=== PATIENT | male | born 1940 | race Caucasian/White ===

== ENCOUNTER 2021-01-02 13:34 | Outpatient (REF) | payer MEDICARE, MEDICAID, SELFPAY ==
[2021-01-02 14:15] LABS: MANUAL DIFF FLAG NO
[2021-01-02 14:17] LABS: Basophils Percent Auto 0.3 % (0-2); Eosinophils Absolute Auto 0.2 X10*3/uL (0.0-0.4); Eosinophils Percent Auto 3.1 % (0-4); Hematocrit 39.2 % (42-52); Hemoglobin 12.7 g/dl (14.0-18.0); Imm Gran Abs Auto 0.03 X10*3/uL (0.00-0.03); Imm Gran Pct Auto 0.4 % (0.0-0.4); Lymphocytes Absolute Auto 1.8 X10*3/uL (1.2-4.9); Lymphocytes Percent Auto 24.2 % (20-40); Mean Corpuscular HGB Conc 32.4 g/dl (31.0-36.0); Mean Corpuscular Hemoglobin 29.3 pg (27.0-33.0); Mean Corpuscular Volume 90.3 fL (80-98); Mean Platelet Volume 9.2 fL (9.4-12.4); Monocytes Absolute Auto 0.6 X10*3/uL (0.1-1.2); Monocytes Percent Auto 8.2 % (2-11); Neutrophils Absolute Auto 4.8 X10*3/uL (2.0-8.3); Neutrophils Percent Auto 63.8 % (45-73); Platelet Count 254 X10*3/uL (160-400); Red Blood Count 4.34 X10*6/uL (4.60-5.80); Red Cell Distribution Width 13.3 % (11.0-16.0); White Blood Count 7.5 X10*3/uL (4.8-10.8)
[2021-01-02 14:28] LABS: Glucose Urine UA NEG (NEG); Leukocyte Esterase Urine NEG (NEG); Nitrite Urine NEG (NEG); PH 5.5 (5.0-8.0); Urine Blood NEG (NEG); Urine Ketones NEG (NEG); Urine Protein NEG (NEG-TRACE)
[2021-01-02 14:34] LABS: Appearance Urine CLEAR; Color Urine YELLOW
[2021-01-02 14:44] LABS: Alanine Aminotransferase 18 U/L (0-40); Albumin Level 4.1 g/dL (3.5-5.0); Alkaline Phosphatase 77 U/L (39-117); Anion Gap 15 (12-20); Aspartate Amino Transferase 16 U/L (5-37); Bilirubin Total 0.3 mg/dL (0.0-1.0); Blood Urea Nitrogen 26 mg/dL (9-16); Calcium 8.9 mg/dL (8.4-10.2); Carbon Dioxide 25 mmol/L (22-29); Chloride 104 mmol/L (96-108); Cholesterol 228 mg/dL; Estimated Glomerular Filt Rate 54; Glucose Fasting 153 mg/dL (60-99); HDL Cholesterol 31 mg/dL; Potassium 4.7 mmol/L (3.3-5.1); Sodium 139 mmol/L (135-145); Total Protein 7.2 g/dL (6.5-8.0); Triglycerides 452 mg/dL
[2021-01-02 15:05] LABS: TSH reflex Free T4 2.91 uIU/mL (0.32-4.0)
== END 2021-01-02 13:35 | disposition home or self-care (01) ==
LOC: HO.LAB 13:34
PROVIDERS: PCP Internal Medicine; Visit Provider Internal Medicine
DX: I12.9 Hypertensive chronic kidney disease with stage 1 through stage 4 chronic kidney disease, or unspecified chronic kidney disease (principal); N18.31 Chronic kidney disease, stage 3a; E78.00 Pure hypercholesterolemia, unspecified; E66.9 Obesity, unspecified; J44.9 Chronic obstructive pulmonary disease, unspecified
CPT/HCPCS: 36415; 80053; 80061; 81003; 84443; 85025

== ENCOUNTER 2021-09-24 10:14 | Emergency (ER) | payer MEDICARE, MEDICAID, SELFPAY ==
--- NOTE | ~2021-09-24 | CT_ITS ---
EXAMINATION: CT ABDOMEN AND PELVIS WITHOUT CONTRAST CLINICAL INFORMATION: Constipation. Rule out small bowel obstruction. COMPARISON: KUB of September 24, [address] of the abdomen and pelvis of August 02, 2009 TECHNIQUE: Multidetector volumetric imaging was performed from the superior aspect of the liver through the pubic symphysis. Sagittal and coronal reformatted images were obtained on the technologist's workstation. This CT examination was performed using dose optimization techniques as appropriate, variously including the following: *Automated exposure control *Adjustment of mA and/or kV according to patient size (this includes techniques or standardized protocols for targeted exams where dose is matched to indication/reason for exam; i.e. extremities or head) *Use of iterative reconstruction technique DLP: 865 mGy-cm FINDINGS: LUNG BASES: There are emphysematous changes seen. The lung bases bilaterally. There is some bronchial wall thickening present. There is a small focus of groundglass opacity seen in the left lower lobe. There is a 4 mm noncalcified subpleural nodule seen within the left lower lobe on image 135 of [id number]. No pleural or pericardial effusion. Coronary artery and aortic valve calcification present. LIVER, GALLBLADDER, AND BILIARY TREE: Bridging segments 6 and 7 of the liver peripherally there is a well-circumscribed hyperdense lesion measuring 4.4 x 2.5 cm in size which may have been present previously from similar contour on study of August 02, 2009 however no definite increased density lesion is seen on that study and is difficult to determine if any lesion was present at that time. No intrahepatic bile duct dilatation is identified. The gallbladder is unremarkable with no evidence of radiopaque gallstones, gallbladder wall thickening, or obvious pericholecystic inflammatory changes. PANCREAS: There is some fatty involution of the pancreas seen. No focal mass or peripancreatic inflammatory changes noted. SPLEEN: Unremarkable. ADRENAL GLANDS: Unremarkable. KIDNEYS AND URETERS: The kidneys are normal in size, shape, and attenuation. There are a few right renal cysts present. No hydronephrosis, hydroureter, or calculi seen. There is bilateral perinephric stranding. 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 There is multilevel degenerative disc disease seen within the lumbar spine. BLADDER: Bladder wall is thickened without focal mass appreciated. GASTROINTESTINAL TRACT: No dilated loops of large or small bowel are evident. No free air or free fluid is seen. There is mild diverticulosis of the sigmoid colon without evidence of acute diverticulitis. No pericolonic inflammatory change. The appendix is visualized and appears unremarkable. There is moderate stool burden within the distal transverse and left colon with no significant stool noted within the right colon and proximal transverse colon. ABDOMINAL WALL: No significant hernia is appreciated. LYMPH NODES: No lymphadenopathy appreciated. VASCULAR: There is moderate aortoiliac calcified plaque seen. No abdominal aortic aneurysm. PELVIC VISCERA: Prostatic calcifications present. OSSEOUS STRUCTURES: No suspicious destructive bony lesions identified. Hemangioma is seen right side of the T10 vertebral body. CT/CT abdomen pelvis wo con IMPRESSION: No evidence of ileus or obstruction. No evidence of obstructive uropathy. Thick-walled urinary bladder. Hepatic lesion in segments 6 and 7 of increased density for which MRI would be of help in further evaluation as to whether this may represent hemangioma or solid lesion of other etiology.
--- NOTE | ~2021-09-24 | XR_ITS ---
EXAMINATION: XR ABDOMEN KUB CLINICAL INDICATION: Unable to move bowels 4 days. Question constipation. COMPARISON: CT abdomen of August 02, 2009 TECHNIQUE: AP view of the abdomen. FINDINGS: There is a single gaseous distended loop of bowel within the mid abdomen measuring approximately 8 cm in maximum dimension but which appears to represent a portion of transverse colon. There is a large amount of stool seen within the distal transverse and descending colon with no significant stool burden seen within the right colon or proximal transverse colon. No definite secondary evidence of free air. No dilated loops of small bowel are appreciated. No pneumatosis intestinalis. There is multilevel degenerative disc disease seen within the lumbar spine L2-S1. XR/XR KUB IMPRESSION: Large stool burden within the distal transverse and left colon. No significant stool burden seen within the right colon and proximal transverse colon. Mild gaseous distention portion of transverse colon just proximal to large amount of stool.
[2021-09-24 10:48] VITALS: BP 100/58; PULSE 78; RESP 18; TEMP 36.8; O2SAT 98; BMI 33.9
--- NOTE | 2021-09-24 13:41 | ED_ITS ---
HPI - General Adult General Chief complaint: General Medical Stated complaint: constipation Time Seen by Provider: 09/24/21 10:54 Source: patient Mode of arrival: ambulatory History of Present Illness HPI narrative: 81-year-old male with a past medical history of anxiety, HTN, CKD, COPD, fatigue, hyperlipidemia, presenting to the ED complaining of constipation without BM x4 days with abdominal bloating/pain. Admits is passing flatus. Denies fever, chills, nausea/vomiting, diarrhea, dysuria/hematuria. Admits was having diarrhea and took Imodium prior to symptoms beginning Onset (ago): day(s) Related Data Home Medications Medication Instructions Recorded Confirmed duloxetine 30 mg capsule,delayed 30 mg PO BID 08/23/20 04/22/21 release ipratropium 20 mcg-albuterol 100 1 puff INHALATION QID 08/23/20 04/22/21 mcg/actuation mist for inhalation budesonide-formoterol HFA 160 2 puff PO BID 10/25/20 04/22/21 mcg-4.5 mcg/actuation aerosol inhaler Previous Rx's Medication Instructions Recorded albuterol sulfate 90 mcg/actuation 2 puff PO QID PRN #6.7 g 11/10/20 aerosol inhaler (Ventolin HFA) rosuvastatin 10 mg tablet 10 mg PO BEDTIME 30 Days #30 tab 01/02/21 gabapentin 800 mg tablet 800 mg PO TID 30 Days #90 tab 03/10/21 losartan 100 mg tablet 100 mg PO DAILY 30 Days #30 tab 03/10/21 furosemide 40 mg tablet 40 mg PO DAILY #90 tab 08/14/21 oxycodone 15 mg tablet 15 mg PO BID PRN 30 Days #60 tab 08/19/21 trazodone 150 mg tablet 150 mg PO BEDTIME PRN 30 Days #30 08/28/21 tab amlodipine 5 mg tablet 5 mg PO DAILY #90 tab 08/29/21 mineral oil (Fleet Mineral Oil) 118 ml [place] DAILY PRN #6384 ml 09/24/21 polyethylene glycol 3350 17 gram 17 g PO DAILY PRN #30 ea 09/24/21 oral powder packet (Miralax) Allergies Allergy/AdvReac Type Severity Reaction Status Date / Time morphine AdvReac Severe respiratory Verified 04/22/21 16:28 depression/failure Review of Systems Review of Systems: Constitutional: No Fever, No Chills, No Fatigue, No Malaise ENT/Mouth: No Nasal Congestion, No sore throat Eyes: No Eye Pain, No Swelling, No Redness Cardiovascular: No Chest Pain, No SOB, No Edema, No Palpitations Respiratory: No Cough, No Dyspnea Gastrointestinal: No Nausea, No Vomiting, + Diarrhea (resolved), + Constipation, + Abdominal pain, No Hematochezia, No Melena Genitourinary: No irregular bleeding, No Dysuria, No Urinary Frequency, No Hematuria, No Flank Pain, No Urinary Flow Changes, No Hesitancy Musculoskeletal: No joint pain, No Myalgias, No Joint Swelling Skin: No Skin Lesions, No rash Neuro: No Weakness, No Numbness, No Dizziness, No Headache Yes all other systems are reviewed and are negative [facility] Past Medical History Attestation statement: The following information was validated with the patient. Medical History (Updated 09/24/21 @ 14:35 by ALEJANDRA Stevens) Anxiety Benign essential hypertension Chronic kidney disease (CKD), stage III (moderate) COPD (chronic obstructive pulmonary disease) COPD exacerbation Degenerative disc disease, cervical Erectile dysfunction Fatigue Hyperlipidemia Hypertension Insomnia Lumbar degenerative disc disease Obesity (BMI 30-39.9) Primary osteoarthritis of both knees Pure hypercholesterolemia Surgical History (Updated 04/22/21 @ 16:41 by LU Yu) History of glaucoma History of trabeculectomy Hx of total knee arthroplasty Family History Family History Father Cancer Mother No problems noted. Social History Social History Alcohol intake: current Alcohol intake frequency: holidays/special occasions only Alcohol type: beer Patient Tobacco Use Status: Former Tobacco user Tobacco use type: Cigar Years Smoked: 30 years Advance Directives: No Physical Exam Vital Signs: Vital Signs: Last Vital Signs Temp 98.2 F 09/24/21 10:48 Pulse 78 09/24/21 10:48 Resp 18 09/24/21 10:48 BP 100/58 L 09/24/21 10:48 Pulse Ox 98 09/24/21 10:48 Body Mass Index 33.9 Const: General: cooperative, healthy appearing and no acute distress Orientation/consciousness: patient oriented x3 Limitations: no limitations HENMT: Head: Yes normal to inspection Ears: hearing grossly normal bilaterally General nose exam: Normal external nose present Face and sinus: Yes normal facial exam Eyes: General: appearance normal, both eyes and all related structures EOM: EOMs intact bilaterally Neck: Neck: Yes normal visual inspection and Yes no meningeal signs Resp: Effort & Inspection: normal respiratory effort Auscultation: clear to auscultation bilaterally, no rales, no rhonchi and no wheezes Cardio: Rate: regular rate Heart sounds: S1 normal heart sound present and S2 normal heart sound present GI: Inspection: Yes normal to inspection Palpation (GI): Soft to palpation, Tenderness to palpation present (GI) (Lower abdominal tenderness), no guarding and not rigid : General: Yes no CVA tenderness Back/Spine/Pelvis: Back: no CVA tenderness Skin: Rashes: no rashes Wounds: no wounds Neuro: General: patient oriented x3 and no meningeal signs Gait exam (Neuro): Normal gait present Extrem: General: Yes normal to inspection Course Course Course Narrative: XR KUB IMPRESSION: Large stool burden within the distal transverse and left colon. No significant stool burden seen within the right colon and proximal transverse colon. Mild gaseous distention portion of transverse colon just proximal to large amount of stool. ? > will obtain CT for better evaluation CT abdomen pelvis wo con IMPRESSION: No evidence of ileus or obstruction. No evidence of obstructive uropathy. Thick-walled urinary bladder. Hepatic lesion in segments 6 and 7 of increased density for which MRI would be of help in further evaluation as to whether this may represent hemangioma or solid lesion of other etiology.? > patient had successful large BM in the ED, reports symptomatic improvement, denies abdominal pain at this time. Abdomen is soft and nontender. Labs discontinued, as patient is now asymptomatic, unlikely appendicitis/diverticulitis. Will still send UA to rule out UTI based on CT results -UA negative. Results discussed with patient including worrisome signs and symptoms and strict return precautions and needed follow-up with PCP, & further workup of hepatic lesions. Patient verbalized understanding feel safe for discharge home at this time Medical Decision Making MDM Narrative Medical decision making narrative: 81-year-old male with a past medical history of anxiety, HTN, CKD, COPD, fatigue, hyperlipidemia, presenting to the ED complaining of constipation without BM x4 days with abdominal bloating/pain. On exam vital signs stable, NAD/nontoxic, abdomen soft with lower abdominal tenderness, no rebound or guarding, no CVAT. Concern for constipation vs SBO vs ?Diverticulitis/appendicitis. Lower concern for renal stone/pyelo or UTI Plan: KUB, labs, UA, +/- CT Lab Data Labs: Lab Results 09/24/21 Range/Units 14:02 Urine Color STRAW Urine Appearance HAZY Urine pH 6.5 (5.0-8.0) Ur Specific Holliday 1.010 (1.005-1.025) Urine Protein NEG (NEG-TRACE) MG/DL Urine Glucose (UA) NEG (NEG) MG/DL Urine Ketones NEG (NEG) MG/DL Urine Blood NEG (NEG) Urine Nitrite NEG (NEG) Ur Leukocyte Esterase NEG (NEG) Discharge Plan Discharge Clinical Impression: Constipation, Hepatic lesion Patient Disposition: Home, Self-Care Instructions: Constipation (ED) Additional Instructions: Your CT scan showed a lot of stool/constipation however no obstruction Use enema at home as needed Use MiraLax visual help move her bowels If you are not passing stool in the next 48 hours, stop passing gas, have persistent worsening abdominal pain, developed nausea/vomiting or fever please return to the ED Your CT scan showed some liver lesions, it is important to follow-up with your primary care doctor pertaining to these results, it is recommended you have an MRI for further evaluation Prescriptions: New mineral oil [Fleet Mineral Oil] Enema 118 ml [place] DAILY PRN (Reason: constipation) Qty: 6384 RF: 0 polyethylene glycol 3350 [Miralax] 17 gram powder in packet 17 g PO DAILY PRN (Reason: constipation) Qty: 30 RF: 0 No Action albuterol sulfate [Ventolin HFA] 90 mcg/actuation HFA aerosol inhaler 2 puff PO QID PRN (Reason: bronchospasm) Qty: 6.7 RF: 5 gabapentin 800 mg tablet 800 mg PO TID 30 Days Qty: 90 RF: 2 losartan 100 mg tablet 100 mg PO DAILY 30 Days Qty: 30 RF: 3 furosemide 40 mg tablet 40 mg PO DAILY Qty: 90 RF: 1 oxycodone 15 mg tablet 15 mg PO BID PRN (Reason: severe pain) 30 Days Qty: 60 RF: 0 trazodone 150 mg tablet 150 mg PO BEDTIME PRN (Reason: for insomnia) 30 Days Qty: 30 RF: 2 amlodipine 5 mg tablet 5 mg PO DAILY Qty: 90 RF: 1 rosuvastatin 10 mg tablet 10 mg PO BEDTIME 30 Days Qty: 30 RF: 3 Combivent Respimat 20-100 mcg/actuation mist 1 puff inhalation QID RF: 0 duloxetine 30 mg capsule,delayed release(DR/EC) 30 mg PO BID RF: 0 budesonide-formoterol 160-4.5 mcg/actuation HFA aerosol inhaler 2 puff PO BID RF: 0 Referrals: Kody Sheth MD [Primary Care Provider] - 2 days
[2021-09-24 14:10] LABS: Appearance Urine HAZY; Color Urine STRAW; Glucose Urine UA NEG (NEG); Leukocyte Esterase Urine NEG (NEG); Nitrite Urine NEG (NEG); PH 6.5 (5.0-8.0); Urine Blood NEG (NEG); Urine Ketones NEG (NEG); Urine Protein NEG (NEG-TRACE)
== END 2021-09-24 15:01 | disposition home or self-care (01) ==
PROVIDERS: Physician Assistant; Emergency Provider Emergency Medicine; PCP Internal Medicine
DX: K59.00 Constipation, unspecified (principal); K76.9 Liver disease, unspecified; I12.9 Hypertensive chronic kidney disease with stage 1 through stage 4 chronic kidney disease, or unspecified chronic kidney disease; N18.30 Chronic kidney disease, stage 3 unspecified; J44.9 Chronic obstructive pulmonary disease, unspecified
CPT/HCPCS: 74018; 74176; 81003; 96360; 99283; 99284

== ENCOUNTER 2021-10-24 16:20 | Outpatient (REF) | payer MEDICARE, MEDICAID, SELFPAY ==
[2021-10-24 16:43] LABS: MANUAL DIFF FLAG NO
[2021-10-24 17:13] LABS: Basophils Percent Auto 0.3 % (0-2); Eosinophils Absolute Auto 0.3 X10*3/uL (0.0-0.4); Eosinophils Percent Auto 2.9 % (0-4); Hemoglobin 12.3 g/dl (14.0-18.0); Imm Gran Abs Auto 0.05 X10*3/uL (0.00-0.03); Imm Gran Pct Auto 0.5 % (0.0-0.4); Lymphocytes Absolute Auto 1.8 X10*3/uL (1.2-4.9); Lymphocytes Percent Auto 19.8 % (20-40); Mean Corpuscular HGB Conc 32.4 g/dl (31.0-36.0); Mean Corpuscular Hemoglobin 29.4 pg (27.0-33.0); Mean Corpuscular Volume 90.9 fL (80.0-98.0); Mean Platelet Volume 9.7 fL (9.4-12.4); Monocytes Absolute Auto 0.7 X10*3/uL (0.1-1.2); Monocytes Percent Auto 7.3 % (2-11); Neutrophils Absolute Auto 6.4 x10*3/uL (2.0-8.3); Neutrophils Percent Auto 69.2 % (45-73); Platelet Count 248 X10*3/uL (160-400); Red Blood Count 4.18 X10*6/uL (4.60-5.80); Red Cell Distribution Width 12.7 % (11.0-16.0); White Blood Count 9.3 X10*3/uL (4.8-10.8)
[2021-10-24 17:20] LABS: Appearance Urine CLEAR; Color Urine STRAW; Glucose Urine UA NEG (NEG); Leukocyte Esterase Urine NEG (NEG); Nitrite Urine NEG (NEG); PH 5.5 (5.0-8.0); Specific Gravity - Urine <= 1.005 (1.005-1.025); Urine Blood NEG (NEG); Urine Ketones NEG (NEG); Urine Protein NEG (NEG-TRACE)
[2021-10-24 17:40] LABS: Alanine Aminotransferase 23 U/L (0-40); Alkaline Phosphatase 86 U/L (39-117); Anion Gap 14 (12-20); Aspartate Amino Transferase 18 U/L (5-37); Bilirubin Total 0.3 mg/dL (0.0-1.0); Blood Urea Nitrogen 18 mg/dL (9-16); Calcium 9.6 mg/dL (8.4-10.2); Carbon Dioxide 26 mmol/L (22-29); Chloride 104 mmol/L (96-108); Cholesterol 159 mg/dL; Estimated Glomerular Filt Rate > 60; Glucose Fasting 198 mg/dL (60-99); HDL Cholesterol 39 mg/dL; Iron 57 mcg/dL (45-160); LDL Cholesterol Calculated 55 mg/dl; Percent Iron Saturation 18 % (15-50); Potassium 4.7 mmol/L (3.3-5.1); Sodium 139 mmol/L (135-145); Total Iron Binding Capacity 320 mcg/dL (228-428); Total Protein 7.1 g/dL (6.5-8.0); Triglycerides 325 mg/dL; Unsaturated Iron Binding 263 ug/dL
[2021-10-24 18:03] LABS: Vitamin D 25-OH Total 25.5 ng/mL (>30)
[2021-10-24 18:16] LABS: Folate 7.7 ng/mL (> or = 4.0); Vitamin B12 221 pg/mL (200-900)
[2021-10-29 14:51] LABS: Testosterone, Free 47.4 pg/mL (30.0-135.0); Testosterone, Total 274 ng/dL (250-1100)
== END 2021-10-24 16:21 | disposition home or self-care (01) ==
LOC: HO.LAB 16:20
PROVIDERS: PCP Internal Medicine; Visit Provider Internal Medicine
DX: R53.83 Other fatigue (principal); I10 Essential (primary) hypertension; E34.9 Endocrine disorder, unspecified; E78.00 Pure hypercholesterolemia, unspecified
CPT/HCPCS: 36415; 80053; 80061; 81003; 82306; 82607; 82746; 83540; 84402; 84403; 84443; 85025

== ENCOUNTER 2021-12-06 14:05 | Outpatient (REF) | payer MEDICARE, MEDICAID, SELFPAY ==
--- NOTE | ~2021-12-06 | XR_ITS ---
EXAMINATION: XR CHEST CLINICAL INFORMATION: Cough COMPARISON: Multiple previous chest x-rays with the last chest x-ray dated 01/26/2020 TECHNIQUE: 2 views of the chest were obtained. FINDINGS: The cardiomediastinal silhouette is stable and normal. The lungs are symmetrically well expanded. No focal consolidation, changes of congestion or pleural effusions. No pneumothorax. Multilevel mild degenerative changes in the spine. XR/XR chest 2V IMPRESSION: No convincing radiographic evidence of pneumonia. No acute pulmonary process.
[2021-12-06 14:21] LABS: Binax Internal Control QC Valid; Binax Now Covid-19 Ag Positive (Negative)
== END 2021-12-06 14:06 | disposition home or self-care (01) ==
LOC: HO.HMGCX 14:05
PROVIDERS: Visit Provider Physician Assistant Medical
DX: Z20.822 Contact with and (suspected) exposure to COVID-19 (principal); R05.9 Cough, unspecified
CPT/HCPCS: 71046

== ENCOUNTER 2021-12-10 18:43 | Emergency (ER) | payer MEDICARE, MEDICAID, SELFPAY ==
--- NOTE | ~2021-12-10 | XR_ITS ---
EXAMINATION: PORTABLE CHEST 1 VIEW CLINICAL INFORMATION: covid + cough . COMPARISON: 12/06/2021. TECHNIQUE: Portable frontal view of the chest was obtained. FINDINGS: The lungs are hyperinflated with mild chronic appearing reticular markings. No focal infiltrate, effusion, edema, or pneumothorax. Cardiac and mediastinal silhouettes are within normal limits for technique. No acute bony abnormality seen. XR/XR chest 1V IMPRESSION: No evidence of acute disease compared to 12/06/2021.
[2021-12-10 20:58] VITALS: BP 108/78; PULSE 87; RESP 18; TEMP 36; O2SAT 96; BMI 30.1
[2021-12-10 22:38] VITALS: BP 110/70; PULSE 70; RESP 14; TEMP 36.9; O2SAT 97
[2021-12-10 22:51] LABS: MANUAL DIFF FLAG NO
[2021-12-10 22:53] LABS: Basophils Percent Auto 0.2 % (0-2); Eosinophils Percent Auto 0.8 % (0-4); Hemoglobin 13.5 g/dl (14.0-18.0); Imm Gran Abs Auto 0.01 X10*3/uL (0.00-0.03); Imm Gran Pct Auto 0.2 % (0.0-0.4); Lymphocytes Absolute Auto 1.3 X10*3/uL (1.2-4.9); Lymphocytes Percent Auto 27.2 % (20-40); Mean Corpuscular HGB Conc 33.8 g/dl (31.0-36.0); Mean Corpuscular Hemoglobin 30.1 pg (27.0-33.0); Mean Corpuscular Volume 89.3 fL (80.0-98.0); Mean Platelet Volume 9.3 fL (9.4-12.4); Monocytes Absolute Auto 0.5 X10*3/uL (0.1-1.2); Monocytes Percent Auto 9.7 % (2-11); Neutrophils Absolute Auto 3.1 x10*3/uL (2.0-8.3); Neutrophils Percent Auto 61.9 % (45-73); Platelet Count 212 X10*3/uL (160-400); Red Blood Count 4.48 X10*6/uL (4.60-5.80); Red Cell Distribution Width 13.2 % (11.0-16.0); White Blood Count 4.9 X10*3/uL (4.8-10.8)
--- NOTE | 2021-12-10 23:01 | ED.WEAKNESS ---
HPI - Weakness General Chief complaint: Weakness Stated complaint: covid +, coughing up blood Time Seen by Provider: 12/10/21 21:16 Source: patient Mode of arrival: ambulatory History of Present Illness HPI Narrative: 81-year-old male with past medical history of anxiety, HTN, CKD, COPD, insomnia, obesity, hyperlipidemia, COVID-19 positive yesterday at the clinic, presenting to the ED complaining of persistent generalized fatigue/ weakness, subjective fever, chills, productive cough, mild SOB, and diarrhea x1 week. Reports tried to see PCP however was sent to the emergency department. Denies chest pain, abdominal pain, nausea/ vomiting, recent travel MD Complaint: generalized weakness Onset (ago): day(s) Related Data Home Medications Medication Instructions Recorded Confirmed budesonide-formoterol HFA 160 2 puff PO BID 10/25/20 11/12/21 mcg-4.5 mcg/actuation aerosol inhaler Previous Rx's Medication Instructions Recorded albuterol sulfate 90 mcg/actuation 2 puff PO QID PRN #6.7 g 11/10/20 aerosol inhaler (Ventolin HFA) furosemide 40 mg tablet 40 mg PO DAILY #90 tab 08/14/21 mineral oil (Fleet Mineral Oil) 118 ml SC DAILY PRN #6384 ml 09/24/21 amlodipine 5 mg tablet 5 mg PO DAILY #90 tab 09/26/21 gabapentin 800 mg tablet 800 mg PO TID 30 Days #90 tab 09/26/21 losartan 100 mg tablet 100 mg PO DAILY #90 tab 10/24/21 tizanidine 4 mg tablet 4 mg PO BEDTIME PRN 30 Days #90 tab 10/24/21 Combivent Respimat 20 mcg-100 1 puff INHALATION QID #4 g NS 11/05/21 mcg/actuation solution for inhalation (ipratropium-albuterol) rosuvastatin 10 mg tablet 10 mg PO BEDTIME 30 Days #30 tab 11/12/21 trazodone 150 mg tablet 150 mg PO BEDTIME PRN 30 Days #30 11/12/21 tab hydroxyzine HCl 25 mg tablet 25 mg PO TID PRN 30 Days #90 tab 12/08/21 oxycodone 15 mg tablet 15 mg PO BID PRN 30 Days #60 tab 12/10/21 Allergies Allergy/AdvReac Type Severity Reaction Status Date / Time morphine AdvReac Severe respiratory Verified 12/10/21 22:39 depression/failure Review of Systems Review of Systems: Constitutional: +Subj Fever, + Chills, + Fatigue, + Malaise ENT/Mouth: No Ear Pain, No Nasal Congestion, No Sinus Pain, No Hoarseness, No sore throat, No Rhinorrhea Eyes: No Eye Pain, No Swelling, No Redness Cardiovascular: No Chest Pain, No SOB, No Dyspnea on Exertion, No Orthopnea, No Edema, No Palpitations Respiratory: + Cough, + Sputum, No Wheezing, No Dyspnea Gastrointestinal: No Nausea, No Vomiting, + Diarrhea, No Constipation, No Abdominal pain Genitourinary: No Dysuria, No Hematuria, No Urgency, No Flank Pain Musculoskeletal: No joint pain, No Myalgias, No Joint Swelling Skin: No Skin Lesions, No rash Neuro: + Weakness, No Dizziness, No Headache Yes all other systems are reviewed and are negative PMFSH Past Medical History Attestation statement: The following information was validated with the patient. Medical History Anxiety Benign essential hypertension Chronic kidney disease (CKD), stage III (moderate) COPD (chronic obstructive pulmonary disease) Degenerative disc disease, cervical Erectile dysfunction Insomnia Lumbar degenerative disc disease Obesity (BMI 30-39.9) Primary osteoarthritis of both knees Pure hypercholesterolemia Surgical History History of glaucoma History of trabeculectomy Hx of total knee arthroplasty Family History Family History Father Cancer Mother No problems noted. Social History Social History Housing: House Alcohol intake: current Alcohol intake frequency: holidays/special occasions only Alcohol type: beer Patient Tobacco Use Status: Former Tobacco user Tobacco use type: Cigar Years Smoked: 30 years Second Hand Smoke Exposure: Yes Advance Directives: No Advance Directives Information Provided: No service: No Current occupational status: retired Physical Exam Vital Signs: Vital Signs: Last Vital Signs Temp 98.0 F 12/10/21 23:48 Pulse 77 12/10/21 23:48 Resp 24 H 12/10/21 23:48 BP 128/83 12/10/21 23:48 Pulse Ox 99 12/10/21 23:48 BMI result Body Mass Index 30.1 Const: General: cooperative, healthy appearing, no acute distress, alert and awake Orientation/consciousness: patient oriented x3 Limitations: no limitations HENMT: Head: Yes normal to inspection and Yes atraumatic Ears: hearing grossly normal bilaterally General nose exam: Normal external nose present Face and sinus: Yes normal facial exam Eyes: General: appearance normal, both eyes and all related structures EOM: EOMs intact bilaterally Neck: Neck: Yes normal visual inspection and Yes no meningeal signs Resp: Effort & Inspection: normal respiratory effort and no respiratory distress Auscultation: clear to auscultation bilaterally, no rales, no rhonchi and no wheezes Cardio: Rate: regular rate Heart sounds: S1 normal heart sound present and S2 normal heart sound present GI: Inspection: Yes normal to inspection Palpation (GI): Soft to palpation, nontender, no guarding and not rigid Skin: Rashes: no rashes Wounds: no wounds Neuro: General: patient oriented x3, gait normal, tone normal, moves all extremities and no meningeal signs Gait exam (Neuro): Normal gait present Extrem: Other: 1+ bilateral lower extremity pitting edema General: Yes normal to inspection Course Course Course Narrative: -2208-- no leukocytosis. H&H stable. -COVID-19 positive XR chest 1V IMPRESSION: No evidence of acute disease compared to 12/06/2021. - troponin 7.6 > will obtain repeat -0107-- repeat troponin equivocal, CT unlikely. Results discussed with patient including worrisome signs and symptoms and strict return precautions & close follow-up with PCP as needed MDM - Weakness MDM Narrative Medical decision making narrative: 81-year-old male with past medical history of anxiety, HTN, CKD, COPD, insomnia, obesity, hyperlipidemia, COVID-19 positive yesterday at the clinic, presenting to the ED complaining of persistent generalized fatigue/ weakness, subjective fever, chills, productive cough, mild SOB, and diarrhea x1 week. On exam VSS, NAD, nontoxic appearing, lungs CTA, 1+ bilateral pitting edema, abdomen soft nontender. Concern for symptoms consistent with COVID-19 infection. Rule out COVID pneumonia and CHF. Symptoms atypical for ACS/ PE or bacterial infection Plan: EKG, labs, CXR Medical Records Attestation: I reviewed the patient's medical records. Lab Data Attestation: I reviewed the patient's lab results. Result diagrams: 12/10/21 22:34 12/10/21 23:06 Labs: Lab Results 12/10/21 12/10/21 12/10/21 Range/Units 22:28 22:34 22:34 WBC 4.9 (4.8-10.8) X10*3/uL RBC 4.48 L (4.60-5.80) X10*6/uL Hgb 13.5 L (14.0-18.0) g/dl Hct 40.0 L (42.0-52.0) % MCV 89.3 (80.0-98.0) fL MCH 30.1 (27.0-33.0) pg MCHC 33.8 (31.0-36.0) g/dl RDW 13.2 (11.0-16.0) % Plt Count 212 (160-400) X10*3/uL MPV 9.3 L (9.4-12.4) fL Immature Gran % (Auto) 0.2 (0.0-0.4) % Neut % (Auto) 61.9 (45-73) % Lymph % (Auto) 27.2 (20-40) % [place] % (Auto) 9.7 (2-11) % Eos % (Auto) 0.8 (0-4) % Baso % (Auto) 0.2 (0-2) % Lymph # (Auto) 1.3 (1.2-4.9) X10*3/uL [place] # (Auto) 0.5 (0.1-1.2) X10*3/uL Eos # (Auto) 0.0 (0.0-0.4) X10*3/uL Baso # (Auto) 0.0 (0.0-0.2) X10*3/uL Abs Immat Gran (auto) 0.01 (0.00-0.03) X10*3/uL Absolute Neuts (auto) 3.1 (2.0-8.3) x10*3/uL Absolute Nucleated RBC 0.000 (0.0-0.012) X10*3/uL Nucleated RBC % (auto) 0.0 (0.0-0.2) /100WBC Sodium (135-145) mmol/L Potassium (3.3-5.1) mmol/L Chloride (96-108) mmol/L Carbon Dioxide (22-29) mmol/L Anion Gap (12-20) BUN (9-16) mg/dL Creatinine (0.5-1.4) mg/dL Estim Creat Clear Calc Estimated GFR Random Glucose (60-115) mg/dL Calcium (8.4-10.2) mg/dL Magnesium (1.6-2.6) mg/dL Total Bilirubin (0.0-1.0) mg/dL Direct Bilirubin (0.0-0.5) mg/dL AST (5-37) U/L ALT (0-40) U/L Alkaline Phosphatase (39-117) U/L Troponin I High Sens 7.6 (<3.5-35.0) ng/L B-Natriuretic Peptide 37 (<100) pg/mL Total Protein (6.5-8.0) g/dL Albumin (3.5-5.0) g/dL COVID-19 ([facility]) Positive A (Negative) COVID-19 Clin Com See Note 12/10/21 12/11/21 Range/Units 23:06 00:36 WBC (4.8-10.8) X10*3/uL RBC (4.60-5.80) X10*6/uL Hgb (14.0-18.0) g/dl Hct (42.0-52.0) % MCV (80.0-98.0) fL MCH (27.0-33.0) pg MCHC (31.0-36.0) g/dl RDW (11.0-16.0) % Plt Count (160-400) X10*3/uL MPV (9.4-12.4) fL Immature Gran % (Auto) (0.0-0.4) % Neut % (Auto) (45-73) % Lymph % (Auto) (20-40) % [place] % (Auto) (2-11) % Eos % (Auto) (0-4) % Baso % (Auto) (0-2) % Lymph # (Auto) (1.2-4.9) X10*3/uL [place] # (Auto) (0.1-1.2) X10*3/uL Eos # (Auto) (0.0-0.4) X10*3/uL Baso # (Auto) (0.0-0.2) X10*3/uL Abs Immat Gran (auto) (0.00-0.03) X10*3/uL Absolute Neuts (auto) (2.0-8.3) x10*3/uL Absolute Nucleated RBC (0.0-0.012) X10*3/uL Nucleated RBC % (auto) (0.0-0.2) /100WBC Sodium 139 (135-145) mmol/L Potassium 4.3 (3.3-5.1) mmol/L Chloride 106 (96-108) mmol/L Carbon Dioxide 23 (22-29) mmol/L Anion Gap 14 (12-20) BUN 20 H (9-16) mg/dL Creatinine 1.27 (0.5-1.4) mg/dL Estim Creat Clear Calc 51.9 Estimated GFR 54 Random Glucose 104 (60-115) mg/dL Calcium 8.5 D (8.4-10.2) mg/dL Magnesium 2.0 (1.6-2.6) mg/dL Total Bilirubin 0.3 (0.0-1.0) mg/dL Direct Bilirubin < 0.2 (0.0-0.5) mg/dL AST 29 D (5-37) U/L ALT 26 (0-40) U/L Alkaline Phosphatase 80 (39-117) U/L Troponin I High Sens 7.1 (<3.5-35.0) ng/L B-Natriuretic Peptide (<100) pg/mL Total Protein 6.8 (6.5-8.0) g/dL Albumin 3.6 (3.5-5.0) g/dL COVID-19 ([facility]) (Negative) COVID-19 Clin Com Discharge Plan Discharge Clinical Impression: COVID-19 Instructions: COVID-19 (Coronavirus Disease 2019) (ED) Additional Instructions: At this time you will be okay for discharge. Please self isolate for 10-14 days. Do not expose yourself to others. You may not go to work or school. Please continue to follow cold instructions and wash your hands frequently. You may take Tylenol / Motrin as directed on the bottle for pain or fever. If you have constant or persistent shortness of breath, fever unresolved with medications, chest pain, or your unable to eat or drink please return to the ED CDC Guidelines for home isolation: - Stay away from others - WEAR A MASK if you are sick AND STAY HOME - Cover your mouth and nose with a tissue when you cough or sneeze. Dispose of tissues in a lined trash can and wash your hands immediately with soap and water for at least 20 seconds. If soap and water are not available, clean hands with alcohol-based hand digital printer that contains at least 60% alcohol. - Clean your hands often with soap and water for at least 20 seconds - Avoid touching your eyes, nose and mouth with unwashed hands - Do not share dishes, drinking glasses, cups, eating utensils, towels, or bedding with other people in your home. After using these items, wash them thoroughly with soap and water or put in the fisher sponge hooking. - Clean high-touch surfaces in your isolation area ( sick room and bathroom) every day; let a caregiver clean and disinfect high-touch surfaces in other areas of the home. Clean the area or item with soap and water or another detergent if it is dirty. Then, use a household disinfectant. - Limit contact with pets and animals: If you must care for a pet, wash your hands before and after interacting with them) Prescriptions: No Action albuterol sulfate [Ventolin HFA] 90 mcg/actuation HFA aerosol inhaler 2 puff PO QID PRN (Reason: bronchospasm) Qty: 6.7 RF: 5 furosemide 40 mg tablet 40 mg PO DAILY Qty: 90 RF: 1 losartan 100 mg tablet 100 mg PO DAILY Qty: 90 RF: 1 tizanidine 4 mg tablet 4 mg PO BEDTIME PRN (Reason: muscle spasticity) 30 Days Qty: 90 RF: 1 Combivent Respimat 20-100 mcg/actuation mist 1 puff inhalation QID Qty: 4 RF: 5 hydroxyzine HCl 25 mg tablet 25 mg PO TID PRN (Reason: anxiety) 30 Days Qty: 90 RF: 0 oxycodone 15 mg tablet 15 mg PO BID PRN (Reason: severe pain) 30 Days Qty: 60 RF: 0 mineral oil [Fleet Mineral Oil] Enema 118 ml SC DAILY PRN (Reason: constipation) Qty: 6384 RF: 0 trazodone 150 mg tablet 150 mg PO BEDTIME PRN (Reason: for insomnia) 30 Days Qty: 30 RF: 0 rosuvastatin 10 mg tablet 10 mg PO BEDTIME 30 Days Qty: 30 RF: 3 budesonide-formoterol 160-4.5 mcg/actuation HFA aerosol inhaler 2 puff PO BID RF: 0 gabapentin 800 mg tablet 800 mg PO TID 30 Days Qty: 90 RF: 2 amlodipine 5 mg tablet 5 mg PO DAILY Qty: 90 RF: 1 Referrals: Kody Sheth MD [Primary Care Provider] - 3 days (as needed)
[2021-12-10 23:06] LABS: COVID-19 Test Positive (Negative)
[2021-12-10 23:12] LABS: B Type Natriuretic Peptide 37 pg/mL (<100); Troponin-I High Sensitivity 7.6 ng/L (<3.5-35.0)
[2021-12-10 23:31] LABS: Alanine Aminotransferase 26 U/L (0-40); Albumin Level 3.6 g/dL (3.5-5.0); Alkaline Phosphatase 80 U/L (39-117); Anion Gap 14 (12-20); Aspartate Amino Transferase 29 U/L (5-37); Bilirubin Direct < 0.2 mg/dL (0.0-0.5); Bilirubin Total 0.3 mg/dL (0.0-1.0); Blood Urea Nitrogen 20 mg/dL (9-16); Calcium 8.5 mg/dL (8.4-10.2); Carbon Dioxide 23 mmol/L (22-29); Chloride 106 mmol/L (96-108); Creatinine Clr Calc Pharmacy 51.9; Estimated Glomerular Filt Rate 54; Glucose Random 104 mg/dL (60-115); Potassium 4.3 mmol/L (3.3-5.1); Sodium 139 mmol/L (135-145); Total Protein 6.8 g/dL (6.5-8.0)
[2021-12-10 23:48] VITALS: BP 128/83; PULSE 77; RESP 24; TEMP 36.7; O2SAT 99
--- NOTE | 2021-12-11 | ECG_ITS ---
Test Reason : chest pain Blood Pressure : / mmHG Vent. Rate : 066 BPM Atrial Rate : 066 BPM P-R Int : 252 ms QRS Dur : 098 ms QT Int : 402 ms P-R-T Axes : 051 006 006 degrees QTc Int : 421 ms Sinus rhythm with 1st degree A-V block Otherwise normal ECG When compared with ECG of 18-NOV-2019 20:46, No significant change was found Referred By: Generic ED Physician Electronically Signed By:Fam Galloway
[2021-12-11 01:02] LABS: Troponin-I High Sensitivity 7.1 ng/L (<3.5-35.0)
[2021-12-11 01:14] VITALS: BP 131/77; PULSE 85; RESP 17; TEMP 36.6; O2SAT 95
== END 2021-12-11 02:00 | disposition home or self-care (01) ==
PROVIDERS: Emergency Medicine Emergency Medical Services; Physician Assistant; Emergency Provider Internal Medicine; PCP Internal Medicine
DX: U07.1 COVID-19 (principal); R06.02 Shortness of breath; I12.9 Hypertensive chronic kidney disease with stage 1 through stage 4 chronic kidney disease, or unspecified chronic kidney disease; N18.9 Chronic kidney disease, unspecified; Z79.899 Other long term (current) drug therapy; F17.200 Nicotine dependence, unspecified, uncomplicated; Z71.6 Tobacco abuse counseling
CPT/HCPCS: 36415; 71045; 80048; 80076; 83735; 83880; 84484; 85025; 87635; 93005; 99283; 99284

== ENCOUNTER 2022-04-27 16:58 | Emergency (ER) | payer MEDICARE, MEDICAID, SELFPAY | END 2022-04-27 17:41 | disposition left against medical advice (07) | PROVIDERS: Emergency Provider Emergency Medicine; PCP Internal Medicine | DX: R42 Dizziness and giddiness (principal); F41.9 Anxiety disorder, unspecified; I12.9 Hypertensive chronic kidney disease with stage 1 through stage 4 chronic kidney disease, or unspecified chronic kidney disease; N18.30 Chronic kidney disease, stage 3 unspecified ==

== ENCOUNTER 2022-04-30 15:26 | Outpatient (REF) | payer MEDICARE, MEDICAID, SELFPAY ==
[2022-04-30 15:50] LABS: MANUAL DIFF FLAG NO
[2022-04-30 15:52] LABS: Basophils Percent Auto 0.4 % (0-2); Eosinophils Absolute Auto 0.2 X10*3/uL (0.0-0.4); Hemoglobin 13.3 g/dl (14.0-18.0); Imm Gran Abs Auto 0.03 X10*3/uL (0.00-0.03); Imm Gran Pct Auto 0.4 % (0.0-0.4); Lymphocytes Absolute Auto 1.9 X10*3/uL (1.2-4.9); Lymphocytes Percent Auto 23.7 % (20-40); Mean Corpuscular HGB Conc 34.1 g/dl (31.0-36.0); Mean Corpuscular Hemoglobin 29.8 pg (27.0-33.0); Mean Corpuscular Volume 87.4 fL (80.0-98.0); Mean Platelet Volume 9.3 fL (9.4-12.4); Monocytes Absolute Auto 0.7 X10*3/uL (0.1-1.2); Monocytes Percent Auto 8.3 % (2-11); Neutrophils Absolute Auto 5.3 x10*3/uL (2.0-8.3); Neutrophils Percent Auto 65.2 % (45-73); Platelet Count 231 X10*3/uL (160-400); Red Blood Count 4.46 X10*6/uL (4.60-5.80); Red Cell Distribution Width 12.6 % (11.0-16.0); White Blood Count 8.2 X10*3/uL (4.8-10.8)
[2022-04-30 16:25] LABS: Alanine Aminotransferase 23 U/L (0-40); Albumin Level 3.8 g/dL (3.5-5.0); Alkaline Phosphatase 82 U/L (39-117); Anion Gap 16 (12-20); Aspartate Amino Transferase 19 U/L (5-37); Bilirubin Total 0.5 mg/dL (0.0-1.0); Blood Urea Nitrogen 17 mg/dL (9-16); Calcium 8.7 mg/dL (8.4-10.2); Carbon Dioxide 21 mmol/L (22-29); Chloride 103 mmol/L (96-108); Cholesterol 123 mg/dL; Estimated Glomerular Filt Rate 52; Glucose Random 201 mg/dL (60-115); HDL Cholesterol 32 mg/dL; LDL Cholesterol Calculated 54 mg/dl; Potassium 4.6 mmol/L (3.3-5.1); Sodium 135 mmol/L (135-145); Total Protein 6.8 g/dL (6.5-8.0); Triglycerides 187 mg/dL
[2022-04-30 16:48] LABS: Prostate Specific Antigen 0.46 ng/mL (<0.05-4.0); Thyroid Stimulating Hormone 1.41 uIU/mL (0.32-4.0)
[2022-05-05 22:01] LABS: Testosterone, Free 30.9 pg/mL (30.0-135.0); Testosterone, Total 236 ng/dL (250-1100)
== END 2022-04-30 15:27 | disposition home or self-care (01) ==
LOC: HO.LAB 15:26
PROVIDERS: PCP Internal Medicine; Visit Provider Internal Medicine
DX: E55.9 Vitamin D deficiency, unspecified (principal); I10 Essential (primary) hypertension; E78.00 Pure hypercholesterolemia, unspecified; R79.89 Other specified abnormal findings of blood chemistry; N40.0 Benign prostatic hyperplasia without lower urinary tract symptoms; Z12.5 Encounter for screening for malignant neoplasm of prostate
CPT/HCPCS: 36415; 80053; 80061; 82306; 84153; 84402; 84403; 84443; 85025

== ENCOUNTER 2022-06-27 07:16 | Emergency (ER) | payer MEDICARE, MEDICAID, SELFPAY | END 2022-06-27 08:16 | disposition left against medical advice (07) | LOC: HO.ED 08:05 | PROVIDERS: Emergency Provider Emergency Medicine; PCP Internal Medicine | DX: K59.00 Constipation, unspecified (principal) ==

== ENCOUNTER 2023-01-13 15:36 | Emergency (ER) | payer MEDICARE, MEDICAID, SELFPAY ==
--- NOTE | ~2023-01-13 | XR_ITS ---
EXAMINATION: XR CHEST CLINICAL INFORMATION: Productive cough and wheeze COMPARISON: 12/10/2021 TECHNIQUE: 2 views of the chest were obtained. FINDINGS: The lungs are hyperaerated but grossly clear. Heart and pulmonary vessels are normal. No pleural effusion. There is degenerative change in the shoulder joints. Minor chronic compressive deformity mid thoracic spine. XR/XR chest 2V IMPRESSION: No active disease.
--- NOTE | ~2023-01-13 | XR_ITS ---
EXAMINATION: XR knee RT 4V, XR ankle LT min 3V CLINICAL INFORMATION: Reason for Exam pain status post fall COMPARISON: Right knee radiographs 02/19/2020 TECHNIQUE: 4 views right knee; 3 views left ankle FINDINGS: Right knee: Status post total knee arthroplasty. No evidence of interval subsidence. No periprosthetic fracture, dislocation, or new significant periprosthetic radiolucency. Fixation screw is seen in the periphery of the medial tibial plateau, unchanged. No knee joint effusion. Moderate vascular calcifications. Left ankle: No acute fracture or dislocation. Ankle mortise is congruent and intact. No ankle joint effusion. Soft tissue prominence/swelling overlying the lateral aspect of the ankle. Extensive vascular calcifications. Mild osteoarthritic changes at the ankle and subtalar joint with small marginal osteophytes. Ankle joint space appears fairly well-maintained. Plantar calcaneal spur. XR/XR ankle LT min 3V IMPRESSION: 1. Status post right total knee arthroplasty without radiographic evidence of interval complication. No periprosthetic fracture or joint effusion. 2. No acute fracture or dislocation at the left ankle. 3. Soft tissue swelling/prominence of the lateral aspect of the ankle.
--- NOTE | ~2023-01-13 | XR_ITS ---
EXAMINATION: XR knee RT 4V, XR ankle LT min 3V CLINICAL INFORMATION: Reason for Exam pain status post fall COMPARISON: Right knee radiographs 02/19/2020 TECHNIQUE: 4 views right knee; 3 views left ankle FINDINGS: Right knee: Status post total knee arthroplasty. No evidence of interval subsidence. No periprosthetic fracture, dislocation, or new significant periprosthetic radiolucency. Fixation screw is seen in the periphery of the medial tibial plateau, unchanged. No knee joint effusion. Moderate vascular calcifications. Left ankle: No acute fracture or dislocation. Ankle mortise is congruent and intact. No ankle joint effusion. Soft tissue prominence/swelling overlying the lateral aspect of the ankle. Extensive vascular calcifications. Mild osteoarthritic changes at the ankle and subtalar joint with small marginal osteophytes. Ankle joint space appears fairly well-maintained. Plantar calcaneal spur. XR/XR knee RT 4V IMPRESSION: 1. Status post right total knee arthroplasty without radiographic evidence of interval complication. No periprosthetic fracture or joint effusion. 2. No acute fracture or dislocation at the left ankle. 3. Soft tissue swelling/prominence of the lateral aspect of the ankle.
[2023-01-13 15:57] VITALS: BP 131/77; PULSE 98; RESP 16; TEMP 36.6; O2SAT 97; BMI 34.5
--- NOTE | 2023-01-13 15:57 | ED_ITS ---
HPI - Extremity Injury (Lower) General Chief Complaint: Extremity Injury, Lower <ALEJANDRA Reed - Last Filed: 01/13/23 16:07> Stated Complaint: twisted ankle, hit knee (recent knee surgery) <ALEJANDRA Reed - Last Filed: 01/13/23 16:07> Time Seen by Provider: 01/13/23 16:38 <ALEJANDRA Reed - Last Filed: 01/13/23 16:07> Source: patient <ALEJANDRA Wheat - Last Filed: 01/13/23 18:22> Mode of arrival: ambulatory <ALEJANDRA Wheat Last Filed: 01/13/23 18:22> Limitations: no limitations <ALEJANDRA Wheat Last Filed: 01/13/23 18:22> History of Present Illness HPI Narrative: [id number] with a PMHx of COPD, HTN, HLD, CKD, Anxiety, Insomnia, 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 He reports that there was any legal parked car and he twisted his ankle and bumped his knee into the parked car. He also reports that he has had some cough and sputum production along with wheezing for a few weeks. Reports he has been using his albuterol inhaler with symptomatic relief. He denies any fevers, chills, dizziness, headaches, nasal congestion rhinorrhea, sore throat, dyspnea on exertion, orthopnea, chest pain or shortness of breath, palpitations, paresthesias, abdominal pain, nausea/vomiting, recent falls or trauma, lower extremity edema or calf tenderness or any other symptoms complaints or concerns at this time. <ALEJANDRA Wheat Last Filed: 01/13/23 18:22> Related Data Home Medications: Previous Rx's Medication Instructions Recorded Combivent Respimat 20 mcg-100 1 puff inhalation QID #4 grams 09/30/22 mcg/actuation solution for inhalation (ipratropium-albuterol) albuterol sulfate 90 mcg/actuation 2 puff PO QID PRN bronchospasm 09/30/22 aerosol inhaler (Ventolin HFA) #6.7 grams budesonide-formoterol HFA 160 2 puff PO BID #10.2 grams 09/30/22 mcg-4.5 mcg/actuation aerosol inhaler buspirone 10 mg tablet 10 mg PO BID 30 days #60 tabs 09/30/22 rosuvastatin 10 mg tablet 10 mg PO BEDTIME 30 days #30 tabs 09/30/22 sertraline 50 mg tablet 50 mg PO .Q AM 30 days #30 tabs 09/30/22 amlodipine 5 mg tablet 5 mg PO DAILY 90 days #90 tabs 10/13/22 gabapentin 800 mg tablet 800 mg PO TID 30 days #90 tabs 10/13/22 losartan 100 mg tablet 100 mg PO DAILY 90 days #90 tabs 10/13/22 trazodone 150 mg tablet 150 mg PO BEDTIME PRN for insomnia 10/13/22 90 days #90 tabs tizanidine 4 mg tablet 4 mg PO BEDTIME PRN muscle 11/13/22 spasticity 30 days #90 tabs hydroxyzine HCl 25 mg tablet 25 mg PO TID PRN anxiety 30 days 11/18/22 #90 tabs furosemide 40 mg tablet 40 mg PO DAILY #90 tabs 12/17/22 oxycodone 15 mg tablet 15 mg PO BID PRN severe pain 30 12/17/22 days #60 tabs doxycycline hyclate 100 mg capsule 100 mg PO DAILY 30 days #30 caps 12/24/22 metformin 500 mg tablet,extended 500 mg PO QPM #90 tabs 12/27/22 release 24 hr albuterol sulfate 90 mcg/actuation 1 inh inhalation QID PRN shortness 01/13/23 aerosol inhaler of breath or wheezing #8.5 grams azithromycin 250 mg tablet See Rx Instructions PO .COMPLEX #6 01/13/23 tabs prednisone 20 mg tablet 40 mg PO DAILY inflammation 5 days 01/13/23 #10 tabs <ALEJANDRA Reed - Last Filed: 01/13/23 16:07> Allergies/Adverse Reactions: Allergies Allergy/AdvReac Type Severity Reaction Status Date / Time morphine AdvReac Severe respiratory Verified 01/13/23 16:06 depression/failure <ALEJANDRA Reed - Last Filed: 01/13/23 16:07> Review of Systems Review of Systems: Constitutional : No Weight loss, No Fever, No Chills, No Night Sweats, No Fatigue, No Malaise ENT/Mouth : No Hearing loss, No Ear Pain, No Nasal Congestion, No Sinus Pain, No Hoarseness, No sore throat, No Rhinorrhea, No Swallowing Difficulty Eyes: No Eye Pain, No Swelling, No Redness, No Foreign Body, No Discharge, No Vision Changes Cardiovascular : No Chest Pain, + SOB, No Dyspnea on Exertion, No Orthopnea, No Edema, No Palpitations Respiratory : + Cough, + Sputum, + Wheezing, No Smoke Exposure, No Dyspnea Gastrointestinal : No Nausea, No Vomiting, No Diarrhea, No Constipation, No abdominal Pain, No Hematochezia, No Melena Genitourinary : no irregular bleeding, No Dysuria, No Urinary Frequency, No Hem aturia, No Urinary Incontinence, No Urgency, No Flank Pain, No Urinary Flow Changes, No Hesitancy Musculoskeletal : + left knee and right ankle joint pain, No Myalgias, No Joint Swelling Skin : No Skin Lesions, No rash Neuro : No Weakness, No Numbness, No Paresthesias, No Loss of Consciousness, No Dizziness, No Headache Psych : No Anxiety/Panic, No Depression, No SI/HI/AH/VH, No Social Issues, Heme/Lymph: No Bruising, No Bleeding,No Lymphadenopathy Endocrine : No Polyuria, No Polydipsia, No Temperature Intolerance <ALEJANDRA Wheat - Last Filed: 01/13/23 18:22> Yes all other systems are reviewed and are negative <ALEJANDRA Wheat - Last Filed: 01/13/23 18:22> PMF Past Medical History Attestation statement: The following information was validated with the patient. <ALEJANDRA Wheat - Last Filed: 01/13/23 18:22> Source: old records reviewed and nursing notes reviewed <ALEJANDRA Wheat - Last Filed: 01/13/23 18:22> Medical History: Medical History Anxiety Benign essential hypertension Chronic kidney disease (CKD), stage III (moderate) COPD (chronic obstructive pulmonary disease) Degenerative disc disease, cervical Erectile dysfunction Insomnia Lumbar degenerative disc disease Obesity (BMI 30-39.9) Primary osteoarthritis of both knees Pure hypercholesterolemia <ALEJANDRA Reed - Last Filed: 01/13/23 16:07> Surgical History: Surgical History History of glaucoma History of trabeculectomy Hx of total knee arthroplasty <ALEJANDRA Reed - Last Filed: 01/13/23 16:07> Family History Family History: Family History Father Cancer Mother No problems noted. <ALEJANDRA Reed - Last Filed: 01/13/23 16:07> Social History Social History: Social History Housing: House Alcohol intake: current Alcohol intake frequency: holidays/special occasions only Alcohol type: beer Patient Tobacco Use Status: Former Tobacco user Tobacco use type: Cigar Years Smoked: 30 years Second Hand Smoke Exposure: Yes Advance Directives: No Advance Directives Information Provided: No service: Yes Current occupational status: retired Cognitive needs: No Hearing needs: No Vision needs: No <ALEJANDRA Reed - Last Filed: 01/13/23 16:07> Physical Exam Vital Signs: Vital Signs: Last Vital Signs Temp 98 F 01/13/23 15:57 Pulse 104 H 01/13/23 18:00 Resp 18 01/13/23 18:00 BP 131/77 01/13/23 15:57 Pulse Ox 96 01/13/23 18:00 O2 Del Method 01/13/23 18:00 BMI result Body Mass Index 34.5 <ALEJANDRA Reed - Last Filed: 01/13/23 16:07> Vital Signs: Last Vital Signs Temp 98 F 01/13/23 15:57 Pulse 104 H 01/13/23 18:00 Resp 18 01/13/23 18:00 BP 131/77 01/13/23 15:57 Pulse Ox 96 01/13/23 18:00 O2 Del Method 01/13/23 18:00 BMI result Body Mass Index 34.5 Vital signs reviewed. Blood pressure normal. Pulse normal. Respiration normal. Oxygen normal. Temperature normal. <ALEJANDRA Wheat - Last Filed: 01/13/23 18:22> Appearance: Alert. Oriented X3. No acute distress. Head: Normal external exam. Normocephalic. Atraumatic. Eyes: PERRLA. EOMI. Conjunctiva and sclera normal. Eyelids normal. ENT: EAC normal. TM's Normal. Pharynx normal. Uvula midline. Moist mucous membranes. No lesions/ulcerations or masses noted on the tongue. Normal voice. No trismus noted. No drooling noted. No muffled voice noted. Neck: Normal inspection. Neck supple. FROM. No adenopathy. Thyroid Normal. No meningeal signs. CVS: Normal heart rate and rhythm. Heart sound normal. Pulses normal throughout. No murmurs/rales/gallops. Respiratory: No respiratory distress. Painless inspiration. Although patient does have decreased breath sounds with inspiratory and expiratory wheezing throughout. No rales/rhonchi noted. Chest nontender. No accessory muscle usage noted or decreased air movement noted. Abdomen: Soft and nontender. Back: Full range of motion noted. Nontender. Skin: Skin warm and dry. Normal skin color. Normal skin turgor. No rashes/lesions/lacerations noted. Extremities: Patient with tenderness palpation to the left ankle joint with mild soft tissue swelling at the lateral aspect no obvious ligamentous or tendon injury noted. P has full range of motion of the left ankle joint. Achilles tendon is intact. Negative Soto test. Patient mild tenderness palpation to the right knee. No obvious soft tissue swelling or signs of infection not consistent with septic joint. He has full range of motion of the right knee. No obvious ligamentous or tendon injury noted. Otherwise all other extremities exhibit normal range of motion nontender. Neuro: Oriented X 3. No motor deficit. No sensory deficit. Reflexes normal. Normal steady gait. No focal neuro deficits noted. CN's II-XII intact bilaterally? Vascular: + radial pulses. Normal cap refill. No cyanosis noted to upper extremity nails <ALEJANDRA Wheat - Last Filed: 01/13/23 18:22> Course Course Course Narrative: RME - [id number]-male presenting today with complaints of left ankle pain and right knee pain since June 15, 2022. Patient states that he twisted his left ankle on a curb, and struck his right knee on a vehicle in May. He has had persistent pain since and has not been evaluated because he has not had transportation. He has a total R knee replacement. VSS in triage. Ambulatory with antalgic gait. XR left ankle and XR right knee ordered. Patient stable to be sent back to the waiting room. <ALEJANDRA Reed - Last Filed: 01/13/23 16:07> Reevaluation(s) Reevaluation #1: X-ray of right knee and left ankle revealed chronic changes no acute processes are noted. Chest x-ray within normal limits. Patient now status post breathing treatment. Oxygen saturation is still at 96-98% on room air even with walking. Therefore at this time will DC home with antibiotics and steroids and albuterol inhaler for his COPD exacerbation and explained to the patient that he can continue taking his prescribed oxycodone and to return if any new or wo rsening symptoms. Patient understands agrees with this plan. <ALEJANDRA Wheat - Last Filed: 01/13/23 18:22> Time: 18:20 <ALEJANDRA Wheat - Last Filed: 01/13/23 18:22> Medications Administered Discontinued Medications Generic Name Dose Route Start Last Admin Trade Name Freq PRN Reason Stop Dose Admin Albuterol Sulfate 10 mg 01/13/23 16:46 01/13/23 17:12 Albuterol Sulfate (0.083%) 2.5 Mg/3 Ml Vial.Neb INHALE 01/13/23 16:47 10 mg ONCE ONE Administration Prednisone 60 mg 01/13/23 16:46 01/13/23 18:00 Prednisone 20 Mg Tablet PO 01/13/23 16:47 60 mg ONCE ONE Administration <ALEJANDRA Reed - Last Filed: 01/13/23 16:07> Medications Administered Discontinued Medications Generic Name Dose Route Start Last Admin Trade Name Freq PRN Reason Stop Dose Admin Albuterol Sulfate 10 mg 01/13/23 16:46 01/13/23 17:12 Albuterol Sulfate (0.083%) 2.5 Mg/3 Ml Vial.Neb INHALE 01/13/23 16:47 10 mg ONCE ONE Administration Prednisone 60 mg 01/13/23 16:46 01/13/23 18:00 Prednisone 20 Mg Tablet PO 01/13/23 16:47 60 mg ONCE ONE Administration <ALEJANDRA Wheat - Last Filed: 01/13/23 18:22> Medical Decision Making Independent Interpretation I performed an independent interpretation of an: Plain X-Ray (I reviewed the chest x-ray, right knee x-ray and left ankle x-rays myself and discussed with patient) <ALEJANDRA Wheat - Last Filed: 01/13/23 18:22> Radiology Impression Discussion of test interpretation with radiology: I have reviewed the radiologist's reading. <ALEJANDRA Wheat - Last Filed: 01/13/23 18:22> Radiologist Impression: EXAMINATION: XR knee RT 4V, XR ankle LT min 3V CLINICAL INFORMATION: Reason for Exam pain status post fall COMPARISON: Right knee radiographs 02/19/2020 TECHNIQUE: 4 views right knee; 3 views left ankle FINDINGS: Right knee: Status post total knee arthroplasty. No evidence of interval subsidence. No periprosthetic fracture, dislocation, or new significant periprosthetic radiolucency. Fixation screw is seen in the periphery of the medial tibial plateau, unchanged. No knee joint effusion. Moderate vascular calcifications. Left ankle: No acute fracture or dislocation. Ankle mortise is congruent and intact. No ankle joint effusion. Soft tissue prominence/swelling overlying the lateral aspect of the ankle. Extensive vascular calcifications. Mild osteoarthritic changes at the ankle and subtalar joint with small marginal osteophytes. Ankle joint space appears fairly well-maintained. Plantar calcaneal spur. XR/XR knee RT 4V IMPRESSION: 1.? Status post right total knee arthroplasty without radiographic evidence of interval complication. No periprosthetic fracture or joint effusion. 2.? No acute fracture or dislocation at the left ankle. 3.? Soft tissue swelling/prominence of the lateral aspect of the ankle. ? EXAMINATION: XR CHEST CLINICAL INFORMATION: Productive cough and wheeze COMPARISON: 12/10/2021 TECHNIQUE: 2 views of the chest were obtained. FINDINGS: The lungs are hyperaerated but grossly clear. Heart and pulmonary vessels are normal. No pleural effusion. There is degenerative change in the shoulder joints. Minor chronic compressive deformity mid thoracic spine. XR/XR chest 2V IMPRESSION: No active disease. <ALEJANDRA Wheat - Last Filed: 01/13/23 18:22> External Record Review External record reviewed: Inpatient record, Office record, Outpatient record, Prior outpatient labs, Prior outpatient radiology, Primary care record and Outside ED record <ALEJANDRA Wheat Last Filed: 01/13/23 18:22> Prescription Management I considered prescription management with: Antibiotic <ALEJANDRA Wheat Last Filed: 01/13/23 18:22> Chronic Conditions Patient?s care impacted by: Other (COPD) <ALEJANDRA Wheat - Last Filed: 01/13/23 18:22> Critical Care Time Critical Care Time Critical Care Time: Yes <ALEJANDRA Wheat - Last Filed: 01/13/23 18:22> Total Critical Care Time: 60 <ALEJANDRA Wheat - Last Filed: 01/13/23 18:22> Attestation: I personally attest to this time spent taking care of the patient <ALEJANDRA Wheat - Last Filed: 01/13/23 18:22> Discharge Plan Discharge Clinical Impression: COPD exacerbation, Sprain of ankle, left, Right knee sprain <ALEJANDRA Reed - Last Filed: 01/13/23 16:07> Patient Disposition: Home, Self-Care <ALEJANDRA Reed - Last Filed: 01/13/23 16:07> Instructions: Ankle Sprain (ED), Knee Sprain (ED), COPD (Chronic Obstructive Pulmonary Disease) (ED) <ALEJANDRA Reed - Last Filed: 01/13/23 16:07> Prescriptions: New albuterol sulfate 90 mcg/actuation HFA aerosol inhaler 1 inh inhalation QID PRN (Reason: shortness of breath or wheezing) Qty: 8.5 0RF azithromycin 250 mg tablet See Rx Instructions .ROUTE .COMPLEX Qty: 6 0RF Rx Instructions: take 500 mg today (day 1), then 250 mg for 4 days (days 2-5) prednisone 20 mg tablet 40 mg PO DAILY 5 Days Qty: 10 0RF No Action gabapentin 800 mg tablet 800 mg PO TID 30 Days Qty: 90 2RF losartan 100 mg tablet 100 mg PO DAILY 90 Days Qty: 90 1RF trazodone 150 mg tablet 150 mg PO BEDTIME PRN (Reason: for insomnia) 90 Days Qty: 90 0RF amlodipine 5 mg tablet 5 mg PO DAILY 90 Days Qty: 90 1RF tizanidine 4 mg tablet 4 mg PO BEDTIME PRN (Reason: muscle spasticity) 30 Days Qty: 90 1RF hydroxyzine HCl 25 mg tablet 25 mg PO TID PRN (Reason: anxiety) 30 Days Qty: 90 2RF oxycodone 15 mg tablet 15 mg PO BID PRN (Reason: severe pain) 30 Days Qty: 60 0RF furosemide 40 mg tablet 40 mg PO DAILY Qty: 90 1RF doxycycline hyclate 100 mg capsule 100 mg PO DAILY 30 Days Qty: 30 1RF metformin 500 mg tablet extended release 24 hr 500 mg PO QPM Qty: 90 1RF rosuvastatin 10 mg tablet 10 mg PO BEDTIME 30 Days Qty: 30 3RF sertraline 50 mg tablet 50 mg PO .Q AM 30 Days Qty: 30 2RF buspirone 10 mg tablet 10 mg PO BID 30 Days Qty: 60 3RF albuterol sulfate [Ventolin HFA] 90 mcg/actuation HFA aerosol inhaler 2 puff PO QID PRN (Reason: bronchospasm) Qty: 6.7 5RF Combivent Respimat 20-100 mcg/actuation mist 1 puff inhalation QID Qty: 4 5RF budesonide-formoterol 160-4.5 mcg/actuation HFA aerosol inhaler 2 puff PO BID Qty: 10.2 5RF <ALEJANDRA Reed - Last Filed: 01/13/23 16:07> Referrals: Kody Sheth MD [Primary Care Provider] - 2 days <ALEJANDRA Reed - Last Filed: 01/13/23 16:07> Interventions: ED Discharge Assessment Last Done: 01/13/23 18:15 <ALEJANDRA Reed - Last Filed: 01/13/23 16:07> Discharge Date/Time: 01/13/23 18:15 <ALEJANDRA Reed - Last Filed: 01/13/23 16:07>
[2023-01-13] MEDS: Albuterol Sulfate (0.083%) 2.5 MG/3 ML VIAL.NEB 10 MG INHALE (17:12)
[2023-01-13 17:14] VITALS: PULSE 96; RESP 18; O2SAT 97
[2023-01-13 18:00] VITALS: PULSE 104; RESP 18; O2SAT 96
[2023-01-13] MEDS: predniSONE 20 MG TABLET 60 MG PO (18:00)
--- NOTE | 2023-01-13 18:02 | PC.NURSE ---
pt medicated per provider order, ambulated w pulse ox, O2 sat remaining 94-96%.
== END 2023-01-13 18:15 | disposition home or self-care (01) ==
PROVIDERS: Emergency Provider Emergency Medicine; PCP Internal Medicine
DX: J44.1 Chronic obstructive pulmonary disease with (acute) exacerbation (principal); R05.9 Cough, unspecified; M25.572 Pain in left ankle and joints of left foot; M25.561 Pain in right knee; Z79.899 Other long term (current) drug therapy
CPT/HCPCS: 71046; 73564; 73610; 94640; 99283; 99284

== ENCOUNTER 2023-02-08 16:54 | Outpatient (REF) | payer MEDICARE, MEDICAID, SELFPAY ==
[2023-02-08 17:08] LABS: MANUAL DIFF FLAG NO
[2023-02-08 17:26] LABS: Basophils Percent Auto 0.2 % (0-2); Eosinophils Absolute Auto 0.2 X10*3/uL (0.0-0.4); Hematocrit 37.1 % (42.0-52.0); Hemoglobin 12.2 g/dl (14.0-18.0); Imm Gran Abs Auto 0.04 X10*3/uL (0.00-0.03); Imm Gran Pct Auto 0.3 % (0.0-0.4); Lymphocytes Absolute Auto 1.6 X10*3/uL (1.2-4.9); Lymphocytes Percent Auto 13.1 % (20-40); Mean Corpuscular HGB Conc 32.9 g/dl (31.0-36.0); Mean Corpuscular Hemoglobin 29.1 pg (27.0-33.0); Mean Corpuscular Volume 88.5 fL (80.0-98.0); Mean Platelet Volume 9.4 fL (9.4-12.4); Monocytes Absolute Auto 0.9 X10*3/uL (0.1-1.2); Monocytes Percent Auto 7.2 % (2-11); Neutrophils Absolute Auto 9.4 x10*3/uL (2.0-8.3); Neutrophils Percent Auto 77.2 % (45-73); Platelet Count 221 X10*3/uL (160-400); Red Blood Count 4.19 X10*6/uL (4.60-5.80); Red Cell Distribution Width 13.1 % (11.0-16.0); White Blood Count 12.1 X10*3/uL (4.8-10.8)
[2023-02-08 17:30] LABS: Appearance Urine Clear; Color Urine Yellow; Glucose Urine UA Negative (Negative); Leukocyte Esterase Urine Negative (Negative); Nitrite Urine Negative (Negative); Urine Blood Negative (Negative); Urine Ketones Negative (Negative); Urine Protein Negative (Neg-Trace)
[2023-02-08 17:40] LABS: Estimated Average Glucose 137 mg/dL; Hemoglobin A1C 149.9958 umol/L; Hemoglobin A1c % 6.4 %
[2023-02-08 18:04] LABS: Alanine Aminotransferase 14 U/L (0-40); Albumin Level 3.7 g/dL (3.5-5.0); Alkaline Phosphatase 65 U/L (39-117); Anion Gap 12 (12-20); Aspartate Amino Transferase 14 U/L (5-37); Bilirubin Total 0.9 mg/dL (0.0-1.0); Blood Urea Nitrogen 13 mg/dL (9-16); Calcium 8.6 mg/dL (8.4-10.2); Carbon Dioxide 26 mmol/L (22-29); Chloride 104 mmol/L (96-108); Cholesterol 163 mg/dL; Estimated Glomerular Filt Rate > 60; Glucose Fasting 109 mg/dL (60-99); HDL Cholesterol 36 mg/dL; LDL Cholesterol Calculated 90 mg/dl; Potassium 4.4 mmol/L (3.3-5.1); Sodium 138 mmol/L (135-145); Total Protein 6.3 g/dL (6.5-8.0); Triglycerides 189 mg/dL
[2023-02-08 18:05] LABS: Creatinine Urine 68.09 mg/dL; Microalbum/Creatinine Ratio Ur 61.6 ug/mg cr
[2023-02-08 18:47] LABS: Folate 14.9 ng/mL (> or = 4.0); TSH reflex Free T4 2.35 uIU/mL (0.32-4.0); Vitamin B12 225 pg/mL (200-900); Vitamin D 25-OH Total 50.6 ng/mL (>30)
== END 2023-02-08 16:55 | disposition home or self-care (01) ==
LOC: HO.LAB 16:54
PROVIDERS: PCP Internal Medicine; Visit Provider Internal Medicine
DX: E11.9 Type 2 diabetes mellitus without complications (principal); E55.9 Vitamin D deficiency, unspecified; R30.0 Dysuria; I10 Essential (primary) hypertension; E53.8 Deficiency of other specified B group vitamins; E78.00 Pure hypercholesterolemia, unspecified
CPT/HCPCS: 36415; 80053; 80061; 81003; 82043; 82306; 82607; 82746; 83036; 84443; 85025

== ENCOUNTER 2023-02-16 13:55 | Outpatient (REF) | payer MEDICARE, MEDICAID, SELFPAY | END 2023-02-16 13:56 | disposition home or self-care (01) | LOC: HO.LNP 13:55 | PROVIDERS: PCP Internal Medicine; Referring Provider Internal Medicine; Visit Provider Surgery | DX: M71.322 Other bursal cyst, left elbow (principal); R22.32 Localized swelling, mass and lump, left upper limb; Z79.899 Other long term (current) drug therapy | CPT/HCPCS: 11403; 88304; 88305; 99202 ==

== ENCOUNTER 2023-02-22 12:38 | Outpatient (REF) | payer MEDICARE, MEDICAID, SELFPAY | END 2023-02-22 12:39 | disposition home or self-care (01) | LOC: HO.HOSX 12:38 | PROVIDERS: Visit Provider Physician Assistant | DX: Z13.89 Encounter for screening for other disorder (principal) ==

== ENCOUNTER 2023-02-25 19:00 | Emergency (ER) | payer MEDICARE, MEDICAID, SELFPAY ==
[2023-02-25 19:21] VITALS: BP 102/67; PULSE 104; RESP 18; TEMP 36.6; O2SAT 95; BMI 32.5
--- NOTE | 2023-02-25 19:23 | ED.GENADULT ---
HPI - General Adult General Chief complaint: Wound/Laceration Stated complaint: suture removal left elbow Time Seen by Provider: 02/25/23 19:22 Source: patient and old records reviewed Mode of arrival: ambulatory Limitations: no limitations History of Present Illness HPI narrative: 82 yo male presents for evaluation of left elbow discomfort s/p cyst removal by Dr. Martino on 02/16. He states it is bothersome when he bend his elbow and leans on it. He states it is slightly red and he wants to make sure it is not infected. He has a follow up with Dr. Martino but cannot recall when it is. No fever or chills. No drainage. He has not been using bacitracin as he was told to MD complaint: left elbow wound evaluation Location: left and upper extremity Radiation: non-radiation Severity: mild Quality: aching Pain Consistency: intermittent Relieving factors: none Exacerbating factors: none Associated symptoms: denies other symptoms Treatments prior to arrival: none Related Data Previous Rx's Medication Instructions Recorded Combivent Respimat 20 mcg-100 1 puff inhalation QID #4 grams 09/30/22 mcg/actuation solution for inhalation (ipratropium-albuterol) albuterol sulfate 90 mcg/actuation 2 puff PO QID PRN bronchospasm 09/30/22 aerosol inhaler (Ventolin HFA) #6.7 grams budesonide-formoterol HFA 160 2 puff PO BID #10.2 grams 09/30/22 mcg-4.5 mcg/actuation aerosol inhaler rosuvastatin 10 mg tablet 10 mg PO BEDTIME 30 days #30 tabs 09/30/22 losartan 100 mg tablet 100 mg PO DAILY 90 days #90 tabs 10/13/22 trazodone 150 mg tablet 150 mg PO BEDTIME PRN for insomnia 10/13/22 90 days #90 tabs tizanidine 4 mg tablet 4 mg PO BEDTIME PRN muscle 11/13/22 spasticity 30 days #90 tabs metformin 500 mg tablet,extended 500 mg PO QPM #90 tabs 12/27/22 release 24 hr albuterol sulfate 90 mcg/actuation 1 inh inhalation QID PRN shortness 01/13/23 aerosol inhaler of breath or wheezing #8.5 grams prednisone 20 mg tablet 40 mg PO DAILY inflammation 5 days 01/13/23 #10 tabs buspirone 10 mg tablet 10 mg PO BID 30 days #60 tabs 01/21/23 sertraline 50 mg tablet 50 mg PO .Q AM 30 days #30 tabs 01/21/23 hydroxyzine HCl 25 mg tablet 25 mg PO TID PRN anxiety 30 days 01/22/23 #90 tabs amlodipine 5 mg tablet 5 mg PO DAILY 90 days #90 tabs 01/25/23 doxycycline hyclate 100 mg capsule 100 mg PO DAILY 30 days #30 caps 01/25/23 furosemide 40 mg tablet 40 mg PO DAILY #90 tabs 01/25/23 oxycodone 15 mg tablet 15 mg PO BID PRN severe pain 30 01/25/23 days #60 tabs gabapentin 800 mg tablet 800 mg PO TID 30 days #90 tabs 02/05/23 Allergies Allergy/AdvReac Type Severity Reaction Status Date / Time morphine AdvReac Severe respiratory Verified 02/25/23 19:26 depression/failure Review of Systems Review of Systems: Yes all other systems are reviewed and are negative [facility] Past Medical History Medical History Anxiety Benign essential hypertension Chronic kidney disease (CKD), stage III (moderate) COPD (chronic obstructive pulmonary disease) Degenerative disc disease, cervical Erectile dysfunction Insomnia Lumbar degenerative disc disease Obesity (BMI 30-39.9) Primary osteoarthritis of both knees Pure hypercholesterolemia Surgical History History of glaucoma History of trabeculectomy Hx of total knee arthroplasty Family History Family History Father Cancer Mother No problems noted. Social History Social History Housing: House Alcohol intake: current Alcohol intake frequency: holidays/special occasions only Alcohol type: beer Patient Tobacco Use Status: Former Tobacco user Tobacco use type: Cigar Years Smoked: 30 years e-Cigarette/Vaping Use: Never Used Second Hand Smoke Exposure: Yes Advance Directives: No Advance Directives Information Provided: Yes service: Yes Current occupational status: retired Cognitive needs: No Hearing needs: No Vision needs: No Physical Exam ED Vital Signs: Vital Signs - 24 hr 02/25/23 19:21 Temperature 98 F Pulse Rate 104 H Respiratory Rate 18 Blood Pressure 102/67 Pulse Oximetry 95 Oxygen Delivery Method Room Air BMI result Body Mass Index 32.5 Appearance: Alert. Oriented X3. No acute distress. HEENT: normal inspection CVS: Normal heart rate and rhythm. Pulses normal. Respiratory: No respiratory distress. Skin: Skin warm and dry. Normal skin color. Normal skin turgor. No rashes. Extremities: left elbow with FROM. there is a healing surigcal wound with vertical mattress sutures in place, mild erythema surrounding, no fluctuance or drainage Neuro: Oriented X 3. nonfocal Medical Decision Making Medical Decision Making MDM Narrative: 82 yo male presenting with left elbow discomfort s/p cyst excision. wound is healing appropriate. sutures have been in place [address] Martino's note reviewed - he is supposed to follow up in the office in 2 weeks or sooner if issues. will defer to Dr. Martino for removal after he evaluates the healing at his follow up appointment next week. we discussed signs/sxs infection. area was cleaned and bacitrain was applied. Differential Diagnosis Differential Diagnoses: The differential diagnosis associated with the presentation includes delayed wound healing, no evidence of cellulitis or abscess External Record Review External record reviewed: Office record Discharge Plan Discharge Clinical Impression: Healing wound Patient Disposition: Home, Self-Care Instructions: Acute Wounds (DC) Additional Instructions: Follow up with Dr. Martino next week for suture removal Use bacitracin 1-2 times per day Keep clean and covered If you notice increased redness, pain, or drainage, call Dr. Martino or come back to the ER for further evaluation Prescriptions: No Action losartan 100 mg tablet 100 mg PO DAILY 90 Days Qty: 90 1RF trazodone 150 mg tablet 150 mg PO BEDTIME PRN (Reason: for insomnia) 90 Days Qty: 90 0RF tizanidine 4 mg tablet 4 mg PO BEDTIME PRN (Reason: muscle spasticity) 30 Days Qty: 90 1RF metformin 500 mg tablet extended release 24 hr 500 mg PO QPM Qty: 90 1RF sertraline 50 mg tablet 50 mg PO .Q AM 30 Days Qty: 30 2RF buspirone 10 mg tablet 10 mg PO BID 30 Days Qty: 60 3RF hydroxyzine HCl 25 mg tablet 25 mg PO TID PRN (Reason: anxiety) 30 Days Qty: 90 2RF amlodipine 5 mg tablet 5 mg PO DAILY 90 Days Qty: 90 1RF doxycycline hyclate 100 mg capsule 100 mg PO DAILY 30 Days Qty: 30 1RF furosemide 40 mg tablet 40 mg PO DAILY Qty: 90 1RF oxycodone 15 mg tablet 15 mg PO BID PRN (Reason: severe pain) 30 Days Qty: 60 0RF albuterol sulfate 90 mcg/actuation HFA aerosol inhaler 1 inh inhalation QID PRN (Reason: shortness of breath or wheezing) Qty: 8.5 0RF prednisone 20 mg tablet 40 mg PO DAILY 5 Days Qty: 10 0RF gabapentin 800 mg tablet 800 mg PO TID 30 Days Qty: 90 2RF rosuvastatin 10 mg tablet 10 mg PO BEDTIME 30 Days Qty: 30 3RF albuterol sulfate [Ventolin HFA] 90 mcg/actuation HFA aerosol inhaler 2 puff PO QID PRN (Reason: bronchospasm) Qty: 6.7 5RF Combivent Respimat 20-100 mcg/actuation mist 1 puff inhalation QID Qty: 4 5RF budesonide-formoterol 160-4.5 mcg/actuation HFA aerosol inhaler 2 puff PO BID Qty: 10.2 5RF Interventions: ED Discharge Assessment Last Done: 02/25/23 19:41 Discharge Date/Time: 02/25/23 19:42
== END 2023-02-25 19:42 | disposition home or self-care (01) ==
PROVIDERS: Emergency Provider Student in an Organized Health Care Education/Training Program; PCP Internal Medicine
DX: Z48.00 Encounter for change or removal of nonsurgical wound dressing (principal); Z79.899 Other long term (current) drug therapy
CPT/HCPCS: 99282

== ENCOUNTER → 2023-03-02 15:07 | Outpatient (BNVA) | payer MEDICARE, MEDICAID, SELFPAY | PROVIDERS: PCP Internal Medicine; Referring Provider Internal Medicine; Visit Provider Surgery | DX: Z48.02 Encounter for removal of sutures (principal) | CPT/HCPCS: 99211 ==

== ENCOUNTER 2023-03-03 15:47 | Emergency (ER) | payer MEDICARE, MEDICAID, SELFPAY ==
[2023-03-03] VITALS (7 sets, daily range): BP systolic 124–157; BP diastolic 78–90; PULSE 86–101; RESP 14–22; TEMP 36.3–36.7; O2SAT 96–97; BMI 35.3
--- NOTE | ~2023-03-03 | XR_ITS ---
EXAMINATION: XR CHEST CLINICAL INFORMATION: Chest pain. COMPARISON: Chest radiograph 01/13/2023. TECHNIQUE: 2 views of the chest were obtained. FINDINGS: Stable appearance of the cardiomediastinal silhouette. No focal airspace opacity, pleural effusion or pneumothorax. Thoracic spondylosis. No acute osseous abnormalities. The visualized upper abdomen is within normal limits. XR/XR chest 2V IMPRESSION: No acute cardiopulmonary findings.
--- NOTE | ~2023-03-03 | CT_ITS ---
EXAMINATION: CT ANGIOGRAM OF THE CHEST WITH AND WITHOUT CONTRAST (CT PULMONARY ANGIOGRAM FOR PE) CLINICAL INFORMATION: Reason for Exam + dimer cp sob COMPARISON: Chest x-ray 03/03/2023. CT chest 05/13/2017 TECHNIQUE: Prior to contrast administration, noncontrast localization images were obtained. Subsequently, multidetector volumetric imaging was performed from the thoracic inlet to below the diaphragms following the administration of 65 mL Omnipaque 350 intravenous contrast. No contrast reaction reported Sagittal, coronal, and MIP oblique sagittal reformatted images were obtained on the CT workstation, uploaded to PACS, and reviewed. This CT examination was performed using dose optimization techniques as appropriate, variously including the following: *Automated exposure control *Adjustment of mA and/or kV according to patient size (this includes techniques or standardized protocols for targeted exams where dose is matched to indication/reason for exam; i.e. extremities or head) *Use of iterative reconstruction technique Total exam dose-length product 374 mGy-cm FINDINGS: QUALITY OF STUDY/CONTRAST BOLUS: Satisfactory. PULMONARY ARTERIES: No pulmonary emboli. THORACIC AORTA: Ascending thoracic aorta measuring 4.3 cm transverse, mildly dilated. This is stable since CT chest 05/13/2017. There are vascular calcifications of the wall of the thoracic aorta. LUNG: No focal consolidation, nodules or masses. PLEURA: No pleural effusion or pneumothorax. MEDIASTINUM: Normal heart size. No pericardial effusion. No hilar or mediastinal lymphadenopathy. There are a few shotty subcentimeter lymph nodes in the mediastinum. No evidence of septal bowing or right heart strain. CORONARY ARTERY CALCIFICATION: Moderate volume of coronary calcification CHEST WALL/AXILLA: No axillary or internal mammary lymphadenopathy. OSSEOUS STRUCTURES: No acute or suspicious osseous abnormality. Multilevel degenerative spondylosis spine. UPPER ABDOMEN: Unremarkable. No reflux of contrast into the hepatic veins to suggest elevated right heart pressures. CT/CT angio chest PE protocol IMPRESSION: No acute abnormality. No evidence of pulmonary embolism. VTE: negative.
--- NOTE | 2023-03-03 15:49 | ECG_ITS ---
Test Reason : CHES PAIN / SOB Blood Pressure : / mmHG Vent. Rate : 098 BPM Atrial Rate : 098 BPM P-R Int : 256 ms QRS Dur : 094 ms QT Int : 328 ms P-R-T Axes : 060 033 048 degrees QTc Int : 418 ms Sinus rhythm with 1st degree A-V block Otherwise normal ECG When compared with ECG of 10-DEC-2021 22:18, Vent. rate has increased BY 32 BPM Nonspecific T wave abnormality has replaced inverted T waves in Inferior leads Referred By: Francheska Hankins Electronically Signed By:RAUL CARREON MD
--- NOTE | 2023-03-03 15:57 | ED_ITS ---
HPI - Chest Pain General Chief Complaint: Upper Respiratory Symptoms <Francheska Hankins NP - Last Filed: 03/03/23 16:01> Stated Complaint: little CP, doesn't feel good, not specific/ COPD <Francheska Hankins NP - Last Filed: 03/03/23 16:01> Time Seen by Provider: 03/03/23 18:54 <Francheska Hankins NP - Last Filed: 03/03/23 16:01> Source: patient <ALEJANDRA Yanez - Last Filed: 03/03/23 22:03> Mode of arrival: ambulatory <ALEJANDRA Yanez - Last Filed: 03/03/23 22:03> Limitations: no limitations <ALEJANDRA Yanez - Last Filed: 03/03/23 22:03> History of Present Illness HPI narrative: ETT 2-year-old male history of depression, hyperglycemia, hypo testosteronism, COPD, anxiety, CKD, erectile dysfunction, hyperlipidemia, hypertension presenting to the emergency department for evaluation of fatigue, malaise, subjective fevers and chills, myalgias, productive cough of thick yellow sputum, this has been going on for the past few days rapidly worsening according to patient. He tells me that his bosses is sick who he has been around. He is unsure which she is sick with. He reports chest pressure substernal in nature without radiation as well as shortness of breath. He tells me he feels like he is wheezing often. Denies headache, vision changes, dizziness, nausea, vomiting, abdominal pain. <ALEJANDRA Yanez - Last Filed: 03/03/23 22:03> Related Data Home Medications: Previous Rx's Medication Instructions Recorded Combivent Respimat 20 mcg-100 1 puff inhalation QID #4 grams 09/30/22 mcg/actuation solution for inhalation (ipratropium-albuterol) albuterol sulfate 90 mcg/actuation 2 puff PO QID PRN bronchospasm 09/30/22 aerosol inhaler (Ventolin HFA) #6.7 grams budesonide-formoterol HFA 160 2 puff PO BID #10.2 grams 09/30/22 mcg-4.5 mcg/actuation aerosol inhaler rosuvastatin 10 mg tablet 10 mg PO BEDTIME 30 days #30 tabs 09/30/22 losartan 100 mg tablet 100 mg PO DAILY 90 days #90 tabs 10/13/22 trazodone 150 mg tablet 150 mg PO BEDTIME PRN for insomnia 10/13/22 90 days #90 tabs tizanidine 4 mg tablet 4 mg PO BEDTIME PRN muscle 11/13/22 spasticity 30 days #90 tabs metformin 500 mg tablet,extended 500 mg PO QPM #90 tabs 12/27/22 release 24 hr albuterol sulfate 90 mcg/actuation 1 inh inhalation QID PRN shortness 01/13/23 aerosol inhaler of breath or wheezing #8.5 grams prednisone 20 mg tablet 40 mg PO DAILY inflammation 5 days 01/13/23 #10 tabs buspirone 10 mg tablet 10 mg PO BID 30 days #60 tabs 01/21/23 sertraline 50 mg tablet 50 mg PO .Q AM 30 days #30 tabs 01/21/23 hydroxyzine HCl 25 mg tablet 25 mg PO TID PRN anxiety 30 days 01/22/23 #90 tabs amlodipine 5 mg tablet 5 mg PO DAILY 90 days #90 tabs 01/25/23 furosemide 40 mg tablet 40 mg PO DAILY #90 tabs 01/25/23 oxycodone 15 mg tablet 15 mg PO BID PRN severe pain 30 01/25/23 days #60 tabs gabapentin 800 mg tablet 800 mg PO TID 30 days #90 tabs 02/05/23 albuterol sulfate 90 mcg/actuation 2 inh inhalation Q4-6H PRN 03/03/23 breath activated powder inhaler shortness of breath or wheezing #1 ea doxycycline hyclate 100 mg capsule 100 mg PO BID 10 days #20 caps 03/03/23 prednisone 20 mg tablet 40 mg PO DAILY 5 days #10 tabs 03/03/23 <Francheska Hankins NP - Last Filed: 03/03/23 16:01> Allergies/Adverse Reactions: Allergies Allergy/AdvReac Type Severity Reaction Status Date / Time morphine AdvReac Severe respiratory Verified 03/03/23 15:57 depression/failure <Francheska Hankins NP - Last Filed: 03/03/23 16:01> Review of Systems Review of Systems: Constitutional : No Weight loss, + Fever, + Chills, + Fatigue, + Malaise ENT/Mouth : No sore throat, No Rhinorrhea Eyes: No Eye Pain, No Swelling, No Redness Cardiovascular : + Chest Pain, + SOB, + Dyspnea on Exertion, No Orthopnea, No Edema, No Palpitations Respiratory : + Cough, + Sputum, + Wheezing Gastrointestinal : No Nausea, No Vomiting, No Diarrhea, No Constipation, No abdominal Pain, No Hematochezia, No Melena Genitourinary : No Dysuria, No Urinary Frequency, No Hematuria, Musculoskeletal : No joint pain, + Myalgias, No Joint Swelling Skin : No Skin Lesions, No rash Neuro : No Weakness, No Numbness, No Dizziness, No Headache Psych : No Anxiety/Panic, No Depression All other systems reviewed and are negative <ALEJANDRA Yanez - Last Filed: 03/03/23 22:03> Yes all other systems are reviewed and are negative <ALEJANDRA Yanez - Last Filed: 03/03/23 22:03> [facility] Past Medical History Attestation statement: The following information was validated with the patient. <ALEJANDRA Yanez - Last Filed: 03/03/23 22:03> Source: old records reviewed and nursing notes reviewed <ALEJANDRA Yanez - Last Filed: 03/03/23 22:03> Medical History: Medical History Anxiety Benign essential hypertension Chronic kidney disease (CKD), stage III (moderate) COPD (chronic obstructive pulmonary disease) Degenerative disc disease, cervical Erectile dysfunction Insomnia Lumbar degenerative disc disease Obesity (BMI 30-39.9) Primary osteoarthritis of both knees Pure hypercholesterolemia <Francheska Hankins NP - Last Filed: 03/03/23 16:01> Surgical History: Surgical History History of glaucoma History of trabeculectomy Hx of total knee arthroplasty <Francheska Hankins NP - Last Filed: 03/03/23 16:01> Family History Family History: Family History Father Cancer Mother No problems noted. <Francheska Hankins NP - Last Filed: 03/03/23 16:01> Social History Social History: Social History Housing: House Alcohol intake: current Alcohol intake frequency: does not drink Alcohol type: beer Patient Tobacco Use Status: Former Tobacco user Tobacco use type: Cigar Years Smoked: 30 years Smoked in Last 30 Days: No e-Cigarette/Vaping Use: Never Used Second Hand Smoke Exposure: Yes Use of substances other than those prescribed or required for medical reasons: No Advance Directives: No Advance Directives Information Provided: No service: Yes Current occupational status: retired Cognitive needs: No Hearing needs: No Vision needs: No <Francheska Hankins NP - Last Filed: 03/03/23 16:01> Physical Exam Vital Signs: Vital Signs: Last Vital Signs Temp 97.6 F 03/03/23 21:49 Pulse 100 03/03/23 21:49 Resp 03/03/23 21:49 BP 145/83 H 03/03/23 21:49 Pulse Ox 97 03/03/23 21:49 O2 Del Method Room Air 03/03/23 21:49 BMI result Body Mass Index 35.3 <Francheska Hankins NP - Last Filed: 03/03/23 16:01> Vital Signs: Last Vital Signs Temp 97.6 F 03/03/23 21:49 Pulse 100 03/03/23 21:49 Resp 03/03/23 21:49 BP 145/83 H 03/03/23 21:49 Pulse Ox 97 03/03/23 21:49 O2 Del Method Room Air 03/03/23 21:49 BMI result Body Mass Index 35.3 vss <ALEJANDRA Yanez - Last Filed: 03/03/23 22:03> Appearance: Alert.? Oriented X3.? No acute distress.?Patient w/ intermittent wet cough during my exam Head: Normocephalic, atraumatic, no step-offs or deformities Eyes: Pupils equal, round and reactive to light.? ENT: Pharynx normal.? CVS: Normal heart rate and rhythm.? Pulses normal.? Respiratory: No respiratory distress.? Breath sounds w/ faint crackles b/l and expiratory wheezing throughout. .? Abdomen: Soft and nontender.? Skin: Skin warm and dry.? Normal skin color.? Normal skin turgor.? Extremities: No lower extremity edema.? No calf ttp. 5/5 strength to bilateral upper and lower extremities Neuro: Oriented X 3.? No motor deficit.? No sensory deficit. CN 2-12 intact <ALEJANDRA Yanez - Last Filed: 03/03/23 22:03> Course Course Course Narrative: This is a rapid medical exam. Deferred additional HPI, ROS, PE to primary provider. [id number] with a PMHx of COPD, HTN, HLD, CKD, Anxiety, Insomnia, DDD to cervical spine, erectile dysfunction, osteoarthritis of bilateral knees and obesity here with complaints of shortness of breath since yesterday, fatigue, malaise, productive cough with yellow sputum. Patient with wheezing in triage. Saturations okay. Will obtain labs, chest x-ray, EKG, viral testing. <Francheska Hankins NP - Last Filed: 03/03/23 16:01> Reevaluation(s) Reevaluation #1: CBC appears to be within patient's normal baseline within normocytic anemia. Chemistry with slightly low sodium 133 however tolerating p.o.. BUN slightly elevated at 17, again tolerating p.o.. Troponin negative, EKG jeffy schemic. BNP within normal limits. CXR unremarkable. Dimer and repeat trop pending <ALEJANDRA Yanez - Last Filed: 03/03/23 22:03> Time: 19:19 <ALEJANDRA Yanez - Last Filed: 03/03/23 22:03> Reevaluation #2: D-dimer was elevated CTA was done no acute abnormality, no evidence of PE. VT negative. Repeat troponin increased however not meeting delta criteria patient without chest pain and shortness of breath he tells me his 2nd treatment really helped, unlikely ACS. Gave his 1st dose of doxycycline here. Will discharge home on doxycycline, albuterol and prednisone for bronchitis. Educated patient on diagnosis and treatment plan, answered all question, patient verbalizes understanding. At this time patient will be discharged home, advised to return with new or worsening symptoms. Educated on worrisome signs and sym ptoms and when to return. At this time I feel comfortable discharge home. At time of discharge patient is saturating 97-98% on room air, comfortable appearing and sitting he feels much better than he did when he 1st came in. <ALEJANDRA Yanez - Last Filed: 03/03/23 22:03> Time: 22:02 <ALEJANDRA Yanez - Last Filed: 03/03/23 22:03> Medications Administered Discontinued Medications Generic Name Dose Route Start Last Admin Trade Name Freq PRN Reason Stop Dose Admin Albuterol/Ipratropium 3 ml 03/03/23 16:00 03/03/23 19:34 Albuterol/Iprat 2.5/0.5mg 3 Ml Ampul.Neb INHALE 03/03/23 16:01 3 ml ONCE ONE Administration Albuterol/Ipratropium 3 ml 03/03/23 21:19 03/03/23 21:28 Albuterol/Iprat 2.5/0.5mg 3 Ml Ampul.Neb INHALE 03/03/23 21:20 3 ml ONCE ONE Administration Doxycycline Monohydrate 100 mg 03/03/23 21:19 03/03/23 21:53 Doxycycline Monohydrate 100 Mg Capsule PO 03/03/23 21:20 100 mg ONCE ONE Administration Iohexol 100 ml 03/03/23 21:03 03/03/23 21:04 Iohexol 350 Mg/Ml 100 Ml Infus..Btl IV 03/03/23 21:04 65 ml ONCE ONE Administration <Francheska Hankins NP - Last Filed: 03/03/23 16:01> Medications Administered Discontinued Medications Generic Name Dose Route Start Last Admin Trade Name Freq PRN Reason Stop Dose Admin Albuterol/Ipratropium 3 ml 03/03/23 16:00 03/03/23 19:34 Albuterol/Iprat 2.5/0.5mg 3 Ml Ampul.Neb INHALE 03/03/23 16:01 3 ml ONCE ONE Administration Albuterol/Ipratropium 3 ml 03/03/23 21:19 03/03/23 21:28 Albuterol/Iprat 2.5/0.5mg 3 Ml Ampul.Neb INHALE 03/03/23 21:20 3 ml ONCE ONE Administration Doxycycline Monohydrate 100 mg 03/03/23 21:19 03/03/23 21:53 Doxycycline Monohydrate 100 Mg Capsule PO 03/03/23 21:20 100 mg ONCE ONE Administration Iohexol 100 ml 03/03/23 21:03 03/03/23 21:04 Iohexol 350 Mg/Ml 100 Ml Infus..Btl IV 03/03/23 21:04 65 ml ONCE ONE Administration <ALEJANDRA Yanez - Last Filed: 03/03/23 22:03> Medical Decision Making Medical Decision Making [facility] Narrative: 1916 82-year-old male presents with wet cough, fatigue, malaise, myalgias, subjective fevers and chills, chest pain and shortness of breath for the past few days worsening. Physical exam significant for No respiratory distress.? Breath sounds w/ faint crackles b/l and expiratory wheezing throughout. Patient is having a wet cough throughout my examination intermittently. Concerns for possible bronchitis versus viral illness versus chronic respiratory disease. I do not suspect acute COPD exacerbation, pneumonia, PE, ACS. No signs of respiratory distress Plan at this time troponin, EKG, basic labs, x-ray, blood cultures, lactic acid. Will obtain D-dimer as well. <ALEJANDRA Yanez - Last Filed: 03/03/23 22:03> Differential Diagnosis Differential Diagnoses: The differential diagnosis associated with the presentation includes <ALEJANDRA Yanez - Last Filed: 03/03/23 22:03> Concerns for possible bronchitis versus viral illness versus chronic respiratory disease. I do not suspect acute COPD exacerbation, pneumonia, PE, ACS. No signs of respiratory distress <ALEJANDRA Yanez - Last Filed: 03/03/23 22:03> Admission/Observation Consideration of admission/observation: Escalation of care including admission/observation considered <ALEJANDRA Yanez - Last Filed: 03/03/23 22:03> Unlikely <ALEJANDRA Yanez - Last Filed: 03/03/23 22:03> Lab Data [facility] Lab Attestation statement: I reviewed the patient's lab results. <ALEJANDRA Yanez Last Filed: 03/03/23 22:03> Result Diagrams: 03/03/23 16:21 03/03/23 16:21 <Francheska Hankins NP - Last Filed: 03/03/23 16:01> Labs: Lab Results 03/03/23 03/03/23 03/03/23 Range/Units 16:20 16:21 16:21 WBC 9.9 (4.8-10.8) X10*3/uL RBC 4.37 L (4.60-5.80) X10*6/uL Hgb 12.6 L (14.0-18.0) g/dl Hct 38.1 L (42.0-52.0) % MCV 87.2 (80.0-98.0) fL MCH 28.8 (27.0-33.0) pg MCHC 33.1 (31.0-36.0) g/dl RDW 13.2 (11.0-16.0) % Plt Count 245 (160-400) X10*3/uL MPV 9.3 L (9.4-12.4) fL Immature Gran % (Auto) 0.4 (0.0-0.4) % Neut % (Auto) 77.2 H (45-73) % Lymph % (Auto) 10.3 L (20-40) % [place] % (Auto) 8.4 (2-11) % Eos % (Auto) 3.4 (0-4) % Baso % (Auto) 0.3 (0-2) % Lymph # (Auto) 1.0 L (1.2-4.9) X10*3/uL [place] # (Auto) 0.8 (0.1-1.2) X10*3/uL Eos # (Auto) 0.3 (0.0-0.4) X10*3/uL Baso # (Auto) 0.0 (0.0-0.2) X10*3/uL Abs Immat Gran (auto) 0.04 H (0.00-0.03) X10*3/uL Absolute Neuts (auto) 7.7 (2.0-8.3) x10*3/uL Absolute Nucleated RBC 0.000 (0.0-0.012) X10*3/uL Nucleated RBC % (auto) 0.0 (0.0-0.2) /100WBC PT 11.5 (10.0-13.1) SEC INR 1.0 (0.9-1.1) D-Dimer High Sensitivty 294 NG/ML Sodium (135-145) mmol/L Potassium (3.3-5.1) mmol/L Chloride (96-108) mmol/L Carbon Dioxide (22-29) mmol/L Anion Gap (12-20) BUN (9-16) mg/dL Creatinine (0.5-1.4) mg/dL Estim Creat Clear Calc Estimated GFR Random Glucose (60-115) mg/dL Lactic Acid (0.5-2.0) mmol/L Calcium (8.4-10.2) mg/dL Magnesium (1.6-2.6) mg/dL Total Bilirubin (0.0-1.0) mg/dL Direct Bilirubin (0.0-0.5) mg/dL AST (5-37) U/L ALT (0-40) U/L Alkaline Phosphatase (39-117) U/L Troponin I High Sens (<3.5-35.0) ng/L B-Natriuretic Peptide (<100) pg/mL Total Protein (6.5-8.0) g/dL Albumin (3.5-5.0) g/dL Influenza Type A (PCR) NEGATIVE (Negative) Influenza Type B (PCR) NEGATIVE (Negative) RSV RNA Qual (PCR) NEGATIVE (Negative) SARS-CoV-2 RNA (RT-PCR) NEGATIVE (Negative) 03/03/23 03/03/23 03/03/23 Range/Units 16:21 16:21 16:21 WBC (4.8-10.8) X10*3/uL RBC (4.60-5.80) X10*6/uL Hgb (14.0-18.0) g/dl Hct (42.0-52.0) % MCV (80.0-98.0) fL MCH (27.0-33.0) pg MCHC (31.0-36.0) g/dl RDW (11.0-16.0) % Plt Count (160-400) X10*3/uL MPV (9.4-12.4) fL Immature Gran % (Auto) (0.0-0.4) % Neut % (Auto) (45-73) % Lymph % (Auto) (20-40) % [place] % (Auto) (2-11) % Eos % (Auto) (0-4) % Baso % (Auto) (0-2) % Lymph # (Auto) (1.2-4.9) X10*3/uL [place] # (Auto) (0.1-1.2) X10*3/uL Eos # (Auto) (0.0-0.4) X10*3/uL Baso # (Auto) (0.0-0.2) X10*3/uL Abs Immat Gran (auto) (0.00-0.03) X10*3/uL Absolute Neuts (auto) (2.0-8.3) x10*3/uL Absolute Nucleated RBC (0.0-0.012) X10*3/uL Nucleated RBC % (auto) (0.0-0.2) /100WBC PT (10.0-13.1) SEC INR (0.9-1.1) D-Dimer High Sensitivty NG/ML Sodium 133 L (135-145) mmol/L Potassium 4.6 (3.3-5.1) mmol/L Chloride 102 (96-108) mmol/L Carbon Dioxide 25 (22-29) mmol/L Anion Gap 11 L (12-20) BUN 17 H (9-16) mg/dL Creatinine 1.07 (0.5-1.4) mg/dL Estim Creat Clear Calc 65.4 Estimated GFR > 60 Random Glucose 143 H (60-115) mg/dL Lactic Acid 1.7 (0.5-2.0) mmol/L Calcium 9.0 (8.4-10.2) mg/dL Magnesium 2.0 (1.6-2.6) mg/dL Total Bilirubin 0.5 (0.0-1.0) mg/dL Direct Bilirubin 0.1 (0.0-0.5) mg/dL AST 18 (5-37) U/L ALT 19 (0-40) U/L Alkaline Phosphatase 67 (39-117) U/L Troponin I High Sens 5.2 (<3.5-35.0) ng/L B-Natriuretic Peptide (<100) pg/mL Total Protein 6.7 (6.5-8.0) g/dL Albumin 4.0 (3.5-5.0) g/dL Influenza Type A (PCR) (Negative) Influenza Type B (PCR) (Negative) RSV RNA Qual (PCR) (Negative) SARS-CoV-2 RNA (RT-PCR) (Negative) 03/03/23 03/03/23 Range/Units 16:21 19:42 WBC (4.8-10.8) X10*3/uL RBC (4.60-5.80) X10*6/uL Hgb (14.0-18.0) g/dl Hct (42.0-52.0) % MCV (80.0-98.0) fL MCH (27.0-33.0) pg MCHC (31.0-36.0) g/dl RDW (11.0-16.0) % Plt Count (160-400) X10*3/uL MPV (9.4-12.4) fL Immature Gran % (Auto) (0.0-0.4) % Neut % (Auto) (45-73) % Lymph % (Auto) (20-40) % [place] % (Auto) (2-11) % Eos % (Auto) (0-4) % Baso % (Auto) (0-2) % Lymph # (Auto) (1.2-4.9) X10*3/uL [place] # (Auto) (0.1-1.2) X10*3/uL Eos # (Auto) (0.0-0.4) X10*3/uL Baso # (Auto) (0.0-0.2) X10*3/uL Abs Immat Gran (auto) (0.00-0.03) X10*3/uL Absolute Neuts (auto) (2.0-8.3) x10*3/uL Absolute Nucleated RBC (0.0-0.012) X10*3/uL Nucleated RBC % (auto) (0.0-0.2) /100WBC PT (10.0-13.1) SEC INR (0.9-1.1) D-Dimer High Sensitivty NG/ML Sodium (135-145) mmol/L Potassium (3.3-5.1) mmol/L Chloride (96-108) mmol/L Carbon Dioxide (22-29) mmol/L Anion Gap (12-20) BUN (9-16) mg/dL Creatinine (0.5-1.4) mg/dL Estim Creat Clear Calc Estimated GFR Random Glucose (60-115) mg/dL Lactic Acid (0.5-2.0) mmol/L Calcium (8.4-10.2) mg/dL Magnesium (1.6-2.6) mg/dL Total Bilirubin (0.0-1.0) mg/dL Direct Bilirubin (0.0-0.5) mg/dL AST (5-37) U/L ALT (0-40) U/L Alkaline Phosphatase (39-117) U/L Troponin I High Sens 7.1 (<3.5-35.0) ng/L B-Natriuretic Peptide 79 (<100) pg/mL Total Protein (6.5-8.0) g/dL Albumin (3.5-5.0) g/dL Influenza Type A (PCR) (Negative) Influenza Type B (PCR) (Negative) RSV RNA Qual (PCR) (Negative) SARS-CoV-2 RNA (RT-PCR) (Negative) <Francheska Hankins, OBSTETRICAL NURSE - Last Filed: 03/03/23 16:01> Lab Results 03/03/23 03/03/23 03/03/23 Range/Units 16:20 16:21 16:21 WBC 9.9 (4.8-10.8) X10*3/uL RBC 4.37 L (4.60-5.80) X10*6/uL Hgb 12.6 L (14.0-18.0) g/dl Hct 38.1 L (42.0-52.0) % MCV 87.2 (80.0-98.0) fL MCH 28.8 (27.0-33.0) pg MCHC 33.1 (31.0-36.0) g/dl RDW 13.2 (11.0-16.0) % Plt Count 245 (160-400) X10*3/uL MPV 9.3 L (9.4-12.4) fL Immature Gran % (Auto) 0.4 (0.0-0.4) % Neut % (Auto) 77.2 H (45-73) % Lymph % (Auto) 10.3 L (20-40) % [place] % (Auto) 8.4 (2-11) % Eos % (Auto) 3.4 (0-4) % Baso % (Auto) 0.3 (0-2) % Lymph # (Auto) 1.0 L (1.2-4.9) X10*3/uL [place] # (Auto) 0.8 (0.1-1.2) X10*3/uL Eos # (Auto) 0.3 (0.0-0.4) X10*3/uL Baso # (Auto) 0.0 (0.0-0.2) X10*3/uL Abs Immat Gran (auto) 0.04 H (0.00-0.03) X10*3/uL Absolute Neuts (auto) 7.7 (2.0-8.3) x10*3/uL Absolute Nucleated RBC 0.000 (0.0-0.012) X10*3/uL Nucleated RBC % (auto) 0.0 (0.0-0.2) /100WBC PT 11.5 (10.0-13.1) SEC INR 1.0 (0.9-1.1) D-Dimer High Sensitivty 294 NG/ML Sodium (135-145) mmol/L Potassium (3.3-5.1) mmol/L Chloride (96-108) mmol/L Carbon Dioxide (22-29) mmol/L Anion Gap (12-20) BUN (9-16) mg/dL Creatinine (0.5-1.4) mg/dL Estim Creat Clear Calc Estimated GFR Random Glucose (60-115) mg/dL Lactic Acid (0.5-2.0) mmol/L Calcium (8.4-10.2) mg/dL Magnesium (1.6-2.6) mg/dL Total Bilirubin (0.0-1.0) mg/dL Direct Bilirubin (0.0-0.5) mg/dL AST (5-37) U/L ALT (0-40) U/L Alkaline Phosphatase (39-117) U/L Troponin I High Sens (<3.5-35.0) ng/L B-Natriuretic Peptide (<100) pg/mL Total Protein (6.5-8.0) g/dL Albumin (3.5-5.0) g/dL Influenza Type A (PCR) NEGATIVE (Negative) Influenza Type B (PCR) NEGATIVE (Negative) RSV RNA Qual (PCR) NEGATIVE (Negative) SARS-CoV-2 RNA (RT-PCR) NEGATIVE (Negative) 03/03/23 03/03/23 03/03/23 Range/Units 16:21 16:21 16:21 WBC (4.8-10.8) X10*3/uL RBC (4.60-5.80) X10*6/uL Hgb (14.0-18.0) g/dl Hct (42.0-52.0) % MCV (80.0-98.0) fL MCH (27.0-33.0) pg MCHC (31.0-36.0) g/dl RDW (11.0-16.0) % Plt Count (160-400) X10*3/uL MPV (9.4-12.4) fL Immature Gran % (Auto) (0.0-0.4) % Neut % (Auto) (45-73) % Lymph % (Auto) (20-40) % [place] % (Auto) (2-11) % Eos % (Auto) (0-4) % Baso % (Auto) (0-2) % Lymph # (Auto) (1.2-4.9) X10*3/uL [place] # (Auto) (0.1-1.2) X10*3/uL Eos # (Auto) (0.0-0.4) X10*3/uL Baso # (Auto) (0.0-0.2) X10*3/uL Abs Immat Gran (auto) (0.00-0.03) X10*3/uL Absolute Neuts (auto) (2.0-8.3) x10*3/uL Absolute Nucleated RBC (0.0-0.012) X10*3/uL Nucleated RBC % (auto) (0.0-0.2) /100WBC PT (10.0-13.1) SEC INR (0.9-1.1) D-Dimer High Sensitivty NG/ML Sodium 133 L (135-145) mmol/L Potassium 4.6 (3.3-5.1) mmol/L Chloride 102 (96-108) mmol/L Carbon Dioxide 25 (22-29) mmol/L Anion Gap 11 L (12-20) BUN 17 H (9-16) mg/dL Creatinine 1.07 (0.5-1.4) mg/dL Estim Creat Clear Calc 65.4 Estimated GFR > 60 Random Glucose 143 H (60-115) mg/dL Lactic Acid 1.7 (0.5-2.0) mmol/L Calcium 9.0 (8.4-10.2) mg/dL Magnesium 2.0 (1.6-2.6) mg/dL Total Bilirubin 0.5 (0.0-1.0) mg/dL Direct Bilirubin 0.1 (0.0-0.5) mg/dL AST 18 (5-37) U/L ALT 19 (0-40) U/L Alkaline Phosphatase 67 (39-117) U/L Troponin I High Sens 5.2 (<3.5-35.0) ng/L B-Natriuretic Peptide (<100) pg/mL Total Protein 6.7 (6.5-8.0) g/dL Albumin 4.0 (3.5-5.0) g/dL Influenza Type A (PCR) (Negative) Influenza Type B (PCR) (Negative) RSV RNA Qual (PCR) (Negative) SARS-CoV-2 RNA (RT-PCR) (Negative) 03/03/23 03/03/23 Range/Units 16:21 19:42 WBC (4.8-10.8) X10*3/uL RBC (4.60-5.80) X10*6/uL Hgb (14.0-18.0) g/dl Hct (42.0-52.0) % MCV (80.0-98.0) fL MCH (27.0-33.0) pg MCHC (31.0-36.0) g/dl RDW (11.0-16.0) % Plt Count (160-400) X10*3/uL MPV (9.4-12.4) fL Immature Gran % (Auto) (0.0-0.4) % Neut % (Auto) (45-73) % Lymph % (Auto) (20-40) % [place] % (Auto) (2-11) % Eos % (Auto) (0-4) % Baso % (Auto) (0-2) % Lymph # (Auto) (1.2-4.9) X10*3/uL [place] # (Auto) (0.1-1.2) X10*3/uL Eos # (Auto) (0.0-0.4) X10*3/uL Baso # (Auto) (0.0-0.2) X10*3/uL Abs Immat Gran (auto) (0.00-0.03) X10*3/uL Absolute Neuts (auto) (2.0-8.3) x10*3/uL Absolute Nucleated RBC (0.0-0.012) X10*3/uL Nucleated RBC % (auto) (0.0-0.2) /100WBC PT (10.0-13.1) SEC INR (0.9-1.1) D-Dimer High Sensitivty NG/ML Sodium (135-145) mmol/L Potassium (3.3-5.1) mmol/L Chloride (96-108) mmol/L Carbon Dioxide (22-29) mmol/L Anion Gap (12-20) BUN (9-16) mg/dL Creatinine (0.5-1.4) mg/dL Estim Creat Clear Calc Estimated GFR Random Glucose (60-115) mg/dL Lactic Acid (0.5-2.0) mmol/L Calcium (8.4-10.2) mg/dL Magnesium (1.6-2.6) mg/dL Total Bilirubin (0.0-1.0) mg/dL Direct Bilirubin (0.0-0.5) mg/dL AST (5-37) U/L ALT (0-40) U/L Alkaline Phosphatase (39-117) U/L Troponin I High Sens 7.1 (<3.5-35.0) ng/L B-Natriuretic Peptide 79 (<100) pg/mL Total Protein (6.5-8.0) g/dL Albumin (3.5-5.0) g/dL Influenza Type A (PCR) (Negative) Influenza Type B (PCR) (Negative) RSV RNA Qual (PCR) (Negative) SARS-CoV-2 RNA (RT-PCR) (Negative) <ALEJANDRA Yanez - Last Filed: 03/03/23 22:03> Independent Interpretation I performed an independent interpretation of an: EKG (Ventricular rate 98, VA prolonged, QT/QTC normal. EKG was sinus rhythm with first-degree AV block. Otherwise normal ECG no ST elevations or inversions concerning for ischemia.), Plain X-Ray (Unremarkable) and CT Scan (CT/CT angio chest PE protocol IMPRESSION: No acute abnormality. No evidence of pulmonary embolism. VTE: negative. ) <ALEJANDRA Yanez - Last Filed: 03/03/23 22:03> Radiology Impression Discussion of test interpretation with radiology: I have reviewed the radiologist's reading. <ALEJANDRA Yanez - Last Filed: 03/03/23 22:03> Core Measures AMI core measures followed: Yes <ALEJANDRA Yanez - Last Filed: 03/03/23 22:03> Measure exclusions: not indicated <ALEJANDRA Yanez - Last Filed: 03/03/23 22:03> Critical Care Time Critical Care Time Critical Care Time: No <ALEJANDRA Yanez - Last Filed: 03/03/23 22:03> Discharge Plan Discharge Clinical Impression: Bronchitis <Francheska Hankins NP - Last Filed: 03/03/23 16:01> Patient Disposition: Home, Self-Care <Francheska Hankins NP - Last Filed: 03/03/23 16:01> Instructions: Acute Bronchitis (ED) <Francheska Hankins NP - Last Filed: 03/03/23 16:01> Additional Instructions: Take your medications as prescribed. If you were prescribed antibiotics today, it is important that you take your medication to their entirety, do not skip any doses, do not finish them early. Follow-up with your primary care provider this week. Return to the emergency department with new or worsening symptoms. Such as fevers, chills, chest pain, shortness of breath, nausea, vomiting, dizziness, headache, vision changes, lethargy In case of emergency call 911 CT/CT angio chest PE protocol IMPRESSION: No acute abnormality. No evidence of pulmonary embolism. VTE: negative. <Francheska Hankins NP - Last Filed: 03/03/23 16:01> Prescriptions: New doxycycline hyclate 100 mg capsule 100 mg PO BID 10 Days Qty: 20 0RF prednisone 20 mg tablet 40 mg PO DAILY 5 Days Qty: 10 0RF albuterol sulfate 90 mcg/actuation aerosol powdr breath activated 2 inh inhalation Q4-6H PRN (Reason: shortness of breath or wheezing) Qty: 1 0RF No Action losartan 100 mg tablet 100 mg PO DAILY 90 Days Qty: 90 1RF trazodone 150 mg tablet 150 mg PO BEDTIME PRN (Reason: for insomnia) 90 Days Qty: 90 0RF tizanidine 4 mg tablet 4 mg PO BEDTIME PRN (Reason: muscle spasticity) 30 Days Qty: 90 1RF metformin 500 mg tablet extended release 24 hr 500 mg PO QPM Qty: 90 1RF sertraline 50 mg tablet 50 mg PO .Q AM 30 Days Qty: 30 2RF buspirone 10 mg tablet 10 mg PO BID 30 Days Qty: 60 3RF hydroxyzine HCl 25 mg tablet 25 mg PO TID PRN (Reason: anxiety) 30 Days Qty: 90 2RF amlodipine 5 mg tablet 5 mg PO DAILY 90 Days Qty: 90 1RF furosemide 40 mg tablet 40 mg PO DAILY Qty: 90 1RF oxycodone 15 mg tablet 15 mg PO BID PRN (Reason: severe pain) 30 Days Qty: 60 0RF albuterol sulfate 90 mcg/actuation HFA aerosol inhaler 1 inh inhalation QID PRN (Reason: shortness of breath or wheezing) Qty: 8.5 0RF prednisone 20 mg tablet 40 mg PO DAILY 5 Days Qty: 10 0RF gabapentin 800 mg tablet 800 mg PO TID 30 Days Qty: 90 2RF rosuvastatin 10 mg tablet 10 mg PO BEDTIME 30 Days Qty: 30 3RF albuterol sulfate [Ventolin HFA] 90 mcg/actuation HFA aerosol inhaler 2 puff PO QID PRN (Reason: bronchospasm) Qty: 6.7 5RF Combivent Respimat 20-100 mcg/actuation mist 1 puff inhalation QID Qty: 4 5RF budesonide-formoterol 160-4.5 mcg/actuation HFA aerosol inhaler 2 puff PO BID Qty: 10.2 5RF <Francheska Hankins NP - Last Filed: 03/03/23 16:01> Referrals: Kody Sheth MD [Primary Care Provider] - 2 days <Francheska Hankins NP - Last Filed: 03/03/23 16:01>
[2023-03-03 16:30] LABS: MANUAL DIFF FLAG NO
[2023-03-03 16:31] LABS: Basophils Percent Auto 0.3 % (0-2); Eosinophils Absolute Auto 0.3 X10*3/uL (0.0-0.4); Eosinophils Percent Auto 3.4 % (0-4); Hematocrit 38.1 % (42.0-52.0); Hemoglobin 12.6 g/dl (14.0-18.0); Imm Gran Abs Auto 0.04 X10*3/uL (0.00-0.03); Imm Gran Pct Auto 0.4 % (0.0-0.4); Lymphocytes Percent Auto 10.3 % (20-40); Mean Corpuscular HGB Conc 33.1 g/dl (31.0-36.0); Mean Corpuscular Hemoglobin 28.8 pg (27.0-33.0); Mean Corpuscular Volume 87.2 fL (80.0-98.0); Mean Platelet Volume 9.3 fL (9.4-12.4); Monocytes Absolute Auto 0.8 X10*3/uL (0.1-1.2); Monocytes Percent Auto 8.4 % (2-11); Neutrophils Absolute Auto 7.7 x10*3/uL (2.0-8.3); Neutrophils Percent Auto 77.2 % (45-73); Platelet Count 245 X10*3/uL (160-400); Red Blood Count 4.37 X10*6/uL (4.60-5.80); Red Cell Distribution Width 13.2 % (11.0-16.0); White Blood Count 9.9 X10*3/uL (4.8-10.8)
[2023-03-03 16:36] LABS: Prothrombin Time 11.5 SEC (10.0-13.1)
[2023-03-03 16:45] LABS: Alanine Aminotransferase 19 U/L (0-40); Alkaline Phosphatase 67 U/L (39-117); Anion Gap 11 (12-20); Aspartate Amino Transferase 18 U/L (5-37); Bilirubin Direct 0.1 mg/dL (0.0-0.5); Bilirubin Total 0.5 mg/dL (0.0-1.0); Blood Urea Nitrogen 17 mg/dL (9-16); Carbon Dioxide 25 mmol/L (22-29); Chloride 102 mmol/L (96-108); Creatinine Clr Calc Pharmacy 65.4; Estimated Glomerular Filt Rate > 60; Glucose Random 143 mg/dL (60-115); Potassium 4.6 mmol/L (3.3-5.1); Sodium 133 mmol/L (135-145); Total Protein 6.7 g/dL (6.5-8.0)
[2023-03-03 16:50] LABS: B Type Natriuretic Peptide 79 pg/mL (<100)
[2023-03-03 16:52] LABS: Troponin-I High Sensitivity 5.2 ng/L (<3.5-35.0)
[2023-03-03 17:02] LABS: Lactic Acid 1.7 mmol/L (0.5-2.0)
[2023-03-03 17:08] LABS: Influenza A PCR NEGATIVE (Negative); Influenza B PCR NEGATIVE (Negative); Resp Syncy Virus RNA Qual PCR NEGATIVE (Negative); SARS COV2 PCR INHOUSE NEGATIVE (Negative)
[2023-03-03 19:29] LABS: D Dimer High Sensitivity 294 NG/ML
[2023-03-03] MEDS: Albuterol/Iprat 2.5/0.5MG 3 ML AMPUL.NEB INHALE ×2 (19:34→21:28)
--- NOTE | 2023-03-03 19:49 | PC.NURSE ---
Pt aox3 at the bedside reporting sob. Respiratory at bedside with breathing treatment. O2 sat 96% RA with RR 20. NSR on monitor with HR 90. Labs drawn and sent. IV line started with 20G on R AC. Pt tolerated well. Pending lab results. Pt aware of plan of care.
[2023-03-03 20:07] LABS: Troponin-I High Sensitivity 7.1 ng/L (<3.5-35.0)
[2023-03-03] MEDS: iohexoL 350 MG/ML 100 ML INFUS..BTL IV (21:04)
[2023-03-03] MEDS: Doxycycline Monohydrate 100 MG CAPSULE PO (21:53)
--- NOTE | 2023-03-03 22:16 | PC.NURSE ---
Pt aox3 resting at the bedside. No apparent distress noted. IV line removed with no compications. Pt tolerated well. Discharge instructions reviewed with pt. Pt verbalizes understanding.
== END 2023-03-03 22:17 | disposition home or self-care (01) ==
PROVIDERS: Nurse Practitioner Family; Physician Assistant; Emergency Provider Emergency Medicine; PCP Internal Medicine
DX: J40 Bronchitis, not specified as acute or chronic (principal); R07.9 Chest pain, unspecified; J44.9 Chronic obstructive pulmonary disease, unspecified; I10 Essential (primary) hypertension; E78.5 Hyperlipidemia, unspecified; R53.83 Other fatigue; R05.9 Cough, unspecified; R79.1 Abnormal coagulation profile; R06.02 Shortness of breath; Z20.822 Contact with and (suspected) exposure to COVID-19
CPT/HCPCS: 0241U; 36415; 71046; 71275; 80048; 80076; 83605; 83735; 83880; 84484; 85025; 85379; 85610; 87040; 93005; 94640; 99284; 99285; Q9967

== ENCOUNTER 2023-03-12 16:26 | Emergency (ER) | payer MEDICARE, MEDICAID, SELFPAY ==
--- NOTE | ~2023-03-12 | XR_ITS ---
EXAMINATION: XR CHEST CLINICAL INFORMATION: Cough. COMPARISON: Chest radiograph 03/03/2023. TECHNIQUE: Frontal view of the chest was obtained. FINDINGS: Stable appearance of the cardiomediastinal silhouette. Unchanged mild interstitial thickening. No focal airspace opacity, pleural effusion or pneumothorax. No displaced osseous fractures. XR/XR chest 1V IMPRESSION: No acute cardiopulmonary findings.
[2023-03-12 16:52] VITALS: BP 127/67; PULSE 100; RESP 18; TEMP 36.7; O2SAT 96; BMI 33.2
--- NOTE | 2023-03-12 17:26 | ED.GENADULT ---
HPI - General Adult General Chief complaint: General Medical Stated complaint: cough,wheezing,lung pain Time Seen by Provider: 03/12/23 18:37 Related Data Previous Rx's Medication Instructions Recorded Combivent Respimat 20 mcg-100 1 puff inhalation QID #4 grams 09/30/22 mcg/actuation solution for inhalation (ipratropium-albuterol) albuterol sulfate 90 mcg/actuation 2 puff PO QID PRN bronchospasm 09/30/22 aerosol inhaler (Ventolin HFA) #6.7 grams budesonide-formoterol HFA 160 2 puff PO BID #10.2 grams 09/30/22 mcg-4.5 mcg/actuation aerosol inhaler rosuvastatin 10 mg tablet 10 mg PO BEDTIME 30 days #30 tabs 09/30/22 losartan 100 mg tablet 100 mg PO DAILY 90 days #90 tabs 10/13/22 trazodone 150 mg tablet 150 mg PO BEDTIME PRN for insomnia 10/13/22 90 days #90 tabs tizanidine 4 mg tablet 4 mg PO BEDTIME PRN muscle 11/13/22 spasticity 30 days #90 tabs metformin 500 mg tablet,extended 500 mg PO QPM #90 tabs 12/27/22 release 24 hr albuterol sulfate 90 mcg/actuation 1 inh inhalation QID PRN shortness 01/13/23 aerosol inhaler of breath or wheezing #8.5 grams prednisone 20 mg tablet 40 mg PO DAILY inflammation 5 days 01/13/23 #10 tabs buspirone 10 mg tablet 10 mg PO BID 30 days #60 tabs 01/21/23 sertraline 50 mg tablet 50 mg PO .Q AM 30 days #30 tabs 01/21/23 hydroxyzine HCl 25 mg tablet 25 mg PO TID PRN anxiety 30 days 01/22/23 #90 tabs amlodipine 5 mg tablet 5 mg PO DAILY 90 days #90 tabs 01/25/23 furosemide 40 mg tablet 40 mg PO DAILY #90 tabs 01/25/23 oxycodone 15 mg tablet 15 mg PO BID PRN severe pain 30 01/25/23 days #60 tabs gabapentin 800 mg tablet 800 mg PO TID 30 days #90 tabs 02/05/23 albuterol sulfate 90 mcg/actuation 2 inh inhalation Q4-6H PRN 03/03/23 breath activated powder inhaler shortness of breath or wheezing #1 ea doxycycline hyclate 100 mg capsule 100 mg PO BID 10 days #20 caps 03/03/23 prednisone 20 mg tablet 40 mg PO DAILY 5 days #10 tabs 03/03/23 azithromycin 250 mg tablet 250 mg PO DAILY 4 days #4 tabs 03/12/23 cefuroxime axetil 500 mg tablet 500 mg PO BID #14 tabs 03/12/23 codeine 10 mg-guaifenesin 100 mg/5 5 ml PO Q6H PRN cough #118 mL 03/12/23 mL oral liquid Allergies Allergy/AdvReac Type Severity Reaction Status Date / Time morphine AdvReac Severe respiratory Verified 03/03/23 15:57 depression/failure PMFSH Past Medical History Medical History Anxiety Benign essential hypertension Chronic kidney disease (CKD), stage III (moderate) COPD (chronic obstructive pulmonary disease) Degenerative disc disease, cervical Erectile dysfunction Insomnia Lumbar degenerative disc disease Obesity (BMI 30-39.9) Primary osteoarthritis of both knees Pure hypercholesterolemia Surgical History History of glaucoma History of trabeculectomy Hx of total knee arthroplasty Family History Family History Father Cancer Mother No problems noted. Social History Social History Housing: House Alcohol intake: former Patient Tobacco Use Status: Former Tobacco user Tobacco use type: Cigar Years Smoked: 30 years Smoked in Last 30 Days: No e-Cigarette/Vaping Use: Never Used Second Hand Smoke Exposure: Yes Use of substances other than those prescribed or required for medical reasons: No Advance Directives: No Advance Directives Information Provided: No service: Yes Current occupational status: retired Cognitive needs: No Hearing needs: No Vision needs: No Physical Exam ED Vital Signs: Vital Signs - 24 hr 03/12/23 16:52 03/12/23 19:23 03/12/23 20:05 Temperature 98.0 F 98.6 F Pulse Rate 100 78 68 Respiratory Rate 18 20 18 Blood Pressure 127/67 106/70 Pulse Oximetry 96 94 Oxygen Delivery Method Nasal Cannula Room Air 03/12/23 21:04 Temperature 97.5 F Pulse Rate 95 Respiratory Rate 20 Blood Pressure 108/63 Pulse Oximetry 99 Oxygen Delivery Method Room Air BMI result Body Mass Index 33.2 Medications Administered Generic Name Dose Route Start Last Admin Trade Name Kian PRN Reason Stop Dose Admin Azithromycin 500 mg/ Sodium 250 mls @ 125 mls/hr 03/12/23 19:13 03/12/23 20:13 Chloride IV 03/12/23 21:12 125 mls/hr ONCE ONE Administration Discontinued Medications Generic Name Dose Route Start Last Admin Trade Name Freq PRN Reason Stop Dose Admin Albuterol Sulfate 10 mg 03/12/23 19:09 03/12/23 19:42 Albuterol Sulfate (0.083%) 2.5 Mg/3 Ml Vial.Neb INHALE 03/12/23 19:10 10 mg ONCE ONE Administration Magnesium Sulfate 2 gm in 50 mls @ 25 mls/hr 03/12/23 19:09 03/12/23 19:43 Magnesium Sulfate/H2o IV 03/12/23 21:08 25 mls/hr ONCE ONE Administration Ceftriaxone Sodium 1 gm/ 50 mls @ 100 mls/hr 03/12/23 19:13 03/12/23 20:53 Sodium Chloride IV 03/12/23 19:42 Infused ONCE ONE Infusion Sodium Chloride 1,000 mls @ 999 mls/hr 03/12/23 19:17 03/12/23 20:54 Ns IVCONT 03/12/23 20:17 Infused .Q1H1M ONE Infusion Methylprednisolone Sodium Succinate 125 mg 03/12/23 19:09 03/12/23 19:43 Methylprednisolone Sod Succ 125 Mg/2 Ml Vial IVPUSH 03/12/23 19:10 125 mg ONCE ONE Administration Medical Decision Making Medical Decision Making MDM Narrative: -patient did not respond well to doxycycline. -white blood cell count elevated, likely secondary because the patient has been taking prednisone for several days. -chest x-ray interpreted by me: no pneumonia -patient's blood pressure stable, no fever, not tachycardic, sepsis not suspected. -patient began having bronchitis, given his past medical history, we will go ahead and continue treatment with different antibiotic Differential Diagnosis Differential Diagnoses: The differential diagnosis associated with the presentation includes (Asthma, COPD, bronchitis) Lab Data [facility] Lab Attestation statement: I reviewed the patient's lab results. 03/12/23 19:29 03/12/23 19:29 Labs: Lab Results 03/12/23 03/12/23 03/12/23 Range/Units 19:29 19:29 19:29 WBC 13.5 H (4.8-10.8) X10*3/uL RBC 4.54 L (4.60-5.80) X10*6/uL Hgb 13.2 L (14.0-18.0) g/dl Hct 40.3 L (42.0-52.0) % MCV 88.8 (80.0-98.0) fL MCH 29.1 (27.0-33.0) pg MCHC 32.8 (31.0-36.0) g/dl RDW 13.3 (11.0-16.0) % Plt Count 240 (160-400) X10*3/uL MPV 9.3 L (9.4-12.4) fL Immature Gran % (Auto) 0.4 (0.0-0.4) % Neut % (Auto) 75.8 H (45-73) % Lymph % (Auto) 13.3 L (20-40) % [place] % (Auto) 7.6 (2-11) % Eos % (Auto) 2.7 (0-4) % Baso % (Auto) 0.2 (0-2) % Lymph # (Auto) 1.8 (1.2-4.9) X10*3/uL [place] # (Auto) 1.0 (0.1-1.2) X10*3/uL Eos # (Auto) 0.4 (0.0-0.4) X10*3/uL Baso # (Auto) 0.0 (0.0-0.2) X10*3/uL Abs Immat Gran (auto) 0.06 H (0.00-0.03) X10*3/uL Absolute Neuts (auto) 10.3 H (2.0-8.3) x10*3/uL Absolute Nucleated RBC 0.000 (0.0-0.012) X10*3/uL Nucleated RBC % (auto) 0.0 (0.0-0.2) /100WBC PT 12.1 (10.0-13.1) SEC INR 1.1 (0.9-1.1) VBG pH (7.32-7.43) VBG pCO2 mmHg VBG pO2 mmHg VBG HCO3 (22-26) mmol/L VBG O2 Saturation % VBG Base Excess mmol/L Sodium 140 (135-145) mmol/L Potassium 5.1 (3.3-5.1) mmol/L Chloride 105 (96-108) mmol/L Carbon Dioxide 29 (22-29) mmol/L Anion Gap 11 L (12-20) BUN 16 (9-16) mg/dL Creatinine 1.22 (0.5-1.4) mg/dL Estim Creat Clear Calc 59.0 Estimated GFR 57 Random Glucose 145 H (60-115) mg/dL Lactic Acid (0.5-2.0) mmol/L Calcium 8.8 (8.4-10.2) mg/dL Total Bilirubin 0.4 (0.0-1.0) mg/dL Direct Bilirubin 0.1 (0.0-0.5) mg/dL AST 14 (5-37) U/L ALT 18 (0-40) U/L Alkaline Phosphatase 63 (39-117) U/L Troponin I High Sens (<3.5-35.0) ng/L B-Natriuretic Peptide (<100) pg/mL Total Protein 6.3 L (6.5-8.0) g/dL Albumin 3.7 (3.5-5.0) g/dL COVID-19 (CHERI) (Negative) COVID-19 Clin Com Influenza Type A (TRELL) (Negative) Influenza Type B (TRELL) (Negative) Influenza A & B Note 03/12/23 03/12/23 03/12/23 Range/Units 19:29 19:29 19:29 WBC (4.8-10.8) X10*3/uL RBC (4.60-5.80) X10*6/uL Hgb (14.0-18.0) g/dl Hct (42.0-52.0) % MCV (80.0-98.0) fL MCH (27.0-33.0) pg MCHC (31.0-36.0) g/dl RDW (11.0-16.0) % Plt Count (160-400) X10*3/uL MPV (9.4-12.4) fL Immature Gran % (Auto) (0.0-0.4) % Neut % (Auto) (45-73) % Lymph % (Auto) (20-40) % [place] % (Auto) (2-11) % Eos % (Auto) (0-4) % Baso % (Auto) (0-2) % Lymph # (Auto) (1.2-4.9) X10*3/uL [place] # (Auto) (0.1-1.2) X10*3/uL Eos # (Auto) (0.0-0.4) X10*3/uL Baso # (Auto) (0.0-0.2) X10*3/uL Abs Immat Gran (auto) (0.00-0.03) X10*3/uL Absolute Neuts (auto) (2.0-8.3) x10*3/uL Absolute Nucleated RBC (0.0-0.012) X10*3/uL Nucleated RBC % (auto) (0.0-0.2) /100WBC PT (10.0-13.1) SEC INR (0.9-1.1) VBG pH (7.32-7.43) VBG pCO2 mmHg VBG pO2 mmHg VBG HCO3 (22-26) mmol/L VBG O2 Saturation % VBG Base Excess mmol/L Sodium (135-145) mmol/L Potassium (3.3-5.1) mmol/L Chloride (96-108) mmol/L Carbon Dioxide (22-29) mmol/L Anion Gap (12-20) BUN (9-16) mg/dL Creatinine (0.5-1.4) mg/dL Estim Creat Clear Calc Estimated GFR Random Glucose (60-115) mg/dL Lactic Acid 2.0 (0.5-2.0) mmol/L Calcium (8.4-10.2) mg/dL Total Bilirubin (0.0-1.0) mg/dL Direct Bilirubin (0.0-0.5) mg/dL AST (5-37) U/L ALT (0-40) U/L Alkaline Phosphatase (39-117) U/L Troponin I High Sens 6.7 (<3.5-35.0) ng/L B-Natriuretic Peptide 40 (<100) pg/mL Total Protein (6.5-8.0) g/dL Albumin (3.5-5.0) g/dL COVID-19 (CHERI) (Negative) COVID-19 Clin Com Influenza Type A (TRELL) (Negative) Influenza Type B (TRELL) (Negative) Influenza A & B Note 03/12/23 03/12/23 03/12/23 Range/Units 19:29 19:29 19:36 WBC (4.8-10.8) X10*3/uL RBC (4.60-5.80) X10*6/uL Hgb (14.0-18.0) g/dl Hct (42.0-52.0) % MCV (80.0-98.0) fL MCH (27.0-33.0) pg MCHC (31.0-36.0) g/dl RDW (11.0-16.0) % Plt Count (160-400) X10*3/uL MPV (9.4-12.4) fL Immature Gran % (Auto) (0.0-0.4) % Neut % (Auto) (45-73) % Lymph % (Auto) (20-40) % [place] % (Auto) (2-11) % Eos % (Auto) (0-4) % Baso % (Auto) (0-2) % Lymph # (Auto) (1.2-4.9) X10*3/uL [place] # (Auto) (0.1-1.2) X10*3/uL Eos # (Auto) (0.0-0.4) X10*3/uL Baso # (Auto) (0.0-0.2) X10*3/uL Abs Immat Gran (auto) (0.00-0.03) X10*3/uL Absolute Neuts (auto) (2.0-8.3) x10*3/uL Absolute Nucleated RBC (0.0-0.012) X10*3/uL Nucleated RBC % (auto) (0.0-0.2) /100WBC PT (10.0-13.1) SEC INR (0.9-1.1) VBG pH 7.31 L (7.32-7.43) VBG pCO2 58 mmHg VBG pO2 35 mmHg VBG HCO3 30 H (22-26) mmol/L VBG O2 Saturation 48.0 % VBG Base Excess 2.4 mmol/L Sodium (135-145) mmol/L Potassium (3.3-5.1) mmol/L Chloride (96-108) mmol/L Carbon Dioxide (22-29) mmol/L Anion Gap (12-20) BUN (9-16) mg/dL Creatinine (0.5-1.4) mg/dL Estim Creat Clear Calc Estimated GFR Random Glucose (60-115) mg/dL Lactic Acid (0.5-2.0) mmol/L Calcium (8.4-10.2) mg/dL Total Bilirubin (0.0-1.0) mg/dL Direct Bilirubin (0.0-0.5) mg/dL AST (5-37) U/L ALT (0-40) U/L Alkaline Phosphatase (39-117) U/L Troponin I High Sens (<3.5-35.0) ng/L B-Natriuretic Peptide (<100) pg/mL Total Protein (6.5-8.0) g/dL Albumin (3.5-5.0) g/dL COVID-19 (CHERI) Negative (Negative) COVID-19 Clin Com See Note Influenza Type A (TRELL) Negative (Negative) Influenza Type B (TRELL) Negative (Negative) Influenza A & B Note See Note Radiology Impression Discussion of test interpretation with radiology: I have reviewed the radiologist's reading. Radiologist Impression: FINDINGS: Stable appearance of the cardiomediastinal silhouette. Unchanged mild interstitial thickening. No focal airspace opacity, pleural effusion or pneumothorax. No displaced osseous fractures. XR/XR chest 1V IMPRESSION: No acute cardiopulmonary findings. Discharge Plan Discharge Clinical Impression: Bronchitis Patient Disposition: Home, Self-Care Instructions: Acute Bronchitis (ED) Additional Instructions: Please follow-up with your primary care physician tomorrow. If you have any worsening or new symptoms, please return to the emergency room or call 911 Prescriptions: New cefuroxime axetil 500 mg tablet 500 mg PO BID Qty: 14 0RF azithromycin 250 mg tablet 250 mg PO DAILY 4 Days Qty: 4 0RF Rx Instructions: start on day 2 of therapy codeine-guaifenesin 10-100 mg/5 mL liquid 5 ml PO Q6H PRN (Reason: cough) Qty: 118 0RF No Action losartan 100 mg tablet 100 mg PO DAILY 90 Days Qty: 90 1RF trazodone 150 mg tablet 150 mg PO BEDTIME PRN (Reason: for insomnia) 90 Days Qty: 90 0RF tizanidine 4 mg tablet 4 mg PO BEDTIME PRN (Reason: muscle spasticity) 30 Days Qty: 90 1RF metformin 500 mg tablet extended release 24 hr 500 mg PO QPM Qty: 90 1RF sertraline 50 mg tablet 50 mg PO .Q AM 30 Days Qty: 30 2RF buspirone 10 mg tablet 10 mg PO BID 30 Days Qty: 60 3RF hydroxyzine HCl 25 mg tablet 25 mg PO TID PRN (Reason: anxiety) 30 Days Qty: 90 2RF amlodipine 5 mg tablet 5 mg PO DAILY 90 Days Qty: 90 1RF furosemide 40 mg tablet 40 mg PO DAILY Qty: 90 1RF oxycodone 15 mg tablet 15 mg PO BID PRN (Reason: severe pain) 30 Days Qty: 60 0RF albuterol sulfate 90 mcg/actuation HFA aerosol inhaler 1 inh inhalation QID PRN (Reason: shortness of breath or wheezing) Qty: 8.5 0RF prednisone 20 mg tablet 40 mg PO DAILY 5 Days Qty: 10 0RF doxycycline hyclate 100 mg capsule 100 mg PO BID 10 Days Qty: 20 0RF prednisone 20 mg tablet 40 mg PO DAILY 5 Days Qty: 10 0RF albuterol sulfate 90 mcg/actuation aerosol powdr breath activated 2 inh inhalation Q4-6H PRN (Reason: shortness of breath or wheezing) Qty: 1 0RF gabapentin 800 mg tablet 800 mg PO TID 30 Days Qty: 90 2RF rosuvastatin 10 mg tablet 10 mg PO BEDTIME 30 Days Qty: 30 3RF albuterol sulfate [Ventolin HFA] 90 mcg/actuation HFA aerosol inhaler 2 puff PO QID PRN (Reason: bronchospasm) Qty: 6.7 5RF Combivent Respimat 20-100 mcg/actuation mist 1 puff inhalation QID Qty: 4 5RF budesonide-formoterol 160-4.5 mcg/actuation HFA aerosol inhaler 2 puff PO BID Qty: 10.2 5RF
--- NOTE | 2023-03-12 19:09 | ECG_ITS ---
Test Reason : general medical Blood Pressure : / mmHG Vent. Rate : 077 BPM Atrial Rate : 077 BPM P-R Int : 244 ms QRS Dur : 092 ms QT Int : 396 ms P-R-T Axes : 054 034 035 degrees QTc Int : 448 ms Sinus rhythm with 1st degree A-V block with occasional Premature ventricular complexes Otherwise normal ECG When compared with ECG of 03-MAR-2023 16:07, Premature ventricular complexes are now Present Referred By: Elida Martínez Electronically Signed By:YOCASTA HENRIQUEZ
[2023-03-12 19:23] VITALS: BP 106/70; PULSE 78; RESP 20; TEMP 37; O2SAT 94
[2023-03-12 19:38] LABS: MANUAL DIFF FLAG NO
[2023-03-12 19:39] LABS: Basophils Percent Auto 0.2 % (0-2); Eosinophils Absolute Auto 0.4 X10*3/uL (0.0-0.4); Eosinophils Percent Auto 2.7 % (0-4); Hematocrit 40.3 % (42.0-52.0); Hemoglobin 13.2 g/dl (14.0-18.0); Imm Gran Abs Auto 0.06 X10*3/uL (0.00-0.03); Imm Gran Pct Auto 0.4 % (0.0-0.4); Lymphocytes Absolute Auto 1.8 X10*3/uL (1.2-4.9); Lymphocytes Percent Auto 13.3 % (20-40); Mean Corpuscular HGB Conc 32.8 g/dl (31.0-36.0); Mean Corpuscular Hemoglobin 29.1 pg (27.0-33.0); Mean Corpuscular Volume 88.8 fL (80.0-98.0); Mean Platelet Volume 9.3 fL (9.4-12.4); Monocytes Percent Auto 7.6 % (2-11); Neutrophils Absolute Auto 10.3 x10*3/uL (2.0-8.3); Neutrophils Percent Auto 75.8 % (45-73); Platelet Count 240 X10*3/uL (160-400); Red Blood Count 4.54 X10*6/uL (4.60-5.80); Red Cell Distribution Width 13.3 % (11.0-16.0); White Blood Count 13.5 X10*3/uL (4.8-10.8)
[2023-03-12] MEDS: 0.9 % Sodium Chloride 1,000 ML 999 ML IVCONT (19:40)
[2023-03-12] MEDS: Albuterol Sulfate (0.083%) 2.5 MG/3 ML VIAL.NEB 10 MG INHALE (19:42)
[2023-03-12] MEDS: Magnesium Sulfate/H2O 2 GM/50 ML PIGGYBACK IV (19:43)
[2023-03-12] MEDS: methylPREDNISolone Sod Succ 125 MG/2 ML VIAL IVPUSH (19:43)
[2023-03-12 19:44] LABS: VBG Base Excess 2.4 mmol/L; VBG HCO3 30 mmol/L (22-26); VBG pCO2 58 mmHg; VBG pH 7.31 (7.32-7.43); VBG pO2 35 mmHg
[2023-03-12 19:45] LABS: INTERNATIONAL NORM RATIO 1.1 (0.9-1.1); Prothrombin Time 12.1 SEC (10.0-13.1)
[2023-03-12 19:46] LABS: Venous Blood Gas Refer to POC result
[2023-03-12 19:51] LABS: COVID-19 Test Negative (Negative); IDNOW Serial# BCCEAD1C
[2023-03-12 19:53] LABS: IDNOW Serial# 9DB6401D; Influenza A Negative (Negative); Influenza B2 Negative (Negative)
[2023-03-12 19:54] LABS: Alanine Aminotransferase 18 U/L (0-40); Albumin Level 3.7 g/dL (3.5-5.0); Alkaline Phosphatase 63 U/L (39-117); Anion Gap 11 (12-20); Aspartate Amino Transferase 14 U/L (5-37); Bilirubin Direct 0.1 mg/dL (0.0-0.5); Bilirubin Total 0.4 mg/dL (0.0-1.0); Blood Urea Nitrogen 16 mg/dL (9-16); Calcium 8.8 mg/dL (8.4-10.2); Carbon Dioxide 29 mmol/L (22-29); Chloride 105 mmol/L (96-108); Estimated Glomerular Filt Rate 57; Glucose Random 145 mg/dL (60-115); Potassium 5.1 mmol/L (3.3-5.1); Sodium 140 mmol/L (135-145); Total Protein 6.3 g/dL (6.5-8.0)
[2023-03-12 19:58] LABS: B Type Natriuretic Peptide 40 pg/mL (<100)
[2023-03-12 20:00] LABS: Troponin-I High Sensitivity 6.7 ng/L (<3.5-35.0)
[2023-03-12 20:05] VITALS: PULSE 68; RESP 18; O2SAT 98
[2023-03-12] MEDS: cefTRIAXone sodium 1 GM in 0.9 % Sodium Chloride 50 ML IV (20:08)
[2023-03-12] MEDS: Azithromycin 500 MG in 0.9 % Sodium Chloride 250 ML 125 MG IV (20:13)
[2023-03-12 21:04] VITALS: BP 108/63; PULSE 95; RESP 20; TEMP 36.4; O2SAT 99
== END 2023-03-12 21:46 | disposition home or self-care (01) ==
PROVIDERS: Emergency Provider Emergency Medicine; PCP Internal Medicine
DX: J40 Bronchitis, not specified as acute or chronic (principal); R05.9 Cough, unspecified; I49.9 Cardiac arrhythmia, unspecified; R06.02 Shortness of breath; R07.89 Other chest pain; Z20.822 Contact with and (suspected) exposure to COVID-19; Z20.828 Contact with and (suspected) exposure to other viral communicable diseases; Z79.899 Other long term (current) drug therapy
CPT/HCPCS: 71045; 80048; 80076; 82803; 83605; 83880; 84484; 85025; 85610; 87040; 87502; 87635; 93005; 94640; 96361; 96374; 96375; 99284; 99285; J0456; J0696; J2930; J3475

== ENCOUNTER 2023-04-01 12:01 | Outpatient (REF) | payer MEDICARE, MEDICAID, SELFPAY | END 2023-04-01 12:02 | disposition home or self-care (01) | LOC: HO.HOSX 12:01 | PROVIDERS: Visit Provider Orthopaedic Surgery | DX: Z13.89 Encounter for screening for other disorder (principal) ==

== ENCOUNTER 2023-05-17 13:15 | Outpatient (REF) | payer MEDICARE, MEDICAID, SELFPAY ==
[2023-05-17 13:30] LABS: MANUAL DIFF FLAG NO
[2023-05-17 14:15] LABS: Basophils Percent Auto 0.4 % (0-2); Eosinophils Absolute Auto 0.3 X10*3/uL (0.0-0.4); Eosinophils Percent Auto 3.1 % (0-4); Hematocrit 37.7 % (42.0-52.0); Hemoglobin 12.4 g/dl (14.0-18.0); Imm Gran Abs Auto 0.05 X10*3/uL (0.00-0.03); Imm Gran Pct Auto 0.5 % (0.0-0.4); Lymphocytes Absolute Auto 2.5 X10*3/uL (1.2-4.9); Mean Corpuscular HGB Conc 32.9 g/dl (31.0-36.0); Mean Corpuscular Hemoglobin 29.1 pg (27.0-33.0); Mean Corpuscular Volume 88.5 fL (80.0-98.0); Mean Platelet Volume 9.1 fL (9.4-12.4); Monocytes Absolute Auto 0.7 X10*3/uL (0.1-1.2); Monocytes Percent Auto 7.7 % (2-11); Neutrophils Absolute Auto 5.9 x10*3/uL (2.0-8.3); Neutrophils Percent Auto 62.3 % (45-73); Platelet Count 284 X10*3/uL (160-400); Red Blood Count 4.26 X10*6/uL (4.60-5.80); Red Cell Distribution Width 13.5 % (11.0-16.0); White Blood Count 9.5 X10*3/uL (4.8-10.8)
[2023-05-17 14:38] LABS: Estimated Average Glucose 151 mg/dL; Hemoglobin A1c % 6.9 %
[2023-05-17 14:51] LABS: Alanine Aminotransferase 15 U/L (0-40); Albumin Level 3.9 g/dL (3.5-5.0); Alkaline Phosphatase 66 U/L (39-117); Anion Gap 13 (12-20); Aspartate Amino Transferase 16 U/L (5-37); Bilirubin Total 0.6 mg/dL (0.0-1.0); Blood Urea Nitrogen 16 mg/dL (9-16); Calcium 9.6 mg/dL (8.4-10.2); Carbon Dioxide 26 mmol/L (22-29); Chloride 103 mmol/L (96-108); Cholesterol 173 mg/dL; Estimated Glomerular Filt Rate 55; Glucose Fasting 141 mg/dL (60-99); HDL Cholesterol 33 mg/dL; LDL Cholesterol Calculated 84 mg/dl; Potassium 4.2 mmol/L (3.3-5.1); Sodium 138 mmol/L (135-145); Total Protein 7.4 g/dL (6.5-8.0); Triglycerides 284 mg/dL
[2023-05-17 15:02] LABS: Erythrocyte Sedimentation Rate 27 MM/HR (0-15)
[2023-05-17 15:09] LABS: TSH reflex Free T4 4.52 uIU/mL (0.32-4.0); Vitamin D 25-OH Total 44.2 ng/mL (>30)
[2023-05-17 15:17] LABS: Vitamin B12 291 pg/mL (200-900)
[2023-05-17 17:38] LABS: Free T4 (Free Thyroxine) 0.97 ng/dL (0.71-1.85)
== END 2023-05-17 13:16 | disposition home or self-care (01) ==
LOC: HO.LAB 13:15
PROVIDERS: PCP Internal Medicine; Visit Provider Internal Medicine
DX: E11.9 Type 2 diabetes mellitus without complications (principal); E55.9 Vitamin D deficiency, unspecified; I10 Essential (primary) hypertension; M79.7 Fibromyalgia; E53.8 Deficiency of other specified B group vitamins; E78.00 Pure hypercholesterolemia, unspecified
CPT/HCPCS: 36415; 80053; 80061; 82306; 82607; 82746; 83036; 84439; 84443; 85025; 85652

== ENCOUNTER 2023-08-11 16:19 | Outpatient (AMB) | payer MEDICARE, MEDICAID, SELFPAY ==
[2023-08-11 16:21] VITALS: BP 126/80; PULSE 85; O2SAT 97; BMI 31.7
--- NOTE | 2023-08-11 16:21 | MHC.PC.OV ---
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 Required: No Accompanied by: Self / Same As Patient Allergies morphine Adverse Reaction (Severe, Verified 08/11/23 16:53) respiratory depression/failure Medication List - Last Reconciled 08/11/23 by Kody Sheth MD albuterol sulfate 90 mcg/actuation 1 inh inhalation QID PRN albuterol sulfate 90 mcg/actuation 2 inhalations inhalation Q4-6H PRN albuterol sulfate 90 mcg/actuation (Ventolin HFA) 2 puffs PO QID PRN 30 days amlodipine 5 mg PO DAILY 90 days budesonide-formoterol 160-4.5 mcg/actuation 2 puffs PO BID buspirone 10 mg PO BID 30 days cefuroxime axetil 500 mg PO BID codeine-guaifenesin 10-100 mg/5 mL 5 mL PO Q6H PRN Combivent Respimat 20-100 mcg/actuation (ipratropium-albuterol) 1 puff inhalation QID NS doxycycline hyclate 100 mg PO BID 10 days fluticasone propionate 50 mcg/actuation (Flonase Allergy Relief) 1 spray intranasal DAILY 14 days fscyvzdyiev-rxfuvizoz-gqxjyyym 100-62.5-25 mcg (Trelegy Ellipta) 1 inh inhalation DAILY 30 days furosemide 40 mg PO DAILY gabapentin 800 mg PO TID 30 days guaifenesin ER (Mucinex) 600 mg PO BID 7 days hydroxyzine HCl 25 mg PO TID PRN 30 days losartan 100 mg PO DAILY 90 days metformin ER 500 mg PO QPM oxycodone 15 mg PO BID PRN 30 days prednisone 40 mg (2 x 20 mg) PO DAILY 5 days prednisone 10 mg PO DAILY 9 days prednisone 50 mg PO DAILY 3 days rosuvastatin 10 mg PO BEDTIME 30 days sertraline 50 mg PO .Q AM 30 days tizanidine 4 mg PO BEDTIME PRN 30 days trazodone 150 mg PO BEDTIME PRN 90 days Tobacco use date assessed: 08/11/23 Fall risk assessment: 1 Fall in past year Last assessed Fall Risk: 08/11/23 Dental Screening Dental Screen Date: 08/11/23 Did you have a dental visit in the last 12 months?: No Did you have a dental problem in the last 6 months where you did not have access to dental care?: No Was dental information given to patient?: No HPI 3 MONTHS F/ U HPI Details Patient comes in today for his follow up visit States that he feels okay He denies any headaches or dizziness Denies any chest pains, no increased shortness of breath No nausea/vomiting, no abdominal pain No change in bowel habits noted States that his chronic low back pain and joint pains remain adequately controlled on his current medications Has been experiencing some pain in his foot lately would like to see get some x-rays look into this Adds that he has a large cyst over his left elbow again presently - recalls that he has similar large cyst that was drained by a doctor here at [facility] several months ago Needs his Losartan Rx refilled Relates that he had some follow-up labs done back in late April 2023 a week after his last visit - would like to know how he did on his labs back then [facility] Medical History Obesity (BMI 30-39.9) Anxiety Insomnia Benign essential hypertension Chronic kidney disease (CKD), stage III (moderate) Pure hypercholesterolemia Erectile dysfunction Lumbar degenerative disc disease Primary osteoarthritis of both knees COPD (chronic obstructive pulmonary disease) Degenerative disc disease, cervical Surgical History Hx of total knee arthroplasty History of glaucoma History of trabeculectomy Family History Father Cancer Mother No problems noted. Social History Housing: House Alcohol intake: former Patient Tobacco Use Status: Former Tobacco user Tobacco use type: Cigar Years Smoked: 30 years e-Cigarette/Vaping Use: Never Used Second Hand Smoke Exposure: Yes service: Yes Current occupational status: retired Cognitive needs: No Hearing needs: No Vision needs: No Questionnaire PHQ-9 Over the last 2 weeks, how often have you been bothered by any of the following problems? 1. Little interest or pleasure in doing things: several days 2. Feeling down, depressed, or hopeless: several days 3. Trouble falling or staying asleep, or sleeping too much: not at all 4. Feeling tired or having little energy: several days 5. Poor appetite or overeating: not at all 6. Feeling bad about yourself - or that you are a failure or have let yourself or your family down: not at all 7. Trouble concentrating on things, such as reading the newspaper or watching television: not at all 8. Moving or speaking so slowly that other people could have noticed. Or the opposite - being so fidgety or restless that you have been moving around a lot more than usual: not at all 9. Thoughts that you would be better off or of hurting yourself in some way: not at all Total score: 3 Depression Screening Interpretation: Positive (is on Rx) Depression Screening Follow-up: Existing condition, In treatment and Community Mental Health Worker F/U 75436 - PHQ-9 Billing: Yes Source: Developed by Drs. Kali Burton, Erika Garzon, Smith Osorio and colleagues, with an educational baudilio from [employer]. Thrive Questionnaire Date Thrive assessed: 08/11/23 I am a: Patient What is your living situation today?: I have a steady place to live Within the past 12 months, did the food you bought not last and you didn't have the money to get more?: Never true Within the past 12 months, did you worry whether your food would run out before you got money to buy more?: Never true Do you have trouble paying for medicines?: No Do you have trouble getting transportation to medical appointments?: No Do you have trouble paying your heating and electricity bill?: No Do you have trouble taking care of your child, family member or friend?: No Do you have trouble with day-to-day activities such as bathing, preparing meals, shopping, managing finances, etc.?: No Are you currently unemployed and looking for a job?: No Are you interested in more education?: No Please select the resources that you would like help with: None Currently or been in a relationship where the following occur: no concerns reported AUDIT C Alcohol Use Questionnaire (AUDIT-C) 1. How often do you have a drink containing alcohol?: Never 3. How often do you have six or more drinks on one occasion?: Never Total Score: 0 Score Reviewed/Action Taken: Yes JACKSON-7 AMB Questionnaire JACKSON-7 Date JACKSON - 7 assessed: 08/11/23 Feeling nervous, anxious, or on edge: 3 = Nearly every day Not being able to stop or control worryin = Nearly every day Worrying too much about different things: 3 = Nearly every day Trouble relaxin = Nearly every day Being so restless that it is hard to sit still: 3 = Nearly every day Becoming easily annoyed or irritable: 3 = Nearly every day Feeling afraid as if something awful might happen: 3 = Nearly every day Total JACKSON-7 score (0-4 normal; 5-9 mild; 10-14 moderate; 15-21 severe): 21 Source: Developed by Drs. Kali Burton, Erika Garzon, Smith Osorio and colleagues, with an educational baudilio from [employer]. JACKSON-7 Assessment Billing JACKSON-7 Assessment Tool: JACKSON-7 Assessment 61069 Review of Systems Const Reports difficulty sleeping, Reports fatigue, Denies fever(s) and Denies headache(s) ENT Denies dysphagia, Denies dizziness, Denies otalgia, Denies headache(s), Reports neck pain (chronic), Denies odynophagia, Denies sinus pain and Denies sore throat Card Denies chest pain, Denies palpitations and Reports dyspnea on exertion (mild; chronic) Resp Reports cough (on and off, coughs up thick whitish phlegm), Reports dyspnea on exertion (mild; chronic) and Denies wheezing GI Denies abdominal pain, Reports constipation (on and off), Denies dysphagia, Denies heartburn, Denies diarrhea, Denies nausea, Denies odynophagia and Denies vomiting Denies dysuria, Denies nocturia and Denies urinary frequency Musc Details: (+) recurrent pain in his left foot Reports back pain (chronic), Reports arthralgias (over multiple joints; increased over the right knee lately - see HPI), Reports joint swelling (on and off in the right knee) and Reports neck pain (chronic) Skin/Breast Details: (+) large cyst on his left elbow - reports (+) some pain when he leans on his elbow Neuro Denies dizziness and Denies headache(s) Psych Reports anxiety (increasing) and Reports depression Endo Reports fatigue and Denies palpitations Aller/Immun Denies wheezing Physical exam (Primary Care) Vital Signs: Last Vital Signs Pulse 85 08/11/23 16:21 BP 126/80 08/11/23 16:21 Pulse Ox 97 08/11/23 16:21 Oxygen Delivery Method Room Air 08/11/23 16:21 BMI result Body Mass Index 31.7 Tobacco/Smoking Status: Tobacco use Status Tobacco use date assessed 08/11/23 08/11/23 16:28 Patient Tobacco Use Status Former Tobacco user 08/11/23 16:28 Tobacco use type Cigar 08/11/23 16:28 e-Cigarette/Vaping Use Never Used 08/11/23 16:28 PHQ-9: PHQ-9 Score PHQ-9: Total score 3 08/11/23 17:05 Depression Screening Interpretation: Positive (is on Rx) Depression Screening Follow-up: Existing condition, In treatment and Community Mental Health Worker F/U Thrive Assessment: Date of Thrive Assessment Date Thrive assessed 08/11/23 08/11/23 16:28 Currently or been in a relationship where the following occur: no concerns reported Const General: no acute distress and alert HENMT Ears: TM's normal bilaterally and EAC's normal Throat: Yes posterior oropharynx normal and Yes tonsils normal (no TP congestion noted) Neck Neck: Yes no lymphadenopathy and Yes supple Resp Auscultation: no crackles, no rales, rhonchi (scattered) throughout, no wheezes and diminished lung sounds bilateral Cardio Rate: regular rate Rhythm: regular rhythm Heart sounds: no murmurs GI Palpation (GI): Soft to palpation and nontender Auscultation: normal bowel sounds Back/Spine/Pelvis Cervical Spine: Cervical spine tenderness Thoracic/Lumbar Spine: lumbar spinal tenderness Skin Other: (+) large fluctuant cyst over the left elbow Extrem General: Yes no clubbing, cyanosis or edema Left upper extremity: elbow/forearm ((+) large fluctuant cyst on the left elbow) Right lower extremity: knee Details: tenderness, swelling (mild) Location: of the pre-patellar area and crepitus Left lower extremity: knee Details: tenderness and crepitus; no swelling Results Reviewed Results Reviewed: Laboratory Tests 05/17/23 13:29 WBC 9.5 Hgb 12.4 L Hct 37.7 L Plt Count 284 Sodium 138 Potassium 4.2 Creatinine 1.26 Estimated GFR 55 Fasting Glucose 141 H Hemoglobin A1c % 6.9 Calcium 9.6 D AST 16 ALT 15 Triglycerides 284 Cholesterol 173 LDL Cholesterol, Calc 84 HDL Cholesterol 33 Vitamin B12 291 25-OH Vitamin D Total 44.2 TSH 4.52 H Free T4 0.97 Assessment and Plan Assessment & Plan (1) Pure hypercholesterolemia: Code(s): E78.00 - Pure hypercholesterolemia, unspecified Plan: Results of his labs done back at the end of April 2023 reviewed and discussed with patient Reinforced low cholesterol diet Continue Rosuvastatin 10 mg QD Will recheck his labs and fasting lipids again in 3 months for follow up (2) Benign essential hypertension: Code(s): I10 - Essential (primary) hypertension Plan: Reinforced low sodium diet - goal is systolic BP of at least 140 to 150 mm or less Continue Amlodipine 5 mg QD, Losartan 100 mg QD and Furosemide 40 mg Q AM (3) COPD (chronic obstructive pulmonary disease): Code(s): J44.9 - Chronic obstructive pulmonary disease, unspecified Qualifiers: COPD type: unspecified COPD Qualified Code(s): J44.9 - Chronic obstructive pulmonary disease, unspecified Plan: His COPD appears stable currently Continue Combivent Respimat 1 puff 4 times a day, Symbicort 2 puffs BID and ProAIr HFA 2 puffs 4 times a day as needed (4) Borderline diabetes mellitus: Code(s): R73.03 - Prediabetes Plan: Serum glucose was noted to still be elevated at 141 mg/dl on his labs done back in April 2023 HgbA1c was at 6.9% back in April 2023 (in-office HgbA1c done was at 6.4% previously) Reinforced diabetic diet Continue Metformin ER 500 mg Q PM Will recheck his labs and HgbA1c in 3 months for follow up (5) Other bursal cyst, unspecified elbow: Comment: Patient has been given local instructions including avoiding strenuous activities, ice to the wound periodically today and tomorrow, may shower in 2 days, bacitracin with dressing changes each day and patient will see me as directed approximately 2 weeks time or p.r.n. Code(s): M71.329 - Other bursal cyst, unspecified elbow Plan: Will refer him back to Dr. Martino for surgical drainage/excision and management of his recurrent left elbow bursal cyst A similar cyst was drained and removed by Dr. Martino several months ago (6) Pain and swelling of right knee: Code(s): M25.561 - Pain in right knee; M25.461 - Effusion, right knee Plan: X-rays of the right knee done a few months ago revealed status post right total knee arthroplasty without radiographic evidence of interval complication. No periprosthetic fracture or joint effusion Because of the persistence of his knee symptoms (pain and swelling) over the past few months, he was referred (per his request) to orthopedics for further evaluation and management but he still has not heard back from them yet (7) Hepatic hemangioma: Code(s): D18.03 - Hemangioma of intra-abdominal structures Plan: CT of the abdomen and pelvis done at the ER last year revealed the presence of a hepatic lesion in segment 6 and 7 of increased density - MRI is recommended to further evaluate whether this is a hemangioma or a solid lesion Patient prefers to hold off on further tests for now Will consider at least getting an abdominal US first when he is ready to do so (8) Lumbar degenerative disc disease: Code(s): M51.36 - Other intervertebral disc degeneration, lumbar region Plan: Reinforced activity and weight lifting restrictions Patient used to see Dr. Turcios for pain management but has not done since the COVID-19 pandemic started Per request, was referred to [facility] earlier this year but for unclear reasons, was never scheduled for appointment Continue Gabapentin 800 mg 3 times a day and Duloxetine 30 mg twice a day;? is also on Oxycodone 15 mg twice a day as needed Patient is again reminded that I will not increase his Oxycodone dosage or dosing due to his COPD and will refer him back to pain management for interventional treatments if he feels that his low back pain is getting worse and his medications are not controlling his pain adequately (9) Degenerative disc disease, cervical: Code(s): M50.30 - Other cervical disc degeneration, unspecified cervical region Plan: Continue Oxycodone 15 mg twice a day as needed for severe pain Cervical spine MRI done a couple of years ago showed (+) multilevel degenerative changes resulting in 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 referral to neurosurgery has been discussed in the past and remains a consideration if his neck pain continues to get worse (10) Primary osteoarthritis of both knees: Code(s): M17.0 - Bilateral primary osteoarthritis of knee Plan: Follow? up with [facility] as scheduled States that his current meds have been helping with his knee pain as well (11) Left foot pain: Code(s): M79.672 - Pain in left foot Plan: Will send him for x-rays of the left foot for further evaluation (12) Constipation: Comment: Most likely multifactorial, including opioid-induced as well as due to inadequate oral fluid and fiber intake Code(s): K59.00 - Constipation, unspecified Qualifiers: Constipation type: unspecified constipation type Qualified Code(s): K59.00 - Constipation, unspecified Plan: Reinforced increased oral fluids and dietary fiber Continue Miralax 17 gm QD and may take OTC stool softeners PRN (13) Chronic kidney disease (CKD), stage III (moderate): Code(s): N18.30 - Chronic kidney disease, stage 3 unspecified Qualifiers: Chronic kidney disease stage 3 subtype: stage 3a (GFR 45-59) Qualified Code(s): N18.31 - Chronic kidney disease, stage 3a Plan: Will continue to monitor his GFR and renal function closely (14) Acne: Code(s): L70.9 - Acne, unspecified Qualifiers: Acne type: acne vulgaris Qualified Code(s): L70.0 - Acne vulgaris Plan: Continue Doxycycline 100 mg QD (15) Fatigue: Code(s): R53.83 - Other fatigue Qualifiers: Fatigue type: unspecified Qualified Code(s): R53.83 - Other fatigue Plan: This is most likely multifactorial, including due to hypotestosteronism, COPD, his polypharmacy as well his physical deconditioning Poor sleep quality is also a likely contributor to his increasing fatigue Have previously referred him to Sleep Medicine for further evaluation - has not appointment scheduled to see Sleep Medicine yet (16) Insomnia: Code(s): G47.00 - Insomnia, unspecified Qualifiers: Insomnia type: unspecified Qualified Code(s): G47.00 - Insomnia, unspecified Plan: Sleep hygiene reinforced Continue Trazodone 150 mg Q HS PRN (17) Anxiety: Code(s): F41.9 - Anxiety disorder, unspecified Plan: Continue Lorazepam 1 mg BID PRN and Hydroxyzine 25 mg TID PRN, Buspirone 10 mg BID and Sertraline 50 mg Q AM Was on CItalopram in the past but is unclear when he stopped taking this (on his own) Per request, was referred previously for counseling and therapy and is still waiting to be contacted (18) Obesity (BMI 30-39.9): Code(s): E66.9 - Obesity, unspecified Plan: Reinforced diet/exercise as tolerated/lose weight Plan Follow up in 3 months Orders: Orders Comprehensive Hemphill. Panel Fast 3 Months E78.00 - Pure hypercholesterolemia, unspecified Hemoglobin A1c 3 Months E11.9 - Type 2 diabetes mellitus without complications Vitamin B12 and Folate 3 Months E53.8 - Deficiency of other specified B group vitamins Complete Blood Count Auto Diff 3 Months I10 - Essential (primary) hypertension Lipid Panel 3 Months E78.00 - Pure hypercholesterolemia, unspecified Microalbumin, Random (w Creat) 3 Months E11.9 - Type 2 diabetes mellitus without complications TSH reflex Free T4 3 Months E78.00 - Pure hypercholesterolemia, unspecified UA CC w/rflx Micro + Cult 3 Months R30.0 - Dysuria Vitamin D 25-OH Total 3 Months E55.9 - Vitamin D deficiency, unspecified XR foot LT min 3V 08/11/23 M79.672 - Pain in left foot Referrals General Surgery Referral M71.329 - Other bursal cyst, unspecified elbow Medications: Refilled losartan 100 mg PO DAILY 90 days 90 tabs 1RF I10 - Essential (primary) hypertension Resumed Combivent Respimat 20-100 mcg/actuation (ipratropium-albuterol) 1 puff inhalation QID 4 grams 5RF NS Combivent Respimat 20-100 mcg/actuation (ipratropium-albuterol) 1 puff inhalation QID 4 grams 5RF NS Coding Level of Care Code Est Pt Level 4 (49964) Diagnoses Pure hypercholesterolemia E78.00 Benign essential hypertension I10 Chronic obstructive pulmonary disease, unspecified COPD type J44.9 COPD type: unspecified COPD Borderline diabetes mellitus R73.03 Other bursal cyst, unspecified elbow M71.329 Pain and swelling of right knee M25.561; M25.461 Hepatic hemangioma D18.03 Lumbar degenerative disc disease M51.36 Degenerative disc disease, cervical M50.30 Primary osteoarthritis of both knees M17.0 Left foot pain M79.672 Constipation, unspecified constipation type K59.00 Constipation type: unspecified constipation type Stage 3a chronic kidney disease N18.31 Chronic kidney disease stage 3 subtype: stage 3a (GFR 45-59) Acne vulgaris L70.0 Acne type: acne vulgaris Fatigue, unspecified type R53.83 Fatigue type: unspecified Insomnia, unspecified type G47.00 Insomnia type: unspecified Anxiety F41.9 Obesity (BMI 30-39.9) E66.9 Additional Codes JACKSON-7 Assessment Billing - JACKSON-7 Assessment Tool: JACKSON-7 Assessment [id number] ([id number])
== END 2023-08-11 17:34 | disposition home or self-care (01) ==
PROVIDERS: PCP Internal Medicine; Visit Provider Internal Medicine
DX: I12.9 Hypertensive chronic kidney disease with stage 1 through stage 4 chronic kidney disease, or unspecified chronic kidney disease (principal); J44.9 Chronic obstructive pulmonary disease, unspecified; N18.31 Chronic kidney disease, stage 3a; F41.9 Anxiety disorder, unspecified; E78.00 Pure hypercholesterolemia, unspecified; R73.03 Prediabetes; M71.329 Other bursal cyst, unspecified elbow; M25.561 Pain in right knee; M25.461 Effusion, right knee; D18.03 Hemangioma of intra-abdominal structures; M51.36 Other intervertebral disc degeneration, lumbar region; M50.30 Other cervical disc degeneration, unspecified cervical region
CPT/HCPCS: 99214

== ENCOUNTER 2023-12-21 16:02 | Outpatient (REF) | payer MEDICARE, MEDICAID, SELFPAY ==
[2023-12-22 12:58] LABS: Influenza A PCR NEGATIVE (Negative); Influenza B PCR NEGATIVE (Negative); Resp Syncy Virus RNA Qual PCR POSITIVE (Negative); SARS COV2 PCR INHOUSE NEGATIVE (Negative)
== END 2023-12-21 16:03 | disposition home or self-care (01) ==
LOC: HO.LNP 16:02
PROVIDERS: Visit Provider Internal Medicine
DX: R43.9 Unspecified disturbances of smell and taste (principal); Z11.52 Encounter for screening for COVID-19; Z20.828 Contact with and (suspected) exposure to other viral communicable diseases
CPT/HCPCS: 0241U

== ENCOUNTER 2023-12-21 16:02 | Outpatient (AMB) | payer MEDICARE, MEDICAID, SELFPAY ==
[2023-12-21 16:14] VITALS: BP 110/70; PULSE 90; TEMP 36.7; O2SAT 97
--- NOTE | 2023-12-21 16:14 | AM.OFFWIN_ITS ---
Intake Vital Signs 12/21/23 16:14 Height 6 ft BP 110/70 Blood Pressure Location Lt brachial Position Sitting Pulse 90 Pulse Source Pulse Oximeter Temp 98.0 F Temp Source Oral Pulse Oximetry (%) 97 Oxygen Delivery Method Room Air Intake Visit Reasons: EST/sinus pressure(lobby masked) Intake Note: pt is here for c.o sinus pressure and chest congestion for 3 days Patient Tobacco Use Status: Former Tobacco user Allergies morphine Adverse Reaction (Severe, Verified 12/22/23 05:56) respiratory depression/failure Medication List - Last Reconciled 12/22/23 by Silvino Núñez MD albuterol sulfate 90 mcg/actuation (Ventolin HFA) 2 puffs PO QID PRN 30 days albuterol sulfate 90 mcg/actuation (Ventolin HFA) 1 inh inhalation QID PRN amlodipine 5 mg PO DAILY 90 days azithromycin take 500 mg today (day 1), then 250 mg for 4 days (days 2-5) PO budesonide-formoterol 160-4.5 mcg/actuation 2 puffs PO BID buspirone 10 mg PO BID 30 days Combivent Respimat 20-100 mcg/actuation (ipratropium-albuterol) 1 puff inhalation QID NS fluticasone propionate 50 mcg/actuation (Flonase Allergy Relief) 1 spray intranasal DAILY 14 days pzlofwwluzi-zwqqtvyqj-xueolpvp 100-62.5-25 mcg (Trelegy Ellipta) 1 inh inhalation DAILY 30 days furosemide 40 mg PO DAILY gabapentin 800 mg PO TID 30 days hydroxyzine HCl 25 mg PO TID PRN 30 days losartan 100 mg PO DAILY 90 days metformin ER 500 mg PO QPM oxycodone 15 mg PO BID PRN 30 days prednisone 60 mg (3 x 20 mg) PO DAILY rosuvastatin 10 mg PO BEDTIME 30 days sertraline 50 mg PO .Q AM 30 days tizanidine 4 mg PO BEDTIME PRN 30 days trazodone 150 mg PO BEDTIME PRN 90 days Do you need a note to return to daycare/school/sports/work: No HPI EST/sinus pressure(lobby masked) HPI Details 83-year-old male presents to the office for a sick visit. Patient is reporting symptoms of sinus congestion, headaches and postnasal drip. No fevers or chills. No nausea or vomiting. [facility] Medical History Obesity (BMI 30-39.9) Anxiety Insomnia Benign essential hypertension Chronic kidney disease (CKD), stage III (moderate) Pure hypercholesterolemia Erectile dysfunction Lumbar degenerative disc disease Primary osteoarthritis of both knees COPD (chronic obstructive pulmonary disease) Degenerative disc disease, cervical Surgical History Hx of total knee arthroplasty History of glaucoma History of trabeculectomy Family History Father Cancer Mother No problems noted. Social History Housing: House Alcohol intake: former Patient Tobacco Use Status: Former Tobacco user Tobacco use type: Cigar Years Smoked: 30 years e-Cigarette/Vaping Use: Never Used Second Hand Smoke Exposure: Yes service: Yes Current occupational status: retired Cognitive needs: No Hearing needs: No Vision needs: No Physical Exam Vital Signs: Last Vital Signs Temp 98.0 F 12/21/23 16:14 Pulse 90 12/21/23 16:14 BP 110/70 12/21/23 16:14 Pulse Ox 97 12/21/23 16:14 Oxygen Delivery Method Room Air 12/21/23 16:14 Const General: cooperative and healthy appearing Nutritional Appearance: well nourished Orientation/consciousness: patient oriented x3 Limitations: no limitations HEENT Head: Yes normal to inspection Eyes General: appearance normal, both eyes and all related structures Neck Neck: Yes normal visual inspection Chest Chest palpation & inspection: normal palpation of entire chest wall Resp Effort & Inspection: normal respiratory effort Neuro General: patient oriented x3 Assessment & Plan Assessment & Plan (1) Upper respiratory tract infection: Code(s): J06.9 - Acute upper respiratory infection, unspecified Plan: Antibiotics ordered. Increase fluid intake. Tylenol for aches and pains. If symptoms worsen, follow-up here for a recheck. Viral swab ordered. If symptoms not better to follow-up here. Orders: Orders SARS-CoV2/FLU/RSV 12/21/23 R43.9 - Unspecified disturbances of smell and taste Medications: New prednisone 60 mg (3 x 20 mg) PO DAILY 9 tabs 0RF azithromycin take 500 mg today (day 1), then 250 mg for 4 days (days 2-5) PO 6 tabs 0RF albuterol sulfate 90 mcg/actuation (Ventolin HFA) 1 inh inhalation QID PRN 8.5 grams 1RF shortness of breath or wheezing Coding Level of Care Code Est Pt Level 3 (08079) Diagnoses Upper respiratory tract infection J06.9
== END 2023-12-21 16:54 | disposition home or self-care (01) ==
LOC: HO.HMGWI 16:02
PROVIDERS: PCP Internal Medicine; Visit Provider Internal Medicine
DX: J06.9 Acute upper respiratory infection, unspecified (principal)
CPT/HCPCS: 99213

== ENCOUNTER 2023-12-24 04:53 | Emergency (ER) | payer MEDICARE, MEDICAID, SELFPAY ==
--- NOTE | ~2023-12-24 | XR_ITS ---
EXAMINATION: XR CHEST CLINICAL INFORMATION: Cough COMPARISON: 03/12/2023 TECHNIQUE: Frontal view of the chest was obtained. FINDINGS: There is slight elevation of the right hemidiaphragm. No focal consolidation is seen bilaterally. No evidence of pneumothorax, significant pleural effusion, or overt pulmonary edema. Cardiac silhouette appears near the upper limits of normal in size. Calcification is present at the aortic arch. Degenerative changes are noted in the spine. XR/XR chest 1V IMPRESSION: No acute cardiopulmonary findings.
[2023-12-24 05:00] VITALS: BP 141/97; PULSE 96; RESP 24; TEMP 36.6; O2SAT 96; BMI 34.6
[2023-12-24 06:22] VITALS: O2SAT 98
--- NOTE | 2023-12-24 06:35 | ED.URI ---
HPI - URI/Sore Throat General Chief Complaint: Upper Respiratory Symptoms Stated Complaint: flu Time Seen by Provider: 12/24/23 06:34 Source: patient, RN notes reviewed and old records reviewed Mode of arrival: ambulatory History of Present Illness HPI Narrative: 83-year-old male with a past medical history of anxiety, insomnia, HTN, CKD, HLD, COPD, presenting to the ED complaining intermittent productive cough, SOB, rhinorrhea/congestion, myalgias, generalized fatigue x4-5 days. Admits to using inhaler and neb machine at home without relief. Also reports mild pedal edema and chest discomfort with cough. States he believes he has RSV. Denies known fever, chills, travel, sick contacts, MD elicited complaint: cough, rhinorrhea and nasal congestion Related Data Previous Rx's Medication Instructions Recorded tizanidine 4 mg tablet 4 mg PO BEDTIME PRN muscle 11/13/22 spasticity 30 days #90 tabs budesonide-formoterol HFA 160 2 puff PO BID #10.2 grams 03/17/23 mcg-4.5 mcg/actuation aerosol inhaler albuterol sulfate 90 mcg/actuation 2 puff PO QID PRN bronchospasm 30 03/25/23 aerosol inhaler (Ventolin HFA) days #6.7 grams fluticasone propionate 50 1 spray intranasal DAILY 14 days 04/08/23 mcg/actuation nasal #100 mL spray,suspension (Flonase Allergy Relief) buspirone 10 mg tablet 10 mg PO BID 30 days #60 tabs 05/07/23 sertraline 50 mg tablet 50 mg PO .Q AM 30 days #30 tabs 05/07/23 gabapentin 800 mg tablet 800 mg PO TID 30 days #90 tabs 05/11/23 fluticasone fur. 100 mcg-umeclid 1 inh inhalation DAILY 30 days #60 05/26/23 62.5 mcg-vilant 25 mcg ea inhalat.powder (Trelegy Ellipta) metformin 500 mg tablet,extended 500 mg PO QPM #90 tabs 06/21/23 release 24 hr Combivent Respimat 20 mcg-100 1 puff inhalation QID #4 grams 08/11/23 mcg/actuation solution for inhalation (ipratropium-albuterol) losartan 100 mg tablet 100 mg PO DAILY 90 days #90 tabs 08/11/23 rosuvastatin 10 mg tablet 10 mg PO BEDTIME 30 days #30 tabs 08/20/23 hydroxyzine HCl 25 mg tablet 25 mg PO TID PRN anxiety 30 days 10/22/23 #90 tabs amlodipine 5 mg tablet 5 mg PO DAILY 90 days #90 tabs 12/08/23 furosemide 40 mg tablet 40 mg PO DAILY #90 tabs 12/08/23 oxycodone 15 mg tablet 15 mg PO BID PRN severe pain 30 12/08/23 days #60 tabs trazodone 150 mg tablet 150 mg PO BEDTIME PRN for insomnia 12/15/23 90 days #90 tabs albuterol sulfate 90 mcg/actuation 1 inh inhalation QID PRN shortness 12/21/23 aerosol inhaler (Ventolin HFA) of breath or wheezing #8.5 grams azithromycin 250 mg tablet See Rx Instructions PO .COMPLEX #6 12/21/23 tabs prednisone 20 mg tablet 60 mg (3 x 20 mg) PO DAILY #9 tabs 12/21/23 Allergies Allergy/AdvReac Type Severity Reaction Status Date / Time morphine AdvReac Severe respiratory Verified 12/22/23 05:56 depression/failure Review of Systems Review of Systems: Constitutional: No Fever, No Chills, +fatigue ENT/Mouth: No Ear Pain, +Nasal Congestion, No Sinus Pain, No Hoarseness, No sore throat, + Rhinorrhea, No Swallowing Difficulty Cardiovascular: + Chest Pain with coughing,+ SOB, + pedal edema Respiratory:+ Cough, +Sputum,+ Wheezing Gastrointestinal: No Nausea, No Vomiting, No Diarrhea, No Constipation, No Abdominal pain Genitourinary: No Dysuria, No Urinary Frequency, No Hematuria Musculoskeletal: No joint pain, +Myalgias, No Joint Swelling Skin: No Skin Lesions, No rash Neuro: No Weakness, No Numbness, No Paresthesias Yes all other systems are reviewed and are negative Constitutional: Constitutional: Reports as per [facility] Past Medical History Attestation statement: The following information was validated with the patient. Source: old records reviewed Medical History Obesity (BMI 30-39.9) Anxiety Insomnia Benign essential hypertension Chronic kidney disease (CKD), stage III (moderate) Pure hypercholesterolemia Erectile dysfunction Lumbar degenerative disc disease Primary osteoarthritis of both knees COPD (chronic obstructive pulmonary disease) Degenerative disc disease, cervical Surgical History Hx of total knee arthroplasty History of glaucoma History of trabeculectomy Family History Family History Father Cancer Mother No problems noted. Social History Social History Housing: House Alcohol intake: former Patient Tobacco Use Status: Former Tobacco user Tobacco use type: Cigar Years Smoked: 30 years e-Cigarette/Vaping Use: Never Used Second Hand Smoke Exposure: Yes Advance Directives: No Advance Directives Information Provided: Yes service: Yes Current occupational status: retired Cognitive needs: No Hearing needs: No Vision needs: No Physical Exam Vital Signs: Vital Signs: Last Vital Signs Temp 97.8 F 12/24/23 05:00 Pulse 103 H 12/24/23 09:13 Resp 18 12/24/23 09:13 BP 141/97 H 12/24/23 05:00 Pulse Ox 98 12/24/23 06:22 O2 Del Method Room Air 12/24/23 06:22 BMI result Body Mass Index 34.6 Const: General: cooperative, healthy appearing and no acute distress Orientation/consciousness: patient oriented x3 Limitations: no limitations HEENT: Head: Yes normal to inspection and Yes atraumatic Ears: hearing grossly normal bilaterally General nose exam: Normal external nose present Face and sinus: Yes normal facial exam Eyes: General: appearance normal, both eyes and all related structures EOM: EOMs intact bilaterally Neck: Neck: Yes normal visual inspection and Yes no meningeal signs Resp: Effort & Inspection: normal respiratory effort and no respiratory distress Auscultation: wheezes expiratory wheezes and throughout Cardio: Rate: regular rate Heart sounds: S1 normal heart sound present and S2 normal heart sound present GI: Inspection: Yes normal to inspection Palpation (GI): Soft to palpation, nontender, no guarding and not rigid : General: Yes no CVA tenderness Back/Spine/Pelvis: Back: no CVA tenderness Skin: Rashes: no rashes Wounds: no wounds Neuro: General: patient oriented x3, tone normal and no meningeal signs Cranial nerves: Yes CN's II-XII intact bilaterally Gait exam (Neuro): Normal gait present Extrem: General: Yes edema (1+ pitting bilaterally) Course Course Course Narrative: -827--creatinine 1.46 (baseline 1.0-1.2). Initial troponin 11.3 > will obtain 3 hour repeat -RSV positive >> appears patient was RSV positive on 12/21/2023, seen at urgent Care prescribed azithromycin, prednisone, and albuterol per chart review > when asked directly patient he states Wei, the aurelio at [facility] told me that > patient reports compliance with previously prescribed medications, states took last doses this morning. XR chest 1V IMPRESSION: No acute cardiopulmonary findings. -0854--on re-evaluate patient still with diffuse expiratory wheeze. IV magnesium and additional DuoNeb ordered -1037--repeat labs with slight improvement with BUN of 31, creatinine of 1.45. Troponin without rise, PA unlikely > patient requesting to be discharged in prescriptions to be sent, states he needs to leave. On re-evaluation lungs with much improvement, good air movement, slight residual end-expiratory wheeze. Patient does not have neb machine at home. Will send home with inhaler and prednisone for an additional 3 days. Was previously prescribed 60 mg x 3 days which would have ceased yesterday Results discussed with patient including worrisome signs and symptoms and strict return precautions, and when to return to the emergency department. They verbalized understanding and feel safe for discharge at this time. Medications Administered Generic Name Dose Route Start Last Admin Trade Name Freq PRN Reason Stop Dose Admin Magnesium Sulfate 2 gm in 50 mls @ 25 mls/hr 12/24/23 08:52 12/24/23 08:57 Magnesium Sulfate/H2o IV 12/24/23 10:51 25 mls/hr ONCE ONE Administration Discontinued Medications Generic Name Dose Route Start Last Admin Trade Name Freq PRN Reason Stop Dose Admin Albuterol Sulfate 2.5 mg/ 5 mg 12/24/23 09:06 12/24/23 09:11 Albuterol Sulfate 2.5 mg INHALE 12/24/23 09:07 5 mg ONCE ONE Administration Albuterol Sulfate 5 mg/ 0 mg 12/24/23 08:10 12/24/23 08:12 Albuterol/Ipratropium 3 ml INHALE 12/24/23 08:11 1 each ONCE ONE Administration Sodium Chloride 500 mls @ 999 mls/hr 12/24/23 08:30 12/24/23 10:14 Ns IV 12/24/23 09:00 Infused .Q31M JOLENE Infusion Methylprednisolone Sodium Succinate 125 mg 12/24/23 06:40 12/24/23 06:56 Methylprednisolone Sod Succ 125 Mg/2 Ml Vial IVPUSH 12/24/23 06:41 125 mg ONCE ONE Administration Medical Decision Making Medical Decision Making [facility] Narrative: 83-year-old male with a past medical history of anxiety, insomnia, HTN, CKD, HLD, COPD, presenting to the ED complaining intermittent productive cough, SOB, rhinorrhea/congestion, myalgias, generalized fatigue x4-5 days. On exam mildly tachypneic, NAD, nontoxic appearing, talking in complete sentences, diffuse expiratory wheeze appreciated, 1+ bilateral LE pitting edema. Concern for viral illness vs COPD exacerbation vs pneumonia vs bronchitis. Rule out CHF. Lower suspicion for ACS/PE or dissection. Low suspicion for severe sepsis at likely viral etiology Plan: EKG, labs, CXR, viral testing, ED Bronch protocol, IV Solu-Medrol, re-evaluate Please refer to course for remaining clinical decision making, interpretation of labs/imaging results, and discussions with consultants and/or family members. Differential Diagnosis Differential Diagnoses: The differential diagnosis associated with the presentation includes As above Admission/Observation Consideration of admission/observation: Escalation of care including admission/observation considered Lab Data [facility] Lab Attestation statement: I reviewed the patient's lab results. 12/24/23 06:53 12/24/23 09:45 Labs: Lab Results 12/24/23 12/24/23 12/24/23 Range/Units 06:04 06:53 09:45 WBC 11.3 H (4.8-10.8) X10*3/uL RBC 4.50 L (4.60-5.80) X10*6/uL Hgb 13.3 L (14.0-18.0) g/dl Hct 38.7 L (42.0-52.0) % MCV 86.0 (80.0-98.0) fL MCH 29.6 (27.0-33.0) pg MCHC 34.4 (31.0-36.0) g/dl RDW 12.7 (11.0-16.0) % Plt Count 300 (160-400) X10*3/uL MPV 8.9 L (9.4-12.4) fL Immature Gran % (Auto) 0.4 (0.0-0.4) % Neut % (Auto) 65.2 (45-73) % Lymph % (Auto) 21.9 (20-40) % [place] % (Auto) 11.5 H (2-11) % Eos % (Auto) 0.6 (0-4) % Baso % (Auto) 0.4 (0-2) % Lymph # (Auto) 2.5 (1.2-4.9) X10*3/uL [place] # (Auto) 1.3 H (0.1-1.2) X10*3/uL Eos # (Auto) 0.1 (0.0-0.4) X10*3/uL Baso # (Auto) 0.0 (0.0-0.2) X10*3/uL Abs Immat Gran (auto) 0.04 H (0.00-0.03) X10*3/uL Absolute Neuts (auto) 7.4 (2.0-8.3) x10*3/uL Absolute Nucleated RBC 0.000 (0.0-0.012) X10*3/uL Nucleated RBC % (auto) 0.0 (0.0-0.2) /100WBC Sodium 136 136 (135-145) mmol/L Potassium 3.9 3.4 (3.3-5.1) mmol/L Chloride 103 104 (96-108) mmol/L Carbon Dioxide 24 22 (22-29) mmol/L Anion Gap 13 13 (12-20) BUN 34 H 31 H (9-16) mg/dL Creatinine 1.46 H 1.45 H (0.5-1.4) mg/dL Estim Creat Clear Calc 49.4 49.7 Estimated GFR 46 46 Random Glucose 124 H 222 H (60-115) mg/dL Calcium 8.9 D 8.4 (8.4-10.2) mg/dL Total Bilirubin 0.2 (0.0-1.0) mg/dL Direct Bilirubin < 0.2 (0.0-0.5) mg/dL AST 20 (5-37) U/L ALT 21 (0-40) U/L Alkaline Phosphatase 69 (39-117) U/L Troponin I High Sens 11.3 D 6.1 (<3.5-35.0) ng/L B-Natriuretic Peptide 30 (<100) pg/mL Total Protein 7.3 (6.5-8.0) g/dL Albumin 3.9 (3.5-5.0) g/dL Influenza Type A (PCR) NEGATIVE (Negative) Influenza Type B (PCR) NEGATIVE (Negative) RSV RNA Qual (PCR) POSITIVE A (Negative) SARS-CoV-2 RNA (RT-PCR) NEGATIVE (Negative) Independent Interpretation I performed an independent interpretation of an: EKG and Plain X-Ray Radiology Impression Discussion of test interpretation with radiology: I have reviewed the radiologist's reading. External Record Review External record reviewed: Inpatient record, Office record, Outpatient record, Prior outpatient labs, Prior outpatient radiology, Primary care record and Outside ED record Tests considered The following testing was considered but not selected: As above Prescription Management I considered prescription management with: Pain Medication and Antibiotic Chronic Conditions Patient?s care impacted by: Hypertension and Other (COPD) Critical Care Time Critical Care Time Critical Care Time: Yes Total Critical Care Time: 40 Attestation: I have personally provided critical care time exclusive of time spent on separately billable procedures. Time includes review of lab data, radiology results, discussion with consultants, and monitoring for potential decompensation. Intervention performed as documented. Discharge Plan Discharge Clinical Impression: RSV (respiratory syncytial virus infection), COPD exacerbation Patient Disposition: Home, Self-Care Prescriptions: No Action tizanidine 4 mg tablet 4 mg PO BEDTIME PRN (Reason: muscle spasticity) 30 Days Qty: 90 1RF fluticasone propionate [Flonase Allergy Relief] 50 mcg/actuation spray,suspension 1 spray intranasal DAILY 14 Days Qty: 100 0RF Rx Instructions: administer into each nostril sertraline 50 mg tablet 50 mg PO .Q AM 30 Days Qty: 30 2RF buspirone 10 mg tablet 10 mg PO BID 30 Days Qty: 60 3RF Trelegy Ellipta 100-62.5-25 mcg blister with device 1 inh inhalation DAILY 30 Days Qty: 60 0RF metformin 500 mg tablet extended release 24 hr 500 mg PO QPM Qty: 90 1RF rosuvastatin 10 mg tablet 10 mg PO BEDTIME 30 Days Qty: 30 3RF hydroxyzine HCl 25 mg tablet 25 mg PO TID PRN (Reason: anxiety) 30 Days Qty: 90 2RF amlodipine 5 mg tablet 5 mg PO DAILY 90 Days Qty: 90 1RF furosemide 40 mg tablet 40 mg PO DAILY Qty: 90 1RF oxycodone 15 mg tablet 15 mg PO BID PRN (Reason: severe pain) 30 Days Qty: 60 0RF trazodone 150 mg tablet 150 mg PO BEDTIME PRN (Reason: for insomnia) 90 Days Qty: 90 0RF Combivent Respimat 20-100 mcg/actuation mist 1 puff inhalation QID Qty: 4 5RF Hold Instructions: Doctor's Order losartan 100 mg tablet 100 mg PO DAILY 90 Days Qty: 90 1RF azithromycin 250 mg tablet See Rx Instructions PO .COMPLEX Qty: 6 0RF Rx Instructions: take 500 mg today (day 1), then 250 mg for 4 days (days 2-5) PO prednisone 20 mg tablet 60 mg PO DAILY Qty: 9 0RF albuterol sulfate [Ventolin HFA] 90 mcg/actuation HFA aerosol inhaler 1 inh inhalation QID PRN (Reason: shortness of breath or wheezing) Qty: 8.5 1RF gabapentin 800 mg tablet 800 mg PO TID 30 Days Qty: 90 2RF budesonide-formoterol 160-4.5 mcg/actuation HFA aerosol inhaler 2 puff PO BID Qty: 10.2 5RF albuterol sulfate [Ventolin HFA] 90 mcg/actuation HFA aerosol inhaler 2 puff PO QID PRN (Reason: bronchospasm) 30 Days Qty: 6.7 1RF
--- NOTE | 2023-12-24 06:40 | ECG_ITS ---
Test Reason : UPPER RESPITORY Blood Pressure : / mmHG Vent. Rate : 085 BPM Atrial Rate : 085 BPM P-R Int : 288 ms QRS Dur : 098 ms QT Int : 368 ms P-R-T Axes : 028 017 010 degrees QTc Int : 437 ms Sinus rhythm with 1st degree A-V block Otherwise normal ECG When compared with ECG of 12-MAR-2023 19:34, Premature ventricular complexes are no longer Present Referred By: Mariama Muhammad Electronically Signed By:RAUL CARREON MD
[2023-12-24 06:47] LABS: Influenza A PCR NEGATIVE (Negative); Influenza B PCR NEGATIVE (Negative); Resp Syncy Virus RNA Qual PCR POSITIVE (Negative); SARS COV2 PCR INHOUSE NEGATIVE (Negative)
[2023-12-24] MEDS: methylPREDNISolone Sod Succ 125 MG/2 ML VIAL IVPUSH (06:56)
[2023-12-24 06:58] LABS: MANUAL DIFF FLAG NO
[2023-12-24 07:16] LABS: Alanine Aminotransferase 21 U/L (0-40); Albumin Level 3.9 g/dL (3.5-5.0); Alkaline Phosphatase 69 U/L (39-117); Anion Gap 13 (12-20); Aspartate Amino Transferase 20 U/L (5-37); Bilirubin Direct < 0.2 mg/dL (0.0-0.5); Bilirubin Total 0.2 mg/dL (0.0-1.0); Blood Urea Nitrogen 34 mg/dL (9-16); Calcium 8.9 mg/dL (8.4-10.2); Carbon Dioxide 24 mmol/L (22-29); Chloride 103 mmol/L (96-108); Creatinine Clr Calc Pharmacy 49.4; Estimated Glomerular Filt Rate 46; Glucose Random 124 mg/dL (60-115); Potassium 3.9 mmol/L (3.3-5.1); Sodium 136 mmol/L (135-145); Total Protein 7.3 g/dL (6.5-8.0)
[2023-12-24 07:20] LABS: B Type Natriuretic Peptide 30 pg/mL (<100)
[2023-12-24 07:21] LABS: Basophils Percent Auto 0.4 % (0-2); Eosinophils Absolute Auto 0.1 X10*3/uL (0.0-0.4); Eosinophils Percent Auto 0.6 % (0-4); Hematocrit 38.7 % (42.0-52.0); Hemoglobin 13.3 g/dl (14.0-18.0); Imm Gran Abs Auto 0.04 X10*3/uL (0.00-0.03); Imm Gran Pct Auto 0.4 % (0.0-0.4); Lymphocytes Absolute Auto 2.5 X10*3/uL (1.2-4.9); Lymphocytes Percent Auto 21.9 % (20-40); Mean Corpuscular HGB Conc 34.4 g/dl (31.0-36.0); Mean Corpuscular Hemoglobin 29.6 pg (27.0-33.0); Mean Platelet Volume 8.9 fL (9.4-12.4); Monocytes Absolute Auto 1.3 X10*3/uL (0.1-1.2); Monocytes Percent Auto 11.5 % (2-11); Neutrophils Absolute Auto 7.4 x10*3/uL (2.0-8.3); Neutrophils Percent Auto 65.2 % (45-73); Platelet Count 300 X10*3/uL (160-400); Red Cell Distribution Width 12.7 % (11.0-16.0); White Blood Count 11.3 X10*3/uL (4.8-10.8)
[2023-12-24 07:22] LABS: Troponin-I High Sensitivity 11.3 ng/L (<3.5-35.0)
[2023-12-24 08:12] VITALS: PULSE 81; RESP 22; O2SAT 96
[2023-12-24] MEDS: Albuterol Sulfate 5 MG, Albuterol/Iprat 2.5/0.5MG 3 ML 3 ML INHALE (08:12)
[2023-12-24] MEDS: 0.9 % Sodium Chloride 500 ML 999 ML IV (08:56)
[2023-12-24] MEDS: Magnesium Sulfate/H2O 2 GM/50 ML PIGGYBACK IV (08:57)
[2023-12-24] MEDS: Albuterol Sulfate 2.5 MG, Albuterol Sulfate (0.083%) 2.5 MG 5 MG INHALE (09:11)
[2023-12-24 09:13] VITALS: PULSE 103; RESP 18; O2SAT 95
[2023-12-24 10:13] LABS: Anion Gap 13 (12-20); Blood Urea Nitrogen 31 mg/dL (9-16); Calcium 8.4 mg/dL (8.4-10.2); Carbon Dioxide 22 mmol/L (22-29); Chloride 104 mmol/L (96-108); Creatinine Clr Calc Pharmacy 49.7; Estimated Glomerular Filt Rate 46; Glucose Random 222 mg/dL (60-115); Potassium 3.4 mmol/L (3.3-5.1); Sodium 136 mmol/L (135-145)
[2023-12-24 10:20] LABS: Troponin-I High Sensitivity 6.1 ng/L (<3.5-35.0)
== END 2023-12-24 10:55 | disposition home or self-care (01) ==
PROVIDERS: Emergency Medicine; Physician Assistant; Emergency Provider Emergency Medicine Emergency Medical Services; PCP Internal Medicine
DX: J44.1 Chronic obstructive pulmonary disease with (acute) exacerbation (principal); B97.4 Respiratory syncytial virus as the cause of diseases classified elsewhere; R05.9 Cough, unspecified; M79.10 Myalgia, unspecified site; R06.02 Shortness of breath; R07.89 Other chest pain; R60.0 Localized edema; Z20.828 Contact with and (suspected) exposure to other viral communicable diseases; Z20.822 Contact with and (suspected) exposure to COVID-19; Z79.899 Other long term (current) drug therapy; Z87.891 Personal history of nicotine dependence
CPT/HCPCS: 0241U; 36415; 71045; 80048; 80076; 83880; 84484; 85025; 93005; 94640; 96361; 96374; 96375; 99284; 99285; J2930; J3475

== ENCOUNTER → 2023-12-24 06:40 | Outpatient (BNV) | payer MEDICARE, MEDICAID, SELFPAY | PROVIDERS: Emergency Provider Emergency Medicine Emergency Medical Services; PCP Internal Medicine; Visit Provider Internal Medicine Cardiovascular Disease | DX: I44.0 Atrioventricular block, first degree (principal) | CPT/HCPCS: 93010 ==

== ENCOUNTER 2024-03-22 13:49 | Outpatient (AMB) | payer MEDICARE, MEDICAID, SELFPAY ==
[2024-03-22 14:01] VITALS: BP 114/66; PULSE 97; O2SAT 97; BMI 34.2
--- NOTE | 2024-03-22 14:01 | MHC.PC.OV ---
Vital Signs 03/22/24 14:01 Height 6 ft Weight 252 lb 0.4 oz BMI 34.2 BP 114/66 Blood Pressure Location Lt brachial Position Sitting Pulse 97 Pulse Source Pulse Oximeter Pulse Oximetry (%) 97 Oxygen Delivery Method Room Air Intake Visit Reasons: Medications F/U Intake Note: Patient is here to follow up on medications Allergies morphine Adverse Reaction (Severe, Verified 07/28/24 16:09) respiratory depression/failure Medication List - Last Reconciled 03/22/24 by Kody Sheth MD albuterol sulfate 90 mcg/actuation (Ventolin HFA) 1 inh inhalation QID PRN amlodipine 5 mg PO DAILY 90 days budesonide-formoterol 160-4.5 mcg/actuation 2 puffs PO BID Combivent Respimat 20-100 mcg/actuation (ipratropium-albuterol) 1 puff inhalation QID NS doxycycline hyclate 100 mg PO DAILY 30 days fluticasone propionate 50 mcg/actuation (Flonase Allergy Relief) 2 sprays intranasal DAILY furosemide 40 mg PO DAILY losartan 100 mg PO DAILY 90 days metformin ER 500 mg PO QPM oxycodone 15 mg PO BID PRN 30 days rosuvastatin 10 mg PO BEDTIME 30 days trazodone 150 mg PO BEDTIME PRN 90 days Tobacco use date assessed: 03/22/24 Fall risk assessment: No Falls in past year Last assessed Fall Risk: 03/22/24 Dental Screening Dental Screen Date: 03/22/24 Did you have a dental visit in the last 12 months?: No Did you have a dental problem in the last 6 months where you did not have access to dental care?: No Was dental information given to patient?: Patient has dentist HPI Medications F/U HPI Details Patient comes in today for his follow up visit - he was last seen by me on 08/11/2023 and he was advised to come in for follow up as it has been a while since he was last seen States that he feels okay and just needs several of his Rx refilled He continues to complain of increased pain (chronic) over his knees, hips, lower back and multiple joints and states that his current meds help - he will also need his pain med Rx refilled today and is again asking if he can have his dose increased He denies any headaches or dizziness Denies any chest pains, no increased SOB No nausea/vomiting, no abdominal pain No change in bowel habits noted He has not had any follow up labs done recently [facility] Medical History (Updated 07/30/24 @ 06:39 by Kody Sheth MD) Diabetes mellitus Obesity (BMI 30-39.9) Anxiety Insomnia Benign essential hypertension Chronic kidney disease (CKD), stage III (moderate) Pure hypercholesterolemia Erectile dysfunction Lumbar degenerative disc disease Primary osteoarthritis of both knees COPD (chronic obstructive pulmonary disease) Degenerative disc disease, cervical Surgical History Hx of total knee arthroplasty History of glaucoma History of trabeculectomy Family History Father Cancer Mother No problems noted. Social History Housing: House Alcohol intake: former Patient Tobacco Use Status: Former Tobacco user Tobacco use type: Cigar Years Smoked: 30 years e-Cigarette/Vaping Use: Never Used Second Hand Smoke Exposure: Yes service: Yes Current occupational status: retired Cognitive needs: No Hearing needs: No Vision needs: No Questionnaire PHQ-9 Over the last 2 weeks, how often have you been bothered by any of the following problems? 1. Little interest or pleasure in doing things: several days 2. Feeling down, depressed, or hopeless: several days 3. Trouble falling or staying asleep, or sleeping too much: not at all 4. Feeling tired or having little energy: several days 5. Poor appetite or overeating: not at all 6. Feeling bad about yourself - or that you are a failure or have let yourself or your family down: not at all 7. Trouble concentrating on things, such as reading the newspaper or watching television: not at all 8. Moving or speaking so slowly that other people could have noticed. Or the opposite - being so fidgety or restless that you have been moving around a lot more than usual: not at all 9. Thoughts that you would be better off or of hurting yourself in some way: not at all Total score: 3 Depression Screening Interpretation: Positive (is on Rx) Depression Screening Follow-up: Existing condition, In treatment and Community Mental Health Worker F/U Depression Screening Done: Yes 52489 - PHQ-9 Billing: Yes Source: Developed by Drs. Kali Burton, Erika Garzon, Smith Osorio and colleagues, with an educational baudilio from [employer]. Thrive Questionnaire Date Thrive assessed: 03/22/24 I am a: Patient What is your living situation today?: I have a steady place to live Within the past 12 months, did the food you bought not last and you didn't have the money to get more?: Never true Within the past 12 months, did you worry whether your food would run out before you got money to buy more?: Never true Do you have trouble paying for medicines?: No Do you have trouble getting transportation to medical appointments?: No Do you have trouble paying your heating and electricity bill?: No Do you have trouble taking care of your child, family member or friend?: No Do you have trouble with day-to-day activities such as bathing, preparing meals, shopping, managing finances, etc.?: No Are you currently unemployed and looking for a job?: No Are you interested in more education?: No Please select the resources that you would like help with: None Currently or been in a relationship where the following occur: no concerns reported THRIVE Score: 0 AUDIT C Alcohol Use Questionnaire (AUDIT-C) 1. How often do you have a drink containing alcohol?: Never 3. How often do you have six or more drinks on one occasion?: Never Total Score: 0 Score Reviewed/Action Taken: Yes JACKSON-7 AMB Questionnaire JACKSON-7 Date JACKSON - 7 assessed: 08/11/23 Source: Developed by Drs. Kali Burton, Smith Paz and colleagues, with an educational baudilio from [employer]. Review of Systems Const Reports difficulty sleeping, Reports fatigue, Denies fever(s) and Denies headache(s) ENT Denies dysphagia, Denies dizziness, Denies otalgia, Denies headache(s), Reports neck pain (chronic), Denies odynophagia, Denies sinus pain and Denies sore throat Card Denies chest pain, Denies palpitations and Reports dyspnea on exertion (mild; chronic) Resp Reports cough (on and off, coughs up thick whitish phlegm), Reports dyspnea on exertion (mild; chronic) and Denies wheezing GI Denies abdominal pain, Reports constipation (on and off), Denies dysphagia, Denies heartburn, Denies diarrhea, Denies nausea, Denies odynophagia and Denies vomiting Denies dysuria, Denies nocturia and Denies urinary frequency Musc Reports back pain (chronic), Reports arthralgias (over multiple joints; increased over the right shoulder lately), Reports joint swelling (on and off in the right knee) and Reports neck pain (chronic) Skin/Breast Denies rash Neuro Denies dizziness and Denies headache(s) Psych Reports anxiety and Reports depression Endo Reports fatigue and Denies palpitations Aller/Immun Denies wheezing Physical exam (Primary Care) Vital Signs: Last Vital Signs Pulse 97 03/22/24 14:01 BP 114/66 03/22/24 14:01 Pulse Ox 97 03/22/24 14:01 Oxygen Delivery Method Room Air 03/22/24 14:01 BMI result Body Mass Index 34.2 Tobacco/Smoking Status: Tobacco use Status Tobacco use date assessed 03/22/24 03/22/24 14:03 Patient Tobacco Use Status Former Tobacco user 03/22/24 14:03 Tobacco use type Cigar 03/22/24 14:03 e-Cigarette/Vaping Use Never Used 03/22/24 14:03 Depression Screening Interpretation: Positive (is on Rx) Depression Screening Follow-up: Existing condition, In treatment and Community Mental Health Worker F/U Thrive Assessment: Date of Thrive Assessment Date Thrive assessed 03/22/24 03/22/24 14:03 Currently or been in a relationship where the following occur: no concerns reported Const General: no acute distress and alert HENMT Ears: TM's normal bilaterally and EAC's normal Throat: Yes posterior oropharynx normal and Yes tonsils normal (no TP congestion noted) Neck Neck: Yes no lymphadenopathy and Yes supple Thyroid: Thyroid normal Resp Auscultation: no crackles, no rales, rhonchi (scattered), no wheezes and diminished lung sounds bilateral Cardio Rate: regular rate Rhythm: regular rhythm Heart sounds: no murmurs GI Palpation (GI): Soft to palpation and nontender Auscultation: normal bowel sounds General: Yes no CVA tenderness Back/Spine/Pelvis Back: no CVA tenderness Cervical Spine: Cervical spine tenderness Thoracic/Lumbar Spine: lumbar spinal tenderness Extrem General: Yes no clubbing, cyanosis or edema Right upper extremity: shoulder/upper arm Details: tenderness Location: of the A-C joint and abnormal ROM (ROM limited slightly due to pain); no swelling Right lower extremity: knee Details: tenderness and crepitus; no swelling Left lower extremity: knee Details: tenderness and crepitus; no swelling Results AMB Hemoglobin A1c AMB Hemoglobin A1c 6.6 % Last Edit by CALEB Ramos on 03/22/24 15:11 Results Reviewed Results Reviewed: Laboratory Last Values Hgb A1c (Clinic) 6.6 % (4.0-6.0) H 03/22/24 15:04 Assessment and Plan Assessment & Plan (1) Pure hypercholesterolemia: Code(s): E78.00 - Pure hypercholesterolemia, unspecified Plan: He has not had his fasting lipids checked since April 2023 and will send him for repeat labs ANG Reinforced low cholesterol diet Continue Rosuvastatin 10 mg QD (2) Benign essential hypertension: Code(s): I10 - Essential (primary) hypertension Plan: Reinforced low sodium diet - goal is systolic BP of at least 140 to 150 mm or less Continue Amlodipine 5 mg QD, Losartan 100 mg QD and Furosemide 40 mg Q AM (3) COPD (chronic obstructive pulmonary disease): Code(s): J44.9 - Chronic obstructive pulmonary disease, unspecified Qualifiers: COPD type: unspecified COPD Qualified Code(s): J44.9 - Chronic obstructive pulmonary disease, unspecified Plan: His COPD appears stable currently Continue Combivent Respimat 1 puff 4 times a day, Symbicort 2 puffs BID and ProAIr HFA 2 puffs 4 times a day as needed (4) Diabetes mellitus: Code(s): E11.9 - Type 2 diabetes mellitus without complications Qualifiers: Diabetes mellitus type: type 2 Diabetes mellitus terminal clerk insulin use: without long-term use Diabetes mellitus complication status: with hyperglycemia Qualified Code(s): E11.65 - Type 2 diabetes mellitus with hyperglycemia Plan: His in-office HgbA1c today is at 6.6% (HgbA1c was at 6.9% back in April 2023) - goal is at least <7.0% but preferably <6.5% Reinforced diabetic diet Continue Metformin ER 500 mg Q PM (5) Hepatic hemangioma: Code(s): D18.03 - Hemangioma of intra-abdominal structures Plan: CT of the abdomen and pelvis done at the ER last year revealed the presence of a hepatic lesion in segment 6 and 7 of increased density - MRI is recommended to further evaluate whether this is a hemangioma or a solid lesion Patient prefers to hold off on further tests for now Will consider at least getting an abdominal US first when he is ready to do so (6) Chronic kidney disease (CKD), stage III (moderate): Code(s): N18.30 - Chronic kidney disease, stage 3 unspecified Qualifiers: Chronic kidney disease stage 3 subtype: stage 3a (GFR 45-59) Qualified Code(s): N18.31 - Chronic kidney disease, stage 3a Plan: Will continue to monitor his GFR and renal function closely (7) Lumbar degenerative disc disease: Code(s): M51.36 - Other intervertebral disc degeneration, lumbar region Plan: Reinforced activity and weight lifting restrictions Patient used to see Dr. Turcios for pain management but has not done since the COVID-19 pandemic started Per request, was referred to [facility] [place] [place] [facility] last year but for unclear reasons, he was never scheduled for appointment Continue Gabapentin 800 mg 3 times a day and Duloxetine 30 mg twice a day;? is also on Oxycodone 15 mg twice a day as needed (Rx refilled) Patient is again reminded that I will not increase his Oxycodone dosage or dosing due to his COPD and will refer him back to pain management for interventional treatments if he feels that his low back pain is getting worse and his medications are not controlling his pain adequately (8) Degenerative disc disease, cervical: Code(s): M50.30 - Other cervical disc degeneration, unspecified cervical region Plan: Continue Oxycodone 15 mg twice a day as needed for severe pain and Tizanidine 4 mg Q HS PRN Cervical spine MRI done a couple of years ago showed (+) multilevel degenerative changes resulting in 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 referral to neurosurgery has been discussed in the past and remains a consideration if his neck pain gets worse (9) Primary osteoarthritis of both knees: Code(s): M17.0 - Bilateral primary osteoarthritis of knee Plan: S/P total right knee arthroplasty Follow? up with [facility] as scheduled States that his current meds have been helping with his knee pain as well (10) Constipation: Comment: Most likely multifactorial, including opioid-induced as well as due to inadequate oral fluid and fiber intake Code(s): K59.00 - Constipation, unspecified Qualifiers: Constipation type: unspecified constipation type Qualified Code(s): K59.00 - Constipation, unspecified Plan: Reinforced increased oral fluids and dietary fiber Continue Miralax 17 gm QD and may take OTC stool softeners PRN (11) Acne: Code(s): L70.9 - Acne, unspecified Qualifiers: Acne type: acne vulgaris Qualified Code(s): L70.0 - Acne vulgaris Plan: Continue Doxycycline 100 mg QD (12) Insomnia: Code(s): G47.00 - Insomnia, unspecified Qualifiers: Insomnia type: unspecified Qualified Code(s): G47.00 - Insomnia, unspecified Plan: Sleep hygiene reinforced Continue Trazodone 150 mg Q HS PRN (13) Anxiety: Code(s): F41.9 - Anxiety disorder, unspecified Plan: Continue Lorazepam 1 mg BID PRN and Hydroxyzine 25 mg TID PRN, Buspirone 10 mg BID and Sertraline 50 mg Q AM Was on CItalopram in the past but is unclear when he stopped taking this (on his own) Per request, he was referred previously for counseling and therapy and is still waiting to be contacted (14) Obesity (BMI 30-39.9): Code(s): E66.9 - Obesity, unspecified Plan: Reinforced diet; exercise and weight loss are unrealistic due to his multiple physical issues and comorbidities Plan Follow up in 3 months Orders: Orders Comprehensive [place]. Panel Fast 03/23/24 E78.00 - Pure hypercholesterolemia, unspecified Microalbumin, Random (w Creat) 03/23/24 E11.9 - Type 2 diabetes mellitus without complications AMB Hemoglobin A1c 03/22/24 Z13.9 - Encounter for screening, unspecified Complete Blood Count Auto Diff 03/23/24 D64.9 - Anemia, unspecified Lipid Panel 03/23/24 E78.00 - Pure hypercholesterolemia, unspecified TSH reflex Free T4 03/23/24 E78.00 - Pure hypercholesterolemia, unspecified Magnesium 03/23/24 E83.42 - Hypomagnesemia UA CC w/rflx Micro + Cult 03/23/24 R30.0 - Dysuria Vitamin D 25-OH Total 03/23/24 E55.9 - Vitamin D deficiency, unspecified Vitamin B12 and Folate 03/23/24 E53.8 - Deficiency of other specified B group vitamins Erythrocyte Sedimentation Rate 03/23/24 M25.50 - Pain in unspecified joint Medications: Refilled metformin ER 500 mg PO QPM 90 tabs 1RF oxycodone 15 mg PO BID PRN 60 tabs 0RF severe pain 30 days M50.30 - Other cervical disc degeneration, unspecified cervical region, M51.36 - Other intervertebral disc degeneration, lumbar region losartan 100 mg PO DAILY 90 tabs 1RF 90 days I10 - Essential (primary) hypertension tizanidine 4 mg PO BEDTIME PRN 90 tabs 1RF muscle spasticity 30 days doxycycline hyclate 100 mg PO DAILY 30 caps 0RF 30 days Coding Level of Care Code Est Pt Level 4 (63188) Diagnoses Pure hypercholesterolemia E78.00 Benign essential hypertension I10 Chronic obstructive pulmonary disease, unspecified COPD type J44.9 COPD type: unspecified COPD Type 2 diabetes mellitus with hyperglycemia, without long-term current use of insulin E11.65 Diabetes mellitus type: type 2 Diabetes mellitus terminal clerk insulin use: without long-term use Diabetes mellitus complication status: with hyperglycemia Hepatic hemangioma D18.03 Stage 3a chronic kidney disease N18.31 Chronic kidney disease stage 3 subtype: stage 3a (GFR 45-59) Lumbar degenerative disc disease M51.36 Degenerative disc disease, cervical M50.30 Primary osteoarthritis of both knees M17.0 Constipation, unspecified constipation type K59.00 Constipation type: unspecified constipation type Acne vulgaris L70.0 Acne type: acne vulgaris Insomnia, unspecified type G47.00 Insomnia type: unspecified Anxiety F41.9 Obesity (BMI 30-39.9) E66.9
== END 2024-03-22 15:17 | disposition home or self-care (01) ==
LOC: HO.HMGH 13:49
PROVIDERS: PCP Internal Medicine; Visit Provider Internal Medicine
DX: I12.9 Hypertensive chronic kidney disease with stage 1 through stage 4 chronic kidney disease, or unspecified chronic kidney disease (principal); E11.65 Type 2 diabetes mellitus with hyperglycemia; J44.9 Chronic obstructive pulmonary disease, unspecified; N18.31 Chronic kidney disease, stage 3a; E78.00 Pure hypercholesterolemia, unspecified; D18.03 Hemangioma of intra-abdominal structures; M51.36 Other intervertebral disc degeneration, lumbar region; M50.30 Other cervical disc degeneration, unspecified cervical region; M17.0 Bilateral primary osteoarthritis of knee; K59.00 Constipation, unspecified; L70.0 Acne vulgaris; G47.00 Insomnia, unspecified
CPT/HCPCS: 83036; 99214

== ENCOUNTER 2024-03-23 16:40 | Outpatient (REF) | payer MEDICARE, MEDICAID, SELFPAY ==
[2024-03-23 16:56] LABS: MANUAL DIFF FLAG NO
[2024-03-23 17:29] LABS: Basophils Percent Auto 0.4 % (0-2); Eosinophils Absolute Auto 0.2 X10*3/uL (0.0-0.4); Eosinophils Percent Auto 2.8 % (0-4); Hemoglobin 12.6 g/dl (14.0-18.0); Imm Gran Abs Auto 0.03 X10*3/uL (0.00-0.03); Imm Gran Pct Auto 0.4 % (0.0-0.4); Lymphocytes Percent Auto 23.7 % (20-40); Mean Corpuscular HGB Conc 34.1 g/dl (31.0-36.0); Mean Corpuscular Hemoglobin 30.4 pg (27.0-33.0); Mean Corpuscular Volume 89.2 fL (80.0-98.0); Mean Platelet Volume 9.6 fL (9.4-12.4); Monocytes Absolute Auto 0.6 X10*3/uL (0.1-1.2); Monocytes Percent Auto 7.5 % (2-11); Neutrophils Absolute Auto 5.5 x10*3/uL (2.0-8.3); Neutrophils Percent Auto 65.2 % (45-73); Platelet Count 266 X10*3/uL (160-400); Red Blood Count 4.15 X10*6/uL (4.60-5.80); Red Cell Distribution Width 13.5 % (11.0-16.0); White Blood Count 8.5 X10*3/uL (4.8-10.8)
[2024-03-23 17:36] LABS: Estimated Average Glucose 143 mg/dL; Hemoglobin A1c % 6.6 % (<6.0)
[2024-03-23 17:43] LABS: Appearance Urine Clear; Color Urine Yellow; Glucose Urine UA Negative (Negative); Leukocyte Esterase Urine Negative (Negative); Nitrite Urine Negative (Negative); Urine Blood Negative (Negative); Urine Ketones Negative (Negative); Urine Protein Negative (Neg-Trace)
[2024-03-23 18:00] LABS: Creatinine Urine 49.33 mg/dL; Microalbum/Creatinine Ratio Ur 18.2 ug/mg cr (<30)
[2024-03-23 18:10] LABS: Alanine Aminotransferase 15 U/L (0-40); Alkaline Phosphatase 70 U/L (39-117); Anion Gap 16 (12-20); Aspartate Amino Transferase 17 U/L (5-37); Bilirubin Total 0.5 mg/dL (0.0-1.0); Blood Urea Nitrogen 17 mg/dL (9-16); Calcium 9.4 mg/dL (8.4-10.2); Carbon Dioxide 22 mmol/L (22-29); Chloride 103 mmol/L (96-108); Cholesterol 135 mg/dL (<200); Estimated Glomerular Filt Rate 53; Glucose Fasting 182 mg/dL (60-99); HDL Cholesterol 29 mg/dL (>40); LDL Cholesterol Calculated 58 mg/dL (<100); Magnesium 1.9 mg/dL (1.6-2.6); Potassium 4.1 mmol/L (3.3-5.1); Sodium 137 mmol/L (135-145); Total Protein 7.3 g/dL (6.5-8.0); Triglycerides 241 mg/dL (<150)
[2024-03-23 18:21] LABS: TSH reflex Free T4 2.58 uIU/mL (0.32-4.0); Vitamin D 25-OH Total 35.5 ng/mL (>30)
[2024-03-23 18:28] LABS: Erythrocyte Sedimentation Rate 23 MM/HR (0-15)
[2024-03-23 18:34] LABS: Folate 6.5 ng/mL (> or = 4.0); Vitamin B12 268 pg/mL (200-900)
== END 2024-03-23 16:41 | disposition home or self-care (01) ==
LOC: HO.LAB 16:40
PROVIDERS: PCP Internal Medicine; Visit Provider Internal Medicine
DX: E78.00 Pure hypercholesterolemia, unspecified (principal); E53.8 Deficiency of other specified B group vitamins; I10 Essential (primary) hypertension; E55.9 Vitamin D deficiency, unspecified; R30.0 Dysuria; E11.9 Type 2 diabetes mellitus without complications; M25.50 Pain in unspecified joint
CPT/HCPCS: 36415; 80053; 80061; 81003; 82043; 82306; 82570; 82607; 82746; 83036; 83735; 84443; 85025; 85652

== ENCOUNTER 2024-06-26 18:29 | Emergency (ER) | payer MEDICARE, MEDICAID, SELFPAY ==
[2024-06-26] VITALS (10 sets, daily range): BP systolic 84–123; BP diastolic 49–78; PULSE 78–98; RESP 16–20; TEMP 36.6–37.5; O2SAT 92–100; BMI 33.9
--- NOTE | ~2024-06-26 | XR_ITS ---
EXAMINATION: XR CHEST CLINICAL INFORMATION: Shortness of breath COMPARISON: 12/24/2023 TECHNIQUE: Frontal view of the chest was obtained. FINDINGS: Heart size upper limits of normal. Right hemidiaphragm is again elevated. No evidence of CHF. Some minimal bibasilar atelectasis is present. No significant abnormality is noted involving the heart, lungs, mediastinum, bony thorax or soft tissues. XR/XR chest 1V IMPRESSION: No acute intrathoracic disease.
--- NOTE | 2024-06-26 19:10 | ECG_ITS ---
Test Reason : WEAKNESS Blood Pressure : / mmHG Vent. Rate : 087 BPM Atrial Rate : 087 BPM P-R Int : 274 ms QRS Dur : 096 ms QT Int : 358 ms P-R-T Axes : 043 026 028 degrees QTc Int : 430 ms Sinus rhythm with 1st degree A-V block Otherwise normal ECG When compared with ECG of 24-DEC-2023 06:55, No significant change was found Referred By: Luigi Iqbal Electronically Signed By:RAUL CARREON MD
--- NOTE | 2024-06-26 19:11 | ED_ITS ---
HPI - General Adult General Chief complaint: Weakness Stated complaint: sore throat,body aches Time Seen by Provider: 06/26/24 19:13 History of Present Illness HPI narrative: Seen by Dr. Jean Related Data Previous Rx's ?Medication ?Instructions ?Recorded budesonide-formoterol HFA 160 2 puff PO BID #10.2 grams 03/17/23 mcg-4.5 mcg/actuation aerosol inhaler furosemide 40 mg tablet 40 mg PO DAILY #90 tabs 12/08/23 albuterol sulfate 90 mcg/actuation 1 inh inhalation QID PRN shortness 12/21/23 aerosol inhaler (Ventolin HFA) of breath or wheezing #8.5 grams fluticasone propionate 50 2 spray intranasal DAILY #16 grams 12/24/23 mcg/actuation nasal spray,suspension (Flonase Allergy Relief) metformin 500 mg tablet,extended 500 mg PO QPM #90 tabs 03/22/24 release 24 hr tizanidine 4 mg tablet 4 mg PO BEDTIME PRN muscle 03/22/24 spasticity 30 days #90 tabs rosuvastatin 10 mg tablet 10 mg PO BEDTIME 30 days #30 tabs 05/23/24 trazodone 150 mg tablet 150 mg PO BEDTIME PRN for insomnia 06/13/24 90 days #90 tabs Combivent Respimat 20 mcg-100 1 puff inhalation QID #4 grams 06/19/24 mcg/actuation solution for inhalation (ipratropium-albuterol) amlodipine 5 mg tablet 5 mg PO DAILY 90 days #90 tabs 06/19/24 doxycycline hyclate 100 mg capsule 100 mg PO DAILY 30 days #30 caps 06/19/24 hydroxyzine HCl 25 mg tablet 25 mg PO TID PRN anxiety 30 days 06/19/24 #90 tabs losartan 100 mg tablet 100 mg PO DAILY 90 days #90 tabs 06/19/24 oxycodone 15 mg tablet 15 mg PO BID PRN severe pain 30 06/19/24 days #60 tabs Allergies Allergy/AdvReac Type Severity Reaction Status Date / Time morphine AdvReac Severe respiratory Verified 06/26/24 19:07 depression/failure PMFSH Past Medical History Medical History Obesity (BMI 30-39.9) Anxiety Insomnia Benign essential hypertension Chronic kidney disease (CKD), stage III (moderate) Pure hypercholesterolemia Erectile dysfunction Lumbar degenerative disc disease Primary osteoarthritis of both knees COPD (chronic obstructive pulmonary disease) Degenerative disc disease, cervical Surgical History Hx of total knee arthroplasty History of glaucoma History of trabeculectomy Family History Family History Father Cancer Mother No problems noted. Social History Social History Housing: House Alcohol intake: former Patient Tobacco Use Status: Former Tobacco user Tobacco use type: Cigar Years Smoked: 30 years Smoked in Last 30 Days: No e-Cigarette/Vaping Use: Never Used Second Hand Smoke Exposure: Yes Use of substances other than those prescribed or required for medical reasons: No Advance Directives: No Advance Directives Information Provided: No service: Yes Current occupational status: retired Cognitive needs: No Hearing needs: No Vision needs: No Physical Exam ED Vital Signs: Vital Signs - 24 hr 06/26/24 19:03 06/26/24 19:36 06/26/24 20:17 Temperature 99.5 F Pulse Rate 98 89 85 Respiratory Rate 16 20 20 Blood Pressure 84/49 L 85/55 L 101/66 Pulse Oximetry 96 95 100 Oxygen Delivery Method Room Air Room Air Room Air 06/26/24 20:23 06/26/24 21:05 06/26/24 22:39 Temperature 98.3 F Pulse Rate 83 78 80 Respiratory Rate 18 17 Blood Pressure 100/62 120/71 Pulse Oximetry 92 Oxygen Delivery Method Room Air 06/26/24 22:42 06/26/24 22:43 06/26/24 23:21 Temperature 97.9 F Pulse Rate 91 97 87 Respiratory Rate 17 Blood Pressure 120/74 123/69 120/78 Pulse Oximetry 96 Oxygen Delivery Method Room Air BMI result Body Mass Index 33.9 Course Course Course Narrative: RME: 84 yold male presents to the ED for weakness, sore throat, bodaydaches, and is hypotensvie. labs, Strep, SARS, ekg, and troponin ordered. Patient brought back to the ED immediately. Labs ordered Medications Administered Discontinued Medications Generic Name Dose Route Start Last Admin Trade Name Freq PRN Reason Stop Dose Admin Albuterol Sulfate 2.5 mg 06/26/24 19:54 06/26/24 20:22 Albuterol Sulfate (0.083%) 2.5 Mg/3 Ml Vial.Neb INHALE 06/26/24 19:55 2.5 mg ONCE ONE Administration Sodium Chloride 1,000 mls @ 999 mls/hr 06/26/24 20:00 06/26/24 20:01 Ns IV 06/26/24 21:00 999 mls/hr .Q1H1M JOLENE Administration Sodium Chloride 1,000 mls @ 999 mls/hr 06/26/24 20:30 06/26/24 21:41 Ns IV 06/26/24 21:30 999 mls/hr .Q1H1M JOLENE Administration Ceftriaxone Sodium 1 gm/ 50 mls @ 100 mls/hr 06/26/24 20:25 06/26/24 21:41 Sodium Chloride IV 06/26/24 20:54 Infused ONCE ONE Infusion Medical Decision Making Lab Data 06/26/24 19:35 06/26/24 19:36 Labs: Lab Results 06/26/24 06/26/24 06/26/24 Range/Units 19:35 19:36 20:01 WBC 8.8 (4.8-10.8) X10*3/uL RBC 4.04 L (4.60-5.80) X10*6/uL Hgb 12.2 L (14.0-18.0) g/dl Hct 35.1 L (42.0-52.0) % MCV 86.9 (80.0-98.0) fL MCH 30.2 (27.0-33.0) pg MCHC 34.8 (31.0-36.0) g/dl RDW 13.4 (11.0-16.0) % Plt Count 212 (160-400) X10*3/uL MPV 9.2 L (9.4-12.4) fL Immature Gran % (Auto) 0.5 H (0.0-0.4) % Neut % (Auto) 77.6 H (45-73) % Lymph % (Auto) 9.9 L (20-40) % [place] % (Auto) 11.3 H (2-11) % Eos % (Auto) 0.5 (0-4) % Baso % (Auto) 0.2 (0-2) % Lymph # (Auto) 0.9 L (1.2-4.9) X10*3/uL [place] # (Auto) 1.0 (0.1-1.2) X10*3/uL Eos # (Auto) 0.0 (0.0-0.4) X10*3/uL Baso # (Auto) 0.0 (0.0-0.2) X10*3/uL Abs Immat Gran (auto) 0.04 H (0.00-0.03) X10*3/uL Absolute Neuts (auto) 6.8 (2.0-8.3) x10*3/uL Absolute Nucleated RBC 0.000 (0.0-0.012) X10*3/uL Nucleated RBC % (auto) 0.0 (0.0-0.2) /100WBC PT 12.7 (11.1-13.3) SEC INR 1.0 (0.9-1.1) APTT 27.2 (26.0-36.8) SEC VBG pH 7.37 (7.32-7.43) VBG pCO2 43 mmHg VBG pO2 44 mmHg VBG HCO3 25 (22-26) mmol/L VBG O2 Saturation 68.0 % VBG Base Excess 0.3 mmol/L Sodium 132 L (135-145) mmol/L Potassium 4.0 (3.3-5.1) mmol/L Chloride 98 (96-108) mmol/L Carbon Dioxide 25 (22-29) mmol/L Anion Gap 13 (12-20) BUN 25 H (9-16) mg/dL Creatinine 1.54 H (0.5-1.4) mg/dL Estim Creat Clear Calc 45.5 Estimated GFR 43 Random Glucose 151 H (60-115) mg/dL Lactic Acid 2.8 H* (0.5-2.0) mmol/L Lactic Acid F/U @ 2Hr (0.5-2.0) mmol/L Calcium 8.9 (8.4-10.2) mg/dL Total Bilirubin 0.5 (0.0-1.0) mg/dL AST 25 (5-37) U/L ALT 20 (0-40) U/L Alkaline Phosphatase 60 (39-117) U/L Troponin I High Sens 10.7 D (<3.5-35.0) ng/L Total Protein 6.9 (6.5-8.0) g/dL Albumin 3.9 (3.5-5.0) g/dL Influenza Type A (PCR) NEGATIVE (Negative) Influenza Type B (PCR) NEGATIVE (Negative) RSV RNA Qual (PCR) NEGATIVE (Negative) SARS-CoV-2 RNA (RT-PCR) POSITIVE A (Negative) S. pyogenes GrpA TRELL Negative (Negative) 06/26/24 Range/Units 21:56 WBC (4.8-10.8) X10*3/uL RBC (4.60-5.80) X10*6/uL Hgb (14.0-18.0) g/dl Hct (42.0-52.0) % MCV (80.0-98.0) fL MCH (27.0-33.0) pg MCHC (31.0-36.0) g/dl RDW (11.0-16.0) % Plt Count (160-400) X10*3/uL MPV (9.4-12.4) fL Immature Gran % (Auto) (0.0-0.4) % Neut % (Auto) (45-73) % Lymph % (Auto) (20-40) % [place] % (Auto) (2-11) % Eos % (Auto) (0-4) % Baso % (Auto) (0-2) % Lymph # (Auto) (1.2-4.9) X10*3/uL [place] # (Auto) (0.1-1.2) X10*3/uL Eos # (Auto) (0.0-0.4) X10*3/uL Baso # (Auto) (0.0-0.2) X10*3/uL Abs Immat Gran (auto) (0.00-0.03) X10*3/uL Absolute Neuts (auto) (2.0-8.3) x10*3/uL Absolute Nucleated RBC (0.0-0.012) X10*3/uL Nucleated RBC % (auto) (0.0-0.2) /100WBC PT (11.1-13.3) SEC INR (0.9-1.1) APTT (26.0-36.8) SEC VBG pH (7.32-7.43) VBG pCO2 mmHg VBG pO2 mmHg VBG HCO3 (22-26) mmol/L VBG O2 Saturation % VBG Base Excess mmol/L Sodium (135-145) mmol/L Potassium (3.3-5.1) mmol/L Chloride (96-108) mmol/L Carbon Dioxide (22-29) mmol/L Anion Gap (12-20) BUN (9-16) mg/dL Creatinine (0.5-1.4) mg/dL Estim Creat Clear Calc Estimated GFR Random Glucose (60-115) mg/dL Lactic Acid (0.5-2.0) mmol/L Lactic Acid F/U @ 2Hr 1.2 (0.5-2.0) mmol/L Calcium (8.4-10.2) mg/dL Total Bilirubin (0.0-1.0) mg/dL AST (5-37) U/L ALT (0-40) U/L Alkaline Phosphatase (39-117) U/L Troponin I High Sens (<3.5-35.0) ng/L Total Protein (6.5-8.0) g/dL Albumin (3.5-5.0) g/dL Influenza Type A (PCR) (Negative) Influenza Type B (PCR) (Negative) RSV RNA Qual (PCR) (Negative) SARS-CoV-2 RNA (RT-PCR) (Negative) S. pyogenes GrpA TRELL (Negative) Discharge Plan Discharge Clinical Impression: COVID Patient Disposition: Home, Self-Care Prescriptions: No Action furosemide 40 mg tablet 40 mg PO DAILY Qty: 90 1RF rosuvastatin 10 mg tablet 10 mg PO BEDTIME 30 Days Qty: 30 3RF trazodone 150 mg tablet 150 mg PO BEDTIME PRN (Reason: for insomnia) 90 Days Qty: 90 0RF amlodipine 5 mg tablet 5 mg PO DAILY 90 Days Qty: 90 1RF Combivent Respimat 20-100 mcg/actuation mist 1 puff inhalation QID Qty: 4 5RF Hold Instructions: Doctor's Order doxycycline hyclate 100 mg capsule 100 mg PO DAILY 30 Days Qty: 30 0RF losartan 100 mg tablet 100 mg PO DAILY 90 Days Qty: 90 1RF oxycodone 15 mg tablet 15 mg PO BID PRN (Reason: severe pain) 30 Days Qty: 60 0RF hydroxyzine HCl 25 mg tablet 25 mg PO TID PRN (Reason: anxiety) 30 Days Qty: 90 2RF fluticasone propionate [Flonase Allergy Relief] 50 mcg/actuation spray,suspension 2 spray intranasal DAILY Qty: 16 0RF Rx Instructions: administer into each nostril tizanidine 4 mg tablet 4 mg PO BEDTIME PRN (Reason: muscle spasticity) 30 Days Qty: 90 1RF metformin 500 mg tablet extended release 24 hr 500 mg PO QPM Qty: 90 1RF albuterol sulfate [Ventolin HFA] 90 mcg/actuation HFA aerosol inhaler 1 inh inhalation QID PRN (Reason: shortness of breath or wheezing) Qty: 8.5 1RF budesonide-formoterol 160-4.5 mcg/actuation HFA aerosol inhaler 2 puff PO BID Qty: 10.2 5RF Referrals: Kody Sheth MD [Primary Care Provider] - 06/28/24 Print Language: Macedonian
[2024-06-26 19:42] LABS: MANUAL DIFF FLAG NO
[2024-06-26 19:51] LABS: Basophils Percent Auto 0.2 % (0-2); Eosinophils Percent Auto 0.5 % (0-4); Hematocrit 35.1 % (42.0-52.0); Hemoglobin 12.2 g/dl (14.0-18.0); Imm Gran Abs Auto 0.04 X10*3/uL (0.00-0.03); Imm Gran Pct Auto 0.5 % (0.0-0.4); Lymphocytes Absolute Auto 0.9 X10*3/uL (1.2-4.9); Lymphocytes Percent Auto 9.9 % (20-40); Mean Corpuscular HGB Conc 34.8 g/dl (31.0-36.0); Mean Corpuscular Hemoglobin 30.2 pg (27.0-33.0); Mean Corpuscular Volume 86.9 fL (80.0-98.0); Mean Platelet Volume 9.2 fL (9.4-12.4); Monocytes Percent Auto 11.3 % (2-11); Neutrophils Absolute Auto 6.8 x10*3/uL (2.0-8.3); Neutrophils Percent Auto 77.6 % (45-73); Platelet Count 212 X10*3/uL (160-400); Red Blood Count 4.04 X10*6/uL (4.60-5.80); Red Cell Distribution Width 13.4 % (11.0-16.0); White Blood Count 8.8 X10*3/uL (4.8-10.8)
[2024-06-26 19:54] LABS: IDNOW Serial# 58CA691E; Strep A Nucleic Acid Negative (Negative)
--- NOTE | 2024-06-26 19:57 | ED_ITS ---
HPI - Weakness General Chief complaint: Weakness Stated complaint: sore throat,body aches Time Seen by Provider: 06/26/24 19:13 History of Present Illness HPI Narrative: Patient is an 84-year-old male with a history of COPD, currently not on oxygen. Presents today with generalized malaise weakness coughing congestion fever subjective at home. Sore throat. Feel very tired. There is no pain on urination there is no rash. Symptoms been ongoing for the last 3 days. Positive decreased p.o. intake. Positive nasal congestion. Never had to be intubated in the past. No leg swelling. No history of congestive heart failure. History of chronic kidney disease hyperlipidemia Related Data Previous Rx's ?Medication ?Instructions ?Recorded budesonide-formoterol HFA 160 2 puff PO BID #10.2 grams 03/17/23 mcg-4.5 mcg/actuation aerosol inhaler furosemide 40 mg tablet 40 mg PO DAILY #90 tabs 12/08/23 albuterol sulfate 90 mcg/actuation 1 inh inhalation QID PRN shortness 12/21/23 aerosol inhaler (Ventolin HFA) of breath or wheezing #8.5 grams fluticasone propionate 50 2 spray intranasal DAILY #16 grams 12/24/23 mcg/actuation nasal spray,suspension (Flonase Allergy Relief) metformin 500 mg tablet,extended 500 mg PO QPM #90 tabs 03/22/24 release 24 hr tizanidine 4 mg tablet 4 mg PO BEDTIME PRN muscle 03/22/24 spasticity 30 days #90 tabs rosuvastatin 10 mg tablet 10 mg PO BEDTIME 30 days #30 tabs 05/23/24 trazodone 150 mg tablet 150 mg PO BEDTIME PRN for insomnia 06/13/24 90 days #90 tabs Combivent Respimat 20 mcg-100 1 puff inhalation QID #4 grams 06/19/24 mcg/actuation solution for inhalation (ipratropium-albuterol) amlodipine 5 mg tablet 5 mg PO DAILY 90 days #90 tabs 06/19/24 doxycycline hyclate 100 mg capsule 100 mg PO DAILY 30 days #30 caps 06/19/24 hydroxyzine HCl 25 mg tablet 25 mg PO TID PRN anxiety 30 days 06/19/24 #90 tabs losartan 100 mg tablet 100 mg PO DAILY 90 days #90 tabs 06/19/24 oxycodone 15 mg tablet 15 mg PO BID PRN severe pain 30 06/19/24 days #60 tabs nirmatrelvir 300 mg (150 mg See Rx Instructions PO .COMPLEX 06/26/24 x2)-ritonavir 100 mg tablet,dose #30 ea pack (Paxlovid) Allergies Allergy/AdvReac Type Severity Reaction Status Date / Time morphine AdvReac Severe respiratory Verified 06/26/24 19:07 depression/failure Review of Systems 2 Review of Systems: Positive coughing congestion upper respiratory symptoms Yes all other systems are reviewed and are negative [facility] Past Medical History Attestation statement: The following information was validated with the patient. Medical History Obesity (BMI 30-39.9) Anxiety Insomnia Benign essential hypertension Chronic kidney disease (CKD), stage III (moderate) Pure hypercholesterolemia Erectile dysfunction Lumbar degenerative disc disease Primary osteoarthritis of both knees COPD (chronic obstructive pulmonary disease) Degenerative disc disease, cervical Surgical History Hx of total knee arthroplasty History of glaucoma History of trabeculectomy Family History Family History Father Cancer Mother No problems noted. Social History Social History Housing: House Alcohol intake: former Patient Tobacco Use Status: Former Tobacco user Tobacco use type: Cigar Years Smoked: 30 years Smoked in Last 30 Days: No e-Cigarette/Vaping Use: Never Used Second Hand Smoke Exposure: Yes Use of substances other than those prescribed or required for medical reasons: No Advance Directives: No Advance Directives Information Provided: No service: Yes Current occupational status: retired Cognitive needs: No Hearing needs: No Vision needs: No Physical Exam 2 Vital Signs: Vital Signs: Last Vital Signs Temp 97.9 F 06/26/24 23:21 Pulse 87 06/26/24 23:21 Resp 17 06/26/24 23:21 BP 120/78 06/26/24 23:21 Pulse Ox 96 06/26/24 23:21 O2 Del Method Room Air 06/26/24 23:21 BMI result Body Mass Index 33.9 Appearance: Alert. Oriented X3. No acute distress. Eyes: Pupils equal, round and reactive to light. ENT: Pharynx normal. Neck: Normal inspection. Neck supple. No lymph nodes noted. No crepitus CVS: Normal heart rate and rhythm. Pulses normal. Normal S1 and S2 Respiratory: No respiratory distress. Breath sounds normal. No Wheezing. No rales Abdomen: Soft and nontender. No rigidity. No distention. good BS x4 Skin: Skin warm and dry. Normal skin color. Normal skin turgor. Extremities: No lower extremity edema. Neurovascular intact to all extremities. No Lacerations. No Rash Neuro: Oriented X 3. No motor deficit. No sensory deficit. Moving all extermities. No slurred speech Medications Administered Discontinued Medications Generic Name Dose Route Start Last Admin Trade Name Freq PRN Reason Stop Dose Admin Albuterol Sulfate 2.5 mg 06/26/24 19:54 06/26/24 20:22 Albuterol Sulfate (0.083%) 2.5 Mg/3 Ml Vial.Neb INHALE 06/26/24 19:55 2.5 mg ONCE ONE Administration Sodium Chloride 1,000 mls @ 999 mls/hr 06/26/24 20:00 06/26/24 20:01 Ns IV 06/26/24 21:00 999 mls/hr .Q1H1M JOLENE Administration Sodium Chloride 1,000 mls @ 999 mls/hr 06/26/24 20:30 06/26/24 21:41 Ns IV 06/26/24 21:30 999 mls/hr .Q1H1M JOLENE Administration Ceftriaxone Sodium 1 gm/ 50 mls @ 100 mls/hr 06/26/24 20:25 06/26/24 21:41 Sodium Chloride IV 06/26/24 20:54 Infused ONCE ONE Infusion Medical Decision Making Medical Decision Making MDM Narrative: Positive coughing congestion upper respiratory symptoms positive generalized malaise decreased p.o. intake symptoms been ongoing for about 3 days initially had a low blood pressure. After fluids patient symptoms feels improved. COVID test came back positive. Patient's O2 sat maintained at 96-97% after ambulation. Patient's initial lactate was elevated after IV hydration patient's lactate actually came down to 1.2. There is no evidence for sepsis. Patient is white count is 8.8 no significant shift. Patient's blood gas showed no CO2 retention no acidosis. Patient's electrolytes show evidence for some dehydration as patient's creatinine is 1.5. Troponin was negative flu RSV was negative strep was negative. My interpretation patient's chest x-ray is grossly negative. I discussed with patient risks and benefits of Paxlovid patient wants the antiviral. Differential Diagnosis Differential Diagnoses: The differential diagnosis associated with the presentation includes COVID, dehydration, pneumonia Lab Data MDM Lab Attestation statement: I reviewed the patient's lab results. 06/26/24 19:35 06/26/24 19:36 Labs: Lab Results 06/26/24 06/26/24 06/26/24 Range/Units 19:35 19:36 20:01 WBC 8.8 (4.8-10.8) X10*3/uL RBC 4.04 L (4.60-5.80) X10*6/uL Hgb 12.2 L (14.0-18.0) g/dl Hct 35.1 L (42.0-52.0) % MCV 86.9 (80.0-98.0) fL MCH 30.2 (27.0-33.0) pg MCHC 34.8 (31.0-36.0) g/dl RDW 13.4 (11.0-16.0) % Plt Count 212 (160-400) X10*3/uL MPV 9.2 L (9.4-12.4) fL Immature Gran % (Auto) 0.5 H (0.0-0.4) % Neut % (Auto) 77.6 H (45-73) % Lymph % (Auto) 9.9 L (20-40) % [place] % (Auto) 11.3 H (2-11) % Eos % (Auto) 0.5 (0-4) % Baso % (Auto) 0.2 (0-2) % Lymph # (Auto) 0.9 L (1.2-4.9) X10*3/uL [place] # (Auto) 1.0 (0.1-1.2) X10*3/uL Eos # (Auto) 0.0 (0.0-0.4) X10*3/uL Baso # (Auto) 0.0 (0.0-0.2) X10*3/uL Abs Immat Gran (auto) 0.04 H (0.00-0.03) X10*3/uL Absolute Neuts (auto) 6.8 (2.0-8.3) x10*3/uL Absolute Nucleated RBC 0.000 (0.0-0.012) X10*3/uL Nucleated RBC % (auto) 0.0 (0.0-0.2) /100WBC PT 12.7 (11.1-13.3) SEC INR 1.0 (0.9-1.1) APTT 27.2 (26.0-36.8) SEC VBG pH 7.37 (7.32-7.43) VBG pCO2 43 mmHg VBG pO2 44 mmHg VBG HCO3 25 (22-26) mmol/L VBG O2 Saturation 68.0 % VBG Base Excess 0.3 mmol/L Sodium 132 L (135-145) mmol/L Potassium 4.0 (3.3-5.1) mmol/L Chloride 98 (96-108) mmol/L Carbon Dioxide 25 (22-29) mmol/L Anion Gap 13 (12-20) BUN 25 H (9-16) mg/dL Creatinine 1.54 H (0.5-1.4) mg/dL Estim Creat Clear Calc 45.5 Estimated GFR 43 Random Glucose 151 H (60-115) mg/dL Lactic Acid 2.8 H* (0.5-2.0) mmol/L Lactic Acid F/U @ 2Hr (0.5-2.0) mmol/L Calcium 8.9 (8.4-10.2) mg/dL Total Bilirubin 0.5 (0.0-1.0) mg/dL AST 25 (5-37) U/L ALT 20 (0-40) U/L Alkaline Phosphatase 60 (39-117) U/L Troponin I High Sens 10.7 D (<3.5-35.0) ng/L Total Protein 6.9 (6.5-8.0) g/dL Albumin 3.9 (3.5-5.0) g/dL Influenza Type A (PCR) NEGATIVE (Negative) Influenza Type B (PCR) NEGATIVE (Negative) RSV RNA Qual (PCR) NEGATIVE (Negative) SARS-CoV-2 RNA (RT-PCR) POSITIVE A (Negative) S. pyogenes GrpA TRELL Negative (Negative) 06/26/24 Range/Units 21:56 WBC (4.8-10.8) X10*3/uL RBC (4.60-5.80) X10*6/uL Hgb (14.0-18.0) g/dl Hct (42.0-52.0) % MCV (80.0-98.0) fL MCH (27.0-33.0) pg MCHC (31.0-36.0) g/dl RDW (11.0-16.0) % Plt Count (160-400) X10*3/uL MPV (9.4-12.4) fL Immature Gran % (Auto) (0.0-0.4) % Neut % (Auto) (45-73) % Lymph % (Auto) (20-40) % [place] % (Auto) (2-11) % Eos % (Auto) (0-4) % Baso % (Auto) (0-2) % Lymph # (Auto) (1.2-4.9) X10*3/uL [place] # (Auto) (0.1-1.2) X10*3/uL Eos # (Auto) (0.0-0.4) X10*3/uL Baso # (Auto) (0.0-0.2) X10*3/uL Abs Immat Gran (auto) (0.00-0.03) X10*3/uL Absolute Neuts (auto) (2.0-8.3) x10*3/uL Absolute Nucleated RBC (0.0-0.012) X10*3/uL Nucleated RBC % (auto) (0.0-0.2) /100WBC PT (11.1-13.3) SEC INR (0.9-1.1) APTT (26.0-36.8) SEC VBG pH (7.32-7.43) VBG pCO2 mmHg VBG pO2 mmHg VBG HCO3 (22-26) mmol/L VBG O2 Saturation % VBG Base Excess mmol/L Sodium (135-145) mmol/L Potassium (3.3-5.1) mmol/L Chloride (96-108) mmol/L Carbon Dioxide (22-29) mmol/L Anion Gap (12-20) BUN (9-16) mg/dL Creatinine (0.5-1.4) mg/dL Estim Creat Clear Calc Estimated GFR Random Glucose (60-115) mg/dL Lactic Acid (0.5-2.0) mmol/L Lactic Acid F/U @ 2Hr 1.2 (0.5-2.0) mmol/L Calcium (8.4-10.2) mg/dL Total Bilirubin (0.0-1.0) mg/dL AST (5-37) U/L ALT (0-40) U/L Alkaline Phosphatase (39-117) U/L Troponin I High Sens (<3.5-35.0) ng/L Total Protein (6.5-8.0) g/dL Albumin (3.5-5.0) g/dL Influenza Type A (PCR) (Negative) Influenza Type B (PCR) (Negative) RSV RNA Qual (PCR) (Negative) SARS-CoV-2 RNA (RT-PCR) (Negative) S. pyogenes GrpA TRELL (Negative) Independent Interpretation I performed an independent interpretation of an: Plain X-Ray (Chest x-ray negative for pneumonia no pneumothorax) Radiology Impression Discussion of test interpretation with radiology: I have reviewed the radiologist's reading. External Record Review External record reviewed: Inpatient record Prescription Management I considered prescription management with: Antiviral (Will prescribe Paxlovid) and Antibiotic (Not needed) Chronic Conditions COPD Social Determinants Patient?s care significantly limited by Social Determinants of Health including: Problems related to primary support group Discharge Plan Discharge Clinical Impression: COVID Patient Disposition: Home, Self-Care Additional Instructions: Please stop your cholesterol med Crestor for at least 1 week after the Paxlovid is done. Prescriptions: New Paxlovid 300 mg (150 mg x 2)-100 mg tablets,dose pack See Rx Instructions .ROUTE .COMPLEX Qty: 30 0RF Rx Instructions: take TWO 150 mg tablets of nirmatrelvir with ONE 100 mg tablet of ritonavir twice daily for 5 days No Action furosemide 40 mg tablet 40 mg PO DAILY Qty: 90 1RF rosuvastatin 10 mg tablet 10 mg PO BEDTIME 30 Days Qty: 30 3RF trazodone 150 mg tablet 150 mg PO BEDTIME PRN (Reason: for insomnia) 90 Days Qty: 90 0RF amlodipine 5 mg tablet 5 mg PO DAILY 90 Days Qty: 90 1RF Combivent Respimat 20-100 mcg/actuation mist 1 puff inhalation QID Qty: 4 5RF Hold Instructions: Doctor's Order doxycycline hyclate 100 mg capsule 100 mg PO DAILY 30 Days Qty: 30 0RF losartan 100 mg tablet 100 mg PO DAILY 90 Days Qty: 90 1RF oxycodone 15 mg tablet 15 mg PO BID PRN (Reason: severe pain) 30 Days Qty: 60 0RF hydroxyzine HCl 25 mg tablet 25 mg PO TID PRN (Reason: anxiety) 30 Days Qty: 90 2RF fluticasone propionate [Flonase Allergy Relief] 50 mcg/actuation spray,suspension 2 spray intranasal DAILY Qty: 16 0RF Rx Instructions: administer into each nostril tizanidine 4 mg tablet 4 mg PO BEDTIME PRN (Reason: muscle spasticity) 30 Days Qty: 90 1RF metformin 500 mg tablet extended release 24 hr 500 mg PO QPM Qty: 90 1RF albuterol sulfate [Ventolin HFA] 90 mcg/actuation HFA aerosol inhaler 1 inh inhalation QID PRN (Reason: shortness of breath or wheezing) Qty: 8.5 1RF budesonide-formoterol 160-4.5 mcg/actuation HFA aerosol inhaler 2 puff PO BID Qty: 10.2 5RF Referrals: Kody Sheth MD [Primary Care Provider] - 06/28/24 Print Language: Arabic
[2024-06-26 20:00] LABS: Prothrombin Time 12.7 SEC (11.1-13.3)
[2024-06-26] MEDS: 0.9 % Sodium Chloride 1,000 ML 999 ML IV ×2 (20:01→21:41)
[2024-06-26 20:03] LABS: Partial Thromboplastin Time 27.2 SEC (26.0-36.8)
[2024-06-26 20:11] LABS: VBG Base Excess 0.3 mmol/L; VBG HCO3 25 mmol/L (22-26); VBG pCO2 43 mmHg; VBG pH 7.37 (7.32-7.43); VBG pO2 44 mmHg
[2024-06-26 20:14] LABS: Lactic Acid 2.8 mmol/L (0.5-2.0)
[2024-06-26 20:14] LABS: Alanine Aminotransferase 20 U/L (0-40); Albumin Level 3.9 g/dL (3.5-5.0); Alkaline Phosphatase 60 U/L (39-117); Anion Gap 13 (12-20); Aspartate Amino Transferase 25 U/L (5-37); Bilirubin Total 0.5 mg/dL (0.0-1.0); Blood Urea Nitrogen 25 mg/dL (9-16); Calcium 8.9 mg/dL (8.4-10.2); Carbon Dioxide 25 mmol/L (22-29); Chloride 98 mmol/L (96-108); Creatinine Clr Calc Pharmacy 45.5; Estimated Glomerular Filt Rate 43; Glucose Random 151 mg/dL (60-115); Sodium 132 mmol/L (135-145); Total Protein 6.9 g/dL (6.5-8.0)
[2024-06-26 20:17] LABS: Venous Blood Gas Refer to POC result
[2024-06-26 20:22] LABS: Troponin-I High Sensitivity 10.7 ng/L (<3.5-35.0)
[2024-06-26] MEDS: Albuterol Sulfate (0.083%) 2.5 MG/3 ML VIAL.NEB INHALE (20:22)
[2024-06-26 20:41] LABS: Influenza A PCR NEGATIVE (Negative); Influenza B PCR NEGATIVE (Negative); Resp Syncy Virus RNA Qual PCR NEGATIVE (Negative); SARS COV2 PCR INHOUSE POSITIVE (Negative)
[2024-06-26] MEDS: cefTRIAXone sodium 1 GM in 0.9 % Sodium Chloride 50 ML IV (20:59)
[2024-06-26 21:41] LABS: Reflex Lactate? Lactic Acid Added
[2024-06-26 22:12] LABS: ~Lactic Acid-LAB USE ONLY 1.2 mmol/L (0.5-2.0)
== END 2024-06-26 23:57 | disposition home or self-care (01) ==
PROVIDERS: Physician Assistant; Emergency Provider Emergency Medicine Emergency Medical Services; PCP Internal Medicine
DX: U07.1 COVID-19 (principal); R06.02 Shortness of breath; M79.10 Myalgia, unspecified site; J02.9 Acute pharyngitis, unspecified; Z79.899 Other long term (current) drug therapy
CPT/HCPCS: 0241U; 71045; 80053; 82803; 83605; 84484; 85025; 85610; 85730; 87040; 87651; 93005; 94640; 96361; 96374; 99285; J0696

== ENCOUNTER → 2024-06-26 19:10 | Outpatient (BNV) | payer MEDICARE, MEDICAID, SELFPAY | PROVIDERS: Emergency Provider Emergency Medicine Emergency Medical Services; PCP Internal Medicine; Visit Provider Internal Medicine Cardiovascular Disease | DX: I44.0 Atrioventricular block, first degree (principal) | CPT/HCPCS: 93010 ==

== ENCOUNTER 2024-07-28 15:02 | Outpatient (AMB) | payer MEDICARE, MEDICAID, SELFPAY ==
[2024-07-28 15:21] VITALS: BP 138/76; PULSE 105; O2SAT 94; BMI 33.5
--- NOTE | 2024-07-28 15:21 | MHC.PC.OV ---
Vital Signs 07/28/24 15:21 Height 6 ft Weight 247 lb 2 oz BMI 33.5 BP 138/76 Blood Pressure Location Lt brachial Position Sitting Pulse 105 H Pulse Source Pulse Oximeter Pulse Oximetry (%) 94 Oxygen Delivery Method Room Air Intake Visit Reasons: 3 Month F/U Service Representative Required: No Accompanied by: Self / Same As Patient Allergies morphine Adverse Reaction (Severe, Verified 07/28/24 16:09) respiratory depression/failure Medication List - Last Reconciled 07/28/24 by Kody Sheth MD albuterol sulfate 90 mcg/actuation (Ventolin HFA) 1 inh inhalation QID PRN amlodipine 5 mg PO DAILY 90 days budesonide-formoterol 160-4.5 mcg/actuation 2 puffs PO BID Combivent Respimat 20-100 mcg/actuation (ipratropium-albuterol) 1 puff inhalation QID NS doxycycline hyclate 100 mg PO DAILY 30 days fluticasone propionate 50 mcg/actuation (Flonase Allergy Relief) 2 sprays intranasal DAILY furosemide 40 mg PO DAILY hydroxyzine HCl 25 mg PO TID PRN 30 days losartan 100 mg PO DAILY 90 days metformin ER 500 mg PO QPM oxycodone 15 mg PO BID PRN 30 days rosuvastatin 10 mg PO BEDTIME 30 days tizanidine 4 mg PO BEDTIME PRN 30 days trazodone 150 mg PO BEDTIME PRN 90 days Tobacco use date assessed: 07/28/24 Fall risk assessment: No Falls in past year Last assessed Fall Risk: 07/28/24 Dental Screening Dental Screen Date: 07/28/24 Did you have a dental visit in the last 12 months?: No Did you have a dental problem in the last 6 months where you did not have access to dental care?: No Was dental information given to patient?: No HPI 3 Month F/U HPI Details Patient comes in today for his follow up visit States that he has been experiencing increased pain over his left heel lately Recalls that he broke his left heel when he fell back when he was in his 20s He has also been experiencing recurrent pain and tingling in his right hand lately States that he slipped and fell and ended up hurting his right shoulder a few months ago but he did not go to get himself checked out after his fall States that he's had right shoulder pain for a while now and this has subsided a lot since although he still has recurrent pain in his shoulder and the right hand symptoms at present Adds that he went to the ER for increased cough and congestion last month and tested positive for COVID He was prescribed Paxlovid, which helped clear up his symptoms promptly States that he currently feels okay otherwise He denies any headaches or dizziness Denies any chest pains, no SOB No nausea/vomiting, no abdominal pain No change in bowel habits noted He continues to complain of increased pain (chronic) over his knees, hips, lower back and multiple joints and states that his current meds help but are not enough and is again asking if he can have his dose increased He also needs a couple of his Rx refilled today, including his pain med He did not get his follow up labs done recently but states that he had a bunch of labs done when he was at the ER last month [facility] Medical History (Updated 07/30/24 @ 06:39 by Kody Sheth MD) Diabetes mellitus Obesity (BMI 30-39.9) Anxiety Insomnia Benign essential hypertension Chronic kidney disease (CKD), stage III (moderate) Pure hypercholesterolemia Erectile dysfunction Lumbar degenerative disc disease Primary osteoarthritis of both knees COPD (chronic obstructive pulmonary disease) Degenerative disc disease, cervical Surgical History Hx of total knee arthroplasty History of glaucoma History of trabeculectomy Family History Father Cancer Mother No problems noted. Social History Housing: House Alcohol intake: former Patient Tobacco Use Status: Former Tobacco user Tobacco use type: Cigar Years Smoked: 30 years e-Cigarette/Vaping Use: Never Used Second Hand Smoke Exposure: Yes service: Yes Current occupational status: retired Cognitive needs: No Hearing needs: No Vision needs: No Questionnaire PHQ-9 Over the last 2 weeks, how often have you been bothered by any of the following problems? 1. Little interest or pleasure in doing things: several days 2. Feeling down, depressed, or hopeless: several days 3. Trouble falling or staying asleep, or sleeping too much: not at all 4. Feeling tired or having little energy: several days 5. Poor appetite or overeating: not at all 6. Feeling bad about yourself - or that you are a failure or have let yourself or your family down: not at all 7. Trouble concentrating on things, such as reading the newspaper or watching television: not at all 8. Moving or speaking so slowly that other people could have noticed. Or the opposite - being so fidgety or restless that you have been moving around a lot more than usual: not at all 9. Thoughts that you would be better off or of hurting yourself in some way: not at all Total score: 3 Depression Screening Interpretation: Positive (is on Rx) Depression Screening Follow-up: Existing condition, In treatment and Community Mental Health Worker F/U Depression Screening Done: Yes 90017 - PHQ-9 Billing: Yes Source: Developed by Drs. Kali Burtno, Erika Garzon, Smith Osorio and colleagues, with an educational baudilio from [employer]. Thrive Questionnaire Date Thrive assessed: 07/28/24 I am a: Patient What is your living situation today?: I have a steady place to live Within the past 12 months, did the food you bought not last and you didn't have the money to get more?: Never true Within the past 12 months, did you worry whether your food would run out before you got money to buy more?: Never true Do you have trouble paying for medicines?: No Do you have trouble getting transportation to medical appointments?: No Do you have trouble paying your heating and electricity bill?: No Do you have trouble taking care of your child, family member or friend?: No Do you have trouble with day-to-day activities such as bathing, preparing meals, shopping, managing finances, etc.?: No Are you currently unemployed and looking for a job?: No Are you interested in more education?: No Please select the resources that you would like help with: None Currently or been in a relationship where the following occur: No concerns reported THRIVE Score: 0 AUDIT C Alcohol Use Questionnaire (AUDIT-C) 1. How often do you have a drink containing alcohol?: Never 3. How often do you have six or more drinks on one occasion?: Never Total Score: 0 Score Reviewed/Action Taken: Yes JACKSON-7 AMB Questionnaire JACKSON-7 Date JACKSON - 7 assessed: 07/28/24 Feeling nervous, anxious, or on edge: 0 = Not at all Not being able to stop or control worryin = Not at all Worrying too much about different things: 0 = Not at all Trouble relaxin = Not at all Being so restless that it is hard to sit still: 0 = Not at all Becoming easily annoyed or irritable: 0 = Not at all Feeling afraid as if something awful might happen: 0 = Not at all Total JACKSON-7 score (0-4 normal; 5-9 mild; 10-14 moderate; 15-21 severe): 0 Source: Developed by Drs. Kali Burton, Erika Garzon, Smith Osorio and colleagues, with an educational baudilio from [employer]. Review of Systems Const Reports difficulty sleeping, Reports fatigue, Denies fever(s) and Denies headache(s) ENT Denies dysphagia, Denies dizziness, Denies otalgia, Denies headache(s), Reports neck pain (chronic), Denies odynophagia, Denies sinus pain and Denies sore throat Card Denies chest pain, Denies palpitations and Reports dyspnea on exertion (mild; chronic) Resp Reports cough (on and off, coughs up thick whitish phlegm), Reports dyspnea on exertion (mild; chronic) and Denies wheezing GI Denies abdominal pain, Reports constipation (on and off), Denies dysphagia, Denies heartburn, Denies diarrhea, Denies nausea, Denies odynophagia and Denies vomiting Denies dysuria, Denies nocturia and Denies urinary frequency Musc Details: (+) recurrent pain in his left foot/heel Reports back pain (chronic), Reports arthralgias (over multiple joints; increased over the right shoulder lately - see HPI), Reports joint swelling (on and off in the right knee), Reports neck pain (chronic) and Reports tingling (on and off in the right hand) Skin/Breast Denies rash Neuro Denies dizziness, Denies headache(s), Reports radicular pain (on and off in the right hand) and Reports tingling (on and off in the right hand) Psych Reports anxiety (increasing) and Reports depression Endo Reports fatigue and Denies palpitations Aller/Immun Denies wheezing Physical exam (Primary Care) Vital Signs: Last Vital Signs Pulse 105 H 07/28/24 15:21 BP 138/76 07/28/24 15:21 Pulse Ox 94 07/28/24 15:21 Oxygen Delivery Method Room Air 07/28/24 15:21 BMI result Body Mass Index 33.5 Tobacco/Smoking Status: Tobacco use Status Tobacco use date assessed 07/28/24 07/28/24 15:23 Patient Tobacco Use Status Former Tobacco user 07/28/24 15:23 Tobacco use type Cigar 07/28/24 15:23 e-Cigarette/Vaping Use Never Used 07/28/24 15:23 PHQ-9: PHQ-9 Score PHQ-9: Total score 3 07/29/24 08:53 Depression Screening Interpretation: Positive (is on Rx) Depression Screening Follow-up: Existing condition, In treatment and Community Mental Health Worker F/U Thrive Assessment: Date of Thrive Assessment Date Thrive assessed 07/28/24 07/28/24 15:23 Currently or been in a relationship where the following occur: No concerns reported Const General: no acute distress and alert HENMT Ears: TM's normal bilaterally and EAC's normal Throat: Yes posterior oropharynx normal and Yes tonsils normal (no TP congestion noted) Neck Neck: Yes no lymphadenopathy and Yes supple Thyroid: Thyroid normal Resp Auscultation: no crackles, no rales, rhonchi (scattered), no wheezes and diminished lung sounds bilateral Cardio Rate: regular rate Rhythm: regular rhythm Heart sounds: no murmurs GI Palpation (GI): Soft to palpation and nontender Auscultation: normal bowel sounds General: Yes no CVA tenderness Back/Spine/Pelvis Back: no CVA tenderness Cervical Spine: Cervical spine tenderness Thoracic/Lumbar Spine: lumbar spinal tenderness Extrem General: Yes no clubbing, cyanosis or edema Right upper extremity: shoulder/upper arm Details: tenderness Location: of the A-C joint and abnormal ROM (ROM limited slightly due to pain); no swelling Right lower extremity: knee Details: tenderness and crepitus; no swelling Left lower extremity: knee Details: tenderness and crepitus; no swelling and foot Details: tenderness Location: of the calcaneus and no edema Assessment and Plan Assessment & Plan (1) Pure hypercholesterolemia: Code(s): E78.00 - Pure hypercholesterolemia, unspecified Plan: Patient was not able to get his previously ordered follow up labs done and he was advised that the labs he had done at the hospital last month was non-fasting and did not include a lipid profile His fasting lipids were within acceptable range (except for his serum TG level) when they were last checked in March 2024 Reinforced low cholesterol diet Continue Rosuvastatin 10 mg QD for now Will recheck his labs and fasting lipids again in 3 months for follow up (2) Benign essential hypertension: Code(s): I10 - Essential (primary) hypertension Plan: Reinforced low sodium diet - goal is systolic BP of at least 140 to 150 mm or less Continue Amlodipine 5 mg QD, Losartan 100 mg QD and Furosemide 40 mg Q AM (3) COPD (chronic obstructive pulmonary disease): Code(s): J44.9 - Chronic obstructive pulmonary disease, unspecified Qualifiers: COPD type: unspecified COPD Qualified Code(s): J44.9 - Chronic obstructive pulmonary disease, unspecified Plan: His COPD appears stable currently Continue Combivent Respimat 1 puff 4 times a day, Symbicort 2 puffs BID and ProAIr HFA 2 puffs 4 times a day as needed (4) Diabetes mellitus: Code(s): E11.9 - Type 2 diabetes mellitus without complications Qualifiers: Diabetes mellitus type: type 2 Diabetes mellitus correction insulin use: without middle or intermediate school principal use Diabetes mellitus complication status: with hyperglycemia Qualified Code(s): E11.65 - Type 2 diabetes mellitus with hyperglycemia Plan: His fasting glucose was still elevated at 182 mg/dl and his HgbA1c was at 6.6% on his labs done back in March 2024 His HgbA1c was at 6.9% back in April 2023 - goal is at least <7.0% but preferrably <6.5% Reinforced diabetic diet Continue Metformin ER 500 mg Q PM Will recheck his labs and HgbA1c in 3 months for follow up (5) Hepatic hemangioma: Code(s): D18.03 - Hemangioma of intra-abdominal structures Plan: CT of the abdomen and pelvis done at the ER last year revealed the presence of a hepatic lesion in segment 6 and 7 of increased density - MRI is recommended to further evaluate whether this is a hemangioma or a solid lesion Patient prefers to hold off on further tests for now Will consider at least getting an abdominal US first when he is ready to do so (6) Lumbar degenerative disc disease: Code(s): M51.36 - Other intervertebral disc degeneration, lumbar region Plan: Reinforced activity and weight lifting restrictions Patient used to see Dr. Turcios for pain management but has not done since the COVID-19 pandemic started Per request, was referred to [facility] earlier this year but for unclear reasons, he was never scheduled for appointment Continue Gabapentin 800 mg 3 times a day and Duloxetine 30 mg twice a day;? is also on Oxycodone 15 mg twice a day as needed (Rx refilled) Patient is again reminded that I will not increase his Oxycodone dosage or dosing due to his COPD and will refer him back to pain management for interventional treatments if he feels that his low back pain is getting worse and his medications are not controlling his pain adequately (7) Degenerative disc disease, cervical: Code(s): M50.30 - Other cervical disc degeneration, unspecified cervical region Plan: Continue Oxycodone 15 mg twice a day as needed for severe pain Cervical spine MRI done a couple of years ago showed (+) multilevel degenerative changes resulting in 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 referral to neurosurgery has been discussed in the past and remains a consideration if his neck pain gets worse (8) Primary osteoarthritis of both knees: Code(s): M17.0 - Bilateral primary osteoarthritis of knee Plan: S/P total right knee arthroplasty Follow? up with [facility] as scheduled States that his current meds have been helping with his knee pain as well (9) Left foot pain: Code(s): M79.672 - Pain in left foot Plan: Will send him for x-rays of the left foot/heel for further evaluation (10) Right shoulder pain: Code(s): M25.511 - Pain in right shoulder Qualifiers: Chronicity: unspecified Qualified Code(s): M25.511 - Pain in right shoulder Plan: S/P fall a few months ago and he now has on and off tingling/numbness and pain in his right hand/fingers Will send him for right shoulder x-rays [facility] for further evaluation (11) Constipation: Comment: Most likely multifactorial, including opioid-induced as well as due to inadequate oral fluid and fiber intake Code(s): K59.00 - Constipation, unspecified Qualifiers: Constipation type: unspecified constipation type Qualified Code(s): K59.00 - Constipation, unspecified Plan: Reinforced increased oral fluids and dietary fiber Continue Miralax 17 gm QD and may take OTC stool softeners PRN (12) Chronic kidney disease (CKD), stage III (moderate): Code(s): N18.30 - Chronic kidney disease, stage 3 unspecified Qualifiers: Chronic kidney disease stage 3 subtype: stage 3a (GFR 45-59) Qualified Code(s): N18.31 - Chronic kidney disease, stage 3a Plan: Will continue to monitor his GFR and renal function closely (13) Acne: Code(s): L70.9 - Acne, unspecified Qualifiers: Acne type: acne vulgaris Qualified Code(s): L70.0 - Acne vulgaris Plan: Continue Doxycycline 100 mg QD and Metrogel 0.75% apply to acne on face BID (Rx refilled per request) (14) Insomnia: Code(s): G47.00 - Insomnia, unspecified Qualifiers: Insomnia type: unspecified Qualified Code(s): G47.00 - Insomnia, unspecified Plan: Sleep hygiene reinforced Continue Trazodone 150 mg Q HS PRN (15) Anxiety: Code(s): F41.9 - Anxiety disorder, unspecified Plan: Continue Lorazepam 1 mg BID PRN and Hydroxyzine 25 mg TID PRN, Buspirone 10 mg BID and Sertraline 50 mg Q AM Was on CItalopram in the past but is unclear when he stopped taking this (on his own) Per request, he was referred previously for counseling and therapy and is still waiting to be contacted (16) Obesity (BMI 30-39.9): Code(s): E66.9 - Obesity, unspecified Plan: Reinforced diet; exercise and weight loss are unrealistic due to his multiple physical issues and comorbidities Plan Follow up in 3 months Orders: Orders Lipid Panel 3 Months E78.00 - Pure hypercholesterolemia, unspecified Complete Blood Count Auto Diff 3 Months D64.9 - Anemia, unspecified Microalbumin, Random (w Creat) 3 Months E11.9 - Type 2 diabetes mellitus without complications TSH reflex Free T4 3 Months E78.00 - Pure hypercholesterolemia, unspecified UA CC w/rflx Micro + Cult 3 Months R30.0 - Dysuria XR shoulder RT min 2V 07/28/24 M25.511 - Pain in right shoulder XR foot LT min 3V 24 M79.672 - Pain in left foot Comprehensive [place]. Panel Fast 3 Months E78.00 - Pure hypercholesterolemia, unspecified Hemoglobin A1c 3 Months E11.9 - Type 2 diabetes mellitus without complications Vitamin D 25-OH Total 3 Months E55.9 - Vitamin D deficiency, unspecified Vitamin B12 and Folate 3 Months E53.8 - Deficiency of other specified B group vitamins Medications: New metronidazole 0.75% 1 appl topical BID 45 grams 0RF Refilled oxycodone 15 mg PO BID 30 days PRN 60 tabs 0RF severe pain M50.30 - Other cervical disc degeneration, unspecified cervical region, M51.36 - Other intervertebral disc degeneration, lumbar region Coding Level of Care Code Est Pt Level 4 (51849) Complex EM visit Add On G2211 Diagnoses Pure hypercholesterolemia E78.00 Benign essential hypertension I10 Chronic obstructive pulmonary disease, unspecified COPD type J44.9 COPD type: unspecified COPD Type 2 diabetes mellitus with hyperglycemia, without long-term current use of insulin E11.65 Diabetes mellitus type: type 2 Diabetes mellitus middle or intermediate school principal insulin use: without middle or intermediate school principal use Diabetes mellitus complication status: with hyperglycemia Hepatic hemangioma D18.03 Lumbar degenerative disc disease M51.36 Degenerative disc disease, cervical M50.30 Primary osteoarthritis of both knees M17.0 Left foot pain M79.672 Right shoulder pain, unspecified chronicity M25.511 Chronicity: unspecified Constipation, unspecified constipation type K59.00 Constipation type: unspecified constipation type Stage 3a chronic kidney disease N18.31 Chronic kidney disease stage 3 subtype: stage 3a (GFR 45-59) Acne vulgaris L70.0 Acne type: acne vulgaris Insomnia, unspecified type G47.00 Insomnia type: unspecified Anxiety F41.9 Obesity (BMI 30-39.9) E66.9
== END 2024-07-28 16:24 | disposition home or self-care (01) ==
PROVIDERS: PCP Internal Medicine; Visit Provider Internal Medicine
DX: I12.9 Hypertensive chronic kidney disease with stage 1 through stage 4 chronic kidney disease, or unspecified chronic kidney disease (principal); N18.31 Chronic kidney disease, stage 3a; J44.9 Chronic obstructive pulmonary disease, unspecified; E11.65 Type 2 diabetes mellitus with hyperglycemia; D18.03 Hemangioma of intra-abdominal structures; M51.36 Other intervertebral disc degeneration, lumbar region; M50.30 Other cervical disc degeneration, unspecified cervical region; M17.0 Bilateral primary osteoarthritis of knee; M79.672 Pain in left foot; M25.511 Pain in right shoulder; K59.00 Constipation, unspecified; L70.0 Acne vulgaris; G47.00 Insomnia, unspecified; F41.9 Anxiety disorder, unspecified
CPT/HCPCS: 99214; G2211

== ENCOUNTER 2024-08-16 16:58 | Outpatient (REF) | payer MEDICARE, MEDICAID, SELFPAY ==
[2024-08-16 17:14] LABS: MANUAL DIFF FLAG NO
[2024-08-16 17:48] LABS: Basophils Percent Auto 0.3 % (0-2); Eosinophils Absolute Auto 0.2 X10*3/uL (0.0-0.4); Eosinophils Percent Auto 2.6 % (0-4); Hematocrit 37.7 % (42.0-52.0); Hemoglobin 12.7 g/dl (14.0-18.0); Imm Gran Abs Auto 0.02 X10*3/uL (0.00-0.03); Imm Gran Pct Auto 0.3 % (0.0-0.4); Mean Corpuscular HGB Conc 33.7 g/dl (31.0-36.0); Mean Corpuscular Hemoglobin 30.1 pg (27.0-33.0); Mean Corpuscular Volume 89.3 fL (80.0-98.0); Mean Platelet Volume 9.1 fL (9.4-12.4); Monocytes Absolute Auto 0.7 X10*3/uL (0.1-1.2); Monocytes Percent Auto 9.6 % (2-11); Neutrophils Absolute Auto 4.3 x10*3/uL (2.0-8.3); Neutrophils Percent Auto 59.2 % (45-73); Platelet Count 250 X10*3/uL (160-400); Red Blood Count 4.22 X10*6/uL (4.60-5.80); Red Cell Distribution Width 13.8 % (11.0-16.0); White Blood Count 7.3 X10*3/uL (4.8-10.8)
[2024-08-16 17:52] LABS: Appearance Urine Clear; Color Urine Yellow; Glucose Urine UA Negative (Negative); Leukocyte Esterase Urine Negative (Negative); Nitrite Urine Negative (Negative); PH 5.5 (5.0-9.0); Urine Blood Negative (Negative); Urine Ketones Negative (Negative); Urine Protein Negative (Neg-Trace)
[2024-08-16 18:04] LABS: Creatinine Urine 64.65 mg/dL; Microalbum/Creatinine Ratio Ur 23.2 ug/mg cr (<30)
[2024-08-16 18:07] LABS: Alanine Aminotransferase 15 U/L (0-40); Alkaline Phosphatase 69 U/L (39-117); Anion Gap 12 (12-20); Aspartate Amino Transferase 14 U/L (5-37); Bilirubin Total 0.4 mg/dL (0.0-1.0); Blood Urea Nitrogen 17 mg/dL (9-16); Calcium 9.3 mg/dL (8.4-10.2); Carbon Dioxide 26 mmol/L (22-29); Chloride 107 mmol/L (96-108); Cholesterol 128 mg/dL (<200); Estimated Glomerular Filt Rate 53; Glucose Fasting 134 mg/dL (60-99); HDL Cholesterol 36 mg/dL (>40); LDL Cholesterol Calculated 56 mg/dL (<100); Potassium 4.7 mmol/L (3.3-5.1); Sodium 140 mmol/L (135-145); Total Protein 7.1 g/dL (6.5-8.0); Triglycerides 184 mg/dL (<150)
[2024-08-16 18:23] LABS: TSH reflex Free T4 1.94 uIU/mL (0.32-4.0); Vitamin D 25-OH Total 36.2 ng/mL (>30)
[2024-08-16 18:36] LABS: Folate 6.3 ng/mL (> or = 4.0); Vitamin B12 327 pg/mL (200-900)
== END 2024-08-16 16:59 | disposition home or self-care (01) ==
LOC: HO.LAB 16:58
PROVIDERS: PCP Internal Medicine; Visit Provider Internal Medicine
DX: D64.9 Anemia, unspecified (principal); E78.00 Pure hypercholesterolemia, unspecified; E11.9 Type 2 diabetes mellitus without complications; E55.9 Vitamin D deficiency, unspecified; R30.0 Dysuria; E53.8 Deficiency of other specified B group vitamins
CPT/HCPCS: 36415; 80053; 80061; 81003; 82043; 82306; 82570; 82607; 82746; 84443; 85025

== ENCOUNTER 2024-09-07 02:28 | Emergency (ER) | payer MEDICARE, MEDICAID, SELFPAY ==
--- NOTE | ~2024-09-07 | XR_ITS ---
EXAMINATION: XR KNEE, LEFT CLINICAL INFORMATION: Left knee pain COMPARISON: May 27, 2007 TECHNIQUE: Four views of the left knee. FINDINGS: There are changes of osteoarthritis with narrowing of the medial and lateral compartment of left knee joint and valgus deformity of the knee. There is no fracture seen. There is patellofemoral compartment spurring. There is small joint effusion. XR/XR knee LT 3V IMPRESSION: Changes of advanced osteoarthritis in the left knee joint Electronically signed by: Tamiko Scott MD 09/07/2024 07:59 AM EDT
--- NOTE | ~2024-09-07 | CT_ITS ---
EXAM: Noncontrast CT scan of the head and cervical spine. INDICATION: Pain after fall COMPARISON: Head CT April 19, 2016 TECHNIQUE: Axial slices were obtained from skull base to vertex and displayed. This was followed by helical, multislice, multidetector axial images from the occiput to the upper thorax. Coronal and sagittal reformats of the cervical spine in addition to coronal reformats of the head were obtained at the technologist workstation. DLP: 1447 mGy-cm FINDINGS: HEAD: There is no evidence of acute intracranial hemorrhage or territorial infarction. No abnormal mass effect or midline shift is appreciated. Amador-white differentiation is well preserved. No extra-axial fluid collections. The ventricular system and cortical sulci are prominent, consistent with volume loss. There are areas of low density in the periventricular and subcortical white matter, most consistent with sequelae of microvascular ischemic change. The osseous structures and soft tissues are normal. There are calcifications of the cavernous internal carotid arteries. The visualized paranasal sinuses and mastoid air cells are well aerated. SPINE: There is reversal of the normal cervical lordosis. Also noted is mild anterolisthesis of C4 on C5. Normal C1/2 articulation. Cervical vertebral body heights are maintained. There is severe narrowing of the C5/6 and C6/7 disc space heights. Moderate sized osteophytes are scattered throughout the cervical spine. There is moderate diffuse facet hypertrophy bilaterally. Visualized lung apices are well aerated. CT/CT cervical spine wo IV con IMPRESSION: 1. No acute intracranial pathology. 2. No fractures or dislocations of the cervical spine. Electronically signed by: Brodie Lyman MD 09/07/2024 09:51 AM EDT
--- NOTE | ~2024-09-07 | XR_ITS ---
EXAMINATION: XR HAND/WRIST, LEFT CLINICAL INFORMATION: Pain following injury COMPARISON: None available. TECHNIQUE: PA, lateral, and oblique views of the left hand and wrist. FINDINGS: There is no evidence of fractures. There are changes of osteoarthritis more prominent at the first carpometacarpal joint with deformity of the joint space and subluxation. There is mild narrowing of interphalangeal joints without erosions. Mild narrowing of metacarpophalangeal joints. Soft tissues unremarkable. XR/XR hand wrist LT IMPRESSION: No evidence of fractures changes of osteoarthritis more prominent at the first carpometacarpal joint with deformity and subluxation. Electronically signed by: Tamiko Scott MD 09/07/2024 07:56 AM EDT
--- NOTE | ~2024-09-07 | CT_ITS ---
EXAM: Noncontrast CT scan of the head and cervical spine. INDICATION: Pain after fall COMPARISON: Head CT April 19, 2016 TECHNIQUE: Axial slices were obtained from skull base to vertex and displayed. This was followed by helical, multislice, multidetector axial images from the occiput to the upper thorax. Coronal and sagittal reformats of the cervical spine in addition to coronal reformats of the head were obtained at the technologist workstation. DLP: 1447 mGy-cm FINDINGS: HEAD: There is no evidence of acute intracranial hemorrhage or territorial infarction. No abnormal mass effect or midline shift is appreciated. Amador-white differentiation is well preserved. No extra-axial fluid collections. The ventricular system and cortical sulci are prominent, consistent with volume loss. There are areas of low density in the periventricular and subcortical white matter, most consistent with sequelae of microvascular ischemic change. The osseous structures and soft tissues are normal. There are calcifications of the cavernous internal carotid arteries. The visualized paranasal sinuses and mastoid air cells are well aerated. SPINE: There is reversal of the normal cervical lordosis. Also noted is mild anterolisthesis of C4 on C5. Normal C1/2 articulation. Cervical vertebral body heights are maintained. There is severe narrowing of the C5/6 and C6/7 disc space heights. Moderate sized osteophytes are scattered throughout the cervical spine. There is moderate diffuse facet hypertrophy bilaterally. Visualized lung apices are well aerated. CT/CT head/brain wo IV con IMPRESSION: 1. No acute intracranial pathology. 2. No fractures or dislocations of the cervical spine. Electronically signed by: Brodie Lyman MD 09/07/2024 09:51 AM EDT
--- NOTE | ~2024-09-07 | XR_ITS ---
EXAMINATION: XR HAND/WRIST, RIGHT CLINICAL INFORMATION: Right hand pain, status post fall COMPARISON: None available. TECHNIQUE: PA, lateral, and oblique views of the right hand and wrist. FINDINGS: There is no fracture seen. The changes of degenerative osteoarthritis more prominent in the first carpometacarpal joint XR/XR hand wrist RT IMPRESSION: No fracture seen. Changes of osteoarthritis Electronically signed by: Tamiko Scott MD 09/07/2024 08:02 AM EDT
--- NOTE | ~2024-09-07 | XR_ITS ---
EXAMINATION: XR SHOULDER, RIGHT CLINICAL INFORMATION: Pain in the right shoulder following fall COMPARISON: None available. TECHNIQUE: AP external rotation, Grashey, scapular Y, and axillary views of the right shoulder. FINDINGS: There is no evidence of fracture of right shoulder. There are changes of osteoarthritis with marginal spurring, narrowing cough glenohumeral joint, spurring extending from acromioclavicular joint. Soft tissues unremarkable. XR/XR shoulder RT min 2V IMPRESSION: Changes of degenerative osteoarthritis in the right shoulder. No fracture seen. Electronically signed by: Tamiko Scott MD 09/07/2024 08:06 AM EDT
--- NOTE | ~2024-09-07 | XR_ITS ---
EXAMINATION: XR KNEE, RIGHT CLINICAL INFORMATION: Pain in right knee following fall COMPARISON: January 13, 2023 TECHNIQUE: Four views of the right knee. FINDINGS: Patient is status post right knee arthroplasty with stable position of hardware and without acute fractures. There is stable position of fixation screw in the medial tibial plateau there is no joint effusion XR/XR knee RT 3V IMPRESSION: No fracture seen. Status post right knee arthroplasty Electronically signed by: Tamiko Scott MD 09/07/2024 08:05 AM EDT
--- NOTE | ~2024-09-07 | XR_ITS ---
EXAMINATION: XR SHOULDER, LEFT CLINICAL INFORMATION: Left shoulder pain COMPARISON: None available. TECHNIQUE: AP external rotation, Grashey, scapular Y, and axillary views of the left shoulder. FINDINGS: There is narrowing of left glenohumeral joint and acromioclavicular joint. There is mild cephalad migration of the left humeral head most likely due to rotator cuff tear. There are subchondral cysts in the left humeral head and marginal spurring. Findings are consistent with osteoarthritis. XR/XR shoulder LT min 2V IMPRESSION: Osteoarthritis of left shoulder Electronically signed by: Tamiko Scott MD 09/07/2024 08:01 AM EDT
[2024-09-07 02:33] VITALS: BP 130/73; PULSE 85; RESP 18; TEMP 37.1; O2SAT 98; BMI 34.6
[2024-09-07 04:08] VITALS: BP 114/73; PULSE 85; RESP 16; TEMP 36.6; O2SAT 96
[2024-09-07 06:09] VITALS: BP 118/74; PULSE 16; RESP 18; TEMP 36.7; O2SAT 96
--- NOTE | 2024-09-07 06:50 | ED_ITS ---
HPI - General Adult General Chief complaint: Extremity Problem Stated complaint: bilateral leg and shoulder pain Time Seen by Provider: 09/07/24 06:39 Source: patient Mode of arrival: ambulatory Limitations: no limitations History of Present Illness ED Provider: Rosa Maria Barrientos PA-C HPI narrative: Patient is an 84 year old assigned male at with a history of DM, anxiety, depression, OA, COPD, HTN, and HLD presenting to the emergency department today with bilateral wrist pain, bilateral knee pain, bilateral shoulder pain, neck pain, and a headache. Patient states that 2.5-3 weeks ago he was at a restaurant when he tripped over a rolled up rug and landed on a table. Patient states that he has had this pain ever since. Patient denies any head strike or loss of consciousness with the incident. Patient denies any dizziness, lightheadedness, abdominal pain, nausea, vomiting, fever, chills, blurry vision, double vision, loss of vision, chest pain, difficulty breathing, shortness of breath, back pain, night sweats, pain with urination, increased urinary frequency, increased urinary urgency, blood in his urine or stool, syncope or a near syncopal episode, bowel incontinence, bladder incontinence, or any other complaints at this time. Onset (ago): week(s) (2.5-3) Relieving factors: none Exacerbating factors: movement Associated symptoms: denies other symptoms Treatments prior to arrival: none Related Data Previous Rx's ?Medication ?Instructions ?Recorded budesonide-formoterol HFA 160 2 puff PO BID #10.2 grams 03/17/23 mcg-4.5 mcg/actuation aerosol inhaler furosemide 40 mg tablet 40 mg PO DAILY #90 tabs 12/08/23 albuterol sulfate 90 mcg/actuation 1 inh inhalation QID PRN shortness 12/21/23 aerosol inhaler (Ventolin HFA) of breath or wheezing #8.5 grams fluticasone propionate 50 2 spray intranasal DAILY #16 grams 12/24/23 mcg/actuation nasal spray,suspension (Flonase Allergy Relief) tizanidine 4 mg tablet 4 mg PO BEDTIME PRN muscle 03/22/24 spasticity 30 days #90 tabs trazodone 150 mg tablet 150 mg PO BEDTIME PRN for insomnia 06/13/24 90 days #90 tabs Combivent Respimat 20 mcg-100 1 puff inhalation QID #4 grams 06/19/24 mcg/actuation solution for inhalation (ipratropium-albuterol) amlodipine 5 mg tablet 5 mg PO DAILY 90 days #90 tabs 06/19/24 losartan 100 mg tablet 100 mg PO DAILY 90 days #90 tabs 06/19/24 metronidazole 0.75 % topical cream 1 appl topical BID #45 grams 07/28/24 doxycycline hyclate 100 mg capsule 100 mg PO DAILY 30 days #30 caps 07/31/24 gabapentin 800 mg tablet 800 mg PO TID 30 days #90 tabs 08/04/24 metformin 500 mg tablet,extended 500 mg PO QPM #90 tabs 08/04/24 release 24 hr hydroxyzine HCl 25 mg tablet 25 mg PO TID PRN anxiety 30 days 08/28/24 #90 tabs oxycodone 15 mg tablet 15 mg PO BID PRN severe pain 30 08/28/24 days #60 tabs rosuvastatin 10 mg tablet 10 mg PO BEDTIME 30 days #30 tabs 08/28/24 Allergies Allergy/AdvReac Type Severity Reaction Status Date / Time morphine AdvReac Severe respiratory Verified 09/07/24 02:37 depression/failure Review of Systems Constitutional: Constitutional: Reports no additional constitutional complaints, Denies chills, Denies fever(s), Reports headache(s) and Denies night sweats Eyes: Eyes: Reports no additional eye complaints, Denies blurry vision, Denies change in vision, Denies diplopia, Denies eye discharge, Denies loss of vision and Denies eye pain ENT: Denies dizziness, Reports headache(s) and Reports neck pain Cardiovascular: Cardiovascular: Reports no additional cardiovascular complaints, Denies chest pain, Denies lightheadedness, Denies Loss of Consciousness and Denies dyspnea Respiratory: Respiratory: Reports no additional respiratory complaints and Denies dyspnea Gastrointestinal: Gastrointestinal: Reports no additional gastrointestinal complaints, Denies abdominal pain, Denies melena, Denies hematochezia, Denies change in bowel habits and Denies change in stool character Genitourinary: Genitourinary: Reports no additional male genitourinary complaints, Denies hematuria, Denies oliguria, Denies difficulty urinating, Denies dysuria, Denies urinary frequency, Denies urinary hesitancy, Denies urinary incontinence and Denies urinary urgency Musculoskeletal: Musculoskeletal: Reports no additional musculoskeletal com plaints, Reports neck pain, Denies numbness and Denies tingling Comments: bilateral knee pain bilateral wrist pain bilateral shoulder pain Neurologic: Denies dizziness, Reports headache(s), Denies loss of vision, Denies numbness and Denies tingling Psychiatric: Psychiatric: Reports no additional psychiatric complaints Endocrine: Endocrine: Reports no additional endocrine complaints Hematologic/Lymphatic: Hematologic/Lymphatic: Reports no additional hematologic/lymphatic complaints Allergic/Immunologic: Allergic/Immunologic: Reports no additional allergic/immunologic complaints [facility] Past Medical History Attestation statement: The following information was validated with the patient. Source: old records reviewed and nursing notes reviewed Medical History Benign essential hypertension COPD with exacerbation Cough Shoulder pain COPD exacerbation Fatigue Adult general medical exam Cellulitis Encounter for Medicare annual wellness exam Prostate cancer screening Hyperglycemia Depression Viral syndrome COVID-19 Borderline diabetes mellitus Right knee pain Skin lesion Pain and swelling of right knee Nasal congestion Bronchitis Left foot pain COVID Right shoulder pain Diabetes mellitus Obesity (BMI 30-39.9) Anxiety Insomnia Chronic kidney disease (CKD), stage III (moderate) Pure hypercholesterolemia Erectile dysfunction Lumbar degenerative disc disease Primary osteoarthritis of both knees COPD (chronic obstructive pulmonary disease) Degenerative disc disease, cervical Surgical History Hx of total knee arthroplasty History of glaucoma History of trabeculectomy Family History Family History Father Cancer Mother No problems noted. Social History Social History Housing: House Alcohol intake: former Patient Tobacco Use Status: Former Tobacco user Tobacco use type: Cigar Years Smoked: 30 years e-Cigarette/Vaping Use: Never Used Second Hand Smoke Exposure: Yes Advance Directives: No Advance Directives Information Provided: Yes service: Yes Current occupational status: retired Cognitive needs: No Hearing needs: No Vision needs: No Physical Exam ED Vital Signs: Vital Signs - 24 hr 09/07/24 02:33 09/07/24 04:08 09/07/24 06:09 Temperature 98.8 F 97.9 F 98.1 F Pulse Rate 85 85 16 L Respiratory Rate 18 16 18 Blood Pressure 130/73 114/73 118/74 Pulse Oximetry 98 96 96 Oxygen Delivery Method Room Air Room Air Room Air 09/07/24 07:59 09/07/24 09:58 Temperature 98.1 F Pulse Rate 75 74 Respiratory Rate 17 17 Blood Pressure 144/80 H 134/85 Pulse Oximetry 96 97 Oxygen Delivery Method Room Air Room Air BMI result Body Mass Index 34.6 Const General: cooperative, no acute distress, alert and awake Nutritional Appearance: well nourished Orientation/consciousness: patient oriented x3 Limitations: no limitations HENMT Head: Yes normal to inspection and Yes atraumatic Ears: hearing grossly normal bilaterally and external ears normal General nose exam: Normal external nose present, no nasal discharge noted and no epistaxis Face and sinus: Yes normal facial exam, No abrasion and No laceration Mouth: Normal oral and palatal mucosa present, no drooling and no muffled voice Eyes Other: patient has a chronic right eye abnormality Periorbital: periorbital findings normal Eyelids: Yes eyelids normal EOM: EOMs intact bilaterally Neck Neck: Yes normal visual inspection, Yes full ROM and Yes no lymphadenopathy Chest Chest palpation & inspection: normal inspection of the chest Resp Effort & Inspection: normal respiratory effort and able to speak in complete sentences GI Inspection: Yes normal to inspection Neuro General: patient oriented x3 and moves all extremities Cognition (Neuro): normal cognition Extrem General: Yes normal to inspection, Yes full ROM and Yes capillary refill normal Psych Appearance: grossly normal Mental Status: mental status grossly normal Affect: normal affect Attitude: cooperative Thought process: Normal thought process present Thought content: Normal thought content present Insight: Good insight present (Psych) Medical Decision Making Medical Decision Making MDM Narrative: Patient is an 84 year old assigned male at with a history of DM, anxiety, depression, OA, COPD, HTN, and HLD presenting to the emergency department today with bilateral wrist pain, bilateral knee pain, bilateral shoulder pain, neck pain, and a headache. Patient's physical exam was unremarkable and consistent with the patient's baseline. Patient used a walker to help with ambulation around the department. Patient's bilateral knee, bilateral wrist, and bilateral shoulder x-rays showed no acute process. Patient's CT head and c-spine were unremarkable. I explained my physical exam findings as well as all test results to the patient. I answered all questions asked by the patient. I stressed the importance of the patient taking his medication as directed (either prescribed or as the over the counter packaging recommends). I stressed the importance of the patient following up with his primary care provider. I stressed the importance of the patient returning to the emergency department immediately if his symptoms were to worsen or if he were to develop any dizziness, shortness of breath, difficulty breathing, chest pain, blurry vision, loss of vision, nausea, vomiting, abdominal pain, fever, chills, back pain, or any other complaints. Patient verbalized agreement and understanding with this treatment plan and discharge. Patient requested these records be forwarded to his PCP. Differential Diagnosis Differential Diagnoses: The differential diagnosis associated with the presentation includes Fall Sprain Strain Contusion Admission/Observation Consideration of admission/observation: Escalation of care including admission/observation considered Patient would have been admitted to the hospital had his work up had any findings where hospital admission was appropriate and his clinical presentation warranted hospital admission. Independent Interpretation I performed an independent interpretation of an: Plain X-Ray and CT Scan Interpretation: My interpretation is in agreement with the radiologist's impression of these imaging studies. EXAMINATION: XR HAND/WRIST, RIGHT CLINICAL INFORMATION: Right hand pain, status post fall COMPARISON: None available. TECHNIQUE: PA, lateral, and oblique views of the right hand and wrist. FINDINGS: There is no fracture seen. The changes of degenerative osteoarthritis more prominent in the first carpometacarpal joint XR/XR hand wrist RT IMPRESSION: No fracture seen. Changes of osteoarthritis Electronically signed by: Tamiko Scott MD 09/07/2024 08:02 AM EDT Dictated By: Tamiko Scott MD Signed By: Electronically signed by Tamiko Scott MD 09/07/24 0802 EXAMINATION: XR HAND/WRIST, LEFT CLINICAL INFORMATION: Pain following injury COMPARISON: None available. TECHNIQUE: PA, lateral, and oblique views of the left hand and wrist. FINDINGS: There is no evidence of fractures. There are changes of osteoarthritis more prominent at the first carpometacarpal joint with deformity of the joint space and subluxation. There is mild narrowing of interphalangeal joints without erosions. Mild narrowing of metacarpophalangeal joints. Soft tissues u nremarkable. XR/XR hand wrist LT IMPRESSION: No evidence of fractures changes of osteoarthritis more prominent at the first carpometacarpal joint with deformity and subluxation. Electronically signed by: Tamiko Scott MD 09/07/2024 07:56 AM EDT Dictated By: Tamiko Scott MD Signed By: Electronically signed by Tamiko Scott MD 09/07/24 0756 EXAMINATION: XR KNEE, LEFT CLINICAL INFORMATION: Left knee pain COMPARISON: May 27, 2007 TECHNIQUE: Four views of the left knee. FINDINGS: There are changes of osteoarthritis with narrowing of the medial and lateral compartment of left knee joint and valgus deformity of the knee. There is no fracture seen. There is patellofemoral compartment spurring. There is small joint effusion. XR/XR knee LT 3V IMPRESSION: Changes of advanced osteoarthritis in the left knee joint Electronically signed by: Tamiko Scott MD 09/07/2024 07:59 AM EDT Dictated By: Tamiko Scott MD Signed By: Electronically signed by Tamiko Scott MD 09/07/24 0759 EXAMINATION: XR KNEE, RIGHT CLINICAL INFORMATION: Pain in right knee following fall COMPARISON: January 13, 2023 TECHNIQUE: Four views of the right knee. FINDINGS: Patient is status post right knee arthroplasty with stable position of hardware and without acute fractures. There is stable position of fixation screw in the medial tibial plateau there is no joint effusion XR/XR knee RT 3V IMPRESSION: No fracture seen. Status post right knee arthroplasty Electronically signed by: Tamiko Scott MD 09/07/2024 08:05 AM [employer] Dictated By: Tamiko Scott MD Signed By: Electronically signed by Tamiko Scott MD 09/07/24 08 EXAMINATION: XR SHOULDER, RIGHT CLINICAL INFORMATION: Pain in the right shoulder following fall COMPARISON: None available. TECHNIQUE: AP external rotation, Grashey, scapular Y, and axillary views of the right shoulder. FINDINGS: There is no evidence of fracture of right shoulder. There are changes of osteoarthritis with marginal spurring, narrowing cough glenohumeral joint, spurring extending from acromioclavicular joint. Soft tissues unremarkable. XR/XR shoulder RT min 2V IMPRESSION: Changes of degenerative osteoarthritis in the right shoulder. No fracture seen. Electronically signed by: Tamiko Scott MD 09/07/2024 08:06 AM [employer] RP Dictated By: Tamiko Scott MD Signed By: Electronically signed by Tamiko Scott MD 09/07/24 08 EXAMINATION: XR SHOULDER, LEFT CLINICAL INFORMATION: Left shoulder pain COMPARISON: None available. TECHNIQUE: AP external rotation, Grashey, scapular Y, and axillary views of the left shoulder. FINDINGS: There is narrowing of left glenohumeral joint and acromioclavicular joint. There is mild cephalad migration of the left humeral head most likely due to rotator cuff tear. There are subchondral cysts in the left humeral head and marginal spurring. Findings are consistent with osteoarthritis. XR/XR shoulder LT min 2V IMPRESSION: Osteoarthritis of left shoulder Electronically signed by: Tamiko Scott MD 09/07/2024 08:01 AM EDT Dictated By: Tamiko Scott MD Signed By: Electronically signed by Tamiko Scott MD 09/07/24 0801 EXAM: Noncontrast CT scan of the head and cervical spine. INDICATION: Pain after fall COMPARISON: Head CT April 19, 2016 TECHNIQUE: Axial slices were obtained from skull base to vertex and displayed. This was followed by helical, multislice, multidetector axial images from the occiput to the upper thorax. Coronal and sagittal reformats of the cervical spine in addition to coronal reformats of the head were obtained at the technologist workstation. DLP: 1447 mGy-cm FINDINGS: HEAD: There is no evidence of acute intracranial hemorrhage or territorial infarction. No abnormal mass effect or midline shift is appreciated. Amador-white differentiation is well preserved. No extra-axial fluid collections. The ventricular system and cortical sulci are prominent, consistent with volume loss. There are areas of low density in the periventricular and subcortical white matter, most consistent with sequelae of microvascular ischemic change. The osseous structures and soft tissues are normal. There are calcifications of the cavernous internal carotid arteries. The visualized paranasal sinuses and mastoid air cells are well aerated. SPINE: There is reversal of the normal cervical lordosis. Also noted is mild anterolisthesis of C4 on C5. Normal C1/2 articulation. Cervical vertebral body heights are maintained. There is severe narrowing of the C5/6 and C6/7 disc space heights. Moderate sized osteophytes are scattered throughout the cervical spine. There is moderate diffuse facet hypertrophy bilaterally. Visualized lung apices are well aerated. CT/CT head/brain wo IV con IMPRESSION: 1. No acute intracranial pathology. 2. No fractures or dislocations of the cervical spine. Electronically signed by: Brodie Lyman MD 09/07/2024 09:51 AM EDT RP Dictated By: Brodie Lyman MD Signed By: Electronically signed by Brodie Lyman MD 09/07/24 0951 Radiology Impression Discussion of test interpretation with radiology: I have reviewed the radiologist's reading. Discharge Plan Discharge Clinical Impression: Fall, Acute shoulder pain, Acute wrist pain, Acute knee pain, Neck pain, Headache Patient Disposition: Home, Self-Care Instructions: Arthralgia (ED), Knee Pain (ED), Shoulder Pain (ED), Wrist Injury (ED), Fall Prevention for Older Adults (ED), Acute Headache (DC), Neck Pain (ED) Additional Instructions: Follow up with your primary care provider. Return to the emergency department immediately if your symptoms worsen or if you develop any dizziness, shortness of breath, difficulty breathing, chest pain, blurry vision, loss of vision, nausea, vomiting, abdominal pain, fever, chills, back pain, or any other complaints. Prescriptions: No Action furosemide 40 mg tablet 40 mg PO DAILY Qty: 90 1RF trazodone 150 mg tablet 150 mg PO BEDTIME PRN (Reason: for insomnia) 90 Days Qty: 90 0RF amlodipine 5 mg tablet 5 mg PO DAILY 90 Days Qty: 90 1RF Combivent Respimat 20-100 mcg/actuation mist 1 puff inhalation QID Qty: 4 5RF losartan 100 mg tablet 100 mg PO DAILY 90 Days Qty: 90 1RF doxycycline hyclate 100 mg capsule 100 mg PO DAILY 30 Days Qty: 30 0RF metformin 500 mg tablet extended release 24 hr 500 mg PO QPM Qty: 90 1RF gabapentin 800 mg tablet 800 mg PO TID 30 Days Qty: 90 0RF oxycodone 15 mg tablet 15 mg PO BID PRN (Reason: severe pain) 30 Days Qty: 60 0RF hydroxyzine HCl 25 mg tablet 25 mg PO TID PRN (Reason: anxiety) 30 Days Qty: 90 2RF rosuvastatin 10 mg tablet 10 mg PO BEDTIME 30 Days Qty: 30 1RF fluticasone propionate [Flonase Allergy Relief] 50 mcg/actuation spray,suspension 2 spray intranasal DAILY Qty: 16 0RF Rx Instructions: administer into each nostril tizanidine 4 mg tablet 4 mg PO BEDTIME PRN (Reason: muscle spasticity) 30 Days Qty: 90 1RF albuterol sulfate [Ventolin HFA] 90 mcg/actuation HFA aerosol inhaler 1 inh inhalation QID PRN (Reason: shortness of breath or wheezing) Qty: 8.5 1RF budesonide-formoterol 160-4.5 mcg/actuation HFA aerosol inhaler 2 puff PO BID Qty: 10.2 5RF metronidazole 0.75 % cream 1 appl topical BID Qty: 45 0RF Referrals: Kody Sheth MD [Primary Care Provider] - Print Language: Italian
[2024-09-07 07:59] VITALS: BP 144/80; PULSE 75; RESP 17; TEMP 36.7; O2SAT 96
[2024-09-07 09:58] VITALS: BP 134/85; PULSE 74; RESP 17; O2SAT 97
[2024-09-07 10:44] VITALS: BP 134/85; PULSE 74; RESP 17; TEMP 36.6; O2SAT 97
== END 2024-09-07 10:45 | disposition home or self-care (01) ==
PROVIDERS: Emergency Provider Emergency Medicine; PCP Internal Medicine
DX: S44.91XA Injury of unspecified nerve at shoulder and upper arm level, right arm, initial encounter (principal); M79.604 Pain in right leg; M79.605 Pain in left leg; M25.512 Pain in left shoulder; M25.511 Pain in right shoulder; M54.2 Cervicalgia; R51.9 Headache, unspecified; W19.XXXA Unspecified fall, initial encounter; J44.9 Chronic obstructive pulmonary disease, unspecified; Y93.89 Activity, other specified; Y92.89 Other specified places as the place of occurrence of the external cause; Y99.8 Other external cause status; Z79.899 Other long term (current) drug therapy; Z87.891 Personal history of nicotine dependence
CPT/HCPCS: 70450; 72125; 73030; 73110; 73130; 73562; 99284

== ENCOUNTER 2024-11-10 15:20 | Outpatient (AMB) | payer MEDICARE, MEDICAID, SELFPAY ==
[2024-11-10 15:35] VITALS: BP 124/82; PULSE 85; O2SAT 96; BMI 32.8
--- NOTE | 2024-11-10 15:35 | MHC.PC.OV ---
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 Required: No Accompanied by: Self / Same As Patient Allergies morphine Adverse Reaction (Severe, Verified 11/11/24 10:07) respiratory depression/failure Medication List - Last Reconciled 11/11/24 by Kody Sheth MD albuterol sulfate 90 mcg/actuation (Ventolin HFA) 1 inh inhalation QID PRN amlodipine 5 mg PO DAILY 90 days budesonide-formoterol 160-4.5 mcg/actuation 2 puffs PO BID Combivent Respimat 20-100 mcg/actuation (ipratropium-albuterol) 1 puff inhalation QID NS [COMPRESSION STOCKINGS (moderate compression 20-30 mm) As directed] doxycycline hyclate 100 mg PO DAILY 30 days fluticasone propionate 50 mcg/actuation (Flonase Allergy Relief) 2 sprays intranasal DAILY furosemide 40 mg PO DAILY gabapentin 800 mg PO TID 30 days hydroxyzine HCl 25 mg PO TID PRN 30 days losartan 100 mg PO DAILY 90 days metformin ER 500 mg PO QPM metronidazole 0.75% 1 appl topical BID oxycodone 15 mg PO BID PRN 30 days rosuvastatin 10 mg PO BEDTIME 30 days tizanidine 4 mg PO BEDTIME PRN 30 days trazodone 150 mg PO BEDTIME PRN 90 days Tobacco use date assessed: 11/10/24 Fall risk assessment: No Falls in past year Last assessed Fall Risk: 11/10/24 Dental Screening Dental Screen Date: 11/10/24 Did you have a dental visit in the last 12 months?: Yes Did you have a dental problem in the last 6 months where you did not have access to dental care?: No Was dental information given to patient?: Patient has dentist HPI HTN, hyperlipidemia, COPD, OA, DM HPI Details Patient comes in today for his follow up visit States that he presented to the ER a couple of months ago on 09/07/2024 for increased pain over both wrists, both shoulders, both knees and over his neck for 2 to 3 weeks ever since he tripped on the edge of a carpet that was turned/rolled up when he was going to get food at a local [employer] restaurant and fell and landed on a table States that he has also been experiencing recurrent headaches since He did not seek medical attention immediately after her fell as he did not hit his head or experienced any LOC and did not think that he was hurt badly at the time He had imaging studies done at the ER for further evaluation, including x-rays of his hands/wrists, shoulders and knees as well as a head and cervical spine CT His x-rays revealed only osteoarthritis changes in his joints with no acute fractures or injuries Head and cervical spine CT came back negative and he was discharged back home with instructions to follow up with his PCP States that he continues to experience increased pain over multiple joints although these are not new as he's had these symptoms for a while now Patient feels that they were worse immediately following his fall but they are now mostly back to his baseline He also reports (+) persistent numbness and tingling in the right hand which affects him with finer motor tasks like using his car keys He would like to get a referral to [facility] for further evaluation of his joint pains, especially his knees, as he states that he has been having a more difficult time walking and moving about as his legs feel weak all the time States that his previous headaches have subsided recently; he denies any dizziness Denies any chest pains, no increased SOB No nausea/vomiting, no abdominal pain No change in bowel habits noted He had his follow up labs done a couple of weeks after his last visit in July 2024 [facility] Medical History (Updated 11/11/24 @ 20:34 by Kody Sheth MD) Primary osteoarthritis of shoulders, bilateral Benign essential hypertension COPD with exacerbation Cough Shoulder pain COPD exacerbation Fatigue Adult general medical exam Cellulitis Encounter for Medicare annual wellness exam Prostate cancer screening Hyperglycemia Depression Viral syndrome COVID-19 Borderline diabetes mellitus Right knee pain Skin lesion Pain and swelling of right knee Nasal congestion Bronchitis Left foot pain COVID Right shoulder pain Diabetes mellitus Obesity (BMI 30-39.9) Anxiety Insomnia Chronic kidney disease (CKD), stage III (moderate) Pure hypercholesterolemia Erectile dysfunction Lumbar degenerative disc disease Primary osteoarthritis of both knees COPD (chronic obstructive pulmonary disease) Degenerative disc disease, cervical Surgical History Hx of total knee arthroplasty History of glaucoma History of trabeculectomy Family History Father Cancer Mother No problems noted. Social History Housing: House Alcohol intake: former Patient Tobacco Use Status: Former Tobacco user Tobacco use type: Cigar Years Smoked: 30 years e-Cigarette/Vaping Use: Never Used Second Hand Smoke Exposure: Yes service: Yes Current occupational status: retired Cognitive needs: No Hearing needs: No Vision needs: No Questionnaire PHQ-9 Over the last 2 weeks, how often have you been bothered by any of the following problems? 1. Little interest or pleasure in doing things: several days 2. Feeling down, depressed, or hopeless: several days 3. Trouble falling or staying asleep, or sleeping too much: not at all 4. Feeling tired or having little energy: several days 5. Poor appetite or overeating: not at all 6. Feeling bad about yourself - or that you are a failure or have let yourself or your family down: not at all 7. Trouble concentrating on things, such as reading the newspaper or watching television: not at all 8. Moving or speaking so slowly that other people could have noticed. Or the opposite - being so fidgety or restless that you have been moving around a lot more than usual: not at all 9. Thoughts that you would be better off or of hurting yourself in some way: not at all Total score: 3 Depression Screening Interpretation: Positive (is on Rx) Depression Screening Follow-up: Existing condition, In treatment and Community Mental Health Worker F/U Depression Screening Done: Yes 73125 - PHQ-9 Billing: Yes Source: Developed by Drs. Kali Burton, Erika Garzon, Smith Osorio and colleagues, with an educational baudilio from [employer] ([employer]). Thrive Questionnaire Date Thrive assessed: 11/10/24 I am a: Patient What is your living situation today?: I have a steady place to live Within the past 12 months, did the food you bought not last and you didn't have the money to get more?: Never true Within the past 12 months, did you worry whether your food would run out before you got money to buy more?: Never true Do you have trouble paying for medicines?: No Do you have trouble getting transportation to medical appointments?: No Do you have trouble paying your heating and electricity bill?: No Do you have trouble taking care of your child, family member or friend?: No Do you have trouble with day-to-day activities such as bathing, preparing meals, shopping, managing finances, etc.?: No Are you currently unemployed and looking for a job?: No Are you interested in more education?: No Please select the resources that you would like help with: None Currently or been in a relationship where the following occur: No concerns reported THRIVE Score: 0 AUDIT C Alcohol Use Questionnaire (AUDIT-C) 1. How often do you have a drink containing alcohol?: Never 3. How often do you have six or more drinks on one occasion?: Never Total Score: 0 Score Reviewed/Action Taken: Yes JACKSON-7 AMB Questionnaire JACKSON-7 Date JACKSON - 7 assessed: 11/10/24 Feeling nervous, anxious, or on edge: 0 = Not at all Not being able to stop or control worryin = Not at all Worrying too much about different things: 0 = Not at all Trouble relaxin = Not at all Being so restless that it is hard to sit still: 0 = Not at all Becoming easily annoyed or irritable: 0 = Not at all Feeling afraid as if something awful might happen: 0 = Not at all Total JACKSON-7 score (0-4 normal; 5-9 mild; 10-14 moderate; 15-21 severe): 0 Source: Developed by Drs. Kali Burton, Erika Garzon, Smith Osorio and colleagues, with an educational baudilio from [employer] ([employer]). Review of Systems Const Reports difficulty sleeping, Reports fatigue, Denies fever(s) and Denies headache(s) ENT Denies dysphagia, Denies dizziness, Denies otalgia, Denies headache(s), Reports neck pain (chronic), Denies odynophagia and Denies sore throat Card Denies chest pain, Denies palpitations and Reports dyspnea on exertion (mild; chronic) Resp Denies chest congestion, Reports cough (on and off, coughs up thick whitish phlegm), Reports dyspnea on exertion (mild; chronic) and Denies wheezing GI Denies abdominal pain, Reports constipation (on and off), Denies dysphagia, Denies heartburn, Denies diarrhea, Denies nausea, Denies odynophagia and Denies vomiting Denies dysuria, Denies nocturia and Denies urinary frequency Musc Details: (+) recurrent pain in his left foot/heel Reports back pain (chronic), Reports arthralgias (over multiple joints), Reports joint swelling (on and off in the right knee), Reports neck pain (chronic) and Reports tingling (on and off in the right hand) Skin/Breast Denies rash Neuro Denies dizziness, Denies headache(s), Reports radicular pain (on and off in the right hand) and Reports tingling (on and off in the right hand) Psych Reports anxiety and Reports depression Endo Reports fatigue and Denies palpitations Aller/Immun Denies wheezing Physical exam (Primary Care) Vital Signs: Last Vital Signs Pulse 85 11/10/24 15:35 BP 124/82 11/10/24 15:35 Pulse Ox 96 11/10/24 15:35 Oxygen Delivery Method Room Air 11/10/24 15:35 BMI result Body Mass Index 32.8 Tobacco/Smoking Status: Tobacco use Status Tobacco use date assessed 11/10/24 11/10/24 15:43 Patient Tobacco Use Status Former Tobacco user 11/10/24 15:43 Tobacco use type Cigar 11/10/24 15:43 e-Cigarette/Vaping Use Never Used 11/10/24 15:43 PHQ-9: PHQ-9 Score PHQ-9: Total score 3 11/11/24 10:51 Depression Screening Interpretation: Positive (is on Rx) Depression Screening Follow-up: Existing condition, In treatment and Community Mental Health Worker F/U Thrive Assessment: Date of Thrive Assessment Date Thrive assessed 11/10/24 11/10/24 15:43 Currently or been in a relationship where the following occur: No concerns reported Const General: no acute distress and alert HENMT Ears: TM's normal bilaterally and EAC's normal Throat: Yes posterior oropharynx normal and Yes tonsils normal (no TP congestion noted) Neck Neck: Yes no lymphadenopathy and Yes supple Thyroid: Thyroid normal Resp Auscultation: no crackles, no rales, rhonchi (occasional) throughout, no wheezes and diminished lung sounds (slightly) bilateral Cardio Rate: regular rate Rhythm: regular rhythm Heart sounds: no murmurs GI Palpation (GI): Soft to palpation and nontender Auscultation: normal bowel sounds General: Yes no CVA tenderness Back/Spine/Pelvis Back: no CVA tenderness Cervical Spine: Cervical spine tenderness Thoracic/Lumbar Spine: lumbar spinal tenderness Extrem General: Yes no clubbing, cyanosis or edema Right upper extremity: shoulder/upper arm Details: tenderness Location: of the A-C joint and abnormal ROM (ROM limited slightly due to pain); no swelling Right lower extremity: knee Details: tenderness and crepitus; no swelling Left lower extremity: knee Details: tenderness and crepitus; no swelling and foot Details: tenderness Location: of the calcaneus and no edema Results AMB Hemoglobin A1c AMB Hemoglobin A1c 6.3 % Last Edit by CALEB Hodges on 11/10/24 15:50 Results Reviewed Results Reviewed: Laboratory Last Values Hgb A1c (Clinic) 6.3 % (4.0-6.0) H 11/10/24 15:49 Laboratory Tests 08/16/24 08/16/24 17:10 17:12 WBC 7.3 Hgb 12.7 L Hct 37.7 L Plt Count 250 Sodium 140 Potassium 4.7 Creatinine 1.28 Estimated GFR 53 Fasting Glucose 134 H Calcium 9.3 AST 14 ALT 15 Triglycerides 184 H Cholesterol 128 LDL Cholesterol, Calc 56 HDL Cholesterol 36 L Vitamin B12 327 25-OH Vitamin D Total 36.2 TSH 1.94 Ur Specific [place] 1.010 Urine Protein Negative Urine Glucose (UA) Negative Urine Blood Negative Urine Nitrite Negative Ur Leukocyte Esterase Negative Microalb/Creat Ratio 23.2 Coding Level of Care Code Est Pt Level 4 (74046) Complex EM visit Add On G2211 Diagnoses Pure hypercholesterolemia E78.00 Type 2 diabetes mellitus with hyperglycemia, without long-term current use of insulin E11.65 Diabetes mellitus complication status: with hyperglycemia Diabetes mellitus driller and reamer insulin use: without driller and reamer use Diabetes mellitus type: type 2 Benign essential hypertension I10 Chronic obstructive pulmonary disease, unspecified COPD type J44.9 COPD type: unspecified COPD Hepatic hemangioma D18.03 Degeneration of intervertebral disc of lumbar region with discogenic back pain M51.360 Disc-related pain type: discogenic back pain only Degenerative disc disease, cervical M50.30 Primary osteoarthritis of both knees M17.0 Primary osteoarthritis of shoulders, bilateral M19.011; M19.012 Stage 3a chronic kidney disease N18.31 Chronic kidney disease stage 3 subtype: stage 3a (GFR 45-59) Edema of both lower extremities R60.0 Constipation, unspecified constipation type K59.00 Constipation type: unspecified constipation type Acne vulgaris L70.0 Acne type: acne vulgaris Insomnia, unspecified type G47.00 Insomnia type: unspecified Anxiety F41.9 Obesity (BMI 30-39.9) E66.9 Additional Codes PHQ-9 - 22179 - PHQ-9 Billing: Yes ([id number]) Assessment & Plan Assessment & Plan (1) Pure hypercholesterolemia: Code(s): E78.00 - Pure hypercholesterolemia, unspecified Category: Medical Plan: Results of his labs done back in late July 2024 reviewed and discussed with patient Reinforced low cholesterol diet Continue Rosuvastatin 10 mg QD for now Will recheck his labs and fasting lipids again in 3 months for follow up (2) Diabetes mellitus: Code(s): E11.9 - Type 2 diabetes mellitus without complications Category: Medical Qualifiers: Diabetes mellitus complication status: with hyperglycemia Diabetes mellitus driller and reamer insulin use: without driller and reamer use Diabetes mellitus type: type 2 Qualified Code(s): E11.65 - Type 2 diabetes mellitus with hyperglycemia Plan: In-office HgbA1c done today is at 6.3% (HgbA1c was at 6.6% when previously checked in March 2024) - goal is at least <7.0% but ideally <6.5% Reinforced diabetic diet Continue Metformin ER 500 mg Q PM Will recheck his FBS and HgbA1c in 3 months for follow up (3) Benign essential hypertension: Code(s): I10 - Essential (primary) hypertension Category: Medical Plan: Reinforced low sodium diet - goal is systolic BP of at least 140 to 150 mm or less Continue Amlodipine 5 mg QD, Losartan 100 mg QD and Furosemide 40 mg Q AM (4) COPD (chronic obstructive pulmonary disease): Code(s): J44.9 - Chronic obstructive pulmonary disease, unspecified Category: Medical Qualifiers: COPD type: unspecified COPD Qualified Code(s): J44.9 - Chronic obstructive pulmonary disease, unspecified Plan: His COPD appears stable at present as he's had no acute exacerbations recently Continue Combivent Respimat 1 puff 4 times a day, Symbicort 2 puffs BID and ProAIr HFA 2 puffs 4 times a day as needed (5) Hepatic hemangioma: Code(s): D18.03 - Hemangioma of intra-abdominal structures Category: Medical Plan: CT of the abdomen and pelvis done at the ER last year revealed the presence of a hepatic lesion in segment 6 and 7 of increased density - MRI is recommended to further evaluate whether this is a hemangioma or a solid lesion Patient prefers to continue to hold off on further tests for now - states that he has no acute stomach issues and does not want to keep getting a lot of testing done at this time Will consider at least getting an abdominal US first when he is ready to do so (6) Lumbar degenerative disc disease: Code(s): M51.36 - Other intervertebral disc degeneration, lumbar region Category: Medical Qualifiers: Disc-related pain type: discogenic back pain only Qualified Code(s): M51.360 - Other intervertebral disc degeneration, lumbar region with discogenic back pain only Plan: Reinforced activity and weight lifting restrictions Patient used to see Dr. Turcios for pain management but has not done since the COVID-19 pandemic started Per request, he was referred to [facility] earlier this year but for unclear reasons, he was never scheduled for any appointment Continue Gabapentin 800 mg 3 times a day and Duloxetine 30 mg twice a day;? he is also on Oxycodone 15 mg twice a day as needed Patient is again reminded that I will not increase his Oxycodone dosage or dosing due to his COPD and will refer him back to pain management for interventional treatments if he feels that his low back pain is getting worse and his medications are not controlling his pain adequately (7) Degenerative disc disease, cervical: Code(s): M50.30 - Other cervical disc degeneration, unspecified cervical region Category: Medical Plan: Continue Oxycodone 15 mg twice a day as needed for severe pain Cervical spine MRI done a couple of years ago showed (+) multilevel degenerative changes resulting in 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 referral to neurosurgery has been discussed in the past and remains a consideration if his neck pain gets worse (8) Primary osteoarthritis of both knees: Code(s): M17.0 - Bilateral primary osteoarthritis of knee Category: Medical Plan: S/P total right knee arthroplasty States that his current meds were helping with his knee pains until his fall a couple of months ago - his knee pains have gotten a lot worse since and he now has trouble walking and notes increased weakness in both legs often Will refer him to physical therapy for further evaluation and management and gait training / strengthening (9) Primary osteoarthritis of shoulders, bilateral: Code(s): M19.011 - Primary osteoarthritis, right shoulder; M19.012 - Primary osteoarthritis, left shoulder Category: Medical Plan: X-rays of both shoulders done at the ER a couple of months ago revealed (+) osteoarthritis changes bilaterally He states that he has been experiencing increased pain in both shoulders since his fall at a local restaurant a couple of months ago but his shoulder pains seem to be subsiding lately back to his baseline (10) Chronic kidney disease (CKD), stage III (moderate): Code(s): N18.30 - Chronic kidney disease, stage 3 unspecified Category: Medical Qualifiers: Chronic kidney disease stage 3 subtype: stage 3a (GFR 45-59) Qualified Code(s): N18.31 - Chronic kidney disease, stage 3a Plan: Will continue to monitor his GFR and renal function closely (11) Edema of both lower extremities: Code(s): R60.0 - Localized edema Category: Medical Plan: Per request, Rx for compression stockings provided (12) Constipation: Comment: Most likely multifactorial, including opioid-induced as well as due to inadequate oral fluid and fiber intake Code(s): K59.00 - Constipation, unspecified Category: Medical Qualifiers: Constipation type: unspecified constipation type Qualified Code(s): K59.00 - Constipation, unspecified Plan: Reinforced increased oral fluids and dietary fiber Continue Miralax 17 gm QD and may take OTC stool softeners PRN (13) Acne: Code(s): L70.9 - Acne, unspecified Category: Medical Qualifiers: Acne type: acne vulgaris Qualified Code(s): L70.0 - Acne vulgaris Plan: Continue Doxycycline 100 mg QD and Metrogel 0.75% apply to acne on face BID (14) Insomnia: Code(s): G47.00 - Insomnia, unspecified Category: Medical Qualifiers: Insomnia type: unspecified Qualified Code(s): G47.00 - Insomnia, unspecified Plan: Sleep hygiene reinforced Continue Trazodone 150 mg Q HS PRN (15) Anxiety: Code(s): F41.9 - Anxiety disorder, unspecified Category: Medical Plan: Continue Lorazepam 1 mg BID PRN and Hydroxyzine 25 mg TID PRN, Buspirone 10 mg BID and Sertraline 50 mg Q AM He was on CItalopram in the past but is unclear when he stopped taking this (on his own) Per request, he was referred previously for counseling and therapy and is still waiting to be contacted (16) Obesity (BMI 30-39.9): Code(s): E66.9 - Obesity, unspecified Category: Medical Plan: Reinforced diet; exercise and weight loss are unrealistic due to his multiple physical issues and comorbidities Plan Follow up in 3 months Orders: Orders PT Evaluation and Treatment 11/10/24 M17.0 - Bilateral primary osteoarthritis of knee, R26.81 - Unsteadiness on feet, R29.898 - Other symptoms and signs involving the musculoskeletal system Hemoglobin A1c 3 Months E11.9 - Type 2 diabetes mellitus without complications UA CC w/rflx Micro + Cult 3 Months R30.0 - Dysuria TSH reflex Free T4 3 Months E78.00 - Pure hypercholesterolemia, unspecified Vitamin D 25-OH Total 3 Months E55.9 - Vitamin D deficiency, unspecified Vitamin B12 and Folate 3 Months E53.8 - Deficiency of other specified B group vitamins AMB Hemoglobin A1c 11/10/24 Z13.9 - Encounter for screening, unspecified Complete Blood Count Auto Diff 3 Months D64.9 - Anemia, unspecified Comprehensive [place]. Panel Fast 3 Months E78.00 - Pure hypercholesterolemia, unspecified Lipid Panel 3 Months E78.00 - Pure hypercholesterolemia, unspecified Microalbumin, Random (w Creat) 3 Months E11.9 - Type 2 diabetes mellitus without complications Referrals Orthopedics Referral M79.641 - Pain in right hand, R20.0 - Anesthesia of skin Medications: New [COMPRESSION STOCKINGS (moderate compression 20-30 mm)] As directed 2 ea 3RF M79.89 - Other specified soft tissue disorders
== END 2024-11-10 16:19 | disposition home or self-care (01) ==
PROVIDERS: PCP Internal Medicine; Visit Provider Internal Medicine
DX: I12.9 Hypertensive chronic kidney disease with stage 1 through stage 4 chronic kidney disease, or unspecified chronic kidney disease (principal); J44.9 Chronic obstructive pulmonary disease, unspecified; E11.65 Type 2 diabetes mellitus with hyperglycemia; N18.31 Chronic kidney disease, stage 3a; E78.00 Pure hypercholesterolemia, unspecified; D18.03 Hemangioma of intra-abdominal structures; M51.360 Other intervertebral disc degeneration, lumbar region with discogenic back pain only; M50.30 Other cervical disc degeneration, unspecified cervical region; M17.0 Bilateral primary osteoarthritis of knee; M19.011 Primary osteoarthritis, right shoulder; M19.012 Primary osteoarthritis, left shoulder; R60.0 Localized edema

== ENCOUNTER → 2024-11-10 15:20 | Outpatient (BNVA) | payer MEDICARE, MEDICAID, SELFPAY | PROVIDERS: PCP Internal Medicine; Visit Provider Internal Medicine | DX: I12.9 Hypertensive chronic kidney disease with stage 1 through stage 4 chronic kidney disease, or unspecified chronic kidney disease (principal); N18.31 Chronic kidney disease, stage 3a; E11.65 Type 2 diabetes mellitus with hyperglycemia; J44.9 Chronic obstructive pulmonary disease, unspecified; M19.90 Unspecified osteoarthritis, unspecified site; L70.0 Acne vulgaris; G47.00 Insomnia, unspecified; F41.9 Anxiety disorder, unspecified; E66.9 Obesity, unspecified; E78.00 Pure hypercholesterolemia, unspecified; D18.03 Hemangioma of intra-abdominal structures; M51.360 Other intervertebral disc degeneration, lumbar region with discogenic back pain only; M17.0 Bilateral primary osteoarthritis of knee; M19.011 Primary osteoarthritis, right shoulder; M19.012 Primary osteoarthritis, left shoulder; R60.0 Localized edema; K59.00 Constipation, unspecified; L27.0 Generalized skin eruption due to drugs and medicaments taken internally; Z68.32 Body mass index [BMI] 32.0-32.9, adult | CPT/HCPCS: 83036; 96127; 99212 ==

== ENCOUNTER → 2024-11-27 17:30 | Outpatient (BNV) | payer MEDICARE, MEDICAID, SELFPAY | PROVIDERS: PCP Internal Medicine; Visit Provider Radiology Diagnostic Radiology | DX: M25.561 Pain in right knee (principal); M25.511 Pain in right shoulder; M25.711 Osteophyte, right shoulder; M19.041 Primary osteoarthritis, right hand; M19.032 Primary osteoarthritis, left wrist | CPT/HCPCS: 73030; 73110; 73130; 73564 ==

== ENCOUNTER 2024-11-30 13:37 | Outpatient (AMB) | payer MEDICARE, MEDICAID, SELFPAY ==
[2024-11-30 13:50] VITALS: BP 154/82; PULSE 92; TEMP 36.4; O2SAT 94; BMI 36.2
--- NOTE | 2024-11-30 13:50 | A.OFFPC_ITS ---
Vital Signs 11/30/24 13:50 Height 5 ft 8 in Weight 238 lb BMI 36.2 BP 154/82 H Blood Pressure Location Lt brachial Position Sitting Pulse 92 Pulse Source Pulse Oximeter Temp 97.6 F Temp Source Tympanic Pulse Oximetry (%) 94 Oxygen Delivery Method Room Air Intake Visit Reasons: rt side numbness/ shoulder pain Allergies morphine Adverse Reaction (Severe, Verified 11/30/24 14:02) respiratory depression/failure Medication List - Last Reconciled 11/30/24 by RADHA Guillaume albuterol sulfate 90 mcg/actuation (Ventolin HFA) 1 inh inhalation QID PRN amlodipine 5 mg PO DAILY 90 days budesonide-formoterol 160-4.5 mcg/actuation 2 puffs PO BID Combivent Respimat 20-100 mcg/actuation (ipratropium-albuterol) 1 puff inhalation QID NS [COMPRESSION STOCKINGS (moderate compression 20-30 mm) As directed] doxycycline hyclate 100 mg PO DAILY 30 days fluticasone propionate 50 mcg/actuation (Flonase Allergy Relief) 2 sprays intranasal DAILY furosemide 40 mg PO DAILY gabapentin 800 mg PO TID 30 days hydroxyzine HCl 25 mg PO TID PRN 30 days losartan 100 mg PO DAILY 90 days metformin ER 500 mg PO QPM metronidazole 0.75% 1 appl topical BID oxycodone 15 mg PO BID PRN 30 days rosuvastatin 10 mg PO BEDTIME 30 days tizanidine 4 mg PO BEDTIME PRN 30 days trazodone 150 mg PO BEDTIME PRN 90 days Tobacco use date assessed: 11/30/24 Fall risk assessment: 2 + Falls in past year Last assessed Fall Risk: 11/30/24 Dental Screening Dental Screen Date: 11/30/24 Did you have a dental visit in the last 12 months?: No Did you have a dental problem in the last 6 months where you did not have access to dental care?: No Was dental information given to patient?: Patient has dentist HPI rt side numbness/ shoulder pain HPI Details Patient is a 84 year old male with significant past medical history of benign essential hypertension, osteoarthritis of both knees, diabetes mellitus He is a patient of Dr. Sheth was last seen on 11/10/24 for follow up appointment on chronic issues. At that appointment the patient addressed his right shoulder pain post fall. The patient is presenting today for ongoing right shoulder pain. Patient reports that weeks ago, he tripped on the carpet in [facility]. Since, he has been having right shoulder pain associated right hand tingling, he reports that the right arm feels weaker than left. He he reports that he went to the ER and imaging was negative. Added it is not just right shoulder pain, but both wrist, and both knees as well. Right shoulder is the worse 5-08/31, reports that the pain travels down his arm. The patient reports that the pain is sharp. sleeping on right side makes the pain worse, but nothing makes it better. He reports that his oxycodone is not strong enough, reports, he is only taking 15 mg bid. Reports that his neighbor takes 30 mg and gave him one and it works better. He reports that his neighbor goes to a pain clinic in [place] and he should go there and talk to them. He reports that he is still waiting on PT and ortho appointment. Reports that he would like something stronger for sleep as well Sleep hygiene: The patient reports that he is drinking coffee up to 10pm. However, he does not think that is the reason. He is only taking trazodone 150 mg at bedtime and that is not much, per patient. [facility] Medical History (Updated 11/30/24 @ 14:38 by RADHA Guillaume) Right shoulder pain Primary osteoarthritis of shoulders, bilateral Benign essential hypertension COPD with exacerbation Cough Shoulder pain COPD exacerbation Fatigue Adult general medical exam Cellulitis Encounter for Medicare annual wellness exam Prostate cancer screening Hyperglycemia Depression Viral syndrome COVID-19 Borderline diabetes mellitus Right knee pain Skin lesion Pain and swelling of right knee Nasal congestion Bronchitis Left foot pain COVID Diabetes mellitus Obesity (BMI 30-39.9) Anxiety Insomnia Chronic kidney disease (CKD), stage III (moderate) Pure hypercholesterolemia Erectile dysfunction Lumbar degenerative disc disease Primary osteoarthritis of both knees COPD (chronic obstructive pulmonary disease) Degenerative disc disease, cervical Surgical History Hx of total knee arthroplasty History of glaucoma History of trabeculectomy Family History Father Cancer Mother No problems noted. Social History Housing: House Alcohol intake: former Patient Tobacco Use Status: Former Tobacco user Tobacco use type: Cigar Years Smoked: 30 years e-Cigarette/Vaping Use: Never Used Second Hand Smoke Exposure: Yes service: Yes Current occupational status: retired Cognitive needs: No Hearing needs: No Vision needs: No Questionnaire PHQ-9 Over the last 2 weeks, how often have you been bothered by any of the following problems? 1. Little interest or pleasure in doing things: several days 2. Feeling down, depressed, or hopeless: several days 3. Trouble falling or staying asleep, or sleeping too much: not at all 4. Feeling tired or having little energy: several days 5. Poor appetite or overeating: not at all 6. Feeling bad about yourself - or that you are a failure or have let yourself or your family down: not at all 7. Trouble concentrating on things, such as reading the newspaper or watching television: not at all 8. Moving or speaking so slowly that other people could have noticed. Or the opposite - being so fidgety or restless that you have been moving around a lot more than usual: not at all 9. Thoughts that you would be better off or of hurting yourself in some way: not at all Total score: 3 Depression Screening Interpretation: Positive (is on Rx) Depression Screening Follow-up: Existing condition, In treatment and Community Mental Health Worker F/U Depression Screening Done: Yes 29561 - PHQ-9 Billing: Yes Source: Developed by Drs. Kali Burton, Erika Garzon, Smith Osorio and colleagues, with an educational baudilio from [employer]. Thrive Questionnaire Date Thrive assessed: 11/30/24 I am a: Patient What is your living situation today?: I have a steady place to live Within the past 12 months, did the food you bought not last and you didn't have the money to get more?: Never true Within the past 12 months, did you worry whether your food would run out before you got money to buy more?: Never true Do you have trouble paying for medicines?: No Do you have trouble getting transportation to medical appointments?: No Do you have trouble paying your heating and electricity bill?: No Do you have trouble taking care of your child, family member or friend?: No Do you have trouble with day-to-day activities such as bathing, preparing meals, shopping, managing finances, etc.?: No Are you currently unemployed and looking for a job?: No Are you interested in more education?: No Please select the resources that you would like help with: None Currently or been in a relationship where the following occur: No concerns reported THRIVE Score: 0 AUDIT C Alcohol Use Questionnaire (AUDIT-C) 1. How often do you have a drink containing alcohol?: Never 3. How often do you have six or more drinks on one occasion?: Never Total Score: 0 Score Reviewed/Action Taken: Yes JACKSON-7 AMB Questionnaire JACKSON-7 Date JACKSON - 7 assessed: 11/30/24 Feeling nervous, anxious, or on edge: 0 = Not at all Not being able to stop or control worryin = Not at all Worrying too much about different things: 0 = Not at all Trouble relaxin = Not at all Being so restless that it is hard to sit still: 0 = Not at all Becoming easily annoyed or irritable: 0 = Not at all Feeling afraid as if something awful might happen: 0 = Not at all Total JACKSON-7 score (0-4 normal; 5-9 mild; 10-14 moderate; 15-21 severe): 0 Source: Developed by Drs. Kali Burton, Erika Garzon, Smith Osorio and colleagues, with an educational baudilio from [employer]. JACKSON-7 Assessment Billing JACKSON-7 Assessment Tool: JACKSON-7 Assessment 80146 Review of Systems Const Details: Denies chills, Denies fatigue, Denies fever(s), Denies headache(s) and Denies weakness HEENT Denies change in vision, Denies dizziness, Denies headache(s), Denies hearing loss, Denies nasal congestion, Denies sinus pain, Denies sinus pressure and Denies sore throat Card Denies chest pain, Denies lightheadedness, Denies dyspnea and Denies other (palpitations) Resp Denies cough, Denies dyspnea and Denies wheezing GI Denies abdominal pain, Denies melena, Denies hematochezia, Denies change in bowel habits, Denies dyspepsia and Denies nausea Denies hematuria and Denies dysuria Musc Reports recurrent pain to right shoulder, both wrists and knees, right shoulder pain is more bothersome Skin/Breast Denies rash, Denies unusual bruising and Denies wounds Neuro Denies abnormal gait, Denies dizziness, Denies headache(s), Denies memory loss, Denies numbness, Denies Sensory deficit (Neuro), Denies tingling and Denies weakness Psych Denies anxiety, Denies depression and Denies memory loss Endo Denies cold intolerance, Denies fatigue, Denies heat intolerance, Denies polydipsia and Denies polyuria Himanshu/Lymph Denies easy bleeding and Denies easy bruising Aller/Immun Denies wheezing Physical exam (Primary Care) Vital Signs: Last Vital Signs Temp 97.6 F 11/30/24 13:50 Pulse 92 11/30/24 13:50 BP 154/82 H 11/30/24 13:50 Pulse Ox 94 11/30/24 13:50 Oxygen Delivery Method Room Air 11/30/24 13:50 BMI result Body Mass Index 36.2 Tobacco/Smoking Status: Tobacco use Status Tobacco use date assessed 11/30/24 11/30/24 13:58 Patient Tobacco Use Status Former Tobacco user 11/30/24 13:58 Tobacco use type Cigar 11/30/24 13:58 e-Cigarette/Vaping Use Never Used 11/30/24 13:58 PHQ-9: PHQ-9 Score PHQ-9: Total score 3 12/01/24 12:54 Depression Screening Interpretation: Positive (is on Rx) Depression Screening Follow-up: Existing condition, In treatment and Community Mental Health Worker F/U Thrive Assessment: Date of Thrive Assessment Date Thrive assessed 11/30/24 11/30/24 13:58 Currently or been in a relationship where the following occur: No concerns reported Const Other: General: no acute distress, well developed, alert and awake Nutritional Appearance: well nourished Orientation/consciousness: patient oriented x3 HENMT Head: Yes normocephalic and Yes atraumatic Mouth: Normal oral and palatal mucosa present and moist mucous membranes Teeth and gingiva: dentition normal Throat: Yes oropharynx normal Eyes Pupils: Equal, round and reactive pupils present and Pupil accommodation reflex normal EOM: EOMs intact bilaterally Neck Neck: Yes normal visual inspection Thyroid: Thyroid normal Carotids: no bruits Lymphatic: no lymphadenopathy noted Chest Chest palpation & inspection: normal inspection of the chest Resp Effort & Inspection: normal respiratory effort Auscultation: clear to auscultation bilaterally Cardio Rate: regular rate Rhythm: regular rhythm Heart sounds: S1 normal heart sound present, S2 normal heart sound present, no gallops, no murmurs and no rubs GI Palpation (GI): No Abdominal aortic bruit present, Soft to palpation, nontender Auscultation: normal bowel sounds General: Yes no CVA tenderness Back/Spine/Pelvis Back: no CVA tenderness Cervical Spine: cervical ROM normal and No Cervical spine tenderness,( right arm with +ROM, negative empty beer can test, no edema, no erythema, no crepitus) Thoracic/Lumbar Spine: thoraco-lumbar ROM normal, No pain with thoraco-lumbar ROM, No thoracic spinal tenderness and No lumbar spinal tenderness Skin General: warm and dry. Normal skin color. Normal skin turgor Lesions: no lesions Nails: normal Neuro General: patient oriented x3 Cranial nerves: Yes Equal, round and reactive pupils present Cognition (Neuro): normal cognition Gait exam (Neuro): Normal gait present Motor exam (neuro): 5/5 motor strength present throughout Extrem General: Yes normal to inspection, No edema and No calf tenderness Psych Appearance: grossly normal Affect: normal affect Attitude: cooperative Thought process: Normal thought process present Coding Level of Care Code Est Pt Level 3 (85112) Diagnoses Right shoulder pain, unspecified chronicity M25.511 Chronicity: unspecified Insomnia, unspecified type G47.00 Insomnia type: unspecified Additional Codes JACKSON-7 Assessment Billing - JACKSON-7 Assessment Tool: JACKSON-7 Assessment 75337 ([id number]) PHQ-9 - 43221 - PHQ-9 Billing: Yes ([id number]) Assessment & Plan Assessment & Plan (1) Right shoulder pain: Code(s): M25.511 - Pain in right shoulder Category: Medical Qualifiers: Chronicity: unspecified Qualified Code(s): M25.511 - Pain in right shoulder Plan: Ongoing right shoulder pain with associated radiculopathy-post fall/ER visit Right shoulder x-ray done on 11/27/24-showed no acute findings, periarticular osteophyte formation oat the acromioclavicular and glenohumeral joints, indicating osteoarthritis. continue oxycodone 15 mg BID prn and gabapentin 800mg TID. PT and evaluation referral for right shoulder ordered. (2) Insomnia: Code(s): G47.00 - Insomnia, unspecified Category: Medical Qualifiers: Insomnia type: unspecified Qualified Code(s): G47.00 - Insomnia, unspecified Plan: Reinforced sleep hygiene Continue Trazodone 150 mg at bedtime Added melatonin 10 mg at bedtime Plan I personally spent 28 minutes reviewing the chart, caring for the patient and documenting after the visit. Follow up as scheduled with PCP in January 2025 Orders: Orders PT Evaluation and Treatment 11/30/24 M25.511 - Pain in right shoulder Medications: New melatonin 10 mg PO BEDTIME PRN 30 tabs 3RF sleep
== END 2024-11-30 14:31 | disposition home or self-care (01) ==
PROVIDERS: PCP Internal Medicine
DX: M25.511 Pain in right shoulder (principal); G47.00 Insomnia, unspecified

== ENCOUNTER → 2024-11-30 13:37 | Outpatient (BNVA) | payer MEDICARE, MEDICAID, SELFPAY | PROVIDERS: PCP Internal Medicine | DX: M25.511 Pain in right shoulder (principal); G47.00 Insomnia, unspecified | CPT/HCPCS: 96127; 99212 ==

== ENCOUNTER → 2024-12-26 13:55 | Outpatient (BNVA) | payer MEDICARE, MEDICAID, SELFPAY | PROVIDERS: PCP Internal Medicine; Visit Provider Physician Assistant | DX: M50.30 Other cervical disc degeneration, unspecified cervical region (principal); M25.511 Pain in right shoulder; M79.641 Pain in right hand; R20.0 Anesthesia of skin; R20.2 Paresthesia of skin | CPT/HCPCS: 20610; 99202 ==

== ENCOUNTER 2024-12-29 23:22 | Emergency (ER) | payer MEDICARE, MEDICAID, SELFPAY ==
--- NOTE | ~2024-12-29 | XR_ITS ---
CLINICAL HISTORY: cough 1 view chest x-ray Comparison: CR/NM/SR - XR CHEST 1V - 06/26/24 20:37 EDT Findings: The lungs are clear. Normal size heart. No acute fracture. IMPRESSION: 1. No acute findings. This document has been electronically signed by: Terence Devi MD, PHD on 12/30/2024 02:39:02
[2024-12-29 23:31] VITALS: BP 148/70; PULSE 71; RESP 16; TEMP 36.7; O2SAT 96; BMI 32.5
[2024-12-30 01:59] VITALS: BP 113/74; PULSE 82; RESP 14; TEMP 36.4; O2SAT 98
--- NOTE | 2024-12-30 02:12 | ED_ITS ---
HPI - General Adult General Chief complaint: General Medical Stated complaint: COPD, out of inhaler Time Seen by Provider: 12/30/24 01:11 Source: patient Mode of arrival: ambulatory Limitations: no limitations History of Present Illness ED Provider: HPI narrative: Patient's history of COPD ex-smoker comes here for increased shortness a breath ran out of his inhaler Combivent coughing for last few weeks with mucopurulent phlegm no fever no chills ,no chest pain no fever Related Data Previous Rx's ?Medication ?Instructions ?Recorded budesonide-formoterol HFA 160 2 puff PO BID #10.2 grams 03/17/23 mcg-4.5 mcg/actuation aerosol inhaler furosemide 40 mg tablet 40 mg PO DAILY #90 tabs 12/08/23 albuterol sulfate 90 mcg/actuation 1 inh inhalation QID PRN shortness 12/21/23 aerosol inhaler (Ventolin HFA) of breath or wheezing #8.5 grams fluticasone propionate 50 2 spray intranasal DAILY #16 grams 12/24/23 mcg/actuation nasal spray,suspension (Flonase Allergy Relief) metronidazole 0.75 % topical cream 1 appl topical BID #45 grams 07/28/24 metformin 500 mg tablet,extended 500 mg PO QPM #90 tabs 08/04/24 release 24 hr hydroxyzine HCl 25 mg tablet 25 mg PO TID PRN anxiety 30 days 08/28/24 #90 tabs tizanidine 4 mg tablet 4 mg PO BEDTIME PRN muscle 09/11/24 spasticity 30 days #90 tabs trazodone 150 mg tablet 150 mg PO BEDTIME PRN for insomnia 09/12/24 90 days #90 tabs Combivent Respimat 20 mcg-100 1 puff inhalation QID #4 grams 11/06/24 mcg/actuation solution for inhalation (ipratropium-albuterol) amlodipine 5 mg tablet 5 mg PO DAILY 90 days #90 tabs 11/06/24 doxycycline hyclate 100 mg capsule 100 mg PO DAILY 30 days #30 caps 11/06/24 losartan 100 mg tablet 100 mg PO DAILY 90 days #90 tabs 11/06/24 rosuvastatin 10 mg tablet 10 mg PO BEDTIME 30 days #30 tabs 11/06/24 COMPRESSION STOCKINGS (moderate #2 ea 11/10/24 compression 20-30 mm) gabapentin 800 mg tablet 800 mg PO TID 30 days #90 tabs 11/27/24 melatonin 10 mg tablet 10 mg PO BEDTIME PRN sleep #30 tabs 11/30/24 oxycodone 15 mg tablet 15 mg PO BID PRN severe pain 30 12/07/24 days #60 tabs ipratropium 20 mcg-albuterol 100 1 puff inhalation QID #4 grams 12/30/24 mcg/actuation mist for inhalation (Combivent Respimat) Allergies Allergy/AdvReac Type Severity Reaction Status Date / Time morphine AdvReac Severe respiratory Verified 12/29/24 23:36 depression/failure Review of Systems 2 Review of Systems: Yes all other systems are reviewed and are negative [facility] Past Medical History Medical History Right shoulder pain Primary osteoarthritis of shoulders, bilateral Benign essential hypertension COPD with exacerbation Cough Shoulder pain COPD exacerbation Fatigue Adult general medical exam Cellulitis Encounter for Medicare annual wellness exam Prostate cancer screening Hyperglycemia Depression Viral syndrome COVID-19 Borderline diabetes mellitus Right knee pain Skin lesion Pain and swelling of right knee Nasal congestion Bronchitis Left foot pain COVID Diabetes mellitus Obesity (BMI 30-39.9) Anxiety Insomnia Chronic kidney disease (CKD), stage III (moderate) Pure hypercholesterolemia Erectile dysfunction Lumbar degenerative disc disease Primary osteoarthritis of both knees COPD (chronic obstructive pulmonary disease) Degenerative disc disease, cervical Surgical History Hx of total knee arthroplasty History of glaucoma History of trabeculectomy Family History Family History Father Cancer Mother No problems noted. Social History Social History Housing: House Alcohol intake: former Patient Tobacco Use Status: Former Tobacco user Tobacco use type: Cigar Years Smoked: 30 years e-Cigarette/Vaping Use: Never Used Second Hand Smoke Exposure: Yes Advance Directives: No Advance Directives Information Provided: Yes Do you have a plan to hurt others: No Plan service: Yes Current occupational status: retired Cognitive needs: No Hearing needs: No Vision needs: No Physical Exam ED Vital Signs: Vital Signs - 24 hr 12/29/24 23:31 12/30/24 01:59 12/30/24 02:40 Temperature 98.0 F 97.6 F Pulse Rate 71 82 64 Respiratory Rate 16 14 20 Blood Pressure 148/70 H 113/74 Pulse Oximetry 96 98 Oxygen Delivery Method Room Air Room Air BMI result Body Mass Index 32.5 Appearance: Alert. Oriented X3. No acute distress. 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 Oral Mucosa moist Neck: Normal inspection. Neck supple. CVS: Normal heart rate and rhythm. Pulses normal. Respiratory: No respiratory distress. Equal air entry bilateral, bilateral prolonged expiration with wheezing occasional crackles Abdomen: Soft and nontender. Bowel sounds are present, no mass palpable, no CVA tenderness Skin: Skin warm and dry. Normal skin color. Normal skin turgor. Extremities: No lower extremity edema. No calf tenderness Neuro: Oriented X 3. No motor deficit. Medications Administered Discontinued Medications Generic Name Dose Route Start Last Admin Trade Name Freq PRN Reason Stop Dose Admin Albuterol Sulfate 2.5 mg/ 0 mg 12/30/24 02:15 12/30/24 02:35 Albuterol/Ipratropium 3 ml INHALE 12/30/24 02:16 1 dose ONCE ONE Administration Medical Decision Making Medical Decision Making [facility] Narrative: Patient with acute bronchitis ran out of his inhaler feeling much better chest x-ray negative COVID flu RSV negative will discharge patient home on Combivent inhaler Lab Data [facility] Lab Attestation statement: I reviewed the patient's lab results. 12/30/24 02:33 12/30/24 02:33 Labs: Lab Results 12/30/24 Range/Units 02:33 WBC 9.9 (4.8-10.8) X10*3/uL RBC 4.47 L (4.60-5.80) X10*6/uL Hgb 13.0 L (14.0-18.0) g/dl Hct 38.5 L (42.0-52.0) % MCV 86.1 (80.0-98.0) fL MCH 29.1 (27.0-33.0) pg MCHC 33.8 (31.0-36.0) g/dl RDW 13.2 (11.0-16.0) % Plt Count 263 (160-400) X10*3/uL MPV 8.9 L (9.4-12.4) fL Immature Gran % (Auto) 0.3 (0.0-0.4) % Neut % (Auto) 60.2 (45-73) % Lymph % (Auto) 29.9 (20-40) % Humphreys % (Auto) 6.9 (2-11) % Eos % (Auto) 2.3 (0-4) % Baso % (Auto) 0.4 (0-2) % Lymph # (Auto) 3.0 (1.2-4.9) X10*3/uL Humphreys # (Auto) 0.7 (0.1-1.2) X10*3/uL Eos # (Auto) 0.2 (0.0-0.4) X10*3/uL Baso # (Auto) 0.0 (0.0-0.2) X10*3/uL Abs Immat Gran (auto) 0.03 (0.00-0.03) X10*3/uL Absolute Neuts (auto) 6.0 (2.0-8.3) x10*3/uL Absolute Nucleated RBC 0.000 (0.0-0.012) X10*3/uL Nucleated RBC % (auto) 0.0 (0.0-0.2) /100WBC Sodium 137 (135-145) mmol/L Potassium 4.5 (3.3-5.1) mmol/L Chloride 106 (96-108) mmol/L Carbon Dioxide 22 (22-29) mmol/L Anion Gap 14 (12-20) BUN 17 H (9-16) mg/dL Creatinine 1.13 (0.5-1.4) mg/dL Estim Creat Clear Calc 60.9 Estimated GFR > 60 Random Glucose 110 (60-115) mg/dL Calcium 9.2 (8.4-10.2) mg/dL Total Bilirubin 0.3 (0.0-1.0) mg/dL AST 22 (5-37) U/L ALT 22 (0-40) U/L Alkaline Phosphatase 69 (39-117) U/L Total Protein 7.6 (6.5-8.0) g/dL Albumin 4.0 (3.5-5.0) g/dL Influenza Type A (PCR) NEGATIVE (Negative) Influenza Type B (PCR) NEGATIVE (Negative) RSV RNA Qual (PCR) NEGATIVE (Negative) SARS-CoV-2 RNA (RT-PCR) NEGATIVE (Negative) Independent Interpretation I performed an independent interpretation of an: Plain X-Ray Interpretation: NAD Radiology Impression Discussion of test interpretation with radiology: I have reviewed the radiologist's reading. Discharge Plan Discharge Clinical Impression: COPD (chronic obstructive pulmonary disease) Qualifiers: COPD type: unspecified COPD Qualified Code(s): J44.9 - Chronic obstructive pulmonary disease, unspecified Patient Disposition: Home, Self-Care Instructions: COPD (Chronic Obstructive Pulmonary Disease) (ED) Additional Instructions: Continue to use your inhaler Follow with your PCP Prescriptions: New Combivent Respimat 20-100 mcg/actuation mist 1 puff inhalation QID Qty: 4 0RF Rx Instructions: space evenly during waking hours No Action furosemide 40 mg tablet 40 mg PO DAILY Qty: 90 1RF metformin 500 mg tablet extended release 24 hr 500 mg PO QPM Qty: 90 1RF hydroxyzine HCl 25 mg tablet 25 mg PO TID PRN (Reason: anxiety) 30 Days Qty: 90 2RF tizanidine 4 mg tablet 4 mg PO BEDTIME PRN (Reason: muscle spasticity) 30 Days Qty: 90 1RF trazodone 150 mg tablet 150 mg PO BEDTIME PRN (Reason: for insomnia) 90 Days Qty: 90 0RF Combivent Respimat 20-100 mcg/actuation mist 1 puff inhalation QID Qty: 4 5RF amlodipine 5 mg tablet 5 mg PO DAILY 90 Days Qty: 90 1RF doxycycline hyclate 100 mg capsule 100 mg PO DAILY 30 Days Qty: 30 0RF losartan 100 mg tablet 100 mg PO DAILY 90 Days Qty: 90 1RF rosuvastatin 10 mg tablet 10 mg PO BEDTIME 30 Days Qty: 30 1RF gabapentin 800 mg tablet 800 mg PO TID 30 Days Qty: 90 0RF oxycodone 15 mg tablet 15 mg PO BID PRN (Reason: severe pain) 30 Days Qty: 60 0RF fluticasone propionate [Flonase Allergy Relief] 50 mcg/actuation spray,suspension 2 spray intranasal DAILY Qty: 16 0RF Rx Instructions: administer into each nostril albuterol sulfate [Ventolin HFA] 90 mcg/actuation HFA aerosol inhaler 1 inh inhalation QID PRN (Reason: shortness of breath or wheezing) Qty: 8.5 1RF budesonide-formoterol 160-4.5 mcg/actuation HFA aerosol inhaler 2 puff PO BID Qty: 10.2 5RF metronidazole 0.75 % cream 1 appl topical BID Qty: 45 0RF (DME) COMPRESSION STOCKINGS (moderate compression 20-30 mm) See Rx Instructions .Route .MEDSUPPLY Qty: 2 3RF Rx Instructions: As directed melatonin 10 mg tablet 10 mg PO BEDTIME PRN (Reason: sleep) Qty: 30 3RF Discharge Date/Time: 12/30/24 04:50 Print Language: Hungarian
[2024-12-30] MEDS: Albuterol Sulfate 2.5 MG, Albuterol/Iprat 2.5/0.5MG 3 ML 3 ML INHALE (02:35)
[2024-12-30 02:40] VITALS: PULSE 64; RESP 20; O2SAT 99
[2024-12-30 02:40] LABS: MANUAL DIFF FLAG NO
[2024-12-30 02:41] LABS: Basophils Percent Auto 0.4 % (0-2); Eosinophils Absolute Auto 0.2 X10*3/uL (0.0-0.4); Eosinophils Percent Auto 2.3 % (0-4); Hematocrit 38.5 % (42.0-52.0); Imm Gran Abs Auto 0.03 X10*3/uL (0.00-0.03); Imm Gran Pct Auto 0.3 % (0.0-0.4); Lymphocytes Percent Auto 29.9 % (20-40); Mean Corpuscular HGB Conc 33.8 g/dl (31.0-36.0); Mean Corpuscular Hemoglobin 29.1 pg (27.0-33.0); Mean Corpuscular Volume 86.1 fL (80.0-98.0); Mean Platelet Volume 8.9 fL (9.4-12.4); Monocytes Absolute Auto 0.7 X10*3/uL (0.1-1.2); Monocytes Percent Auto 6.9 % (2-11); Neutrophils Percent Auto 60.2 % (45-73); Platelet Count 263 X10*3/uL (160-400); Red Blood Count 4.47 X10*6/uL (4.60-5.80); Red Cell Distribution Width 13.2 % (11.0-16.0); White Blood Count 9.9 X10*3/uL (4.8-10.8)
[2024-12-30 02:56] LABS: Alanine Aminotransferase 22 U/L (0-40); Alkaline Phosphatase 69 U/L (39-117); Anion Gap 14 (12-20); Aspartate Amino Transferase 22 U/L (5-37); Bilirubin Total 0.3 mg/dL (0.0-1.0); Blood Urea Nitrogen 17 mg/dL (9-16); Calcium 9.2 mg/dL (8.4-10.2); Carbon Dioxide 22 mmol/L (22-29); Chloride 106 mmol/L (96-108); Creatinine Clr Calc Pharmacy 60.9; Estimated Glomerular Filt Rate > 60; Glucose Random 110 mg/dL (60-115); Potassium 4.5 mmol/L (3.3-5.1); Sodium 137 mmol/L (135-145); Total Protein 7.6 g/dL (6.5-8.0)
[2024-12-30 03:17] LABS: Influenza A PCR NEGATIVE (Negative); Influenza B PCR NEGATIVE (Negative); Resp Syncy Virus RNA Qual PCR NEGATIVE (Negative); SARS COV2 PCR INHOUSE NEGATIVE (Negative)
--- NOTE | 2024-12-30 03:29 | PC.NURSE ---
pt noted to be out of bed unsteady on feet reaching for something on ground this rn to bedside this rn asked pt if he needed help pt yelled at this rn stating I need this bed up motioning for head of the bed to be raised rn licensed practical attempted to help pt began yelling at rn licensed practical stating don't act like I'm a trouble maker or I'll give you trouble rn charge made aware
[2024-12-30 04:45] VITALS: PULSE 88; O2SAT 98
--- NOTE | 2024-12-30 04:48 | PC.NURSE ---
Pt expressing frustrations to charge auditor making statements such as that stella carey and he's michael to even be in this country that can be heard throughout department prompting this law writer to go and speak with the patient. States he remembers this provider from the last visit he was here and wanted him to apologize. Stated he requires an apology or he will not leave call the manager culture if you have to Pt was advised by this law writer that when the provider came back in the room that yelling or cursing at the provider would not be tolerated. Upon Dr. Valdivia's arrival to the room pt immediately began yelling I want an apology! This law writer again entered pts room and pt lowered his voice, was able to receive an apology from the provider. Pt was given discharge instructions and denied any further questions. Was ambulatory out of department with personal cane and steady gait accompanied by this law writer. Pt left department in no acute distress, speaking in full sentences throughout entire episode.
== END 2024-12-30 04:50 | disposition home or self-care (01) ==
PROVIDERS: Emergency Provider Internal Medicine; PCP Internal Medicine
DX: J44.9 Chronic obstructive pulmonary disease, unspecified (principal); R06.02 Shortness of breath; R05.9 Cough, unspecified; E11.22 Type 2 diabetes mellitus with diabetic chronic kidney disease; I12.9 Hypertensive chronic kidney disease with stage 1 through stage 4 chronic kidney disease, or unspecified chronic kidney disease; N18.30 Chronic kidney disease, stage 3 unspecified; E78.00 Pure hypercholesterolemia, unspecified; Z87.891 Personal history of nicotine dependence; Z03.818 Encounter for observation for suspected exposure to other biological agents ruled out; Z79.84 Long term (current) use of oral hypoglycemic drugs; Z79.02 Long term (current) use of antithrombotics/antiplatelets; Z79.899 Other long term (current) drug therapy
CPT/HCPCS: 0241U; 36415; 71045; 80053; 85025; 94640; 99283; 99284

== ENCOUNTER → 2024-12-30 02:15 | Outpatient (BNV) | payer MEDICARE, MEDICAID, SELFPAY | PROVIDERS: Emergency Provider Internal Medicine; PCP Internal Medicine; Visit Provider General Practice | DX: R07.9 Chest pain, unspecified (principal) | CPT/HCPCS: 71045 ==

== ENCOUNTER 2025-01-04 21:52 | Inpatient (IN) | payer MEDICARE, MEDICAID, SELFPAY ==
--- NOTE | 2025-01-04 | ECG_ITS ---
Test Reason : WEAKNESS Blood Pressure : */* mmHG Vent. Rate : 109 BPM Atrial Rate : 109 BPM P-R Int : 248 ms QRS Dur : 92 ms QT Int : 308 ms P-R-T Axes : 20 5 18 degrees QTcB Int : 414 ms Sinus tachycardia with 1st degree A-V block Cannot rule out Inferior infarct , age undetermined Abnormal ECG When compared with ECG of 26-Jun-2024 19:21, No significant change was found Referred By: Generic ED Physician Electronically Signed By: RAUL CARREON MD
--- NOTE | ~2025-01-04 | XR_ITS ---
CLINICAL HISTORY: fever, dyspnea 1 view chest x-ray Comparison: CR - XR CHEST 1V - 12/30/24 02:34 EST Findings: There is new patchy right lower lobe density. Cardiac and mediastinal contours are prominent but stable. No acute fracture. IMPRESSION: New patchy right lower lobe density suggestive of pneumonia. Follow-up recommended to ensure resolution. This document has been electronically signed by: Cody Mendiola MD on 01/05/2025 07:30:30
--- NOTE | ~2025-01-04 | XR_ITS ---
CLINICAL HISTORY: pain post fall 2 view right knee Comparison: CR - XR KNEE RT 4V - 11/27/24 17:48 EST Findings: No acute fracture or dislocation injury visualized. A right knee prosthesis is in place with a surgical screw of the medial tibial plateau. There is evidence of patellar resurfacing on the lateral image. The surgical hardware appears intact. No joint effusion. Vascular calcifications are present. IMPRESSION: 1. No acute fracture or dislocation injury identified at the right knee. This document has been electronically signed by: Jacob Shelton MD on 01/04/2025 23:30:46
[2025-01-04 21:54] VITALS: BP 120/66; PULSE 50; O2SAT 95
[2025-01-04 22:00] VITALS: BP 104/57; PULSE 115; RESP 18; TEMP 36.7; O2SAT 95; BMI 33.2
[2025-01-04 22:32] LABS: MANUAL DIFF FLAG NO
[2025-01-04 22:33] LABS: Basophils Percent Auto 0.2 % (0-2); Eosinophils Percent Auto 0.2 % (0-4); Hematocrit 39.2 % (42.0-52.0); Hemoglobin 13.6 g/dl (14.0-18.0); Imm Gran Abs Auto 0.05 X10*3/uL (0.00-0.03); Imm Gran Pct Auto 0.4 % (0.0-0.4); Lymphocytes Absolute Auto 0.9 X10*3/uL (1.2-4.9); Lymphocytes Percent Auto 7.1 % (20-40); Mean Corpuscular HGB Conc 34.7 g/dl (31.0-36.0); Mean Corpuscular Hemoglobin 29.4 pg (27.0-33.0); Mean Corpuscular Volume 84.8 fL (80.0-98.0); Mean Platelet Volume 8.9 fL (9.4-12.4); Monocytes Absolute Auto 0.9 X10*3/uL (0.1-1.2); Monocytes Percent Auto 6.8 % (2-11); Neutrophils Absolute Auto 11.1 x10*3/uL (2.0-8.3); Neutrophils Percent Auto 85.3 % (45-73); Platelet Count 279 X10*3/uL (160-400); Red Blood Count 4.62 X10*6/uL (4.60-5.80); Red Cell Distribution Width 13.2 % (11.0-16.0)
[2025-01-04 22:48] LABS: Alanine Aminotransferase 12 U/L (0-40); Alkaline Phosphatase 74 U/L (39-117); Anion Gap 19 (12-20); Aspartate Amino Transferase 25 U/L (5-37); Bilirubin Total 0.6 mg/dL (0.0-1.0); Blood Urea Nitrogen 20 mg/dL (9-16); Calcium 9.3 mg/dL (8.4-10.2); Carbon Dioxide 19 mmol/L (22-29); Chloride 102 mmol/L (96-108); Creatinine Clr Calc Pharmacy 43.1; Estimated Glomerular Filt Rate 41; Glucose Random 166 mg/dL (60-115); Sodium 135 mmol/L (135-145)
[2025-01-04 22:53] LABS: B Type Natriuretic Peptide 82 pg/mL (<100); Troponin-I High Sensitivity 10.9 ng/L (<3.5-35.0)
[2025-01-05] VITALS (14 sets, daily range): BP systolic 78–118; BP diastolic 48–65; PULSE 78–101; RESP 16–27; TEMP 36.4–38.1; O2SAT 93–98
[2025-01-05 03:28] LABS: Influenza A PCR NEGATIVE (Negative); Influenza B PCR NEGATIVE (Negative); Resp Syncy Virus RNA Qual PCR NEGATIVE (Negative); SARS COV2 PCR INHOUSE NEGATIVE (Negative)
--- NOTE | 2025-01-05 03:33 | ED_ITS ---
HPI - General Adult General Chief complaint: Fall Stated complaint: fall, knee discomfprt Time Seen by Provider: 01/05/25 03:33 History of Present Illness ED Provider: Bib GEORGE narrative: The patient is an 84-year-old male who says that he was returning to his car in a parking lot and [place]. He had just gone shopping. He was pushing a shopping cart in the parking lot. He said the surface of the parking lot was irregular and there was a lot of slush. He says that he fell a couple of times. Finally he fell and could not get up. Some bystanders helped him and called 911 and he was brought to the hospital. He says that his legs felt too weak for him to stand up. He has some pain in his knees, more so on the right side. He did not hit his head he says. He admits to a mild cough although he says it has been productive. He has felt fatigued. No chest pain. No abdominal pain. No nausea or vomiting. Related Data Previous Rx's ?Medication ?Instructions ?Recorded budesonide-formoterol HFA 160 2 puff PO BID #10.2 grams 03/17/23 mcg-4.5 mcg/actuation aerosol inhaler furosemide 40 mg tablet 40 mg PO DAILY #90 tabs 12/08/23 albuterol sulfate 90 mcg/actuation 1 inh inhalation QID PRN shortness 12/21/23 aerosol inhaler (Ventolin HFA) of breath or wheezing #8.5 grams fluticasone propionate 50 2 spray intranasal DAILY #16 grams 12/24/23 mcg/actuation nasal spray,suspension (Flonase Allergy Relief) metronidazole 0.75 % topical cream 1 appl topical BID #45 grams 07/28/24 metformin 500 mg tablet,extended 500 mg PO QPM #90 tabs 08/04/24 release 24 hr hydroxyzine HCl 25 mg tablet 25 mg PO TID PRN anxiety 30 days 08/28/24 #90 tabs tizanidine 4 mg tablet 4 mg PO BEDTIME PRN muscle 09/11/24 spasticity 30 days #90 tabs Combivent Respimat 20 mcg-100 1 puff inhalation QID #4 grams 11/06/24 mcg/actuation solution for inhalation (ipratropium-albuterol) amlodipine 5 mg tablet 5 mg PO DAILY 90 days #90 tabs 11/06/24 doxycycline hyclate 100 mg capsule 100 mg PO DAILY 30 days #30 caps 11/06/24 losartan 100 mg tablet 100 mg PO DAILY 90 days #90 tabs 11/06/24 rosuvastatin 10 mg tablet 10 mg PO BEDTIME 30 days #30 tabs 11/06/24 COMPRESSION STOCKINGS (moderate #2 ea 11/10/24 compression 20-30 mm) gabapentin 800 mg tablet 800 mg PO TID 30 days #90 tabs 11/27/24 melatonin 10 mg tablet 10 mg PO BEDTIME PRN sleep #30 tabs 11/30/24 oxycodone 15 mg tablet 15 mg PO BID PRN severe pain 30 12/07/24 days #60 tabs ipratropium 20 mcg-albuterol 100 1 puff inhalation QID #4 grams 12/30/24 mcg/actuation mist for inhalation (Combivent Respimat) trazodone 150 mg tablet 150 mg PO BEDTIME PRN for insomnia 01/02/25 90 days #90 tabs Allergies Allergy/AdvReac Type Severity Reaction Status Date / Time morphine AdvReac Severe respiratory Verified 01/04/25 22:04 depression/failure Review of Systems 2 Review of Systems: Yes all other systems are reviewed and are negative PMFSH Past Medical History Medical History Right shoulder pain Primary osteoarthritis of shoulders, bilateral Benign essential hypertension COPD with exacerbation Cough Shoulder pain COPD exacerbation Fatigue Adult general medical exam Cellulitis Encounter for Medicare annual wellness exam Prostate cancer screening Hyperglycemia Depression Viral syndrome COVID-19 Borderline diabetes mellitus Right knee pain Skin lesion Pain and swelling of right knee Nasal congestion Bronchitis Left foot pain COVID Diabetes mellitus Obesity (BMI 30-39.9) Anxiety Insomnia Chronic kidney disease (CKD), stage III (moderate) Pure hypercholesterolemia Erectile dysfunction Lumbar degenerative disc disease Primary osteoarthritis of both knees COPD (chronic obstructive pulmonary disease) Degenerative disc disease, cervical Surgical History Hx of total knee arthroplasty History of glaucoma History of trabeculectomy Family History Family History Father Cancer Mother No problems noted. Social History Social History Housing: House Alcohol intake: former Patient Tobacco Use Status: Former Tobacco user Tobacco use type: Cigar Years Smoked: 30 years Smoked in Last 30 Days: No e-Cigarette/Vaping Use: Never Used Second Hand Smoke Exposure: Yes Use of substances other than those prescribed or required for medical reasons: No Advance Directives: No Advance Directives Information Provided: Yes Do you have a plan to hurt others: No Plan service: Yes Current occupational status: retired Cognitive needs: No Hearing needs: No Vision needs: No Physical Exam ED Vital Signs: Vital Signs - 24 hr 01/04/25 22:00 01/05/25 02:35 01/05/25 02:46 Temperature 98.0 F 97.8 F 97.8 F Pulse Rate 115 H 93 88 Respiratory Rate 18 20 20 Blood Pressure 104/57 L 78/48 L 96/65 Pulse Oximetry 95 93 97 Oxygen Delivery Method Room Air Room Air Room Air 01/05/25 03:06 01/05/25 04:00 01/05/25 04:39 Temperature 98.5 F Pulse Rate 90 92 101 H Respiratory Rate 16 18 22 H Blood Pressure 91/56 L 92/62 90/54 L Pulse Oximetry 96 95 95 Oxygen Delivery Method Room Air Room Air Room Air 01/05/25 05:28 01/05/25 06:00 01/05/25 07:03 Temperature 98.5 F 100.5 F H Pulse Rate 94 91 Respiratory Rate 27 H 16 Blood Pressure 93/50 L 97/55 L Pulse Oximetry 95 97 Oxygen Delivery Method Room Air Room Air 01/05/25 08:36 Temperature 100.3 F Pulse Rate 78 Respiratory Rate 16 Blood Pressure 110/54 L Pulse Oximetry 98 Oxygen Delivery Method Room Air BMI result Body Mass Index 33.2 Const Other: The patient is a disheveled 84-year-old man who was awake and alert. He seems pleasant and cooperative but seems worn out and weak. He did not appear in respiratory distress or obvious discomfort. HENMT Other: Face is symmetrical. Poor dentition. Mucous membranes moist. Eyes Other: Pupils are round equal, conjunctivae clear, extraocular movements intact. Neck Other: Moving his neck easily. No C-spine tenderness. No JVD. No adenopathy Resp Other: No increased work of breathing. No definite crackles or wheezes. Cardio Other: The patient has a regular rate and rhythm with no murmur GI Other: The abdomen was soft and nontender. Skin Other: Skin was dry and unremarkable. Neuro Other: The patient seemed fatigued but it was awake and reasonably well oriented. He did not seem confused or encephalopathic but did seem tired. Eye movements are intact, pupils are unremarkable, face is symmetrical, speech is clear. He moves his extremities symmetrically. He says that his legs felt very weak but he seemed able to move them well in bed. I did not ambulate the patient. Extrem Other: The patient has some tenderness about the right knee but he can move the knee fairly well. No peripheral edema. Medications Administered Generic Name Dose Route Start Last Admin Trade Name Freq PRN Reason Stop Dose Admin Azithromycin 500 mg/ Sodium 250 mls @ 125 mls/hr 01/05/25 07:56 01/05/25 08:18 Chloride IV 01/05/25 09:55 125 mls/hr ONCE ONE Administration Discontinued Medications Generic Name Dose Route Start Last Admin Trade Name Freq PRN Reason Stop Dose Admin Ceftriaxone Sodium 1 gm 01/05/25 07:55 01/05/25 08:18 Ceftriaxone Sodium 1 Gm Vial IVPUSH 01/05/25 07:56 1 gm ONCE ONE Administration Sodium Chloride 1,000 mls @ 999 mls/hr 01/05/25 03:45 01/05/25 05:32 Ns IV 01/05/25 04:45 Infused .Q1H1M JOLENE Infusion Sodium Chloride 1,000 mls @ 999 mls/hr 01/05/25 05:30 01/05/25 06:15 Ns IV 01/05/25 06:30 Infused .Q1H1M JOLENE Infusion Lactated Ringer's 1,000 mls @ 999 mls/hr 01/05/25 08:00 01/05/25 08:21 Lr IV 01/05/25 09:00 999 mls/hr .Q1H1M JOLENE Administration Medical Decision Making Medical Decision Making [facility] Narrative: The patient is an 84-year-old male who felt weak and a parking lot and fell and could not get up. He complained of feeling weakness in both of his legs. He also felt that he injured his right knee. On his physical exam he does not seem to have any significant injury to the right knee. He can move it fairly well. He can move both legs well at the hips and the knees and the ankles. The patient was initially somewhat tachycardic and had borderline blood pressures but was not febrile. He was not describing symptoms of an infection. His white count was mildly elevated, his CRP was slightly elevated at 3.78. Since the patient was not complaining of any symptoms of an infection and since he had no fever and since his metabolic testing suggested possibility of dehydration with a an acute kidney injury (his creatinine was 1.6, up from his baseline of about 1.1-1.2) the patient was given IV fluids and observed. While in the emergency department he was found to have a fever of 100.5 at around 07:00. It was at this point that I was concerned about the possibility of an infectious process or sepsis in his patient. Prior to that I thought the patient was simply dehydrated. I ordered blood cultures and a lactate. Also a chest x-ray. His chest x-ray was read as possibly showing a right lower lobe infiltrate. I ordered ceftriaxone and azithromycin IV. His lactate came back normal at 1.7. The patient has been given IV fluids in addition antibiotics. He will be admitted to the hospitalist service. Lab Data 01/05/25 07:47 01/05/25 06:21 Labs: Lab Results 01/04/25 01/05/25 01/05/25 Range/Units 22:23 02:42 06:21 WBC 13.0 H (4.8-10.8) X10*3/uL RBC 4.62 (4.60-5.80) X10*6/uL Hgb 13.6 L (14.0-18.0) g/dl Hct 39.2 L (42.0-52.0) % MCV 84.8 (80.0-98.0) fL MCH 29.4 (27.0-33.0) pg MCHC 34.7 (31.0-36.0) g/dl RDW 13.2 (11.0-16.0) % Plt Count 279 (160-400) X10*3/uL MPV 8.9 L (9.4-12.4) fL Immature Gran % (Auto) 0.4 (0.0-0.4) % Neut % (Auto) 85.3 H (45-73) % Lymph % (Auto) 7.1 L (20-40) % [place] % (Auto) 6.8 (2-11) % Eos % (Auto) 0.2 (0-4) % Baso % (Auto) 0.2 (0-2) % Lymph # (Auto) 0.9 L (1.2-4.9) X10*3/uL [place] # (Auto) 0.9 (0.1-1.2) X10*3/uL Eos # (Auto) 0.0 (0.0-0.4) X10*3/uL Baso # (Auto) 0.0 (0.0-0.2) X10*3/uL Abs Immat Gran (auto) 0.05 H (0.00-0.03) X10*3/uL Absolute Neuts (auto) 11.1 H (2.0-8.3) x10*3/uL Absolute Nucleated RBC 0.000 (0.0-0.012) X10*3/uL Nucleated RBC % (auto) 0.0 (0.0-0.2) /100WBC Sodium 135 136 (135-145) mmol/L Potassium 5.0 3.7 D (3.3-5.1) mmol/L Chloride 102 106 (96-108) mmol/L Carbon Dioxide 19 L 21 L (22-29) mmol/L Anion Gap 19 13 (12-20) BUN 20 H 24 H (9-16) mg/dL Creatinine 1.61 H 1.70 H (0.5-1.4) mg/dL Estim Creat Clear Calc 43.1 40.8 Estimated GFR 41 38 Random Glucose 166 H 223 H (60-115) mg/dL Lactic Acid (0.5-2.0) mmol/L Calcium 9.3 8.0 L D (8.4-10.2) mg/dL Magnesium 2.0 (1.6-2.6) mg/dL Total Bilirubin 0.6 (0.0-1.0) mg/dL AST 25 (5-37) U/L ALT 12 (0-40) U/L Alkaline Phosphatase 74 (39-117) U/L Troponin I High Sens 10.9 (<3.5-35.0) ng/L C-Reactive Protein 3.78 H 7.25 H (< or = 0.50) mg/dL B-Natriuretic Peptide 82 (<100) pg/mL Total Protein 8.0 (6.5-8.0) g/dL Albumin 4.0 (3.5-5.0) g/dL Influenza Type A (PCR) NEGATIVE (Negative) Influenza Type B (PCR) NEGATIVE (Negative) RSV RNA Qual (PCR) NEGATIVE (Negative) SARS-CoV-2 RNA (RT-PCR) NEGATIVE (Negative) 01/05/25 Range/Units 07:47 WBC 10.7 (4.8-10.8) X10*3/uL RBC 3.88 L (4.60-5.80) X10*6/uL Hgb 11.4 L (14.0-18.0) g/dl Hct 33.7 L (42.0-52.0) % MCV 86.9 (80.0-98.0) fL MCH 29.4 (27.0-33.0) pg MCHC 33.8 (31.0-36.0) g/dl RDW 13.5 (11.0-16.0) % Plt Count 181 D (160-400) X10*3/uL MPV 9.6 (9.4-12.4) fL Immature Gran % (Auto) 0.5 H (0.0-0.4) % Neut % (Auto) 69.5 (45-73) % Lymph % (Auto) 15.9 L (20-40) % [place] % (Auto) 13.2 H (2-11) % Eos % (Auto) 0.4 (0-4) % Baso % (Auto) 0.5 (0-2) % Lymph # (Auto) 1.7 (1.2-4.9) X10*3/uL [place] # (Auto) 1.4 H (0.1-1.2) X10*3/uL Eos # (Auto) 0.0 (0.0-0.4) X10*3/uL Baso # (Auto) 0.1 (0.0-0.2) X10*3/uL Abs Immat Gran (auto) 0.05 H (0.00-0.03) X10*3/uL Absolute Neuts (auto) 7.4 (2.0-8.3) x10*3/uL Absolute Nucleated RBC 0.000 (0.0-0.012) X10*3/uL Nucleated RBC % (auto) 0.0 (0.0-0.2) /100WBC Sodium (135-145) mmol/L Potassium (3.3-5.1) mmol/L Chloride (96-108) mmol/L Carbon Dioxide (22-29) mmol/L Anion Gap (12-20) BUN (9-16) mg/dL Creatinine (0.5-1.4) mg/dL Estim Creat Clear Calc Estimated GFR Random Glucose (60-115) mg/dL Lactic Acid 1.7 (0.5-2.0) mmol/L Calcium (8.4-10.2) mg/dL Magnesium (1.6-2.6) mg/dL Total Bilirubin (0.0-1.0) mg/dL AST (5-37) U/L ALT (0-40) U/L Alkaline Phosphatase (39-117) U/L Troponin I High Sens (<3.5-35.0) ng/L C-Reactive Protein (< or = 0.50) mg/dL B-Natriuretic Peptide (<100) pg/mL Total Protein (6.5-8.0) g/dL Albumin (3.5-5.0) g/dL Influenza Type A (PCR) (Negative) Influenza Type B (PCR) (Negative) RSV RNA Qual (PCR) (Negative) SARS-CoV-2 RNA (RT-PCR) (Negative) Discharge Plan Discharge Clinical Impression: Pneumonia, Weakness, Fall, Acute kidney injury Patient Disposition: Admitted As Inpatient Print Language: Moldovan
[2025-01-05] MEDS: 0.9 % Sodium Chloride 1,000 ML 999 ML IV ×2 (03:53→05:28)
[2025-01-05 04:05] LABS: C Reactive Protein 3.78 mg/dL (< or = 0.50)
[2025-01-05 06:39] LABS: Anion Gap 13 (12-20); Blood Urea Nitrogen 24 mg/dL (9-16); C Reactive Protein 7.25 mg/dL (< or = 0.50); Carbon Dioxide 21 mmol/L (22-29); Chloride 106 mmol/L (96-108); Creatinine Clr Calc Pharmacy 40.8; Estimated Glomerular Filt Rate 38; Glucose Random 223 mg/dL (60-115); Potassium 3.7 mmol/L (3.3-5.1); Sodium 136 mmol/L (135-145)
[2025-01-05 07:53] LABS: MANUAL DIFF FLAG NO
[2025-01-05 07:55] LABS: Basophils Absolute Auto 0.1 X10*3/uL (0.0-0.2); Basophils Percent Auto 0.5 % (0-2); Eosinophils Percent Auto 0.4 % (0-4); Hematocrit 33.7 % (42.0-52.0); Hemoglobin 11.4 g/dl (14.0-18.0); Imm Gran Abs Auto 0.05 X10*3/uL (0.00-0.03); Imm Gran Pct Auto 0.5 % (0.0-0.4); Lymphocytes Absolute Auto 1.7 X10*3/uL (1.2-4.9); Lymphocytes Percent Auto 15.9 % (20-40); Mean Corpuscular HGB Conc 33.8 g/dl (31.0-36.0); Mean Corpuscular Hemoglobin 29.4 pg (27.0-33.0); Mean Corpuscular Volume 86.9 fL (80.0-98.0); Mean Platelet Volume 9.6 fL (9.4-12.4); Monocytes Absolute Auto 1.4 X10*3/uL (0.1-1.2); Monocytes Percent Auto 13.2 % (2-11); Neutrophils Absolute Auto 7.4 x10*3/uL (2.0-8.3); Neutrophils Percent Auto 69.5 % (45-73); Platelet Count 181 X10*3/uL (160-400); Red Blood Count 3.88 X10*6/uL (4.60-5.80); Red Cell Distribution Width 13.5 % (11.0-16.0); White Blood Count 10.7 X10*3/uL (4.8-10.8)
[2025-01-05 08:09] LABS: Lactic Acid 1.7 mmol/L (0.5-2.0)
[2025-01-05] MEDS: cefTRIAXone sodium 1 GM VIAL IVPUSH (08:18)
[2025-01-05] MEDS: Azithromycin 500 MG in 0.9 % Sodium Chloride 250 ML 125 MG IV (08:18)
[2025-01-05] MEDS: Lactated Ringers 1,000 ML 999 ML IV (08:21)
--- NOTE | 2025-01-05 08:25 | PC.NURSE ---
Pt reports feeling weak. BLE just stopped working yesterday. no previous issues but had needed to lean on carriages to get around. axox3. slightly labored resp in bed. LS CTA. skin pwd.
[2025-01-05 09:26] LABS: Appearance Urine Clear; Color Urine Dark Yellow; Glucose Urine UA Negative (Negative); Leukocyte Esterase Urine Trace (Negative); Nitrite Urine Negative (Negative); PH 5.5 (5.0-9.0); UMIC TRIGGER UACC YES; Urine Blood Negative (Negative); Urine Ketones Trace mg/dL (Negative); Urine Protein 100 (2+) mg/dL (Neg-Trace)
[2025-01-05 09:32] LABS: Bacteria Urine None Seen (None Seen); Granular Casts Urine Present; RBC Urine 0-2 /HPF (0-2); WBC Urine 0-5 /HPF (0-5)
--- NOTE | 2025-01-05 10:15 | P.HPHOSP_ITS ---
History of Present Illness Date of Service: 01/05/25 Chief Complaint: fall 84M PMH DM, COPD, hypertension presented with fall. Patient states he was feeling well on day of presentation. Went to shopping and in the parking lot felt his legs gave out of him and felt weak, had hard time getting up and fell a couple of more times. Called EMS. Denies any fever or chills or cough. In ED noted to have low-grade fever and right lower lobe opacity on x-ray. Review of Systems 2 Review of Systems: Yes all other systems are reviewed and are negative [facility] Medical History Right shoulder pain Primary osteoarthritis of shoulders, bilateral Benign essential hypertension COPD with exacerbation Cough Shoulder pain COPD exacerbation Fatigue Adult general medical exam Cellulitis Encounter for Medicare annual wellness exam Prostate cancer screening Hyperglycemia Depression Viral syndrome COVID-19 Borderline diabetes mellitus Right knee pain Skin lesion Pain and swelling of right knee Nasal congestion Bronchitis Left foot pain COVID Diabetes mellitus Obesity (BMI 30-39.9) Anxiety Insomnia Chronic kidney disease (CKD), stage III (moderate) Pure hypercholesterolemia Erectile dysfunction Lumbar degenerative disc disease Primary osteoarthritis of both knees COPD (chronic obstructive pulmonary disease) Degenerative disc disease, cervical Family History Father Cancer Mother No problems noted. Surgical History Hx of total knee arthroplasty History of glaucoma History of trabeculectomy Social History Housing: House Alcohol intake: former Patient Tobacco Use Status: Former Tobacco user Tobacco use type: Cigar Years Smoked: 30 years Smoked in Last 30 Days: No e-Cigarette/Vaping Use: Never Used Second Hand Smoke Exposure: Yes Use of substances other than those prescribed or required for medical reasons: No Advance Directives: No Advance Directives Information Provided: Yes Do you have a plan to hurt others: No Plan service: Yes Current occupational status: retired Cognitive needs: No Hearing needs: No Vision needs: No Meds Allergies Allergy/AdvReac Type Severity Reaction Status Date / Time morphine AdvReac Severe respiratory Verified 01/04/25 22:04 depression/failure Active Medications: Current Medications Acetaminophen (Acetaminophen 325 Mg Tablet) 650 mg PO Q6H PRN PRN Reason: Pain, Mild 1-3,fever,headache Azithromycin (Azithromycin 500 Mg Tablet) 500 mg PO Q24H JOLENE Calcium Carbonate (Calcium Carbonate 750 Mg Tab.Chew) 750 mg PO Q4H PRN PRN Reason: Heartburn Ceftriaxone Sodium (Ceftriaxone Sodium 1 Gm Vial) 1 gm IVPUSH Q24H JOLENE Dextrose (Dextrose 50 % 25 Gm/50 Ml Syringe) 25 gm IVPUSH Q15M PRN; Protocol PRN Reason: per Hypoglycemia Standing Ord. Glucose (Glucose Gel 15 Gm Gel..Gram.) 15 gm PO Q15M PRN; Protocol PRN Reason: per Hypoglycemia Standing Ord. Heparin Sodium (Porcine) (Heparin Sodium,Porcine 5,000 Unit/Ml Vial) 5,000 unit SUBCUT Q8H [facility] Insulin Human Lispro (Insulin Lispro 100 Unit/Ml 3 Ml Vial) 0 unit SUBCUT QIDACHS [facility]; Protocol Magnesium Hydroxide (Milk Of Magnesia 30 Ml Oral.Susp) 30 ml PO DAILY PRN PRN Reason: Constipation Melatonin (Melatonin 3 Mg Tablet) 6 mg PO BEDTIME PRN PRN Reason: Insomnia Sodium Chloride (0.9 % Sodium Chloride Flush 3 Ml Syringe) 3 ml IVFLUSH QSHIFT [facility] Home Medications ?Medication ?Instructions ?Recorded ?Confirmed ?Last Taken ?Type metformin 500 mg tablet,extended 500 mg PO BEDTIME 01/05/25 01/05/25 01/04/25 History release 24 hr Physical Exam 2 Vital Signs and Narrative: Vital Signs: Last Vital Signs Temp 98.5 F 01/05/25 09:13 Pulse 81 01/05/25 09:13 Resp 17 01/05/25 09:13 BP 115/56 L 01/05/25 09:13 Pulse Ox 98 01/05/25 09:13 O2 Del Method Room Air 01/05/25 09:13 BMI result Body Mass Index 33.2 General: O X 3, alert but ill appearing Resp: CTA bilateral, no accessory muscles used CVS: S1,S2,RRR GI: soft, non tender, non distended Neuro: motor grossly intact, alert Psych: appropriate affect, appropriate insight Results Labs 01/05/25 07:47 01/05/25 06:21 Labs: Laboratory Results - last 24 hr 01/04/25 01/05/25 01/05/25 22:23 02:42 06:21 MCV 84.8 MCH 29.4 MCHC 34.7 RDW 13.2 Plt Count 279 MPV 8.9 L Immature Gran % (Auto) 0.4 Neut % (Auto) 85.3 H Lymph % (Auto) 7.1 L [place] % (Auto) 6.8 Eos % (Auto) 0.2 Baso % (Auto) 0.2 Lymph # (Auto) 0.9 L [place] # (Auto) 0.9 Eos # (Auto) 0.0 Baso # (Auto) 0.0 Abs Immat Gran (auto) 0.05 H Absolute Neuts (auto) 11.1 H Absolute Nucleated RBC 0.000 Nucleated RBC % (auto) 0.0 Anion Gap 19 13 Estim Creat Clear Calc 43.1 40.8 Estimated GFR 41 38 Random Glucose 166 H 223 H Lactic Acid Calcium 9.3 8.0 L D Magnesium 2.0 Total Bilirubin 0.6 AST 25 ALT 12 Alkaline Phosphatase 74 C-Reactive Protein 3.78 H 7.25 H B-Natriuretic Peptide 82 Total Protein 8.0 Albumin 4.0 Urine Color Urine Appearance Urine pH Ur Specific [place] Urine Protein Urine Glucose (UA) Urine Ketones Urine Blood Urine Nitrite Ur Leukocyte Esterase Urine RBC Urine WBC Ur Squamous Epith Cells Urine Bacteria Hyaline Casts Granular Casts Influenza Type A (PCR) NEGATIVE Influenza Type B (PCR) NEGATIVE RSV RNA Qual (PCR) NEGATIVE SARS-CoV-2 RNA (RT-PCR) NEGATIVE 01/05/25 01/05/25 07:47 09:18 MCV 86.9 MCH 29.4 MCHC 33.8 RDW 13.5 Plt Count 181 D MPV 9.6 Immature Gran % (Auto) 0.5 H Neut % (Auto) 69.5 Lymph % (Auto) 15.9 L [place] % (Auto) 13.2 H Eos % (Auto) 0.4 Baso % (Auto) 0.5 Lymph # (Auto) 1.7 [place] # (Auto) 1.4 H Eos # (Auto) 0.0 Baso # (Auto) 0.1 Abs Immat Gran (auto) 0.05 H Absolute Neuts (auto) 7.4 Absolute Nucleated RBC 0.000 Nucleated RBC % (auto) 0.0 Anion Gap Estim Creat Clear Calc Estimated GFR Random Glucose Lactic Acid 1.7 Calcium Magnesium Total Bilirubin AST ALT Alkaline Phosphatase C-Reactive Protein B-Natriuretic Peptide Total Protein Albumin Urine Color Dark Yellow Urine Appearance Clear Urine pH 5.5 Ur Specific [place] 1.020 Urine Protein 100 (2+) H Urine Glucose (UA) Negative Urine Ketones Trace Urine Blood Negative Urine Nitrite Negative Ur Leukocyte Esterase Trace H Urine RBC 0-2 Urine WBC 0-5 Ur Squamous Epith Cells 3-5 Urine Bacteria None Seen Hyaline Casts 11-20 Granular Casts Present Influenza Type A (PCR) Influenza Type B (PCR) RSV RNA Qual (PCR) SARS-CoV-2 RNA (RT-PCR) Assessment and Plan (1) Hypertension: Status: Acute Plan 84M PMH DM, COPD, hypertension presented with fall found to have pneumonia Fall likely due to deconditioning from pneumonia No focal neurological deficit Ceftriaxone azithromycin, follow up cultures and respiratory viral swab PT eval Acute kidney injury IV hydration, monitor Diabetes with hyperglycemia Insulin sliding scale COPD Continue inhalers Hypertension Amlodipine DVT prophylaxis with heparin subQ Full code Patient with acute kidney injury and pneumonia requiring IV fluids and IV antibiotics will likely require at least 2 midnights inpatient Quality Stroke Does the patient have a stroke diagnosis?: No VTE Prior VTE?: No VTE Risk Level:: Medical - moderate - high VTE Device Contraindication: Treatment Not Indicated VTE Drug Contraindication: N/A - Med Ordered
[2025-01-05 10:47] LABS: Adenovirus PCR Not Detected (Not Detect.); Bordetella parapertussis PCR Not Detected (Not Detect.); Bordetella pertussis PCR Not Detected (Not Detect.); Chlamydia pneumoniae PCR Not Detected (Not Detect.); Coronavirus 229E PCR Not Detected (Not Detect.); Coronavirus HKU1 PCR Not Detected (Not Detect.); Coronavirus NL63 PCR Not Detected (Not Detect.); Coronavirus OC43 PCR Not Detected (Not Detect.); Human metapneumovirus PCR Not Detected (Not Detect.); Influenza A PCR Not Detected (Not Detect.); Influenza B PCR Not Detected (Not Detect.); Mycoplasma pneumoniae PCR Not Detected (Not Detect.); Parainfluenza 1 PCR Not Detected (Not Detect.); Parainfluenza 2 PCR Not Detected (Not Detect.); Parainfluenza 3 PCR Not Detected (Not Detect.); Parainfluenza 4 PCR Not Detected (Not Detect.); RSV PCR Not Detected (Not Detect.); Rhino/Enterovirus PCR Not Detected (Not Detect.)
[2025-01-05 11:38] LABS: SARS-CoV-2 PCR Not Detected (Not Detect.)
--- NOTE | 2025-01-05 12:02 | PHA.MEDREC ---
Addendum entered by Eleno Gar RPh 01/05/25 12:14: Med rec was reviewed by [facility]. Original Note: Pharmacy Consult ? Medication Reconciliation Pharmacy has completed the medication reconciliation. Spoke to patent to confirm med list. Patient states he no longer takes Flonase, Rosuvastatin 10 mg and Tizanidine 4 mg. Patient last took his medications last night.
[2025-01-05] MEDS: Heparin Sodium,Porcine 5,000 UNIT/ML VIAL 5000 UNIT SUBCUT (12:20)
[2025-01-05] MEDS: Lactated Ringers 1,000 ML 80 ML IVCONT (12:20)
[2025-01-05 13:03] LABS: Glucose, Whole Blood 187 mg/dL (60-115)
[2025-01-05] MEDS: Insulin Lispro 100 UNIT/ML 3 ML VIAL SUBCUT (13:04)
[2025-01-05] MEDS: Gabapentin 400 MG CAPSULE 800 MG PO ×2 (14:31→23:46)
--- NOTE | 2025-01-05 15:51 | PC.NURSE ---
Ambulates to BR with cane and steady gait. NO SOB.
[2025-01-05 18:34] LABS: Glucose, Whole Blood 90 mg/dL (60-115)
[2025-01-05 22:48] LABS: Glucose, Whole Blood 114 mg/dL (60-115)
[2025-01-06] MEDS: 0.9 % Sodium Chloride Flush 3 ML SYRINGE IVFLUSH (01:49)
[2025-01-06] MEDS: Lactated Ringers 1,000 ML 80 ML IVCONT (01:49)
--- NOTE | 2025-01-06 02:41 | PC.NURSE ---
Patient has been calm/cooperative since this RN's shift began (at 21:00 on 01/05/2025). Able to make needs known. LR infusing at 80 ml/hour as ordered.
[2025-01-06] MEDS: Heparin Sodium,Porcine 5,000 UNIT/ML VIAL 5000 UNIT SUBCUT (04:32)
[2025-01-06 07:29] LABS: Glucose, Whole Blood 111 mg/dL (60-115)
[2025-01-06 07:29] LABS: Hematocrit 35.9 % (42.0-52.0); Mean Corpuscular HGB Conc 33.4 g/dl (31.0-36.0); Mean Corpuscular Hemoglobin 29.4 pg (27.0-33.0); Mean Platelet Volume 9.3 fL (9.4-12.4); Platelet Count 200 X10*3/uL (160-400); Red Blood Count 4.08 X10*6/uL (4.60-5.80); Red Cell Distribution Width 13.3 % (11.0-16.0); White Blood Count 9.1 X10*3/uL (4.8-10.8)
[2025-01-06 07:40] LABS: Anion Gap 11 (12-20); Blood Urea Nitrogen 19 mg/dL (9-16); Calcium 8.6 mg/dL (8.4-10.2); Carbon Dioxide 23 mmol/L (22-29); Chloride 109 mmol/L (96-108); Creatinine Clr Calc Pharmacy 63.7; Estimated Glomerular Filt Rate > 60; Glucose Random 116 mg/dL (60-115); Potassium 4.3 mmol/L (3.3-5.1); Sodium 139 mmol/L (135-145)
--- NOTE | 2025-01-06 08:44 | PM.DS ---
DS: Providers Provider Date of Service: 01/06/25 Date of admission: 01/05/25 10:23 Date of discharge: 01/06/25 Primary care physician: Kody Sheth MD DS: Diagnosis Discharge Diagnosis (1) Hypertension: Status: Acute DS: Summary Hospital Course Hospital Course: from initial hpi: 84M PMH DM, COPD, hypertension presented with fall. Patient states he was feeling well on day of presentation. Went to shopping and in the parking lot felt his legs gave out of him and felt weak, had hard time getting up and fell a couple of more times. Called EMS. Denies any fever or chills or cough. In ED noted to have low-grade fever and right lower lobe opacity on x-ray. hospital course: Patient was admitted for fall likely due to deconditioning from pneumonia. Patient was treated with ceftriaxone azithromycin. Respiratory viral panel was negative. For acute kidney injury was given IV fluids and creatinine improved. For debility was seen by physical therapy recommended short-term rehab. However, patient is not interested. Preferably would have continued inpatient treatment with IV fluids and IV antibiotics for another day however, Patient insisted on completing treatment at home. Will be discharged on 5 more days of Ceftin and azithromycin. For diabetes with hyperglycemia was continued on insulin sliding scale. For COPD continued on inhalers. For hypertension continued on amlodipine. Losartan discontinued for acute kidney injury and low normal blood pressures. Time Attestation Discharge Coordination Time (in mins): 33 Quality: Safe Use of Opioids Does Pt have an Active Cancer Diagnosis on the Problem List?: No Quality: Stroke Does the patient have a stroke diagnosis?: No Physical Exam Vital Signs: Vital Signs: Last Vital Signs Temp 98.1 F 01/05/25 20:00 Pulse 87 01/05/25 20:00 Resp 17 01/05/25 20:00 BP 118/59 L 01/05/25 20:00 Pulse Ox 96 01/05/25 20:00 O2 Del Method Room Air 01/05/25 20:00 BMI result Body Mass Index 33.2 General: AO X 3, no acute distress Resp: CTA bilateral, no accessory muscles used CVS: S1,S2,RRR GI: soft, non tender, non distended DS: Data Data Completed and Pending Labs on day of discharge: Laboratory Results - last 24 hr 01/05/25 01/05/2501/05/25 09:18 12:59 18:30 WBC RBC Hgb Hct MCV MCH MCHC RDW Plt Count MPV Absolute Nucleated RBC Nucleated RBC % (auto) Sodium Potassium Chloride Carbon Dioxide Anion Gap BUN Creatinine Estim Creat Clear Calc Estimated GFR POC Glucose 187 H 90 Random Glucose Calcium Urine Color Dark Yellow Urine Appearance Clear Urine pH 5.5 Ur Specific Goodrich 1.020 Urine Protein 100 (2+) H Urine Glucose (UA) Negative Urine Ketones Trace Urine Blood Negative Urine Nitrite Negative Ur Leukocyte Esterase Trace H Urine RBC 0-2 Urine WBC 0-5 Ur Squamous Epith Cells 3-5 Urine Bacteria None Seen Hyaline Casts 11-20 Granular Casts Present Respiratory Panel Christina See Note Adenovirus (Rapid PCR) Not Detected B.pert (TEM-PCR) Not Detected B.parapertussis DNA PCR Not Detected C. pneumoniae DNA (PCR) Not Detected Coronavirus OC43 (PCR) Not Detected Coronavirus HKU1 (PCR) Not Detected Coronavirus 229E (PCR) Not Detected Coronavirus NL63 (PCR) Not Detected Human Metapneumovir PCR Not Detected Influenza A (RT-PCR) Not Detected Influenza B (RT-PCR) Not Detected M. pneumoniae (PCR) Not Detected Parainfluenza 1 (PCR) Not Detected Parainfluenza 2 (PCR) Not Detected Parainfluenza 3 (PCR) Not Detected Parainfluenza 4 (PCR) Not Detected RSV (PCR) Not Detected Entero/Rhino (PCR) Not Detected SARS-CoV-2 RNA (RT-PCR) Not Detected 01/05/25 01/06/25 01/06/25 22:44 07:13 07:19 WBC 9.1 RBC 4.08 L Hgb 12.0 L Hct 35.9 L MCV 88.0 MCH 29.4 MCHC 33.4 RDW 13.3 Plt Count 200 MPV 9.3 L Absolute Nucleated RBC 0.000 Nucleated RBC % (auto) 0.0 Sodium 139 Potassium 4.3 Chloride 109 H Carbon Dioxide 23 Anion Gap 11 L BUN 19 H Creatinine 1.09 Estim Creat Clear Calc 63.7 Estimated GFR > 60 POC Glucose 114 111 Random Glucose 116 H Calcium 8.6 D Urine Color Urine Appearance Urine pH Ur Specific Goodrich Urine Protein Urine Glucose (UA) Urine Ketones Urine Blood Urine Nitrite Ur Leukocyte Esterase Urine RBC Urine WBC Ur Squamous Epith Cells Urine Bacteria Hyaline Casts Granular Casts Respiratory Panel Christina Adenovirus (Rapid PCR) B.pert (TEM-PCR) B.parapertussis DNA PCR C. pneumoniae DNA (PCR) Coronavirus OC43 (PCR) Coronavirus HKU1 (PCR) Coronavirus 229E (PCR) Coronavirus NL63 (PCR) Human Metapneumovir PCR Influenza A (RT-PCR) Influenza B (RT-PCR) M. pneumoniae (PCR) Parainfluenza 1 (PCR) Parainfluenza 2 (PCR) Parainfluenza 3 (PCR) Parainfluenza 4 (PCR) RSV (PCR) Entero/Rhino (PCR) SARS-CoV-2 RNA (RT-PCR) Discharge Plan Discharge Anticipated Discharge Date/Time: 01/06/25 08:41 Patient Disposition: Home, Self-Care Discharge Diagnosis: pna, bernabe, fall Referrals: Kody Sheth MD [Primary Care Provider] - 1 Week Discharge Medications: New cefuroxime axetil 500 mg tablet 500 mg PO BID Qty: 10 0RF azithromycin 500 mg tablet 500 mg PO DAILY 5 Days Qty: 5 0RF Continued furosemide 40 mg tablet 40 mg PO DAILY Qty: 90 1RF hydroxyzine HCl 25 mg tablet 25 mg PO TID PRN (Reason: anxiety) 30 Days Qty: 90 2RF Combivent Respimat 20-100 mcg/actuation mist 1 puff inhalation QID Qty: 4 5RF amlodipine 5 mg tablet 5 mg PO DAILY 90 Days Qty: 90 1RF gabapentin 800 mg tablet 800 mg PO TID 30 Days Qty: 90 0RF trazodone 150 mg tablet 150 mg PO BEDTIME PRN (Reason: for insomnia) 90 Days Qty: 90 0RF oxycodone 15 mg tablet 15 mg PO BID PRN (Reason: severe pain) 30 Days Qty: 60 0RF metformin 500 mg tablet extended release 24 hr 500 mg PO BEDTIME albuterol sulfate [Ventolin HFA] 90 mcg/actuation HFA aerosol inhaler 1 inh inhalation QID PRN (Reason: shortness of breath or wheezing) Qty: 8.5 1RF (DME) COMPRESSION STOCKINGS (moderate compression 20-30 mm) See Rx Instructions .Route .MEDSUPPLY Qty: 2 3RF Rx Instructions: As directed melatonin 10 mg tablet 10 mg PO BEDTIME PRN (Reason: sleep) Qty: 30 3RF Discontinued doxycycline hyclate 100 mg capsule 100 mg PO DAILY 30 Days Qty: 30 0RF losartan 100 mg tablet 100 mg PO DAILY 90 Days Qty: 90 1RF Discharge Orders: Discharge Order (Routine); Ordered 01/06/25 Ordered By: Don Kapoor Diet: Advance to usual diet Activity on Discharge: As tolerated Stand Alone Forms: Patient Portal Discharge page Print Language: Qatari Care Plan Goals: recovery Health Concerns: pna, bernabe Plan of Treatment: Five days of Ceftin and azithromycin, med changes as noted on med rec Assessment: See above
[2025-01-06] MEDS: cefTRIAXone sodium 1 GM VIAL IVPUSH (09:49)
[2025-01-06] MEDS: amLODIPine Besylate 5 MG TABLET PO (09:49)
[2025-01-06] MEDS: Azithromycin 500 MG TABLET PO (09:49)
[2025-01-06] MEDS: Gabapentin 400 MG CAPSULE 800 MG PO (09:55)
--- NOTE | 2025-01-06 12:04 | MHC.CM.PN ---
pt dcd home prior to being seen by cm pt dcd home self care
[2025-01-06 12:51] VITALS: BP 130/75; PULSE 62; RESP 13; TEMP 36.8; O2SAT 98
--- NOTE | 2025-01-06 12:56 | PC.NURSE ---
pt has had admission discharge orders placed for hours but has been unable to arrange transportation d/t contacts not answering and pt having car towed. charge lpn aware. pt moved to [facility].
[2025-01-06 13:26] LABS: Glucose, Whole Blood 121 mg/dL (60-115)
== END 2025-01-06 16:29 | disposition home or self-care (01) | DRG 194 ==
LOC: HO.ED 01-05 08:33 → HO.EDOVER 01-05 10:23
PROVIDERS: Admitting Provider Internal Medicine; Emergency Provider Emergency Medicine; PCP Internal Medicine; Visit Provider Internal Medicine
DX: J18.9 Pneumonia, unspecified organism (principal); J44.0 Chronic obstructive pulmonary disease with (acute) lower respiratory infection; N17.9 Acute kidney failure, unspecified; I10 Essential (primary) hypertension; Z20.822 Contact with and (suspected) exposure to COVID-19; Z79.84 Long term (current) use of oral hypoglycemic drugs; Z79.899 Other long term (current) drug therapy
CPT/HCPCS: 0241U; 36415; 71045; 73560; 80048; 80053; 81001; 82947; 83605; 83735; 83880; 84484; 85025; 85027; 86140; 87040; 87633; 93005; 97161; 99285; J0456; J0696; J1644; J7120

== ENCOUNTER → 2025-01-04 22:19 | Outpatient (BNV) | payer MEDICARE, MEDICAID, SELFPAY | PROVIDERS: Admitting Provider Internal Medicine; Emergency Provider Emergency Medicine; PCP Internal Medicine; Visit Provider Internal Medicine Cardiovascular Disease | DX: I44.0 Atrioventricular block, first degree (principal); R00.0 Tachycardia, unspecified | CPT/HCPCS: 93010 ==

== ENCOUNTER → 2025-01-04 22:20 | Outpatient (BNV) | payer MEDICARE, MEDICAID, SELFPAY | PROVIDERS: Visit Provider Radiology Diagnostic Radiology | DX: S80.01XA Contusion of right knee, initial encounter (principal); Z96.651 Presence of right artificial knee joint | CPT/HCPCS: 73560 ==

== ENCOUNTER → 2025-01-05 07:01 | Outpatient (BNV) | payer MEDICARE, MEDICAID, SELFPAY | PROVIDERS: Emergency Provider Emergency Medicine; PCP Internal Medicine; Visit Provider Radiology Vascular & Interventional Radiology | DX: R91.8 Other nonspecific abnormal finding of lung field (principal) | CPT/HCPCS: 71045 ==

== ENCOUNTER → 2025-01-05 10:23 | Outpatient (BNV) | payer MEDICARE, MEDICAID, SELFPAY | PROVIDERS: Admitting Provider Internal Medicine; Emergency Provider Emergency Medicine; PCP Internal Medicine; Visit Provider Internal Medicine | DX: I10 Essential (primary) hypertension (principal) | CPT/HCPCS: 99223; 99239 ==

== ENCOUNTER 2025-02-01 13:21 | Outpatient (REF) | payer MEDICARE, MEDICAID, SELFPAY ==
--- NOTE | 2025-02-01 13:25 | EMG_ITS ---
Chief complaint: Fell last year, right shoulder pain, reports weakness on right hand with pins and needles. Noted atrophy of right thenar and FDI. Reason for referral: Evaluate for radiculopathy Referred by: Anais ROBERTS Procedure done: Right upper extremity NCS/EMG Precautions and/or limitations: None The limb temperature was monitored continuously and remained between 32-36 degrees C during the performance of the NCS. Ulnar motor NCS was performed with moderate elbow flexion between 70-90 degrees, with across-elbow distance of 10 cm. Nerve Conduction Studies Anti Sensory Summary Table ?Stim Site NR Onset (ms) Norm Onset (ms) Peak (ms) Norm Peak (ms) O-P Amp (?V) Norm O-P Amp Site1 Site2 Delta-0 (ms) Dist (cm) Ilya (m/s) Norm Ilya (m/s) Right Median Anti Sensory (2nd Digit) Wrist NR <3.6 >10 Wrist 2nd Digit 14.0 Right Radial Anti Sensory (Thumb) Forearm ? 1.8 2.6 <3.1 6.7 Forearm Thumb 1.8 0.0 Right Ulnar Anti Sensory (5th Digit) Wrist ? 5.2 6.2 <3.7 4.7 >15.0 Wrist 5th Digit 5.2 14.0 27 Motor Summary Table ?Stim Site NR Onset (ms) Norm Onset (ms) O-P Amp (mV) Norm O-P Amp iAmp (mV) Amp (1st) (%) Site1 Site2 Delta-0 (ms) Dist (cm) Ilya (m/s) Norm Ilya (m/s) Right Median Motor (Abd Poll Brev) Wrist ? 13.9 <3.9 1.1 >4.5 1.3 100.0 Elbow Wrist 6.2 21.0 34 >45 Elbow ? 20.1 0.8 0.9 72.7 Right Ulnar Motor (Abd Dig Minimi) Wrist ? 3.5 <3.0 3.3 >5 3.9 100.0 B Elbow Wrist 4.9 21.0 43 >45 B Elbow ? 8.4 1.1 1.6 33.3 A Elbow B Elbow 2.5 10.0 40 >45 A Elbow ? 10.9 2.8 3.1 84.8 EMG ?Side Muscle Nerve Root Ins Act Fibs Psw Amp Dur Poly Recrt Int Pat Comment Right 1stDorInt Ulnar C8-T1 Incr 1+ 1+ Nml Nml 0 Nml Complete CRDs Right Biceps Musculocut C5-6 Nml Nml Nml Nml Nml 0 Nml Complete Right Triceps Radial C6-7-8 Nml Nml Nml Nml Nml 0 Nml Complete Right Deltoid Axillary C5-6 Nml Nml Nml Nml Nml 0 Nml Complete Right Abd Poll Brev Median C8-T1 Incr 1+ 1+ Nml Nml 0 Nml Complete Right FlexCarpiUln Ulnar C8,T1 Incr 1+ 1+ Nml Nml 0 Nml Complete FINDINGS: Right median motor nerve showed prolonged distal latency, small amplitude and slow conduction velocity. Right ulnar motor nerve showed prolonged distal latency, small amplitude and slow conduction velocity. Right median sensory nerves showed absent response. Right ulnar sensory nerve showed prolonged peak latency and small amplitude. All other nerves tested were within normal. Concentric needle EMG was performed in selected muscles of the right upper extremity. Study revealed signs of electric abnormalities as shown in the table above. Right FDI showed increased insertional activity, PSWs, fibrillations, and CRDs. Right FCU showed increased insertional activity, small PSWs and fibrillations. Right APB showed increased insertional activity, PSWs and fibrillations. IMPRESSION: 1. This is an abnormal study. 2. There is electrodiagnostic evidence for 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 3. 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 4. There is no electrodiagnostic evidence for brachial plexopathy or cervical radiculopathy. Thank you for your kind referral. Susannah Naylor MD, JONE Board Certified, [place] Board [employer] and Rehabilitation (ABPMR) Board Certified, [place] Board of Electrodiagnostic Medicine (ABEM) [place] [id number] [facility]
--- OUTSIDE RECORDS SUMMARY | 2025-02-01 16:55 | XMS_ITS | Clinical Summary ---
Author Organization [facility] ity Address [address] [place] [address] Care Team Providers Care Manual Writer Name Role Phone Unavailable Primary Care Provider Unavailabl e Social History Tobacco Use Types Packs/Day Years Used Date Smoking Tobacco: Never Assessed Sex and Gender Information Value Date Recorded Sex Assigned at Not on file Legal Sex Male 8:58 PM EST Gender Identity Not on file Sexual Orientation Not on file Plan of Treatment Health Maintenance Due Date Last Done Comments DTaP,Tdap,and Td Vaccines (1 - Tdap) 1959 Pneumococcal Vaccine: 50+ Ye ars (1 of 1 - PCV) 1989 Zoster Vaccines (1 of 2) 1989 RSV Immunization Patients 60 + Years Old (1 - 1-dose 75+ series) 2014 Cholesterol Screening (Lipid Panel) 10/24/2022 Depression Screening 10/24/2022 Falls Risk Assessment 10/24/2022 Social Influencers of Health Screening 10/24/2022 COVID-19 Vaccine ( - 2023-2 5 season) 2024 Influenza Vaccine (#1) 2024 HIB Vaccines Aged Out No longer eligi ble based on patient's age to complete this topic HPV Vaccines Aged Out No longer eligi ble based on patient's age to complete this topic Hepatitis A Vaccines Aged Out No long er eligible based on patient's age to complete this topic Hepatitis B Vaccines Aged Out No long er eligible based on patient's age to complete this topic IPV Vaccines Aged Out No longer eligi ble based on patient's age to complete this topic MMR Vaccines Aged Out No longer eligi ble based on patient's age to complete this topic Meningococcal ACWY Vaccine Aged Out N o longer eligible based on patient's age to complete this topic Meningococcal B Vacine Aged Out No lo nger eligible based on patient's age to complete this topic RSV Immunization Patients Un scar 20 months Aged Out No longer eligible b ased on patient's age to complete this topic Varicella Vaccines Aged Out No longer eligible based on patient's age to complete this topic
== END 2025-02-01 13:22 | disposition home or self-care (01) ==
LOC: HO.NEURO 13:21
PROVIDERS: PCP Internal Medicine; Visit Provider Physician Assistant
DX: R20.0 Anesthesia of skin (principal); R20.2 Paresthesia of skin
CPT/HCPCS: 95886; 95909

== ENCOUNTER → 2025-02-01 13:25 | Outpatient (BNV) | payer MEDICARE, MEDICAID, SELFPAY | PROVIDERS: PCP Internal Medicine; Visit Provider Physical Medicine & Rehabilitation | DX: G56.01 Carpal tunnel syndrome, right upper limb (principal); G56.21 Lesion of ulnar nerve, right upper limb | CPT/HCPCS: 95886; 95909 ==

== ENCOUNTER 2025-02-28 14:50 | Outpatient (AMB) | payer MEDICARE, MEDICAID, SELFPAY ==
--- NOTE | 2025-02-28 14:56 | MHC.OFFVIS ---
Intake Visit Reasons: OV-Right upper extremity NCS/EMG Review Intake Note: Long 84 yr old male presents today for his EMG review. IMPRESSION: 1. This is an abnormal study. 2. There is electrodiagnostic evidence for 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 3. 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 4. There is no electrodiagnostic evidence for brachial plexopathy or cervical radiculopathy. Allergies morphine Adverse Reaction (Severe, Verified 02/28/25 15:01) respiratory depression/failure HPI HPI OV-Right upper extremity NCS/EMG Review: Details: Long is an 84 year old right hand dominant Diabetic man who presents for a NCS review of his right hand numbness. He complains of numbness in is entire right hand. He is unsure if his small finger goes numb. With dense numbness in the median nerve distribution, worse at night He denies any prior treatment options. 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 He has Diabetes, COPD, and CKD III. FOR[facility]LY [facility], [facility] Medical History Right shoulder pain Primary osteoarthritis of shoulders, bilateral Benign essential hypertension COPD with exacerbation Cough Shoulder pain COPD exacerbation Fatigue Adult general medical exam Cellulitis Encounter for Medicare annual wellness exam Prostate cancer screening Hyperglycemia Depression Viral syndrome COVID-19 Borderline diabetes mellitus Right knee pain Skin lesion Pain and swelling of right knee Nasal congestion Bronchitis Left foot pain COVID Diabetes mellitus Obesity (BMI 30-39.9) Anxiety Insomnia Chronic kidney disease (CKD), stage III (moderate) Pure hypercholesterolemia Erectile dysfunction Lumbar degenerative disc disease Primary osteoarthritis of both knees COPD (chronic obstructive pulmonary disease) Degenerative disc disease, cervical Surgical History Hx of total knee arthroplasty History of glaucoma History of trabeculectomy Family History Father Cancer Mother No problems noted. Social History Housing: House Alcohol intake: former Patient Tobacco Use Status: Former Tobacco user Tobacco use type: Cigar Years Smoked: 30 years e-Cigarette/Vaping Use: Never Used Second Hand Smoke Exposure: Yes service: Yes Current occupational status: retired Cognitive needs: No Hearing needs: No Vision needs: No Review of Systems Const All systems reviewed & are unremarkable except as noted in HPI and below Physical Exam Const General: cooperative, healthy appearing and no acute distress Orientation/consciousness: patient oriented x3 HEENT Head: Yes normocephalic and Yes atraumatic Eyes EOM: EOMs intact bilaterally Resp Effort & Inspection: normal respiratory effort and able to speak in complete sentences Cardio Jugular venous distension: no JVD Skin General skin exam: turgor normal Rashes: no rashes Neuro General: patient oriented x3 Extrem Other: Evaluation of Right Upper Extremity: The patient is alert, oriented, and in no acute distress Neuro: Dense numbness in the median nerve distribution. Normal sensation in the ulnar nerve distribution No thenar or intrinsic wasting Good APB muscle belly firing and good finger cross Vascular: Cap refill brisk ROM: He can make a fist and extend all his digits, though he has some clinical evidence of osteoarthritis in his fingers Skin: No lacerations or abrasions. General: No Ecchymosis. No Erythema or evidence of infection. Nerve Conduction Study: Right-side only IMPRESSION: 1. This is an abnormal study. 2. There is electrodiagnostic evidence for 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 3. 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 4. There is no electrodiagnostic evidence for brachial plexopathy or cervical radiculopathy. 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: Code(s): G56.21 - Lesion of ulnar nerve, right upper limb Category: Medical (3) Diabetes mellitus: Code(s): E11.9 - Type 2 diabetes mellitus without complications Category: Medical Qualifiers: Diabetes mellitus complication status: with hyperglycemia Diabetes mellitus usp insulin use: without terminal operations manager use Diabetes mellitus type: type 2 Qualified Code(s): E11.65 - Type 2 diabetes mellitus with hyperglycemia (4) Chronic kidney disease (CKD), stage III (moderate): Code(s): N18.30 - Chronic kidney disease, stage 3 unspecified Category: Medical Qualifiers: Chronic kidney disease stage 3 subtype: stage 3a (GFR 45-59) Qualified Code(s): N18.31 - Chronic kidney disease, stage 3a (5) COPD (chronic obstructive pulmonary disease): Code(s): J44.9 - Chronic obstructive pulmonary disease, unspecified Category: Medical Qualifiers: COPD type: unspecified COPD Qualified Code(s): J44.9 - Chronic obstructive pulmonary disease, unspecified Plan Assessment & Plan: 1. Right carpal tunnel syndrome, severe With dense numbness, worse at night I educated him about this condition I discussed operative and non-operative treatment options The patient would like to proceed with surgery The risks and benefits of operative treatment were discussed with the patient and the patient wishes to proceed with surgery. These risks include, but are not limited to risk of damage to blood vessels, nerves, tendons, infection, recurrence, incomplete relief of preoperative symptoms, persistent pain, possible need for further surgery and the risks associated with regional blocks and anesthesia. The plan is to take the patient to the operating room sometime in the next few weeks for the following procedures: 1. Right carpal tunnel release, under local All of the preoperative paperwork including the consent was reviewed today. All the patient's questions were answered. The patient understands that they will be contacted by our hub lead soon to schedule this procedure He denies blood thinners, asthma, heart issues He has COPD & CKD III He is a Diabetic, with no HgA1c on file. They will need an updated HgA1c that is <8.1% in order to proceed with surgery, and they expressed understanding 2. Right cubital tunnel syndrome, Symptoms intermittent & occasional Scribed for Ratna Carter MD by Tariq Anaya, district medical examiner, on 02/28/25 at 3:05 PM, EST. 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
--- OUTSIDE RECORDS SUMMARY | 2025-02-28 17:01 | XMS_ITS | Clinical Summary ---
Author Organization [facility] ity Address [address] [place] [address] Care Team Providers Care Slab Depiler Operator Name Role Phone Unavailable Primary Care Provider [...] Vaccines (1 of 2) 1989 RSV Immunization Adult Patie nts (1 - 1-dose 75+ series) 2014 Cholesterol [...] age to complete this topic Meningococcal B Vaccine Aged Out No l onger eligible based on patient's age to complete this topic RSV Immunization Patients Un scar 20 months Aged Out No longer eligible b ased on patient's age to complete this topic Varicella Vaccines Aged Out No longer eligible based on patient's age to complete this topic
== END 2025-02-28 15:14 | disposition home or self-care (01) ==
LOC: HO.HOS 14:50
PROVIDERS: PCP Internal Medicine; Visit Provider Orthopaedic Surgery
DX: G56.01 Carpal tunnel syndrome, right upper limb (principal); G56.21 Lesion of ulnar nerve, right upper limb; E11.65 Type 2 diabetes mellitus with hyperglycemia; N18.31 Chronic kidney disease, stage 3a; J44.9 Chronic obstructive pulmonary disease, unspecified
CPT/HCPCS: 99214

== ENCOUNTER → 2025-02-28 14:50 | Outpatient (BNVA) | payer MEDICARE, MEDICAID, SELFPAY | PROVIDERS: PCP Internal Medicine; Visit Provider Orthopaedic Surgery | DX: G56.01 Carpal tunnel syndrome, right upper limb (principal); G56.21 Lesion of ulnar nerve, right upper limb; E11.22 Type 2 diabetes mellitus with diabetic chronic kidney disease; N18.31 Chronic kidney disease, stage 3a; E11.65 Type 2 diabetes mellitus with hyperglycemia; J44.9 Chronic obstructive pulmonary disease, unspecified | CPT/HCPCS: 99212 ==

== ENCOUNTER 2025-03-27 15:15 | Outpatient (REF) | payer MEDICARE, MEDICAID, SELFPAY ==
--- NOTE | ~2025-03-27 | XR_ITS ---
EXAMINATION: XR CHEST CLINICAL INFORMATION: cough COMPARISON: 01/05/2025. TECHNIQUE: 2 views of the chest were obtained. FINDINGS: The cardiac, hilar, and mediastinal contours are normal. Aortic mural calcifications. The lungs are somewhat hyperaerated, however clear bilaterally. There is no pneumothorax or pleural effusion. There is no focal osseous or soft tissue abnormality. There are degenerative changes in the shoulder joints and throughout the spine. XR/XR chest 2V IMPRESSION: No active pulmonary disease. Electronically signed by: Juan Carlos Hicks MD 03/27/2025 04:02 PM EDT
== END 2025-03-27 15:16 | disposition home or self-care (01) ==
LOC: HO.HMGCX 15:15
PROVIDERS: PCP Internal Medicine; Visit Provider Physician Assistant
DX: R05.1 Acute cough (principal); B02.9 Zoster without complications; Z13.1 Encounter for screening for diabetes mellitus
CPT/HCPCS: 71046; 82948; 99212

== ENCOUNTER 2025-03-27 15:15 | Outpatient (AMB) | payer MEDICARE, MEDICAID, SELFPAY ==
[2025-03-27 15:18] VITALS: BP 110/70; PULSE 66; TEMP 36.6; O2SAT 100
--- NOTE | 2025-03-27 15:18 | MHC.OFFWIV ---
Intake Vital Signs 03/27/25 15:18 Height 6 ft BMI Reason not done Patient refused/unable BP 110/70 Blood Pressure Location Rt brachial Position Sitting Pulse 66 Pulse Source Pulse Oximeter Temp 97.8 F Temp Source Oral Pulse Oximetry (%) 100 Oxygen Delivery Method Room Air Intake Visit Reasons: EP-upper respiratory issues, diarrhea Patient Tobacco Use Status: Former Tobacco user Allergies morphine Adverse Reaction (Severe, Verified 03/27/25 15:18) respiratory depression/failure Do you need a note to return to daycare/school/sports/work: No HPI HPI Comments History of Present Illness Details This is an 84-year-old male with a past medical history hypertension, gci-mvjbada-iunletdag diabetes, hyperlipidemia, chronic kidney disease, COPD not currently oxygen dependent and anxiety presenting for evaluation of a cough and chest congestion he has had for the past 3 days that has been worsening. Patient denies having any fevers, chills or chest pain however has been using his Combivent up to 4 times daily for his shortness of breath. PFS Medical History Right shoulder pain Primary osteoarthritis of shoulders, bilateral Benign essential hypertension COPD with exacerbation Cough Shoulder pain COPD exacerbation Fatigue Adult general medical exam Cellulitis Encounter for Medicare annual wellness exam Prostate cancer screening Hyperglycemia Depression Viral syndrome COVID-19 Borderline diabetes mellitus Right knee pain Skin lesion Pain and swelling of right knee Nasal congestion Bronchitis Left foot pain COVID Diabetes mellitus Obesity (BMI 30-39.9) Anxiety Insomnia Chronic kidney disease (CKD), stage III (moderate) Pure hypercholesterolemia Erectile dysfunction Lumbar degenerative disc disease Primary osteoarthritis of both knees COPD (chronic obstructive pulmonary disease) Degenerative disc disease, cervical Surgical History Hx of total knee arthroplasty History of glaucoma History of trabeculectomy Family History Father Cancer Mother No problems noted. Social History Housing: House Alcohol intake: former Patient Tobacco Use Status: Former Tobacco user Tobacco use type: Cigar Years Smoked: 30 years e-Cigarette/Vaping Use: Never Used Second Hand Smoke Exposure: Yes service: Yes Current occupational status: retired Cognitive needs: No Hearing needs: No Vision needs: No Review of Systems Const All systems reviewed & are unremarkable except as noted in HPI and below Reports as per HPI, Denies chills, Denies fatigue, Denies fever(s) and Denies headache(s) Eyes Reports no additional complaints ENT Reports no additional complaints, Denies otalgia, Denies facial pain, Denies headache(s) and Denies sore throat Card Reports no additional complaints, Denies chest pain and Reports dyspnea Resp Reports change in phlegm color (yellow), Reports chest congestion, Reports cough, Denies hemoptysis and Reports dyspnea GI Reports no additional complaints and Reports diarrhea (2 episodes daily) Reports no additional complaints Musc Reports no additional complaints Skin/Breast Reports system reviewed and no additional complaints, except as documented Neuro Reports no additional complaints and Denies headache(s) Psych Reports no additional complaints Endo Reports no additional complaints and Denies fatigue Himanshu/Lymph Reports no additional complaints Aller/Immun Reports no additional complaints Physical Exam Vital Signs: Last Vital Signs Temp 97.8 F 03/27/25 15:18 Pulse 66 03/27/25 15:18 BP 110/70 03/27/25 15:18 Pulse Ox 100 03/27/25 15:18 Oxygen Delivery Method Room Air 03/27/25 15:18 Const General: cooperative, well developed, alert, awake, Physically active, ill appearing, poor hygiene and tired appearing; No acute distress Nutritional Appearance: average body habitus Orientation/consciousness: patient oriented x3 Limitations: no limitations Resp Effort & Inspection: Actively coughing, respiratory effort not decreased, not labored, no nasal flaring, pursed lip breathing, no respiratory distress and tachypneic Auscultation: wheezes expiratory wheezes and throughout Cardio Rate: regular rate Rhythm: regular rhythm Skin General skin exam: no rashes or lesions noted Neuro General: patient oriented x3 Psych Appearance: grossly normal Mental Status: mental status grossly normal Insight: Good insight present (Psych) Judgement: Good judgement present (Psych) Results AMB Random Glucose (hemocue) AMB Random Glucose (hemocue) 141 mg/dL Last Edit by Sixto Aldridge CMA on 03/27/25 16:01 Results Reviewed Results Reviewed: CXR without acute infiltrate. Assessment & Plan Assessment & Plan (1) Cough: Comment: COPD exacerbation; patient states he is no longer on medications for diabetes and current glucose is 141 mg/dL. Patient will be prescribed prednisone as well as cough syrup to use for management of his cough. Code(s): R05 - Cough Qualifiers: Cough type: acute Qualified Code(s): R05.1 - Acute cough Plan: Prednisone 40 mg x 4 days; codeine cough syrup q.8 hours p.r.n. cough. Patient is instructed to follow up with his primary care provider as an outpatient. Orders: Orders XR chest 2V Today R05 - Cough AMB Random Glucose (hemocue) Today B02.9 - Zoster without complications, Z13.9 - Encounter for screening, unspecified Medications: New prednisone 40 mg (2 x 20 mg) PO DAILY 8 tabs 0RF B02.9 - Zoster without complications codeine-guaifenesin 10-100 mg/5 mL 5 mL PO Q6H PRN 118 mL 0RF allergy symptoms Coding Level of Care Code Est Pt Level 4 (70513) Diagnoses Acute cough R05.1 Cough type: acute Time Spent (min) 25
--- OUTSIDE RECORDS SUMMARY | 2025-03-27 16:24 | XMS_ITS | Clinical Summary ---
Author Organization [facility] ity Address [address] [place] [address] Care Team Providers Care Cardiopulmonary Technician And Eeg Tech Name Role Phone Unavailable Primary Care Provider [...] - 2023-2 5 season) 2024 Influenza Vaccine (Season Ended) 2025 HIB Vaccines Aged Out No longer eligi [...]
== END 2025-03-27 16:31 | disposition home or self-care (01) ==
PROVIDERS: PCP Internal Medicine; Visit Provider Physician Assistant
DX: Z13.9 Encounter for screening, unspecified (principal); B02.9 Zoster without complications; R05.1 Acute cough

== ENCOUNTER → 2025-03-27 15:40 | Outpatient (BNV) | payer MEDICARE, MEDICAID, SELFPAY | PROVIDERS: PCP Internal Medicine; Visit Provider Radiology Diagnostic Radiology | DX: R05.9 Cough, unspecified (principal) | CPT/HCPCS: 71046 ==

== ENCOUNTER 2025-06-19 10:44 | Outpatient (AMB) | payer MEDICARE, MEDICAID, SELFPAY ==
--- NOTE | 2025-06-19 10:54 | A.OFFPC_ITS ---
Vital Signs 06/19/25 10:58 Height 6 ft Weight 223 lb BMI 30.2 BP 110/70 Blood Pressure Location Lt brachial Position Sitting Pulse Source Pulse Oximeter Oxygen Delivery Method Room Air Intake Visit Reasons: rt knee pain, right hand tingling Associate Data Scientist Required: No Accompanied by: Self / Same As Patient Allergies morphine Adverse Reaction (Severe, Verified 06/19/25 11:34) respiratory depression/failure Medication List - Last Reconciled 06/19/25 by Kody Sheth MD albuterol sulfate 90 mcg/actuation (Ventolin HFA) 1 inh inhalation QID PRN amlodipine 5 mg PO DAILY 90 days codeine-guaifenesin 10-100 mg/5 mL 5 mL PO Q6H PRN Combivent Respimat 20-100 mcg/actuation (ipratropium-albuterol) 1 puff inhalation QID NS [COMPRESSION STOCKINGS (moderate compression 20-30 mm) As directed] doxycycline hyclate 100 mg PO DAILY 30 days furosemide 40 mg PO DAILY gabapentin 800 mg PO TID 30 days hydroxyzine HCl 25 mg PO TID PRN 30 days melatonin 10 mg PO BEDTIME PRN metformin ER 500 mg PO BEDTIME 90 days oxycodone 15 mg PO BID PRN 30 days prednisone 40 mg (2 x 20 mg) PO DAILY rosuvastatin 10 mg PO BEDTIME trazodone 150 mg PO BEDTIME PRN 90 days Tobacco use date assessed: 06/19/25 Fall risk assessment: 1 Fall in past year Last assessed Fall Risk: 06/19/25 Dental Screening Dental Screen Date: 06/19/25 Did you have a dental visit in the last 12 months?: No Did you have a dental problem in the last 6 months where you did not have access to dental care?: No Was dental information given to patient?: No HPI rt knee pain, right hand tingling HPI Details Patient comes in today for his follow up visit - was last seen by me on 11/10/2024 States that he continues to experience persistent numbness and tingling sensation in his right hand, which he feels started after his fall at a local [employer] back in August 2024 He also continues to complain of increased pain over multiple joints, including his shoulders, hips and knees and is requesting again for a referral to [facility] for his joint pains States that he has taken all of his pain meds and he is now out of his Rx and is requesting to have his pain meds, as well as a couple of other Rx refilled He again asked to have his pain med dose raised up to 30 mg if possible' and also to have his amount increased from his usual 60 tablets per month 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 to 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 for 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 when he was asked to stop and that his real estate attorney is currently trying to help him get his license reinstated He denies any headaches or dizziness Denies any chest pains, no increased SOB No nausea/vomiting, no abdominal pain No change in bowel habits noted He has had NO follow up labs done since July 2024; his December 2024 labs were from the ER during his visit there back then [facility] Medical History (Updated 06/19/25 @ 11:41 by Kody Sheth MD) Cough Right shoulder pain Primary osteoarthritis of shoulders, bilateral Benign essential hypertension COPD with exacerbation Shoulder pain COPD exacerbation Fatigue Adult general medical exam Cellulitis Encounter for Medicare annual wellness exam Prostate cancer screening Hyperglycemia Depression Viral syndrome COVID-19 Borderline diabetes mellitus Right knee pain Skin lesion Pain and swelling of right knee Nasal congestion Bronchitis Left foot pain COVID Diabetes mellitus Obesity (BMI 30-39.9) Anxiety Insomnia Chronic kidney disease (CKD), stage III (moderate) Pure hypercholesterolemia Erectile dysfunction Lumbar degenerative disc disease Primary osteoarthritis of both knees COPD (chronic obstructive pulmonary disease) Degenerative disc disease, cervical Surgical History Hx of total knee arthroplasty History of glaucoma History of trabeculectomy Family History Father Cancer Mother No problems noted. Social History Housing: House Alcohol intake: former Patient Tobacco Use Status: Former Tobacco user Tobacco use type: Cigar Years Smoked: 30 years e-Cigarette/Vaping Use: Never Used Second Hand Smoke Exposure: Yes service: Yes Current occupational status: retired Cognitive needs: No Hearing needs: No Vision needs: No Questionnaire PHQ-9 Over the last 2 weeks, how often have you been bothered by any of the following problems? 1. Little interest or pleasure in doing things: not at all 2. Feeling down, depressed, or hopeless: not at all 3. Trouble falling or staying asleep, or sleeping too much: not at all 4. Feeling tired or having little energy: several days 5. Poor appetite or overeating: not at all 6. Feeling bad about yourself - or that you are a failure or have let yourself or your family down: not at all 7. Trouble concentrating on things, such as reading the newspaper or watching television: not at all 8. Moving or speaking so slowly that other people could have noticed. Or the opposite - being so fidgety or restless that you have been moving around a lot more than usual: not at all 9. Thoughts that you would be better off or of hurting yourself in some way: not at all Total score: 1 Depression Screening Interpretation: Negative Depression Screening Done: Yes 19297 - PHQ-9 Billing: Yes Source: Developed by Drs. Kali Burton, Erika Garzon, Smith Osorio and colleagues, with an educational baudilio from [employer]. Thrive Questionnaire Date Thrive assessed: 06/19/25 I am a: Patient What is your living situation today?: I have a steady place to live Within the past 12 months, did the food you bought not last and you didn't have the money to get more?: Never true Within the past 12 months, did you worry whether your food would run out before you got money to buy more?: Never true Do you have trouble paying for medicines?: No Do you have trouble getting transportation to medical appointments?: Yes Do you have trouble paying your heating and electricity bill?: No Do you have trouble taking care of your child, family member or friend?: No Do you have trouble with day-to-day activities such as bathing, preparing meals, shopping, managing finances, etc.?: No Are you currently unemployed and looking for a job?: No Are you interested in more education?: No Please select the resources that you would like help with: None Currently or been in a relationship where the following occur: I choose not to answer THRIVE Score: 1 AUDIT C Alcohol Use Questionnaire (AUDIT-C) 1. How often do you have a drink containing alcohol?: Never 3. How often do you have six or more drinks on one occasion?: Never Total Score: 0 Score Reviewed/Action Taken: Yes JACKSON-7 AMB Questionnaire JACKSON-7 Date JACKSON - 7 assessed: 06/19/25 Feeling nervous, anxious, or on edge: 0 = Not at all Not being able to stop or control worryin = More than half the days Worrying too much about different things: 2 = More than half the days Trouble relaxin = Not at all Being so restless that it is hard to sit still: 2 = More than half the days Becoming easily annoyed or irritable: 0 = Not at all Feeling afraid as if something awful might happen: 0 = Not at all Total JACKSON-7 score (0-4 normal; 5-9 mild; 10-14 moderate; 15-21 severe): 6 Source: Developed by Drs. Kali Burton, Erika Garzon, Smith Osorio and colleagues, with an educational baudilio from [employer]. Review of Systems Const Reports difficulty sleeping, Reports fatigue, Denies fever(s) and Denies headache(s) ENT Denies dysphagia, Denies dizziness, Denies otalgia, Denies headache(s), Reports neck pain (chronic), Denies odynophagia and Denies sore throat Card Denies chest pain, Denies palpitations and Reports dyspnea on exertion (mild; chronic) Resp Denies chest congestion, Reports cough (on and off, coughs up thick whitish phlegm at times), Reports dyspnea on exertion (mild; chronic) and Denies wheezing GI Denies abdominal pain, Reports constipation (on and off), Denies dysphagia, Denies heartburn, Denies diarrhea, Denies nausea, Denies odynophagia and Denies vomiting Denies difficulty urinating, Denies dysuria, Denies nocturia and Denies urinary frequency Musc Reports back pain (chronic), Reports arthralgias (over multiple joints), Reports joint swelling (on and off in the right knee), Reports neck pain (chronic) and Reports tingling (in the right hand, now constant) Skin/Breast Denies rash Neuro Denies dizziness, Denies headache(s), Reports radicular pain (on and off in the right hand) and Reports tingling (in the right hand, now constant) Psych Reports anxiety and Reports depression Endo Reports fatigue and Denies palpitations Aller/Immun Denies wheezing Physical exam (Primary Care) Vital Signs: Last Vital Signs BP 110/70 06/19/25 10:58 Oxygen Delivery Method Room Air 06/19/25 10:58 BMI result Body Mass Index 30.2 Tobacco/Smoking Status: Tobacco use Status Tobacco use date assessed 06/19/25 06/19/25 11:04 Patient Tobacco Use Status Former Tobacco user 06/19/25 10:54 Tobacco use type Cigar 06/19/25 10:54 e-Cigarette/Vaping Use Never Used 06/19/25 10:54 PHQ-9: PHQ-9 Score PHQ-9: Total score 1 06/19/25 10:54 Depression Screening Interpretation: Negative Thrive Assessment: Date of Thrive Assessment Date Thrive assessed 06/19/25 06/19/25 11:04 Currently or been in a relationship where the following occur: I choose not to answer Const General: no acute distress and alert HENMT Ears: TM's normal bilaterally and EAC's normal Throat: Yes posterior oropharynx normal and Yes tonsils normal (no TP congestion noted) Neck Neck: Yes supple and No lymphadenopathy Thyroid: Thyroid normal Resp Auscultation: no crackles, no rales, no wheezes and diminished lung sounds (slightly) bilateral Cardio Rate: regular rate Rhythm: regular rhythm Heart sounds: no murmurs GI Palpation (GI): Soft to palpation and nontender Auscultation: normal bowel sounds General: Yes no CVA tenderness Back/Spine/Pelvis Back: no CVA tenderness Cervical Spine: Cervical spine tenderness Thoracic/Lumbar Spine: lumbar spinal tenderness Skin Rashes: no rashes Extrem General: Yes no clubbing, cyanosis or edema Right upper extremity: shoulder/upper arm Details: tenderness Location: of the A-C joint and abnormal ROM (ROM limited slightly due to pain); no swelling and wrist Details: tenderness Location: of the volar wrist Right lower extremity: knee Details: tenderness and crepitus; no swelling Left lower extremity: knee Details: tenderness and crepitus; no swelling and foot Details: tenderness Location: of the calcaneus and no edema Coding Level of Care Code Est Pt Level 4 (69913) Diagnoses Pure hypercholesterolemia E78.00 Type 2 diabetes mellitus with hyperglycemia, without long-term current use of insulin E11.65 Diabetes mellitus type: type 2 Diabetes mellitus custodial insulin use: without custodial use Diabetes mellitus complication status: with hyperglycemia Benign essential hypertension I10 Chronic obstructive pulmonary disease, unspecified COPD type J44.9 COPD type: unspecified COPD Hepatic hemangioma D18.03 Degeneration of intervertebral disc of lumbar region with discogenic back pain M51.360 Disc-related pain type: discogenic back pain only Degenerative disc disease, cervical M50.30 Primary osteoarthritis of both knees M17.0 Primary osteoarthritis of shoulders, bilateral M19.011; M19.012 Right hand paresthesia R20.2 Stage 3a chronic kidney disease N18.31 Chronic kidney disease stage 3 subtype: stage 3a (GFR 45-59) Constipation, unspecified constipation type K59.00 Constipation type: unspecified constipation type Acne vulgaris L70.0 Acne type: acne vulgaris Insomnia, unspecified type G47.00 Insomnia type: unspecified Anxiety F41.9 Obesity (BMI 30-39.9) E66.9 Additional Codes PHQ-9 - 81409 - PHQ-9 Billing: Yes ([id number]) Assessment & Plan Assessment & Plan (1) Pure hypercholesterolemia: Code(s): E78.00 - Pure hypercholesterolemia, unspecified Category: Medical Plan: Patient has not had any follow up labs done since late July 2024 Reinforced low cholesterol diet Continue Rosuvastatin 10 mg QD for now Will recheck his labs and fasting lipids in a couple of months for follow up (2) Diabetes mellitus: Code(s): E11.9 - Type 2 diabetes mellitus without complications Category: Medical Qualifiers: Diabetes mellitus type: type 2 Diabetes mellitus custodial insulin use: without custodial use Diabetes mellitus complication status: with hyperglycemia Qualified Code(s): E11.65 - Type 2 diabetes mellitus with hyperglycemia Plan: His HgbA1c was at 6.3% when it was last checked in the office back in October 2024 - goal is at least <7.0% but ideally <6.5% Reinforced diabetic diet Continue Metformin ER 500 mg Q PM for now Will recheck his FBS and HgbA1c in a couple of months for follow up (3) Benign essential hypertension: Code(s): I10 - Essential (primary) hypertension Category: Medical Plan: Reinforced low sodium diet - goal is systolic BP of at least 140 to 150 mm or less Continue Amlodipine 5 mg QD and Furosemide 40 mg Q AM; Losartan 100 mg QD was discontinued a couple of months ago due to his RACHEL (4) COPD (chronic obstructive pulmonary disease): Code(s): J44.9 - Chronic obstructive pulmonary disease, unspecified Category: Medical Qualifiers: COPD type: unspecified COPD Qualified Code(s): J44.9 - Chronic obstructive pulmonary disease, unspecified Plan: His COPD appears controlled at present Continue Combivent Respimat 1 puff 4 times a day and Albuterol HFA 2 puffs 4 times a day as needed (5) Hepatic hemangioma: Code(s): D18.03 - Hemangioma of intra-abdominal structures Category: Medical Plan: CT of the abdomen and pelvis done at the ER a couple of years ago revealed the presence of a hepatic lesion in segment 6 and 7 of increased density - MRI is recommended to further evaluate whether this is a hemangioma or a solid lesion Patient prefers to continue to hold off on further tests for now - states that he has no acute stomach issues and does not want to keep getting a lot of testing done at this time Will consider at least getting an abdominal US first when he is ready to do so (6) Lumbar degenerative disc disease: Code(s): M51.36 - Other intervertebral disc degeneration, lumbar region Category: Medical Qualifiers: Disc-related pain type: discogenic back pain only Qualified Code(s): M51.360 - Other intervertebral disc degeneration, lumbar region with discogenic back pain only Plan: Reinforced activity and weight lifting restrictions Patient used to see Dr. Turcios for pain management but has not done since the COVID-19 pandemic started Per request, he was referred to [facility] last year but for unclear reasons, he was never scheduled for any appointment Continue Gabapentin 800 mg 3 times a day and Duloxetine 30 mg twice a day;? he is also on Oxycodone 15 mg twice a day as needed Patient is again reminded in no uncertain terms that I will not increase his Oxycodone dosage or dosing due to his COPD and will refer him back to pain management for interventional treatments if he feels that his low back pain is getting worse and his medications are not controlling his pain adequately (7) Degenerative disc disease, cervical: Code(s): M50.30 - Other cervical disc degeneration, unspecified cervical region Category: Medical Plan: Continue Oxycodone 15 mg twice a day as needed for severe pain - he is advised that it is about 2 weeks too early for his Oxycodone refill and he will not be able to get this refilled until it is time for his refill Cervical spine MRI done a couple of years ago showed (+) multilevel degenerative changes resulting in 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 referral to neurosurgery has been discussed in the past and remains a consideration if his neck pain gets worse (8) Primary osteoarthritis of both knees: Code(s): M17.0 - Bilateral primary osteoarthritis of knee Category: Medical Plan: S/P total right knee arthroplasty States that his current meds were helping with his knee pains until his fall last August 2024 - his knee pains have gotten a lot worse since and he now has trouble walking and notes increased weakness in both legs often We referred him to physical therapy for further evaluation and management and gait training / strengthening back then but it does not look like he ever went to PT Per request, will refer him again to [facility] for orthopedic consultation for his joint pains (9) Primary osteoarthritis of shoulders, bilateral: Code(s): M19.011 - Primary osteoarthritis, right shoulder; M19.012 - Primary osteoarthritis, left shoulder Category: Medical Plan: X-rays of both shoulders done at the ER late last year revealed (+) osteoarthritis changes bilaterally He states that he has been experiencing increased pain in both shoulders since his fall at a local restaurant last August 2024 Per request, will refer him again to [facility] (10) Right hand paresthesia: Code(s): R20.2 - Paresthesia of skin Category: Medical Plan: Will send patient for EMG and NCV of the right upper extremity for further evaluation (11) Chronic kidney disease (CKD), stage III (moderate): Code(s): N18.30 - Chronic kidney disease, stage 3 unspecified Category: Medical Qualifiers: Chronic kidney disease stage 3 subtype: stage 3a (GFR 45-59) Qualified Code(s): N18.31 - Chronic kidney disease, stage 3a Plan: Will continue to monitor his GFR and renal function closely (12) Constipation: Comment: Most likely multifactorial, including opioid-induced as well as due to inadequate oral fluid and fiber intake Code(s): K59.00 - Constipation, unspecified Category: Medical Qualifiers: Constipation type: unspecified constipation type Qualified Code(s): K59.00 - Constipation, unspecified Plan: Reinforced increased oral fluids and dietary fiber Continue Miralax 17 gm QD and may take OTC stool softeners PRN (13) Acne: Code(s): L70.9 - Acne, unspecified Category: Medical Qualifiers: Acne type: acne vulgaris Qualified Code(s): L70.0 - Acne vulgaris Plan: Continue Doxycycline 100 mg QD and Metrogel 0.75% apply to acne on face BID (14) Insomnia: Code(s): G47.00 - Insomnia, unspecified Category: Medical Qualifiers: Insomnia type: unspecified Qualified Code(s): G47.00 - Insomnia, unspecified Plan: Sleep hygiene reinforced Continue Trazodone 150 mg Q HS PRN (15) Anxiety: Code(s): F41.9 - Anxiety disorder, unspecified Category: Medical Plan: Continue Lorazepam 1 mg BID PRN and Hydroxyzine 25 mg TID PRN, Buspirone 10 mg BID and Sertraline 50 mg Q AM He was on Citalopram in the past but is unclear when he stopped taking this (on his own) Per request, he was referred previously for counseling and therapy and is still waiting to be contacted (16) Obesity (BMI 30-39.9): Code(s): E66.9 - Obesity, unspecified Category: Medical Plan: Reinforced diet; exercise and weight loss are unrealistic due to his multiple physical issues and comorbidities although he has lost a lot of weight since he was last seen, mostly because he reportedly does not have much to eat due to not having any available transportation to go to the grocery store Plan Follow up as scheduled in July 2025 Orders: Orders NE electromyogram (EMG) Today R20.2 - Paresthesia of skin NE nerve conduction velocity Today R20.2 - Paresthesia of skin Referrals Orthopedics Referral M17.0 - Bilateral primary osteoarthritis of knee, M19.011 - Primary osteoarthritis, right shoulder, M19.012 - Primary osteoarthritis, left shoulder Medications: Refilled gabapentin 800 mg PO TID 90 tabs 0RF 30 days doxycycline hyclate 100 mg PO DAILY 30 caps 0RF 30 days
[2025-06-19 10:58] VITALS: BP 110/70; BMI 30.2
--- OUTSIDE RECORDS SUMMARY | 2025-06-19 11:53 | XMS_ITS | Patient Health Record ---
Author Organization [facility] Address [address] [place] [id number] Care Team Providers Care Lehr Cutter Name Role Phone Kali Jc Unavailable [phone] Reason For Referral No Information Plan Of Treatment No Information
--- OUTSIDE RECORDS SUMMARY | 2025-06-19 11:53 | XMS_ITS | Clinical Summary ---
Author Organization [facility] ity Address [address] [place] [address] Care Team Providers Care Accountant Machine Processing Name Role Phone Unavailable Primary Care Provider [...] series) 2014 Cholesterol Screening (Lipid Panel) 10/24/2022 Falls Risk Assessment 10/24/2022 Social Influencers of Health Screening 10/24/2022 COVID-19 Vaccine (1 - 2023-2 5 season) 2024 Depression Screening 11/22/2024 Influenza Vaccine (#1) 2025 HIB Vaccines Aged Out No longer [...]
== END 2025-06-19 11:48 | disposition home or self-care (01) ==
LOC: HO.HMCH 10:44
PROVIDERS: PCP Internal Medicine; Visit Provider Internal Medicine
DX: E11.65 Type 2 diabetes mellitus with hyperglycemia (principal); J44.9 Chronic obstructive pulmonary disease, unspecified; N18.31 Chronic kidney disease, stage 3a; E66.9 Obesity, unspecified; Z68.30 Body mass index [BMI] 30.0-30.9, adult; E78.00 Pure hypercholesterolemia, unspecified; I10 Essential (primary) hypertension; D18.03 Hemangioma of intra-abdominal structures; M51.360 Other intervertebral disc degeneration, lumbar region with discogenic back pain only; M50.30 Other cervical disc degeneration, unspecified cervical region; M17.0 Bilateral primary osteoarthritis of knee; M19.011 Primary osteoarthritis, right shoulder

== ENCOUNTER → 2025-06-19 10:44 | Outpatient (BNVA) | payer MEDICARE, MEDICAID, SELFPAY | PROVIDERS: PCP Internal Medicine; Visit Provider Internal Medicine | DX: E78.00 Pure hypercholesterolemia, unspecified (principal); E11.65 Type 2 diabetes mellitus with hyperglycemia; J44.9 Chronic obstructive pulmonary disease, unspecified; D18.03 Hemangioma of intra-abdominal structures; M51.360 Other intervertebral disc degeneration, lumbar region with discogenic back pain only; M50.30 Other cervical disc degeneration, unspecified cervical region; M17.0 Bilateral primary osteoarthritis of knee; M19.011 Primary osteoarthritis, right shoulder; M19.012 Primary osteoarthritis, left shoulder; R20.2 Paresthesia of skin; I12.9 Hypertensive chronic kidney disease with stage 1 through stage 4 chronic kidney disease, or unspecified chronic kidney disease; E11.22 Type 2 diabetes mellitus with diabetic chronic kidney disease; N18.31 Chronic kidney disease, stage 3a; K59.00 Constipation, unspecified; L70.0 Acne vulgaris; G47.00 Insomnia, unspecified; F41.9 Anxiety disorder, unspecified; E66.9 Obesity, unspecified; Z68.30 Body mass index [BMI] 30.0-30.9, adult; Z71.3 Dietary counseling and surveillance; Z87.891 Personal history of nicotine dependence | CPT/HCPCS: 96127; 99212 ==

== ENCOUNTER 2025-06-27 22:17 | Emergency (ER) | payer MEDICARE, MEDICAID, SELFPAY ==
--- NOTE | 2025-06-27 | ECG_ITS ---
Test Reason : FALL Blood Pressure : */* mmHG Vent. Rate : 71 BPM Atrial Rate : * BPM P-R Int : * ms QRS Dur : 98 ms QT Int : 418 ms P-R-T Axes : * 24 23 degrees QTcB Int : 454 ms Atrial fibrillation Abnormal ECG When compared with ECG of 04-Jan-2025 22:19, Atrial fibrillation has replaced Sinus rhythm Vent. rate has decreased by 38 bpm Referred By: Generic ED Physician Electronically Signed By: YOCASTA HENRIQUEZ
--- NOTE | ~2025-06-27 | CT_ITS ---
CLINICAL HISTORY: Fall; Head strike, retrograde amnesia Head CT images are attached to the C-spine req. as well. CT Head without contrast. CT cervical spine without contrast. Comparison: CT/REG/SR - CT HEAD WITHOUT IV CONTRAST - 09/07/24 08:[address]/SR - CT CERVICAL SPINE WITHOUT IV CONTRAST - 09/07/24 08:[address] Head: No intracranial mass, midline shift, hydrocephalus, or acute hemorrhage. Age-related atrophy like change and white matter disease. The visualized paranasal sinuses and mastoid air cells are normal. The orbits are unremarkable. Left frontal scalp hematoma. No skull fracture. CT Cervical Spine: Multilevel cervical spondylolisthesis. Significant facet arthropathy. No acute fractures or dislocations. No cervical fluid collections or masses. No consolidation or effusion at the lung apices. IMPRESSION: 1. No acute intracranial findings on head CT 2. No acute findingson cervical spine CT This document has been electronically signed by: Jorge Sheppard MD on 06/28/2025 02:01:05
--- NOTE | ~2025-06-27 | CT_ITS ---
CLINICAL HISTORY: Fall; Retrograde amnesia; Hypotension - CT chest images are attached to the CT a/p req. - need reads for both. CT chest, abdomen, and pelviswith contrast Comparison: CR/SR - XR CHEST 2 VIEWS - 03/27/25 15:51 EDT Findings: Cardiomegaly. The visualized thyroid is unremarkable. Multiple enlarged mediastinal lymph nodes, measuring up to 1.6 cm. These are nonspecific. Bibasilar dependent atelectasis. No consolidation. No pneumothorax. There is a 5.3 cm well-circumscribed peripheral mass along the posterolateral right hepatic lobe (series 11, image 27). It measures greater than simple fluid density, approximately 40 Hounsfield units. The gallbladder is unremarkable. The pancreas is atrophic. Other solid organs unremarkable. No renal stones. No bowel obstruction, pneumoperitoneum, or pneumatosis. Sigmoid diverticulosis without evidence of diverticulitis. Prostatomegaly. The appendix is unremarkable. No acute fractures. Multilevel degenerative change of the thoracic and lumbosacral spine. No other osseous lesions. IMPRESSION: Mediastinal lymphadenopathy, nonspecific Indeterminate 5.3 cm well-circumscribed peripheral mass along the posterolateral right hepatic lobe No pneumothorax No fractures This document has been electronically signed by: Jorge Sheppard MD on 06/28/2025 02:25:46
[2025-06-27 22:20] VITALS: BP 160/90; PULSE 88; O2SAT 97; BMI 32.0
[2025-06-27 22:28] VITALS: BP 86/47; PULSE 80; RESP 18; TEMP 36.5; O2SAT 97
[2025-06-27 22:32] VITALS: BP 71/42
[2025-06-27 22:46] LABS: MANUAL DIFF FLAG NO
[2025-06-27 22:47] LABS: Hematocrit 36.7 % (42.0-52.0); Hemoglobin 12.9 g/dl (14.0-18.0); Imm Gran Abs Auto 0.03 X10*3/uL (0.00-0.03); Imm Gran Pct Auto 0.4 % (0.0-0.4); Lymphocytes Absolute Auto 1.9 X10*3/uL (1.2-4.9); Mean Corpuscular HGB Conc 35.1 g/dl (31.0-36.0); Mean Corpuscular Hemoglobin 29.8 pg (27.0-33.0); Mean Corpuscular Volume 84.8 fL (80.0-98.0); NRBC Abs Auto 0.000 X10*3/uL (0.0-0.012); NRBC Pct Auto 0.0 /100WBC (0.0-0.2); Platelet Count 238 X10*3/uL (160-400); Red Blood Count 4.33 X10*6/uL (4.60-5.80); White Blood Count 7.2 X10*3/uL (4.8-10.8)
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
[2025-06-27 22:58] LABS: Anion Gap 17 (12-20); Blood Urea Nitrogen 16 mg/dL (9-16); Calcium 8.6 mg/dL (8.4-10.2); Carbon Dioxide 19 mmol/L (22-29); Chloride 109 mmol/L (96-108); Creatinine Clr Calc Pharmacy 62.6; Estimated Glomerular Filt Rate > 60; Potassium 3.6 mmol/L (3.3-5.1); Sodium 141 mmol/L (135-145)
[2025-06-27] MEDS: Lactated Ringers 1,000 ML 999 ML IV (23:08)
[2025-06-27 23:16] VITALS: BP 101/65
[2025-06-27 23:52] VITALS: BP 94/39; PULSE 68; O2SAT 99
[2025-06-27] MEDS: iohexoL 350 MG/ML 100 ML INFUS..BTL IV (23:53)
[2025-06-28] VITALS (14 sets, daily range): BP systolic 91–146; BP diastolic 56–91; PULSE 70–92; RESP 14–18; TEMP 36.5–36.6; O2SAT 94–98
[2025-06-28 00:07] LABS: Appearance Urine Clear; Glucose Urine UA Negative (Negative); PH 5.5 (5.0-9.0); Specific Gravity - Urine <= 1.005 (1.005-1.025); UMIC TRIGGER UACC YES
[2025-06-28 00:17] LABS: Cannabinoid Screen Urine Not Detected (Not Detect)
[2025-06-28 01:10] LABS: Reflex Lactate? Lactic Acid Added
[2025-06-28 02:05] LABS: ~Lactic Acid-LAB USE ONLY 3.8 mmol/L (0.5-2.0)
[2025-06-28 03:45] LABS: Reflex Lactate? 2 Y
[2025-06-28 04:26] LABS: ~Lactic Acid-LAB USE ONLY 2.5 mmol/L (0.5-2.0)
--- NOTE | 2025-06-28 07:56 | PC.NURSE ---
pt a&ox3, vitals previously stable- tech to update new set, rr equal/non labored, denies pain/discomfort, pt ambulates with cane at baseline, fall precautions intact, pt currently at bedside for evaluation, call rob within reach, plan of care ongoing
--- NOTE | 2025-06-28 10:47 | MHC.CM.PN ---
Addendum entered by Sara Ochoa 06/28/25 16:14: MDS approval received, pt in agreement and will transfer to [facility] [place] today via BLS/[facility]. Addendum entered by Sara Ochoa 06/28/25 13:15: MDS submitted, awaiting elder care services approval. HCP on file unable to be reached, number on HCP inaccurate. Original Note: This CM met with pt, he lives alone at home in a trailer. PT evaluated pt and is recommending STR, pt states he is willing to go to STR. [facility] [place] is his first choice, the have offered pt a bed. Pt will go under his Medicaid, will need elder services approval prior to admission.
--- NOTE | 2025-06-28 14:25 | MHC.EDTECH ---
Pt was getting agitated, attempting to elope out of room, pushed t/w multiple times in attempts to get out of room. More staff came over to offer help.
[2025-06-28] MEDS: Albuterol Sulfate 90 MCG 8 GM INHALER 2 PUFF INHALE (14:42)
--- NOTE | 2025-06-28 14:42 | PC.NURSE ---
pt upset that the provider would not discharge him and became confrontational, this nurse asked for a sitter for the patient until the provider could figure out plans for the patient as pt was wanting to leave, pt ambulated to bathroom with cane and tech, this nurse was in another patients room, pt then was exit seeking and pt was found by the tech as he was no longer in the bathroom. Pt was brought back to his room and a sitter was placed as the provider has opted to section 12 the patient. Pt denies si/hi, sitter at bedside. Pt initially refused to do record changer tester into [facility] attire but security was able to talk him into doing the record changer tester calmly. Pt then asked for medication to calm him down- he stated I take medicine when I need it at home for anxiety provider was notified, order was placed and patient was medicated per order with PO meds. Pt was given lunch and currently conversing with staff. Call rob within reach, pt to see care team, plan of care ongoing
--- NOTE | 2025-06-28 14:51 | PC.NURSE ---
Pt requested albuterol that he takes at home, provider ordered, RT at bedside.
--- NOTE | 2025-06-28 15:30 | PC.NURSE ---
pt calm and spoke with care team- denies si/hi, pt currently willing to discharge to [facility] this afternoon. currently denying pain/discomfort, call rob within reach, plan of care ongoing as patient awaits ems to discharge to [facility]
--- NOTE | 2025-06-28 16:57 | PC.NURSE ---
report given to allan SCHERER at [id number]
== END 2025-06-28 16:57 | disposition skilled nursing facility (03) ==
PROVIDERS: Emergency Medicine; Physician Assistant; Emergency Provider Emergency Medicine; PCP Internal Medicine
DX: F10.10 Alcohol abuse, uncomplicated (principal); Y90.5 Blood alcohol level of 100-119 mg/100 ml; R29.6 Repeated falls; Z91.81 History of falling; S00.81XA Abrasion of other part of head, initial encounter; S00.31XA Abrasion of nose, initial encounter; S80.811A Abrasion, right lower leg, initial encounter; W01.0XXA Fall on same level from slipping, tripping and stumbling without subsequent striking against object, initial encounter; F42.3 Hoarding disorder; Z72.89 Other problems related to lifestyle; Z59.19 Other inadequate housing; Z59.12 Inadequate housing utilities; Y93.02 Activity, running; Y92.414 Local residential or business street as the place of occurrence of the external cause; Y99.8 Other external cause status
CPT/HCPCS: 36415; 70450; 71260; 72125; 74177; 80048; 80307; 81001; 83605; 85025; 87040; 93005; 96361; 96374; 97162; 99285; 99291; J0696; J7120; Q9967; S9485

== ENCOUNTER → 2025-06-27 22:27 | Outpatient (BNV) | payer MEDICARE, MEDICAID, SELFPAY | PROVIDERS: Emergency Provider Emergency Medicine; PCP Internal Medicine; Visit Provider Internal Medicine | DX: I48.91 Unspecified atrial fibrillation (principal) | CPT/HCPCS: 93010 ==

== ENCOUNTER 2025-07-30 15:58 | Outpatient (AMB) | payer MEDICARE, MEDICAID, SELFPAY ==
[2025-07-30 16:01] VITALS: BP 160/70; PULSE 85; O2SAT 99; BMI 30.8
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
--- OUTSIDE RECORDS SUMMARY | 2025-07-30 18:42 | XMS_ITS | Patient Health Record ---
Author Organization [facility] Address [address] [place] [id number] Care Team Providers Care Administrative Coordinator Name Role Phone Kali Jc Unavailable [phone] Reason For Referral No Information Plan Of Treatment No Information
--- OUTSIDE RECORDS SUMMARY | 2025-07-30 18:42 | XMS_ITS | Clinical Summary ---
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
== END 2025-07-30 17:08 | disposition home or self-care (01) ==
LOC: HO.HMCH 15:59
PROVIDERS: PCP Internal Medicine; Visit Provider Internal Medicine
DX: I12.9 Hypertensive chronic kidney disease with stage 1 through stage 4 chronic kidney disease, or unspecified chronic kidney disease (principal); E11.65 Type 2 diabetes mellitus with hyperglycemia; J44.9 Chronic obstructive pulmonary disease, unspecified; N18.31 Chronic kidney disease, stage 3a; E78.00 Pure hypercholesterolemia, unspecified; R41.89 Other symptoms and signs involving cognitive functions and awareness; D18.03 Hemangioma of intra-abdominal structures; M51.360 Other intervertebral disc degeneration, lumbar region with discogenic back pain only; M50.30 Other cervical disc degeneration, unspecified cervical region; M17.0 Bilateral primary osteoarthritis of knee; M19.011 Primary osteoarthritis, right shoulder; M19.012 Primary osteoarthritis, left shoulder

== ENCOUNTER → 2025-07-30 15:58 | Outpatient (BNVA) | payer MEDICARE, MEDICAID, SELFPAY | PROVIDERS: PCP Internal Medicine; Visit Provider Internal Medicine | DX: E11.65 Type 2 diabetes mellitus with hyperglycemia (principal); E78.00 Pure hypercholesterolemia, unspecified; J44.9 Chronic obstructive pulmonary disease, unspecified; R41.89 Other symptoms and signs involving cognitive functions and awareness; D18.03 Hemangioma of intra-abdominal structures; M51.360 Other intervertebral disc degeneration, lumbar region with discogenic back pain only; M50.30 Other cervical disc degeneration, unspecified cervical region; M17.0 Bilateral primary osteoarthritis of knee; M19.011 Primary osteoarthritis, right shoulder; M19.012 Primary osteoarthritis, left shoulder; R20.2 Paresthesia of skin; K59.00 Constipation, unspecified; L70.0 Acne vulgaris; G47.00 Insomnia, unspecified; F41.9 Anxiety disorder, unspecified; I12.9 Hypertensive chronic kidney disease with stage 1 through stage 4 chronic kidney disease, or unspecified chronic kidney disease; E11.22 Type 2 diabetes mellitus with diabetic chronic kidney disease; N18.31 Chronic kidney disease, stage 3a; E66.9 Obesity, unspecified; Z68.30 Body mass index [BMI] 30.0-30.9, adult | CPT/HCPCS: 96127; 99212 ==

== ENCOUNTER 2025-09-04 14:25 | Outpatient (AMB) | payer MEDICARE, MEDICAID, SELFPAY ==
[2025-09-04 14:47] VITALS: BP 130/84; PULSE 102; O2SAT 96; BMI 30.1
--- NOTE | 2025-09-04 14:47 | A.OFFPC_ITS ---
Vital Signs 09/04/25 14:47 Height 6 ft Weight 222 lb BMI 30.1 BP 130/84 Blood Pressure Location Lt brachial Position Sitting Pulse 102 H Pulse Source Pulse Oximeter Pulse Oximetry (%) 96 Oxygen Delivery Method Room Air Intake Visit Reasons: follow up Remarketing Rep Required: No Accompanied by: Self / Same As Patient Allergies morphine Adverse Reaction (Severe, Verified 09/04/25 15:08) respiratory depression/failure Medication List - Last Reconciled 09/04/25 by Kody Sheth MD albuterol sulfate 90 mcg/actuation (Ventolin HFA) 1 inh inhalation QID PRN amlodipine 5 mg PO DAILY 90 days codeine-guaifenesin 10-100 mg/5 mL 5 mL PO Q6H PRN Combivent Respimat 20-100 mcg/actuation (ipratropium-albuterol) 1 puff inhalation QID NS [COMPRESSION STOCKINGS (moderate compression 20-30 mm) As directed] doxycycline hyclate 100 mg PO DAILY 30 days furosemide 40 mg PO DAILY gabapentin 800 mg PO TID 30 days hydroxyzine HCl 25 mg PO TID PRN 30 days melatonin 10 mg PO BEDTIME PRN metformin ER 500 mg PO BEDTIME 90 days oxycodone 15 mg PO BID PRN 30 days prednisone 40 mg (2 x 20 mg) PO DAILY rosuvastatin 10 mg PO BEDTIME trazodone 150 mg PO BEDTIME PRN 90 days Tobacco use date assessed: 09/04/25 Fall risk assessment: No Falls in past year Last assessed Fall Risk: 09/04/25 Dental Screening Dental Screen Date: 09/04/25 Did you have a dental visit in the last 12 months?: No Did you have a dental problem in the last 6 months where you did not have access to dental care?: No Was dental information given to patient?: No HPI follow up HPI Details Patient comes in today for his follow up visit States that he mainly needs to get several of his Rx refilled as well as something to help with toenail fungus States that a couple of his toenails on his right foot are disfigured and thick and are very hard to trim States that he has been using some OTC anti-fungal nail solution on his toenails for a couple of weeks now without any improvement Adds that he is still experiencing increased pain often in his surgically repaired right knee - states that this started bothering him a lot when he tripped and fell while he was at a local [employer] restaurant earlier this year He would like to be seen again at [facility] as they were the ones who performed surgeru on his knee a few years ago He denies any headaches or dizziness Denies any chest pains, no SOB No nausea/vomiting, no abdominal pain No change in bowel habits noted [facility] Medical History Right knee pain Cough Right shoulder pain Primary osteoarthritis of shoulders, bilateral Benign essential hypertension COPD with exacerbation Shoulder pain COPD exacerbation Fatigue Adult general medical exam Cellulitis Encounter for Medicare annual wellness exam Prostate cancer screening Hyperglycemia Depression Viral syndrome COVID-19 Borderline diabetes mellitus Skin lesion Pain and swelling of right knee Nasal congestion Bronchitis Left foot pain COVID Diabetes mellitus Obesity (BMI 30-39.9) Anxiety Insomnia Chronic kidney disease (CKD), stage III (moderate) Pure hypercholesterolemia Erectile dysfunction Lumbar degenerative disc disease Primary osteoarthritis of both knees COPD (chronic obstructive pulmonary disease) Degenerative disc disease, cervical Surgical History Hx of total knee arthroplasty History of glaucoma History of trabeculectomy Family History Father Cancer Mother No problems noted. Social History Housing: House Alcohol intake: former Patient Tobacco Use Status: Former Tobacco user Tobacco use type: Cigar Years Smoked: 30 years e-Cigarette/Vaping Use: Never Used Second Hand Smoke Exposure: Yes service: Yes Current occupational status: retired Cognitive needs: No Hearing needs: No Vision needs: No Questionnaire PHQ-9 Over the last 2 weeks, how often have you been bothered by any of the following problems? Depression Screening Interpretation: Negative Depression Screening Done: Yes Source: Developed by Drs. Kali Burton, Erika Garzon, Smith Osorio and colleagues, with an educational baudilio from [employer]. Thrive Questionnaire Date Thrive assessed: 07/30/25 I am a: Patient What is your living situation today?: I have a steady place to live Within the past 12 months, did the food you bought not last and you didn't have the money to get more?: Never true Within the past 12 months, did you worry whether your food would run out before you got money to buy more?: Never true Do you have trouble paying for medicines?: No Do you have trouble getting transportation to medical appointments?: Yes Do you have trouble paying your heating and electricity bill?: No Do you have trouble taking care of your child, family member or friend?: No Do you have trouble with day-to-day activities such as bathing, preparing meals, shopping, managing finances, etc.?: No Are you currently unemployed and looking for a job?: No Are you interested in more education?: No Please select the resources that you would like help with: None Currently or been in a relationship where the following occur: I choose not to answer THRIVE Score: 1 AUDIT C Alcohol Use Questionnaire (AUDIT-C) 1. How often do you have a drink containing alcohol?: Never 3. How often do you have six or more drinks on one occasion?: Never Total Score: 0 Score Reviewed/Action Taken: Yes JCAKSON-7 AMB Questionnaire JACKSON-7 Date JACKSON - 7 assessed: 07/30/25 Source: Developed by Drs. Kali Burton, Erika Garzon, Smith Osorio and colleagues, with an educational baudilio from [employer]. Review of Systems Const Denies chills, Reports difficulty sleeping, Reports fatigue, Denies fever(s) and Denies headache(s) ENT Denies dysphagia, Denies dizziness, Denies otalgia, Denies headache(s), Reports neck pain (chronic), Denies odynophagia and Denies sore throat Card Denies chest pain, Denies palpitations and Reports dyspnea on exertion (mild; chronic) Resp Denies chest congestion, Reports cough (on and off, coughs up thick whitish phlegm at times), Reports dyspnea on exertion (mild; chronic) and Denies wheezing GI Denies abdominal pain, Reports constipation (on and off), Denies dysphagia, Denies heartburn, Denies diarrhea, Denies nausea, Denies odynophagia and Denies vomiting Denies difficulty urinating, Denies dysuria, Denies nocturia and Denies urinary frequency Musc Reports back pain (chronic), Reports arthralgias (over multiple joints; increased in the right knee), Reports joint swelling (on and off in the right knee), Reports neck pain (chronic) and Reports tingling (in the right hand, now constant) Skin/Breast Denies rash Neuro Denies dizziness, Denies headache(s), Reports radicular pain (on and off in the right hand) and Reports tingling (in the right hand, now constant) Psych Reports anxiety and Reports depression Endo Reports fatigue and Denies palpitations Aller/Immun Denies wheezing Physical exam (Primary Care) Vital Signs: Last Vital Signs Pulse 102 H 09/04/25 14:47 BP 130/84 09/04/25 14:47 Pulse Ox 96 09/04/25 14:47 Oxygen Delivery Method Room Air 09/04/25 14:47 BMI result Body Mass Index 30.1 Tobacco/Smoking Status: Tobacco use Status Tobacco use date assessed 09/04/25 09/04/25 14:56 Patient Tobacco Use Status Former Tobacco user 09/04/25 14:56 Tobacco use type Cigar 09/04/25 14:56 e-Cigarette/Vaping Use Never Used 09/04/25 14:56 Depression Screening Interpretation: Negative Thrive Assessment: Date of Thrive Assessment Date Thrive assessed 07/30/25 09/04/25 14:56 Currently or been in a relationship where the following occur: I choose not to answer Const General: no acute distress and alert HENNE Throat: Yes posterior oropharynx normal and Yes tonsils normal (no TP congestion noted) Neck Neck: Yes supple and No lymphadenopathy Thyroid: Thyroid normal Resp Auscultation: no crackles, no rales, no wheezes and diminished lung sounds (slightly) bilateral Cardio Rate: regular rate Rhythm: regular rhythm Heart sounds: no murmurs GI Palpation (GI): Soft to palpation and nontender Auscultation: normal bowel sounds General: Yes no CVA tenderness Back/Spine/Pelvis Back: no CVA tenderness Cervical Spine: Cervical spine tenderness Thoracic/Lumbar Spine: lumbar spinal tenderness Skin Rashes: no rashes Extrem General: Yes no clubbing, cyanosis or edema Right upper extremity: shoulder/upper arm Details: tenderness Location: of the A-C joint and abnormal ROM (ROM limited slightly due to pain); no swelling and wrist Details: tenderness Location: of the volar wrist Right lower extremity: knee Details: tenderness, crepitus and deformity; no swelling and foot ((+) thick and disfigured toenails ) Left lower extremity: knee Details: tenderness and crepitus; no swelling and foot Details: tenderness Location: of the calcaneus and no edema Coding Level of Care Code Est Pt Level 4 (48225) Diagnoses Onychomycosis B35.1 Chronic pain of right knee M25.561; G89.29 Chronicity: chronic Pure hypercholesterolemia E78.00 Type 2 diabetes mellitus with hyperglycemia, without long-term current use of insulin E11.65 Diabetes mellitus type: type 2 Diabetes mellitus group home insulin use: without moth exterminator use Diabetes mellitus complication status: with hyperglycemia Benign essential hypertension I10 Chronic obstructive pulmonary disease, unspecified COPD type J44.9 COPD type: unspecified COPD Cognitive changes R41.89 Hepatic hemangioma D18.03 Degeneration of intervertebral disc of lumbar region with discogenic back pain M51.360 Disc-related pain type: discogenic back pain only Degenerative disc disease, cervical M50.30 Primary osteoarthritis of shoulders, bilateral M19.011; M19.012 Right hand paresthesia R20.2 Stage 3a chronic kidney disease N18.31 Chronic kidney disease stage 3 subtype: stage 3a (GFR 45-59) Constipation, unspecified constipation type K59.00 Constipation type: unspecified constipation type Acne vulgaris L70.0 Acne type: acne vulgaris Insomnia, unspecified type G47.00 Insomnia type: unspecified Anxiety F41.9 Obesity (BMI 30-39.9) E66.9 Assessment & Plan Assessment & Plan (1) Onychomycosis: Code(s): B35.1 - Tinea unguium Category: Medical Plan: Will refer him to podiatry for further evaluation and management (2) Right knee pain: Code(s): M25.561 - Pain in right knee Category: Medical Qualifiers: Chronicity: chronic Qualified Code(s): M25.561 - Pain in right knee; G89.29 - Other chronic pain Plan: S/P total right knee arthroplasty with [facility] a few years ago As he has been experiencing increasing pain and recurrent swelling of his surg ically repaired knee, will refer him back to [facility] for further evaluation and management, per his request (3) Pure hypercholesterolemia: Code(s): E78.00 - Pure hypercholesterolemia, unspecified Category: Medical Plan: Patient again has not gotten his follow up labs done recently - have advised him that he has NOT had his cholesterol levels checked since late July 2024 Reinforced low cholesterol diet Continue Rosuvastatin 10 mg QD for now He is supposed to get his follow up labs done BEFORE he returns for his appointment in October 2025 and have emphasized to him that he cannot again NOT get his labs done this time (4) Diabetes mellitus: Code(s): E11.9 - Type 2 diabetes mellitus without complications Category: Medical Qualifiers: Diabetes mellitus type: type 2 Diabetes mellitus moth exterminator insulin use: without group home use Diabetes mellitus complication status: with hyperglycemia Qualified Code(s): E11.65 - Type 2 diabetes mellitus with hyperglycemia Plan: His in-office HgbA1c was at 6.3% when it was last checked back in October 2024 - goal is at least <7.0% but ideally <6.5% Reinforced diabetic diet Continue Metformin ER 500 mg Q PM for now although his increased lactic acid levels when he was at the hospital a couple of months ago are concerning - they may have been related to his fall and injuries back then but if this keeps recurring, we may have to consider taking him off Metformin Will recheck his FBS and HgbA1c with his labs in a couple of months for follow up (5) Benign essential hypertension: Code(s): I10 - Essential (primary) hypertension Category: Medical Plan: Reinforced low sodium diet - goal is systolic BP of at least 140 to 150 mm or less Continue Amlodipine 5 mg QD and Furosemide 40 mg Q AM; Losartan 100 mg QD was discontinued a few months ago due to his RACHEL (6) COPD (chronic obstructive pulmonary disease): Code(s): J44.9 - Chronic obstructive pulmonary disease, unspecified Category: Medical Qualifiers: COPD type: unspecified COPD Qualified Code(s): J44.9 - Chronic obstructive pulmonary disease, unspecified Plan: His COPD appears controlled at present Continue Combivent Respimat 1 puff 4 times a day and Albuterol HFA 2 puffs 4 times a day as needed (7) Cognitive changes: Code(s): R41.89 - Other symptoms and signs involving cognitive functions and awareness Category: Medical Plan: Patient was asking for help in filling out some papers to help 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 at his 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 visit but I have advised patient that I am not in a position to do so as I do not have enough information available to support him in his attempt I have advised patient that the best way to go about this at the time was for him to see neurology for a formal evaluation and if neurology deems him fit to continue driving again, then this would help strengthen his case significantly - referral to neurology placed He is now scheduled to be seen by neurology early next month on 09/28/2025 (8) Hepatic hemangioma: Code(s): D18.03 - Hemangioma of intra-abdominal structures Category: Medical Plan: CT of the abdomen and pelvis done at the ER a couple of years ago revealed the presence of a hepatic lesion in segment 6 and 7 of increased density - MRI is recommended to further evaluate whether this is a hemangioma or a solid lesion Patient prefers to continue to hold off on further tests for now - states that he has no acute stomach issues and does not want to keep getting a lot of testing done at this time especially since he has no means of transportation We were considering getting at least getting an abdominal US for follow up when he is ready to do so but he ended up getting an (repeat) abdominal CT done at the ER last month following his fall and injuries, and is CT revealed the presence of a 5.3 cm well-circumscribed peripheral mass along the posterolateral right hepatic lobe (series 11, image 27), that measures greater than simple fluid density, approximately 40 Hounsfield units (9) Lumbar degenerative disc disease: Code(s): M51.36 - Other intervertebral disc degeneration, lumbar region Category: Medical Qualifiers: Disc-related pain type: discogenic back pain only Qualified Code(s): M51.360 - Other intervertebral disc degeneration, lumbar region with discogenic back pain only Plan: Reinforced activity and weight lifting restrictions Patient used to see Dr. Turcios for pain management but has not done since the COVID-19 pandemic started Per request, he was referred to [facility] last year but for unclear reasons, he was never scheduled for any appointment Continue Gabapentin 800 mg 3 times a day and Duloxetine 30 mg twice a day;? he is also on Oxycodone 15 mg twice a day as needed Patient is again reminded in no uncertain terms that I will not increase his Oxycodone dosage or dosing due to his COPD and will refer him back to pain management for interventional treatments if he feels that his low back pain is getting worse and his medications are not controlling his pain adequately (10) Degenerative disc disease, cervical: Code(s): M50.30 - Other cervical disc degeneration, unspecified cervical region Category: Medical Plan: Continue Oxycodone 15 mg twice a day as needed for severe pain Cervical spine MRI done a couple of years ago showed (+) multilevel degenerative changes resulting in 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 referral to neurosurgery has been discussed in the past and remains a consideration if his neck pain gets worse (11) Primary osteoarthritis of shoulders, bilateral: Code(s): M19.011 - Primary osteoarthritis, right shoulder; M19.012 - Primary osteoarthritis, left shoulder Category: Medical Plan: X-rays of both shoulders done at the ER late last year revealed (+) osteoarthritis changes bilaterally He states that he has been experiencing increased pain in both shoulders since his fall at a local restaurant last August 2024 Per request, he was previously referred again to [facility] for orthopedic consultation for his joint pains (12) Right hand paresthesia: Code(s): R20.2 - Paresthesia of skin Category: Medical Plan: EMG and NCV of the right upper extremity done back in January 2025 revealed (+) findings of 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 There is electrodiagnostic evidence for right ulnar neuropathy at the elbow, but no electrodiagnostic evidence for brachial plexopathy or cervical radiculopathy (13) Chronic kidney disease (CKD), stage III (moderate): Code(s): N18.30 - Chronic kidney disease, stage 3 unspecified Category: Medical Qualifiers: Chronic kidney disease stage 3 subtype: stage 3a (GFR 45-59) Qualified Code(s): N18.31 - Chronic kidney disease, stage 3a Plan: Will continue to monitor his GFR and renal function closely (14) Constipation: Comment: Most likely multifactorial, including opioid-induced as well as due to inadequate oral fluid and fiber intake Code(s): K59.00 - Constipation, unspecified Category: Medical Qualifiers: Constipation type: unspecified constipation type Qualified Code(s): K59.00 - Constipation, unspecified Plan: Reinforced increased oral fluids and dietary fiber intake Continue Miralax 17 gm QD and may take OTC stool softeners PRN (15) Acne: Code(s): L70.9 - Acne, unspecified Category: Medical Qualifiers: Acne type: acne vulgaris Qualified Code(s): L70.0 - Acne vulgaris Plan: Continue Doxycycline 100 mg QD and Metrogel 0.75% apply to acne on face BID (16) Insomnia: Code(s): G47.00 - Insomnia, unspecified Category: Medical Qualifiers: Insomnia type: unspecified Qualified Code(s): G47.00 - Insomnia, unspecified Plan: Sleep hygiene reinforced Continue Trazodone 150 mg Q HS PRN (17) Anxiety: Code(s): F41.9 - Anxiety disorder, unspecified Category: Medical Plan: Continue Lorazepam 1 mg BID PRN and Hydroxyzine 25 mg TID PRN, Buspirone 10 mg BID and Sertraline 50 mg Q AM He was on Citalopram in the past but is unclear when or why he stopped taking this (on his own) Per request, he was referred previously for counseling and therapy and is still waiting to be contacted (18) Obesity (BMI 30-39.9): Code(s): E66.9 - Obesity, unspecified Category: Medical Plan: Reinforced diet; exercise and weight loss are unrealistic due to his multiple physical issues and comorbidities Plan Follow up as scheduled in October 2025 Patient is again reminded to make sure he gets his follow up labs done BEFORE he returns for his appointment in October 2025 Orders: Referrals Orthopedics Referral G89.29 - Other chronic pain, M25.561 - Pain in right knee Podiatry Referral B35.1 - Tinea unguium Medications: Refilled doxycycline hyclate 100 mg PO DAILY 30 caps 0RF 30 days oxycodone 15 mg PO BID PRN 60 tabs 0RF severe pain 30 days M50.30 - Other cervical disc degeneration, unspecified cervical region, M51.36 - Other intervertebral disc degeneration, lumbar region amlodipine 5 mg PO DAILY 90 tabs 1RF 90 days I10 - Essential (primary) hypertension trazodone 150 mg PO BEDTIME PRN 90 tabs 0RF for insomnia 90 days G47.00 - Insomnia, unspecified Combivent Respimat 20-100 mcg/actuation (ipratropium-albuterol) 1 puff inhalation QID 4 grams 5RF NS
--- OUTSIDE RECORDS SUMMARY | 2025-09-04 17:21 | XMS_ITS | Patient Health Record ---
Author Organization [facility] Address [address] [place] [id number] Care Team Providers Care Hide Sorter Name Role Phone Kali Jc Unavailable [phone] Reason For Referral No Information Plan Of Treatment No Information
== END 2025-09-04 15:23 | disposition home or self-care (01) ==
LOC: HO.HMCH 14:26
PROVIDERS: PCP Internal Medicine; Visit Provider Internal Medicine
DX: I12.9 Hypertensive chronic kidney disease with stage 1 through stage 4 chronic kidney disease, or unspecified chronic kidney disease (principal); E11.65 Type 2 diabetes mellitus with hyperglycemia; J44.9 Chronic obstructive pulmonary disease, unspecified; N18.31 Chronic kidney disease, stage 3a; B35.1 Tinea unguium; M25.561 Pain in right knee; G89.29 Other chronic pain; E78.00 Pure hypercholesterolemia, unspecified; R41.89 Other symptoms and signs involving cognitive functions and awareness; D18.03 Hemangioma of intra-abdominal structures; M51.360 Other intervertebral disc degeneration, lumbar region with discogenic back pain only; M50.30 Other cervical disc degeneration, unspecified cervical region

== ENCOUNTER → 2025-09-04 14:25 | Outpatient (BNVA) | payer MEDICARE, MEDICAID, SELFPAY | PROVIDERS: PCP Internal Medicine; Visit Provider Internal Medicine | DX: M25.561 Pain in right knee (principal); B35.1 Tinea unguium; G89.29 Other chronic pain; E78.00 Pure hypercholesterolemia, unspecified; E11.65 Type 2 diabetes mellitus with hyperglycemia; E11.22 Type 2 diabetes mellitus with diabetic chronic kidney disease; I12.9 Hypertensive chronic kidney disease with stage 1 through stage 4 chronic kidney disease, or unspecified chronic kidney disease; N18.31 Chronic kidney disease, stage 3a; J44.9 Chronic obstructive pulmonary disease, unspecified; R41.89 Other symptoms and signs involving cognitive functions and awareness; D18.03 Hemangioma of intra-abdominal structures; M51.360 Other intervertebral disc degeneration, lumbar region with discogenic back pain only; M50.30 Other cervical disc degeneration, unspecified cervical region; M19.011 Primary osteoarthritis, right shoulder; M19.012 Primary osteoarthritis, left shoulder; R20.2 Paresthesia of skin; K59.00 Constipation, unspecified; L70.0 Acne vulgaris; G47.00 Insomnia, unspecified; F41.9 Anxiety disorder, unspecified; E66.9 Obesity, unspecified; Z68.30 Body mass index [BMI] 30.0-30.9, adult | CPT/HCPCS: 99212 ==

== ENCOUNTER 2025-09-24 10:20 | Emergency (ER) | payer MEDICARE, MEDICAID, SELFPAY ==
--- NOTE | ~2025-09-24 | XR_ITS ---
EXAMINATION: XR CHEST CLINICAL INFORMATION: fall COMPARISON: March 27, 2025. TECHNIQUE: Frontal view of the chest was obtained. FINDINGS: No consolidation, pleural effusion or pneumothorax. Cardiomediastinal silhouette size is normal. Calcified plaque thoracic aortic arch. Multilevel spondylosis and a shaped curvature. Degenerative changes in the left shoulder. XR/XR chest 1V IMPRESSION: No acute airspace disease. Atherosclerosis disease. Multilevel spondylosis and scoliosis, thoracic spine. Electronically signed by: Sukh Waters MD 09/24/2025 11:53 AM [facility]
--- NOTE | ~2025-09-24 | XR_ITS ---
EXAMINATION: XR HIP, LEFT CLINICAL INFORMATION: fall COMPARISON: None available. TECHNIQUE: AP and cross lateral view of the left hip. AP view pelvis. FINDINGS: No acute cortical disruption or malalignment. Degenerative changes in the sacroiliac joints, symphysis pubis and coxofemoral joints. Multilevel lower lumbar spine spondylosis. Vascular calcifications.. XR/XR hip LT w PEL1V IMPRESSION: No acute fracture or dislocation, left hip. Electronically signed by: Sukh Waters MD 09/24/2025 11:56 AM [facility]
--- NOTE | ~2025-09-24 | CT_ITS ---
EXAMINATION: CT HEAD WITHOUT CONTRAST CLINICAL INFORMATION: Fall, head strike. COMPARISON: 09/07/2024, 04/19/2016. TECHNIQUE: Contiguous axial imaging was performed from the skull base to vertex without intravenous administration of contrast. This CT examination was performed using dose optimization techniques as appropriate, variously including the following: *Automated exposure control *Adjustment of mA and/or kV according to patient size (this includes techniques or standardized protocols for targeted exams where dose is matched to indication/reason for exam; i.e. extremities or head) *Use of iterative reconstruction technique FINDINGS: There is moderate motion artifact, limiting the sensitivity of the examination. There is no evidence of intracranial hemorrhage or extra-axial fluid collection. There is no mass effect, or edema. No CT evidence of acute territorial infarct. Ventricles, sulci, and cisterns are diffusely somewhat prominent, in keeping with age-related cerebral and cerebellar volume loss. No hydrocephalus. No midline shift. Negative hyperdense MCA sign. Negative insular ribbon sign. Patchy periventricular and deep white matter hypoattenuation is consistent with moderate small vessel ischemic changes. Normal pituitary. Atheromatous calcification of the bilateral carotid siphons and V4 segments vertebral arteries bilaterally. The globes and orbital contents are somewhat obscured by motion artifact. There are probable lens replacements and senile calcifications. The right lens is calcified. No extracranial soft tissue abnormalities. The paranasal sinuses, mastoid air cells, and tympanic cavities are normally aerated. No suspicious bony abnormalities. There are no acute fractures evident. CT/CT head/brain wo IV con IMPRESSION: 1. Somewhat motion degraded exam. 2. No acute intracranial abnormality. No fracture evident. Electronically signed by: Juan Carlos Hicks MD 09/24/2025 11:23 AM [facility]
--- NOTE | ~2025-09-24 | CT_ITS ---
EXAMINATION: CT CERVICAL SPINE WITHOUT IV CONTRAST HISTORY: fall. TECHNIQUE: Helical CT of the cervical spine was performed per standard departmental protocol. Coronal and sagittal reformatted images were also evaluated. One or more of the following techniques was used for dose reduction: Automated exposure control, adjustment of the mA and/or kV according to patient size, use of iterative reconstruction technique. DLP: 434 mGy-cm COMPARISON: Comparison is made with the prior examination dated 09/07/2024. FINDINGS: CERVICAL SPINE: The vertebral bodies maintain normal height without evidence of fracture. There is leftward curvature. There is straightening of the normal cervical lordosis. There is slight anterolisthesis of C4 on C5 without change. There is diffuse moderate degenerative disc disease with disc space narrowing and osteophyte formation. There is diffuse facet osteoarthritis and uncovertebral joint hypertrophy causing multilevel neural foraminal stenosis. Evaluation for disc pathology is limited by lack of intrathecal contrast material, however. BRAIN: The visualized portion of the brain is unremarkable. SINUSES: The visualized paranasal sinuses, mastoid air cells and middle ear cavities are unremarkable. LUNG APICES: The visualized lung apices are clear. SOFT TISSUES: The visualized paraspinal soft tissues are unremarkable. CT/CT cervical spine wo IV con IMPRESSION: No evidence of fracture of the cervical spine. Slight anterolisthesis of C4 on C5 without change. Degenerative disc disease as described. Electronically signed by: Kali Goncalves MD 09/24/2025 11:18 AM [facility] [place]
--- NOTE | ~2025-09-24 | CT_ITS ---
EXAMINATION: CT PELVIS WITHOUT CONTRAST CLINICAL INFORMATION: Hip pain, status post fall COMPARISON: None available. TECHNIQUE: Helical scanning was performed with submillimeter collimation through the pelvis. Sagittal and coronal multiplanar 2-D reconstructions were obtained. This CT examination was performed using dose optimization techniques as appropriate, variously including the following: *Automated exposure control *Adjustment of mA and/or kV according to patient size (this includes techniques or standardized protocols for targeted exams where dose is matched to indication/reason for exam; i.e. extremities or head) *Use of iterative reconstruction technique FINDINGS: PELVIS: Bone mineralization is decreased. Acute, comminuted, mildly displaced left acetabulum fracture. Comminuted fracture involving the anterior acetabulum and the junction of the superior pubic ramus. Fracture plane extends to involve the left ilium. The comminuted fracture planes involving the anterior, medial and posterior acetabulum . Mildly displaced left inferior pubic ramus fracture . Bilateral SI joint arthritis. No acute sacral fracture is identified. Symphysis pubis degeneration. No diastasis of the symphysis pubis. Moderate left hip arthritis. No femoral cortical offset or malalignment is seen to suggest a definite of fracture. Moderate right hip arthritis. No acute right hip fracture or dislocation. Small sclerotic focus in the right femoral head could reflect degenerative changes versus small focus of avascular necrosis. Advanced spondylosis in the visualized lower lumbar spine. Grade 1 anterolisthesis of L5 on S1. There is thickening of the left obturator internus muscle, could reflect reactive edema or hematoma related to the fracture. No significant free fluid in the pelvis. Urinary bladder is partially distended. Prostate calcifications. CT/CT pelvis wo IV con IMPRESSION: * Acute, comminuted and mildly displaced left acetabular fracture. Fracture fracture involve the junction with the superior pubic ramus, and the left ilium. * Mildly displaced left inferior pubic ramus fracture * Moderate left hip arthritis. No left femoral fracture is evident on CT. * Additional arthritis as detailed above. *Left obturator internus muscle findings could represent hematoma or edema. *Osteopenia limits evaluation. If this clinical concern for radiographically occult fracture, recommend MRI. Electronically signed by: Mitchell Moon MD 09/24/2025 01:49 PM EST
[2025-09-24 10:31] VITALS: BP 100/59; BP 132/77; PULSE 77; PULSE 94; RESP 17; TEMP 36.8; O2SAT 96; BMI 20.8
--- NOTE | 2025-09-24 10:44 | ECG_ITS ---
Test Reason : FALL Blood Pressure : */* mmHG Vent. Rate : 72 BPM Atrial Rate : 394 BPM P-R Int : * ms QRS Dur : 94 ms QT Int : 420 ms P-R-T Axes : * 20 -16 degrees QTcB Int : 459 ms Atrial fibrillation Abnormal ECG When compared with ECG of 27-Jun-2025 22:27, No significant changes seen Referred By: Karin Hayward Electronically Signed By: Fam Galloway
[2025-09-24] MEDS: oxyCODONE HCl Immed Release 5 MG TABLET 10 MG PO (11:02)
--- NOTE | 2025-09-24 12:19 | ED.FALL ---
HPI - Fall General Chief Complaint: Fall Stated Complaint: L HIP PAIN Time Seen by Provider: 09/24/25 10:43 Source: patient, EMS and old records reviewed Mode of arrival: EMS Limitations: no limitations History of Present Illness ED Provider: NATALY GEORGE Narrative: 85 yo male with PMH of COPD but no on home O2 he tells me he doesn't take any medications at this time. He lives alone EMS did note a hoarding situation and are filing a neglect case per ED RN. He is not on any blood thinners, and stated he did not really take many medications I also reviewed his last discharge summary from December 2024 and no blood thinners were noted on his discharge medications. He presents today with complaint of falling after missing a step into his house yesterday, he landed on left hip now has significant pain unable to walk, his friend had to help him get up, he was on the ground for 30 minutes. He notes no head injury and no loss of consciousness. He denies any other medical issues or complaints. His left leg is shortened and rotated. No prior injury or surgery to that L hip. He hasn't been eating much since yesterday due to the pain. complaint: fall Onset (ago): day(s) (1) Fall from: standing Fall witnessed: no Place fall occurred: home Loss of consciousness: none Prolonged down time: no Symptoms prior to fall: none Context: tripped/slipped Location of injury: pelvis Severity: moderate Quality: aching Associated symptoms (after fall): unable to walk Related Data Home Medications ?Medication ?Instructions ?Recorded ?Confirmed apixaban 5 mg tablet (Eliquis) 5 mg PO BID 09/24/25 09/24/25 losartan 100 mg tablet 100 mg PO DAILY 09/24/25 09/24/25 Previous Rx's ?Medication ?Instructions ?Recorded albuterol sulfate 90 mcg/actuation 1 inh inhalation QID PRN shortness 12/21/23 aerosol inhaler (Ventolin HFA) of breath or wheezing #8.5 grams COMPRESSION STOCKINGS (moderate #2 ea 11/10/24 compression 20-30 mm) furosemide 40 mg tablet 40 mg PO DAILY #90 tabs 02/07/25 metformin 500 mg tablet,extended 500 mg PO BEDTIME 90 days #90 tabs 07/03/25 release 24 hr hydroxyzine HCl 25 mg tablet 25 mg PO TID PRN anxiety 30 days 07/20/25 #90 tabs Combivent Respimat 20 mcg-100 1 puff inhalation QID #4 grams 09/04/25 mcg/actuation solution for inhalation (ipratropium-albuterol) amlodipine 5 mg tablet 5 mg PO DAILY 90 days #90 tabs 09/04/25 doxycycline hyclate 100 mg capsule 100 mg PO DAILY 30 days #30 caps 09/04/25 oxycodone 15 mg tablet 15 mg PO BID PRN severe pain 30 09/04/25 days #60 tabs trazodone 150 mg tablet 150 mg PO BEDTIME PRN for insomnia 09/04/25 90 days #90 tabs oxycodone 5 mg tablet 5 mg PO Q8H PRN pain (scale score 09/26/25 7-10) 3 days #9 tabs Allergies Allergy/AdvReac Type Severity Reaction Status Date / Time morphine AdvReac Severe respiratory Verified 09/24/25 10:35 depression/failure Review of Systems Review of Systems: Constitutional : No Fever, No Chills ENT/Mouth : No Ear Pain, No Hoarseness, No sore throat Eyes: No Eye Pain, No Swelling, No Redness, No Foreign Body Cardiovascular : No Chest Pain, No SOB Respiratory : No Cough, No Dyspnea Gastrointestinal : No Nausea, No Vomiting, No Diarrhea, No abdominal Pain Genitourinary : No Dysuria, No Hematuria Musculoskeletal : positive joint pain, No Myalgias, No Joint Swelling Skin : No Skin lacerations, No rash Neuro : No Weakness, No Numbness, No Loss of Consciousness, No Dizziness, No Headache All other systems reviewed and are negative [facility] Past Medical History Attestation statement: The following information was validated with the patient. Source: old records reviewed Medical History Right knee pain Cough Right shoulder pain Primary osteoarthritis of shoulders, bilateral Benign essential hypertension COPD with exacerbation Shoulder pain COPD exacerbation Fatigue Adult general medical exam Cellulitis Encounter for Medicare annual wellness exam Prostate cancer screening Hyperglycemia Depression Viral syndrome COVID-19 Borderline diabetes mellitus Skin lesion Pain and swelling of right knee Nasal congestion Bronchitis Left foot pain COVID Diabetes mellitus Obesity (BMI 30-39.9) Anxiety Insomnia Chronic kidney disease (CKD), stage III (moderate) Pure hypercholesterolemia Erectile dysfunction Lumbar degenerative disc disease Primary osteoarthritis of both knees COPD (chronic obstructive pulmonary disease) Degenerative disc disease, cervical Surgical History Hx of total knee arthroplasty History of glaucoma History of trabeculectomy Family History Family History Father Cancer Mother No problems noted. Social History Social History Housing: House Alcohol intake: former Patient Tobacco Use Status: Former Tobacco user Tobacco use type: Cigar Years Smoked: 30 years e-Cigarette/Vaping Use: Never Used Second Hand Smoke Exposure: Yes service: Yes Current occupational status: retired Cognitive needs: No Hearing needs: No Vision needs: No Physical Exam Vital Signs: Vital Signs: Last Vital Signs Temp 98.5 F 09/26/25 13:33 Pulse 88 09/26/25 13:33 Resp 18 09/26/25 13:33 BP 113/56 L 09/26/25 13:33 Pulse Ox 92 09/26/25 13:33 O2 Del Method Room Air 09/26/25 13:33 BMI result Body Mass Index 20.8 Appearance: Alert. Oriented X3. No acute distress. Eyes: Pupils equal, round and reactive to light. ENT: Pharynx normal. atraumatic Neck: Normal inspection. Neck supple. CVS: Normal heart rate and rhythm. Pulses normal. Respiratory: No respiratory distress. Breath sounds normal. Abdomen: Soft and nontender. Skin: Skin warm and dry. Normal skin color. Normal skin turgor. Extremities: mild edema both ankles, L femur area soft and compressible, distal pulses intact, L leg shortened and ext rotated. Neuro: Oriented X 3. No motor deficit. No sensory deficit. CN2-12 intact Course Course Course Narrative: At this time he still has left hip pain and can not ambulate I am going to obtain a bony pelvis CT EKG shows new onset afib he has no reported hx of this. I have requested DVT prophylaxis. He has no CP/SOB. Reevaluation(s) Reevaluation #1: Time: 08:43 Date: 09/25/25 Provider: ALEJANDRA Keller Patient in physician observation for case management needs. No acute events reported overnight.?No current issues or complaints. VS stable. Patient is pending PT/CM eval. Will continue to monitor. Reevaluation #2: Karin Hayward, DO 09/25/25 1558 I have to be reviewing the chart to see where the patient's status was, and I noted that he had been given Eliquis which actually was a home medication initially filled in August though I was unaware of that on his initial evaluation in the ED I assume this is due to afib that was managed as an outpatient, he has been on prophylactic Lovenox injections and received his injection this afternoon. He had been restarted on the Eliquis 5 mg p.o. b.i.d. as well as prophylactic Lovenox. He has no signs of bleeding, I am going to obtain a CBC and repeat CBC in the morning, I am going to notify the ED provider who is covering him while over in our overflow area. I did disclose this med error to the patient and that we will monitor him closely. I have held his Eliquis until tomorrow evening. ALEJANDRA Keller 09/25/25 1756 Repeat CBC showing slight drop in H&H from 12.8/37.1 to 11.7/34.1. They are still no signs of bleeding. plan for repeat CBC tomorrow morning (09/26/25). ALEJANDRA Keller 09/26/25 1035 Repeat H&H stable. I did evaluate patient bedside, no signs of bleeding. Time: 15:25 Date: 09/26/25 Provider: ALEJANDRA Keller Physician observation ended at 1525. Patient to be placed at a rehab facility. Three day script for oxycodone provided. Medications Administered Generic Name Dose Route Start Last Admin Trade Name Freq PRN Reason Stop Dose Admin Acetaminophen 650 mg 09/24/25 14:15 09/25/25 08:04 Acetaminophen 325 Mg Tablet PO 650 mg Q6H PRN Administration Pain, Mild 1-3,fever,headache Albuterol/Ipratropium 3 ml 09/26/25 12:00 09/26/25 14:03 Albuterol/Iprat 2.5/0.5mg 3 Ml Ampul.Neb INHALE 3 ml RQ6H WHILE AWAKE JOLENE Administration Amlodipine Besylate 5 mg 09/25/25 09:00 09/26/25 09:11 Amlodipine Besylate 5 Mg Tablet PO 5 mg DAILY JOLENE Administration Protocol Apixaban 5 mg 09/24/25 21:00 09/25/25 08:03 Apixaban 5 Mg Tablet PO 5 mg On Hold: 09/25/25 15:52 BID JOLENE Administration Resume: 09/26/25 18:00 Docusate Sodium 100 mg 09/24/25 14:15 09/26/25 10:33 Docusate Sodium 100 Mg Capsule PO 100 mg BID PRN Administration Constipation Doxycycline Monohydrate 100 mg 09/25/25 09:00 09/26/25 09:11 Doxycycline Monohydrate 100 Mg Capsule PO 100 mg DAILY JOLENE Administration Furosemide 40 mg 09/25/25 09:00 09/26/25 09:11 Furosemide 40 Mg Tablet PO 40 mg DAILY JOLENE Administration Protocol Losartan Potassium 100 mg 09/25/25 09:00 09/26/25 09:10 Losartan Potassium 50 Mg Tablet PO 100 mg DAILY JOLENE Administration Protocol Metformin HCl 500 mg 09/24/25 21:00 09/25/25 20:55 Metformin Hcl Er 500 Mg Tab.Er.24h PO 500 mg BEDTIME JOLENE Administration Oxycodone HCl 5 mg 09/24/25 14:20 09/25/25 05:56 Oxycodone Hcl Immed Release 5 Mg Tablet PO 5 mg Q6H PRN Administration Pain, Moderate(Pain Scale 4-6) Oxycodone HCl 15 mg 09/24/25 19:39 09/26/25 09:11 Oxycodone Hcl Immed Release 15 Mg Tablet PO 15 mg BID PRN Administration severe pain Discontinued Medications Generic Name Dose Route Start Last Admin Trade Name Freq PRN Reason Stop Dose Admin Albuterol/Ipratropium 3 ml 09/25/25 00:00 09/26/25 06:30 Albuterol/Iprat 2.5/0.5mg 3 Ml Ampul.Neb INHALE 3 ml RQ6H JOLENE Administration Enoxaparin Sodium 40 mg 09/24/25 15:00 09/25/25 15:32 Enoxaparin Sodium 40 Mg/0.4 Ml Syringe SUBCUT 40 mg Q24H JOLENE Administration Acetaminophen 1,000 mg in 100 mls @ 400 mls/hr 09/24/25 10:48 09/24/25 11:33 Ofirmev IV 09/24/25 11:02 Infused ONCE ONE Infusion Lactated Ringer's 1,000 mls @ 999 mls/hr 09/24/25 16:20 09/24/25 22:23 Lr IV 09/24/25 17:20 Infused .Q1H1M ONE Infusion Oxycodone HCl 10 mg 09/24/25 10:48 09/24/25 11:02 Oxycodone Hcl Immed Release 5 Mg Tablet PO 09/24/25 10:49 10 mg ONCE ONE Administration Medical Decision Making Medical Decision Making [facility] Narrative: 85-year-old male with past medical history of COPD not on home O2, pneumonia, depression, diabetes not on blood thinners per his reports, who is here status post mechanical fall with no preceding symptoms now with left hip pain and exam concerning for hip fracture he is neurovascularly intact. At this time labs, EKG, chest x-ray, , given age CT head and CT C-spine. I have ordered IV morphine for pain. He will receive IVF as well due to lack of eating/drinking. Differential Diagnosis Differential Diagnoses: The differential diagnosis associated with the presentation includes Anemia, dehydration, left hip fracture, rhabdo Admission/Observation Consideration of admission/observation: Escalation of care including admission/observation considered Physician observation started at 14:12 for placement given nonweightbearing for 3 months will need rehab he lives alone Consult Healthcare Provider Management of the patient was discussed with: Regional Vice President Surgical Sales Spoke to Indira from Orthopedics nonweightbearing for 3 months not a surgical intervention Lab Data [facility] Lab Attestation statement: I reviewed the patient's lab results. 09/26/25 09:35 09/24/25 12:16 Labs: Lab Results 09/24/25 09/24/25 09/24/25 Range/Units 12:16 12:44 15:33 WBC 10.0 (4.8-10.8) X10*3/uL RBC 4.01 L (4.60-5.80) X10*6/uL Hgb 12.8 L (14.0-18.0) g/dl Hct 37.1 L (42.0-52.0) % MCV 92.5 (80.0-98.0) fL MCH 31.9 (27.0-33.0) pg MCHC 34.5 (31.0-36.0) g/dl RDW 14.9 (11.0-16.0) % Plt Count 262 (160-400) X10*3/uL MPV 9.3 L (9.4-12.4) fL Immature Gran % (Auto) 0.5 H (0.0-0.4) % Neut % (Auto) 76.3 H (45-73) % Lymph % (Auto) 11.4 L (20-40) % [place]ack[place]ord % (Auto) 11.2 H (2-11) % Eos % (Auto) 0.2 (0-4) % Baso % (Auto) 0.4 (0-2) % Lymph # (Auto) 1.1 L (1.2-4.9) X10*3/uL [place]ord # (Auto) 1.1 (0.1-1.2) X10*3/uL Eos # (Auto) 0.0 (0.0-0.4) X10*3/uL Baso # (Auto) 0.0 (0.0-0.2) X10*3/uL Abs Immat Gran (auto) 0.05 H (0.00-0.03) X10*3/uL Absolute Neuts (auto) 7.7 (2.0-8.3) x10*3/uL Absolute Nucleated RBC 0.000 (0.0-0.012) X10*3/uL Nucleated RBC % (auto) 0.0 (0.0-0.2) /100WBC PT 12.6 H (10.9-12.4) SEC INR 1.1 (0.9-1.1) Sodium 135 (135-145) mmol/L Potassium 4.3 (3.3-5.1) mmol/L Chloride 105 (96-108) mmol/L Carbon Dioxide 23 (22-29) mmol/L Anion Gap 11 L (12-20) BUN 18 H (9-16) mg/dL Creatinine 1.25 (0.5-1.4) mg/dL Estim Creat Clear Calc 39.4 Estimated GFR 55 Random Glucose 132 H (60-115) mg/dL Calcium 8.7 (8.4-10.2) mg/dL Magnesium 1.9 (1.6-2.6) mg/dL Total Bilirubin 1.1 H (0.0-1.0) mg/dL Direct Bilirubin 0.5 (0.0-0.5) mg/dL AST 19 (5-37) U/L ALT 8 (0-40) U/L Alkaline Phosphatase 85 (39-117) U/L Total Creatine Kinase 67 (38-174) U/L Troponin I High Sens 6.0 (<3.5-35.0) ng/L Total Protein 7.0 (6.5-8.0) g/dL Albumin 3.6 (3.5-5.0) g/dL Lipase 16 (8-78) U/L Urine Color Dark Yellow Urine Appearance Clear Urine pH 5.5 (5.0-9.0) Ur Specific Amidon 1.025 (1.005-1.025) Urine Protein 30 (1+) H (Neg-Trace) mg/dL Urine Glucose (UA) Negative (Negative) mg/dL Urine Ketones 15 (Negative) mg/dL Urine Blood Negative (Negative) Urine Nitrite Negative (Negative) Ur Leukocyte Esterase Negative (Negative) Urine RBC 0-2 (0-2) /HPF Urine WBC 0-5 (0-5) /HPF Ur Squamous Epith Cells 0-2 (0-2) /HPF Urine Bacteria None Seen (None Seen) Hyaline Casts 3-5 (0-2) /LPF COVID-19 (CHERI) Negative (Negative) COVID-19 Clin Com See Note Blood Type A Positive Antibody Screen NEGATIVE 09/25/25 09/26/25 Range/Units 17:17 09:35 WBC 9.5 8.7 (4.8-10.8) X10*3/uL RBC 3.58 L 3.55 L (4.60-5.80) X10*6/uL Hgb 11.7 L 11.4 L (14.0-18.0) g/dl Hct 34.1 L 33.1 L (42.0-52.0) % MCV 95.3 93.2 (80.0-98.0) fL MCH 32.7 32.1 (27.0-33.0) pg MCHC 34.3 34.4 (31.0-36.0) g/dl RDW 15.0 14.7 (11.0-16.0) % Plt Count 270 256 (160-400) X10*3/uL MPV 9.1 L 9.3 L (9.4-12.4) fL Immature Gran % (Auto) (0.0-0.4) % Neut % (Auto) (45-73) % Lymph % (Auto) (20-40) % Shackelford % (Auto) (2-11) % Eos % (Auto) (0-4) % Baso % (Auto) (0-2) % Lymph # (Auto) (1.2-4.9) X10*3/uL Shackelford # (Auto) (0.1-1.2) X10*3/uL Eos # (Auto) (0.0-0.4) X10*3/uL Baso # (Auto) (0.0-0.2) X10*3/uL Abs Immat Gran (auto) (0.00-0.03) X10*3/uL Absolute Neuts (auto) (2.0-8.3) x10*3/uL Absolute Nucleated RBC 0.000 0.000 (0.0-0.012) X10*3/uL Nucleated RBC % (auto) 0.0 0.0 (0.0-0.2) /100WBC PT (10.9-12.4) SEC INR (0.9-1.1) Sodium (135-145) mmol/L Potassium (3.3-5.1) mmol/L Chloride (96-108) mmol/L Carbon Dioxide (22-29) mmol/L Anion Gap (12-20) BUN (9-16) mg/dL Creatinine (0.5-1.4) mg/dL Estim Creat Clear Calc Estimated GFR Random Glucose (60-115) mg/dL Calcium (8.4-10.2) mg/dL Magnesium (1.6-2.6) mg/dL Total Bilirubin (0.0-1.0) mg/dL Direct Bilirubin (0.0-0.5) mg/dL AST (5-37) U/L ALT (0-40) U/L Alkaline Phosphatase (39-117) U/L Total Creatine Kinase (38-174) U/L Troponin I High Sens (<3.5-35.0) ng/L Total Protein (6.5-8.0) g/dL Albumin (3.5-5.0) g/dL Lipase (8-78) U/L Urine Color Urine Appearance Urine pH (5.0-9.0) Ur Specific Amidon (1.005-1.025) Urine Protein (Neg-Trace) mg/dL Urine Glucose (UA) (Negative) mg/dL Urine Ketones (Negative) mg/dL Urine Blood (Negative) Urine Nitrite (Negative) Ur Leukocyte Esterase (Negative) Urine RBC (0-2) /HPF Urine WBC (0-5) /HPF Ur Squamous Epith Cells (0-2) /HPF Urine Bacteria (None Seen) Hyaline Casts (0-2) /LPF COVID-19 (CHERI) (Negative) COVID-19 Clin Com Blood Type Antibody Screen Independent Interpretation I performed an independent interpretation of an: EKG, Plain X-Ray (Concern for left intertrochanteric fracture) and CT Scan (No acute trauma) Interpretation: Rate: 71 Rhythm: afib Mitchell: normal Normal QRS complex. ST T wave : no RAFY qTC:454 prior studies: new afib The study has been interpreted contemporaneously by me. . Radiology Impression Discussion of test interpretation with radiology: I have reviewed the radiologist's reading. Independent Historian Clinical information obtained from an independent historian. History obtained from or confirmed by: EMS External Record Review External record reviewed: Outpatient record Discharge Plan Discharge Clinical Impression: Acetabulum fracture, left Qualifiers: Encounter type: initial encounter Sublocation of acetabulum: unspecified portion of acetabulum Fracture type: closed Fracture alignment: displaced Qualified Code(s): S32.402A - Unspecified fracture of left acetabulum, initial encounter for closed fracture Closed fracture of left superior pubic ramus Qualifiers: Encounter type: initial encounter Qualified Code(s): S32.512A - Fracture of superior rim of left pubis, initial encounter for closed fracture Closed fracture of left inferior pubic ramus Qualifiers: Encounter type: initial encounter Qualified Code(s): S32.592A - Other specified fracture of left pubis, initial encounter for closed fracture A-fib Qualifiers: Atrial fibrillation type: unspecified Qualified Code(s): I48.91 - Unspecified atrial fibrillation Patient Disposition: [facility] Inpatient Rehab Fac Transfer Details: [facility] Instructions: A-fib (Atrial Fibrillation) (ED), Pelvic Fracture (ED), Blood Thinners (ED) Prescriptions: New oxycodone 5 mg tablet 5 mg PO Q8H PRN (Reason: pain (scale score 7-10)) 3 Days Qty: 9 0RF Rx Instructions: Partial Fill upon patient request. No Action furosemide 40 mg tablet 40 mg PO DAILY Qty: 90 1RF metformin 500 mg tablet extended release 24 hr 500 mg PO BEDTIME 90 Days Qty: 90 0RF hydroxyzine HCl 25 mg tablet 25 mg PO TID PRN (Reason: anxiety) 30 Days Qty: 90 2RF losartan 100 mg Tablet 100 mg PO DAILY Eliquis 5 mg Tablet 5 mg PO BID albuterol sulfate [Ventolin HFA] 90 mcg/actuation HFA aerosol inhaler 1 inh inhalation QID PRN (Reason: shortness of breath or wheezing) Qty: 8.5 1RF (DME) COMPRESSION STOCKINGS (moderate compression 20-30 mm) See Rx Instructions .Route .MEDSUPPLY Qty: 2 3RF Rx Instructions: As directed amlodipine 5 mg tablet 5 mg PO DAILY 90 Days Qty: 90 1RF trazodone 150 mg tablet 150 mg PO BEDTIME PRN (Reason: for insomnia) 90 Days Qty: 90 0RF doxycycline hyclate 100 mg capsule 100 mg PO DAILY 30 Days Qty: 30 0RF Combivent Respimat 20-100 mcg/actuation mist 1 puff inhalation QID Qty: 4 5RF oxycodone 15 mg tablet 15 mg PO BID PRN (Reason: severe pain) 30 Days Qty: 60 0RF Referrals: [facility] [Outside] Print Language: Fijian
[2025-09-24 12:20] LABS: MANUAL DIFF FLAG NO
[2025-09-24 12:27] LABS: Hematocrit 37.1 % (42.0-52.0); Hemoglobin 12.8 g/dl (14.0-18.0); Imm Gran Abs Auto 0.05 X10*3/uL (0.00-0.03); Imm Gran Pct Auto 0.5 % (0.0-0.4); Lymphocytes Absolute Auto 1.1 X10*3/uL (1.2-4.9); Mean Corpuscular HGB Conc 34.5 g/dl (31.0-36.0); Mean Corpuscular Hemoglobin 31.9 pg (27.0-33.0); Mean Corpuscular Volume 92.5 fL (80.0-98.0); NRBC Abs Auto 0.000 X10*3/uL (0.0-0.012); NRBC Pct Auto 0.0 /100WBC (0.0-0.2); Platelet Count 262 X10*3/uL (160-400); Red Blood Count 4.01 X10*6/uL (4.60-5.80); White Blood Count 10.0 X10*3/uL (4.8-10.8)
[2025-09-24 12:30] LABS: INTERNATIONAL NORM RATIO 1.1 (0.9-1.1); Prothrombin Time 12.6 SEC (10.9-12.4)
[2025-09-24 12:49] LABS: Troponin-I High Sensitivity 6.0 ng/L (<3.5-35.0)
[2025-09-24 12:50] LABS: Alanine Aminotransferase 8 U/L (0-40); Albumin Level 3.6 g/dL (3.5-5.0); Alkaline Phosphatase 85 U/L (39-117); Anion Gap 11 (12-20); Aspartate Amino Transferase 19 U/L (5-37); Blood Urea Nitrogen 18 mg/dL (9-16); Calcium 8.7 mg/dL (8.4-10.2); Carbon Dioxide 23 mmol/L (22-29); Chloride 105 mmol/L (96-108); Creatinine Clr Calc Pharmacy 39.4; Estimated Glomerular Filt Rate 55; Lipase 16 U/L (8-78); Magnesium 1.9 mg/dL (1.6-2.6); Potassium 4.3 mmol/L (3.3-5.1); Sodium 135 mmol/L (135-145); Total Protein 7.0 g/dL (6.5-8.0)
[2025-09-24 13:03] LABS: Appearance Urine Clear; Glucose Urine UA Negative (Negative); PH 5.5 (5.0-9.0); Specific Gravity - Urine 1.025 (1.005-1.025); UMIC TRIGGER UACC YES
--- OUTSIDE RECORDS SUMMARY | 2025-09-24 13:06 | XMS_ITS | Patient Health Record ---
Author Organization [facility] Address [address] [place] [id number] Care Team Providers Care Inspection Clerk Name Role Phone Kali Jc Unavailable [phone] Reason For Referral No Information Plan Of Treatment No Information
--- NOTE | 2025-09-24 14:39 | MHC.CM.ED ---
Received case management consult from Dr Hayward. Patient came to the ER due to a fall. Found to have a pubic ramus fracture. Physical therapy eval is ordered and pending. Anticipate STR will be recommended. Met with patient in regards to discharge planning. Patient lives alone. PCP verified. Copy of HCP verified to be on file. Patient has been to [facility] in the past and would prefer not to return there. Patient is not sure where he would like to go. Agreeable to referral being broadcasted locally. Patient has not been inpatient in any facility in the past 30 days. Will need to go to rehab under [facility]. Continue to monitor for d/c needs.
[2025-09-24 16:00] VITALS: BP 93/54; PULSE 82; RESP 18; TEMP 36.8; O2SAT 96
[2025-09-24 16:08] LABS: COVID-19 Test Negative (Negative); IDNOW Serial# 6674DD1D
[2025-09-24] MEDS: Lactated Ringers 1,000 ML 999 ML IV (16:35)
--- NOTE | 2025-09-24 17:29 | MHC.EDTECH ---
Per pt doesn't need 2nd type N Screen drawn, RN aware
--- NOTE | 2025-09-24 19:03 | MHC.EDTECH ---
Patient declined to have money sent to safe
[2025-09-24 19:13] VITALS: BP 119/75; PULSE 89; RESP 16; TEMP 37; O2SAT 96
--- NOTE | 2025-09-24 19:43 | PHA.MEDREC ---
Pharmacy Consult ? Medication Reconciliation Pharmacy has completed the medication reconciliation. Med rec completed by nursing, matches claim history
[2025-09-24] MEDS: oxyCODONE HCl Immed Release 5 MG TABLET PO (20:01)
--- NOTE | 2025-09-24 21:23 | MHC.CM.ED ---
Addendum entered by Bobbi Lynch 09/24/25 22:29: Pt has 5 bed offers pending PT and MH screening. Expect PT eval in am. Addendum entered by Bobbi Lynch 09/24/25 21:24: Referrals placed by previous CM Original Note: PT did not evaluate patient due to multiple Fx. Provider aware. Per ortho, NWB x3 months. No surgery. Awaiting PT evaluation.
[2025-09-25 05:52] VITALS: BP 122/83; PULSE 79; RESP 18; TEMP 37; O2SAT 96
[2025-09-25] MEDS: oxyCODONE HCl Immed Release 5 MG TABLET PO (05:56)
[2025-09-25 08:02] VITALS: BP 130/76
[2025-09-25 08:19] VITALS: BP 130/76; PULSE 89; RESP 16; TEMP 36.9; O2SAT 96
[2025-09-25] MEDS: Albuterol/Iprat 2.5/0.5MG 3 ML AMPUL.NEB INHALE (11:45)
[2025-09-25 11:47] VITALS: PULSE 89; RESP 16; O2SAT 94
--- NOTE | 2025-09-25 13:36 | MHC.CM.ED ---
PT eval recommends STR: Referrals placed: [facility] offering a bed to which pt is accepting. MDS to be completed and [facility] will complete the PASSR 2. ED CM to follow for SNF transfer
[2025-09-25 13:53] VITALS: BP 100/49; PULSE 81; RESP 18; TEMP 36.8; O2SAT 98
[2025-09-25 17:27] LABS: Hematocrit 34.1 % (42.0-52.0); Hemoglobin 11.7 g/dl (14.0-18.0); Mean Corpuscular HGB Conc 34.3 g/dl (31.0-36.0); Mean Corpuscular Hemoglobin 32.7 pg (27.0-33.0); Mean Corpuscular Volume 95.3 fL (80.0-98.0); NRBC Abs Auto 0.000 X10*3/uL (0.0-0.012); NRBC Pct Auto 0.0 /100WBC (0.0-0.2); Platelet Count 270 X10*3/uL (160-400); Red Blood Count 3.58 X10*6/uL (4.60-5.80); White Blood Count 9.5 X10*3/uL (4.8-10.8)
[2025-09-25 20:00] VITALS: BP 98/65; PULSE 70; RESP 14; TEMP 37.2; O2SAT 97
[2025-09-26] VITALS (7 sets, daily range): BP systolic 91–113; BP diastolic 56–64; PULSE 80–88; RESP 15–18; TEMP 36.4–36.9; O2SAT 92–98
--- NOTE | 2025-09-26 04:16 | PC.NURSE ---
Assumed care of patient at 1900, A/O x4, S/P fall at home/ non weight bearing [id number]. Patient pleasant and cooperative with care. VSS. Sleeping through most of night . Denies pain at this time. Safety measures in place , call ball within reach. Awaiting placement.
[2025-09-26] MEDS: Albuterol/Iprat 2.5/0.5MG 3 ML AMPUL.NEB INHALE ×3 (06:30→14:03)
--- NOTE | 2025-09-26 07:48 | PC.NURSE ---
This Rn assumed care of patient @ 0700 Patient awake and alert eating his breakfast Patient here r/t recent fall with left hip fx +CMS in LLE IPC on and functioning Patient on thinners no abnormal bleeding noted Patient high fall risk, bed alarm on and functioning. Patient refused yellow socks but has yellow band on arm and socks at the end of the bed Patient denies pain at this time
--- NOTE | 2025-09-26 09:09 | MHC.CM.ED ---
Patient remains in ER overflow. Spoke with Mikayla from [facility]. Additional clinical updates sent. Hoping for approval today. Continue to monitor for d/c needs.
[2025-09-26] MEDS: oxyCODONE HCl Immed Release 15 MG TABLET PO (09:11)
[2025-09-26 09:52] LABS: Hematocrit 33.1 % (42.0-52.0); Hemoglobin 11.4 g/dl (14.0-18.0); Mean Corpuscular HGB Conc 34.4 g/dl (31.0-36.0); Mean Corpuscular Hemoglobin 32.1 pg (27.0-33.0); Mean Corpuscular Volume 93.2 fL (80.0-98.0); NRBC Abs Auto 0.000 X10*3/uL (0.0-0.012); NRBC Pct Auto 0.0 /100WBC (0.0-0.2); Platelet Count 256 X10*3/uL (160-400); Red Blood Count 3.55 X10*6/uL (4.60-5.80); White Blood Count 8.7 X10*3/uL (4.8-10.8)
--- NOTE | 2025-09-26 10:19 | PC.NURSE ---
Patient c/o left hip pain rated 10/10 +[facility] Patient medicated with oxy 15mg per MAR Patient wants to use bathroom Patient NWB, notified provider
--- NOTE | 2025-09-26 10:33 | PC.NURSE ---
Patient c/o constipation Administeredcolace per JAN, effectiveness pending Provider checked with ortho Patient NWB to left leg but can place weight on right leg Patient made aware
--- NOTE | 2025-09-26 13:31 | MHC.CM.ED ---
[facility] obtained [facility] approval. Patient can leave at 3pm. Vlad ALMONTE booked. [facility] with chart. Patient, Rodney LEON and Danae ROBERTS aware. Continue to monitor for d/c needs.
--- NOTE | 2025-09-26 16:12 | PC.NURSE ---
Spoke with Ratna MAJANON at [facility] Gave nurse to nurse report Transferred care to EMS PAtient currently enroute to facility
== END 2025-09-26 16:13 ==
PROVIDERS: Emergency Provider Emergency Medicine; PCP Internal Medicine
DX: S32.512A Fracture of superior rim of left pubis, initial encounter for closed fracture (principal); S32.592A Other specified fracture of left pubis, initial encounter for closed fracture; S32.402A Unspecified fracture of left acetabulum, initial encounter for closed fracture; I48.91 Unspecified atrial fibrillation; M50.30 Other cervical disc degeneration, unspecified cervical region; N18.30 Chronic kidney disease, stage 3 unspecified; R51.9 Headache, unspecified; M51.369 Other intervertebral disc degeneration, lumbar region without mention of lumbar back pain or lower extremity pain; R10.22 Pelvic and perineal pain left side; J44.9 Chronic obstructive pulmonary disease, unspecified; R26.81 Unsteadiness on feet; W10.8XXA Fall (on) (from) other stairs and steps, initial encounter; Y93.89 Activity, other specified; Y92.89 Other specified places as the place of occurrence of the external cause; Y99.8 Other external cause status; F42.3 Hoarding disorder; Z79.899 Other long term (current) drug therapy; Z91.148 Patient's other noncompliance with medication regimen for other reason; Z11.52 Encounter for screening for COVID-19; Z99.81 Dependence on supplemental oxygen
CPT/HCPCS: 36415; 70450; 71045; 72125; 72192; 73502; 80048; 80076; 81001; 81003; 82550; 83690; 83735; 84484; 85025; 85027; 85610; 86850; 86900; 86901; 87635; 93005; 94640; 96361; 96365; 97162; 99285; J0131; J1650; J7120

== ENCOUNTER → 2025-09-24 10:44 | Outpatient (BNV) | payer MEDICARE, MEDICAID, SELFPAY | PROVIDERS: Emergency Provider Emergency Medicine; PCP Internal Medicine; Visit Provider Internal Medicine Cardiovascular Disease | DX: I48.91 Unspecified atrial fibrillation (principal) | CPT/HCPCS: 93010 ==

== ENCOUNTER → 2025-09-24 10:44 | Outpatient (BNV) | payer MEDICARE, MEDICAID, SELFPAY | PROVIDERS: Emergency Provider Emergency Medicine; PCP Internal Medicine; Visit Provider Radiology Diagnostic Radiology | DX: S32.402A Unspecified fracture of left acetabulum, initial encounter for closed fracture (principal); S32.512A Fracture of superior rim of left pubis, initial encounter for closed fracture; S32.592A Other specified fracture of left pubis, initial encounter for closed fracture; M16.12 Unilateral primary osteoarthritis, left hip; M50.30 Other cervical disc degeneration, unspecified cervical region; S09.90XA Unspecified injury of head, initial encounter; W18.30XA Fall on same level, unspecified, initial encounter; Z04.3 Encounter for examination and observation following other accident; M47.814 Spondylosis without myelopathy or radiculopathy, thoracic region; M41.34 Thoracogenic scoliosis, thoracic region; I25.10 Atherosclerotic heart disease of native coronary artery without angina pectoris | CPT/HCPCS: 70450; 72125 ==

== ENCOUNTER 2025-10-22 14:05 | Outpatient (AMB) | payer MEDICARE, MEDICAID, SELFPAY ==
[2025-10-22 14:16] VITALS: BP 108/60; PULSE 84; RESP 16; O2SAT 98; BMI 33.1
--- NOTE | 2025-10-22 14:16 | A.OFFVIS_ITS ---
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 According to referral notes from primary care, it appears that this patient is in pursuit of reinstating his license. Referral notes reflect that the patient had been asking for help filling out paperwork for this though primary care did not feel they had enough information and the patient was subsequently referred to Neurology for further guidance. The patient tells me today that he is currently living in a rehab facility due to a hip injury. Prior to this he has been living home alone in a ?mobile home?. Reports from primary care reflect that the EMS had mentioned that the home was not fit to live in. The patient tells me that he lost his license while in [facility]. He was reportedly lost and pulled over in a parking lot to sleep. His license was revoked for what he feels was on unfair terms. 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 The patient also would like to take a delivery route driver's Ed course prior to taking this test. In terms of memory and management of his own affairs, he tells me that he manages his own finances, manage his own medications, and takes care of his own home. He tells me that for the majority of the day he watches TV as there was ?not much else to do? especially now that he is not driving. He denies any difficulty with remembering upcoming events, day-to-day tasks, or long-term memory. He feels that he is managing his own affairs at home quite well on his own. When asking about other medical conditions that may impact his ability to drive moving forward, he does have some concerns about his left hip pain and weakness associated with a recent injury. He also notes that he has cataracts in his right eye and he can not see in his right eye. He does report that his left eye is 2020 though he has not been seen by an bindery machine operator or other eye doctor in many years. [facility] Medical History Right knee pain Cough Right shoulder pain Primary osteoarthritis of shoulders, bilateral Benign essential hypertension COPD with exacerbation Shoulder pain COPD exacerbation Fatigue Adult general medical exam Cellulitis Encounter for Medicare annual wellness exam Prostate cancer screening Hyperglycemia Depression Viral syndrome COVID-19 Borderline diabetes mellitus Skin lesion Pain and swelling of right knee Nasal congestion Bronchitis Left foot pain COVID Diabetes mellitus Obesity (BMI 30-39.9) Anxiety Insomnia Chronic kidney disease (CKD), stage III (moderate) Pure hypercholesterolemia Erectile dysfunction Lumbar degenerative disc disease Primary osteoarthritis of both knees COPD (chronic obstructive pulmonary disease) Degenerative disc disease, cervical Surgical History Hx of total knee arthroplasty History of glaucoma History of trabeculectomy Family History Father Cancer Mother No problems noted. Social History Housing: House Alcohol intake: former Patient Tobacco Use Status: Former Tobacco user Tobacco use type: Cigar Years Smoked: 30 years e-Cigarette/Vaping Use: Never Used Second Hand Smoke Exposure: Yes service: Yes Current occupational status: retired Cognitive needs: No Hearing needs: No Vision needs: No Review of Systems Const All systems reviewed & are unremarkable except as noted in HPI and below Physical Exam Vital Signs: Last Vital Signs Pulse 84 10/22/25 14:16 Resp 16 10/22/25 14:16 BP 108/60 10/22/25 14:16 Pulse Ox 98 10/22/25 14:16 Oxygen Delivery Method Room Air 10/22/25 14:16 BMI result Body Mass Index 33.1 Const General: cooperative, healthy appearing, comfortable and no acute distress Nutritional Appearance: well nourished Orientation/consciousness: patient oriented x3 Limitations: no limitations HEENT Head: Yes normal to inspection and Yes normocephalic Eyes Visual Daniel: normal visual daniel by confrontation Alignment and Position: alignment normal Periorbital: periorbital findings normal Eyelids: Yes eyelids normal Conjunctivae: conjunctivae normal Sclerae: sclerae normal Neck Neck: Yes normal visual inspection and Yes full ROM Back/Spine/Pelvis Cervical Spine: normal cervical lordosis Thoracic/Lumbar Spine: thoracic and lumbar spine normal to inspection Neuro Other: MOCA: MOCA total: Executive:02/24 Namin/3 Attention:03/27 Language:23 Abstraction:22 Delayed recall:11/26 Orientation:04/27 General: patient oriented x3, tone normal and Unable to assess gait (Left hip injury. Pt in wheelchair ) Cranial nerves: Yes CN's II-XII intact bilaterally and Yes Facial sensation intact/muscles of mastication intact Cognition (Neuro): normal cognition Gait exam (Neuro): Unable to assess gait (Left hip injury. Pt in wheelchair ) Motor exam (neuro): no tremor noted and Abnormal motor strength present (Strength 5/5 aside from left hip 3/5 r/t pain) Sensory Exam: double simultaneous stimulation for sensation normal Deep tendon reflexes (DTR's): Right triceps reflex intensity grade: 1+, Left triceps reflex intensity grade: 1+, Rt Biceps (C5, C6): 1+, Left biceps reflex intensity grade: 1+, Right brachioradialis reflex intensity grade: 1+, Left brachioradialis reflex intensity grade: 1+, Right patellar reflex intensity grade: 1+, Left patellar reflex intensity grade: 1+, Right ankle reflex intensity grade: 1+ and Left ankle reflex intensity grade: 1+ Coordination: [id number] test normal Romberg Test: Negative Pupils: Normal pupillary reactivity/response: bilateral Psych Appearance: grossly normal Mental Status: mental status grossly normal Speech and movement: Normal speech and movement present and Clear speech present Affect: normal affect Attitude: cooperative Thought process: Normal thought process present Thought content: Normal thought content present Insight: Limited insight present (Psych) Judgement: Limited judgement present (Psych) Assessment & Plan Assessment & Plan (1) MCI (mild cognitive impairment): Code(s): G31.84 - Mild cognitive impairment of uncertain or unknown etiology Category: Medical Plan Long is an 85-year-old male patient with a past medical history osteoarthritis, hypertension, COPD, type 2 diabetes, depression, anxiety, and stage 3 kidney disease here today for a memory evaluation. Referred by primary care given patient's endeavor to reinstate his license. From a cognitive standpoint, he does technically fit criteria for mild cognitive impairment however his Drury score was 23/30 which is at the higher end of the cut off. He seems to have relatively good recall though I am concerned in regards to his insight and judgement of his abilities. He feels that he can manage his own affairs at home however it seems as though his home was described by emergency medical staff as not being fit to be lived in. This is concerning however there might be a psychiatric component. He also has some difficulty with being realistic in terms of his physical abilities and his driving such as his hip injury and right-sided vision loss. He does seem to acknowledge that he will need continued physical therapy and an eye exam before he can reasonably take a road test. I also am not well informed of the details surrounding his license being revoked in the 1st place and there is likely some reason involving his mental state at that time though I can not come to conclusions on this. I do think that there are many things that will impact his ability to drive aside from his cognitive functioning. From a cognitive standpoint he seems to do relatively well given his age and Drury score today. I do think that ophthalmology should weigh in regarding his vision and physical therapy should weigh in regarding his physical abilities. The patient would have to pass a road test. All things considered, it is hard to imagine this patient successfully and safely regaining his license. Orders: Orders Vitamin B12 10/22/25 G31.84 - Mild cognitive impairment of uncertain or unknown etiology TSH reflex Free T4 10/22/25 G31.84 - Mild cognitive impairment of uncertain or unknown etiology Coding Level of Care Code New Pt Level 4 (78426) Diagnoses MCI (mild cognitive impairment) G31.84
== END 2025-10-22 15:17 | disposition home or self-care (01) ==
LOC: HO.HSM 14:06
PROVIDERS: PCP Internal Medicine; Visit Provider Nurse Practitioner
DX: G31.84 Mild cognitive impairment of uncertain or unknown etiology (principal)
CPT/HCPCS: 99204

== ENCOUNTER → 2025-10-22 14:05 | Outpatient (BNVA) | payer MEDICARE, MEDICAID, SELFPAY | PROVIDERS: PCP Internal Medicine; Visit Provider Nurse Practitioner | DX: G31.84 Mild cognitive impairment of uncertain or unknown etiology (principal) | CPT/HCPCS: 99202 ==